=== PATIENT | male | born 1950 | race Caucasian/White ===

== ENCOUNTER 2019-06-21 23:04 | Emergency (ER) | payer MEDICARE, SELFPAY ==
[2019-06-21 23:08] VITALS: BP 194/93; PULSE 78; RESP 16; TEMP 36.6; O2SAT 98; BMI 36.2
[2019-06-22 00:52] VITALS: BP 184/91; PULSE 80; RESP 16; O2SAT 97
--- NOTE | 2019-06-22 01:00 | PC.NURSE ---
Pt's scrotum and penis is noted to be red and raw with no tenderness.
--- NOTE | 2019-06-22 01:05 | ED_ITS ---
HPI - Male Genitourinary General: Chief complaint: Urogenital-Male Stated complaint: GENITAL SWELLING/BURNING Time Seen by Provider: 06/22/19 00:33 History of Present Illness: HPI Narrative: patient had redness and tenderness on the skin of the penis. It started a couple weeks ago when patient developed a UTI. It was treated with an antibiotic and patient symptoms did improve. States his frequency has improved after being treated for UTI but he has develo ped this red irritation on the skin. Patient states he's been applying several creams to the area that doesn't seem to be helping. Patient also says that he puts paper towels in his underwear to catch some of the dribbling and keeps genital area dry. Patient says since he started placing the paper towels in the underwear it has got worse. Denies any discharge but patient says area is red and tender and irritated. Denies any fever, chills, flank pain, abdominal pain, nausea, vomiting, chest pain, shortness of breath, upper respiratory symptoms, blood in the urine or bowel issues. Review of Systems General: Reports: 10 or more systems reviewed and unremarkable except in HPI and below PFSH ED PFSH: Statuses (acute, chronic, etc) shown below reflect problem list status as previously entered and may not be historically accurate Social History Smoking and tobacco status: never smoked Physical Exam Const: COMMON NORMALS: oriented x3 HENMT: COMMON NORMALS: normocephalic HEAD & SCALP: normocephalic MOUTH: oral and palatal mucosa normal THROAT: posterior oropharynx normal and uvula midline Neck/C-Spine: COMMON NORMALS: supple GENERAL: Yes normal visual inspection Resp: COMMON NORMALS: normal respiratory effort, no retractions, no use of accessory muscles and clear to auscultation bilaterally AUSCULTATION: clear to auscultation bilaterally Cardio: COMMON NORMALS: regular rate, regular rhythm, S1 normal heart sound, S2 normal heart sound, no gallops, no clicks, no murmurs and peripheral pulses 2+ throughout RATE: regular rate RHYTHM: regular rhythm HEART SOUNDS: S1 normal and S2 normal PERIPHERAL PULSES: pulses 2+ throughout GI: COMMON NORMALS: normal to inspection, nondistended, normoactive bowel sounds, soft to palpation, non-tender and no masses PALPATION: Yes soft : COMMON NORMALS: Yes no CVA tenderness BLADDER/KIDNEY EXAM: Yes no CVA tenderness MALE GROIN/PERINEUM EXAM: Yes erythema, No lesions and Yes tenderness (Mild tenderness and erythema of the glans penis and shaft. ) PENIS: circumcised, erythematous, no ulcerations and No lesions Back/Pelvis: COMMON NORMALS: no CVA tenderness Neuro: COMMON NORMALS: oriented x3 Course Vital Signs: Vital signs: Vital Signs Temperature 98 F 06/21/19 23:08 Pulse Rate 65 06/22/19 02:41 Respiratory Rate 16 06/22/19 02:41 Blood Pressure 146/62 06/22/19 02:41 Pulse Oximetry 96 06/22/19 02:41 MDM - Male Lab Data: Labs: Lab Results 06/22/19 Range/Units 00:34 Urine Color Yellow (Yellow) Urine Appearance Clear (CLEAR) Urine pH 5 (5-7) Ur Specific Gravit y 1.015 (1.005-1.030) Urine Protein Neg (Negative) Urine Glucose (UA) 4+ H (Normal) Urine Ketones Negative (Negative) Urine Occult Blood Neg (Negative) Urine Nitrate Negative (Negative) Urine Bilirubin Neg (NEGATIVE) Urine Urobilinogen Norm (Negative) mg/dL Ur Leukocyte Pina ase Negative (Negative) Discharge Plan Discharge Patient Disposition: Home, Self-Care Clinical Impression: Balanitis Condition: Good Prescriptions: New Cortisone (hydrocortisone) 1 % cream 1 applic TOPICAL BID Qty: 28 RF: 0 Discharge Orders: Discharge Order (Routine); Ordered 06/22/19 Ordered By: Jd Pierre Referrals: Lily Osorio, [employer] [Primary Care Provider] - Discharge Diet: Regular Discharge Activity: Resume usual activity Activity Restrictions/Additional Instructions: Follow-up with your primary care doctor in 7 days for reevaluation. Apply prescribed steroid cream 1-2 times daily for the next 7 days. Do not apply any other creams or ointments to the genital area. Also do not use paper towels and the genitals area as well. Do not apply any other moisturizers to the genital area. Discharge Date/Time: 06/22/19 02:47 Coding Level of Care Code ED Concession Supervisor for Thang Mejia
[2019-06-22 02:13] VITALS: BP 161/78; PULSE 66; RESP 16; O2SAT 94
[2019-06-22 02:13] LABS: Add Urine Microscopic? NO
[2019-06-22 02:30] LABS: Blood Urine Neg (Negative); Ketones Urine Negative (Negative); Nitrate Urine Negative (Negative); Protein Urine Neg (Negative); Specific Gravity, Urine 1.015 (1.005-1.030); Urine Appearance Clear (CLEAR); Urine Color Yellow (Yellow); pH Urine 5 (5-7)
[2019-06-22 02:31] LABS: Add Urine Culture? No; Bilirubin Urine Neg (NEGATIVE); Glucose Urine UA 4+ (Normal); Leukocyte Esterase Urine Negative (Negative); Urobilinogen Urine Norm (Negative)
[2019-06-22 02:41] VITALS: BP 146/62; PULSE 65; RESP 16; O2SAT 96
== END 2019-06-22 02:47 | disposition home or self-care (01) ==
PROVIDERS: Emergency Provider Physician Assistant; Family Provider Nurse Practitioner; PCP Nurse Practitioner
DX: N48.1 Balanitis (principal)
CPT/HCPCS: 81003; 99282

== ENCOUNTER → 2019-06-24 14:07 | Outpatient (BNVA) | payer MEDICARE, SELFPAY | PROVIDERS: Family Provider Nurse Practitioner; PCP Nurse Practitioner; Visit Provider Nurse Practitioner Family | DX: R21 Rash and other nonspecific skin eruption (principal); E11.9 Type 2 diabetes mellitus without complications | CPT/HCPCS: 83036 ==

== ENCOUNTER → 2020-03-16 17:08 | Outpatient (BNVA) | payer MEDICARE, SELFPAY | PROVIDERS: Family Provider Nurse Practitioner; PCP Nurse Practitioner; Visit Provider Family Medicine | DX: R30.0 Dysuria (principal) | CPT/HCPCS: 80053; 87086 ==

== ENCOUNTER 2020-05-03 11:28 | Inpatient (IN) | payer MEDICARE, SELFPAY ==
[2020-05-03 11:43] VITALS: BMI 35.2
--- NOTE | 2020-05-03 12:30 | W.ED.SKABFB ---
Documented by User: BRINA Chan 05/03/20 16:55 HPI - Skin/Abscess/Foreign Bdy General: Chief complaint: Skin/Abscess/Foreign Body Stated complaint: INFECTION IN LOWER RIGHT SIDE OF ABD Time Seen by Provider: 05/03/20 11:58 History of Present Illness: HPI narrative: Patient is a 70-year-old male who comes to the ED with possible abscess on lower abdomen. Patient says abscess started a couple months ago and it was just small, tender and red area that had a pugh. Then increased in size and patient saw his PCP and put him on doxycycline. He says that the doxycycline was helping the abscess and trunk the size of it down significantly. Patient says he did not finish doxycycline course because he heard some negative side effects about the medication. He says after he stopped taking doxycycline over the past month the abscess is gotten bigger and bigger again. He says that he has lost over 100 pounds over the past couple years and has extra skin in his lower abdomen and he thinks that is what caused start of abscess. Endorses having a fever within the last month but currently does not. Associated symptoms: Deny chills, fever(s), nausea or vomiting Review of Systems Const: Denies: fever(s), chills or fatigue Eyes: Denies: change in vision or eye discomfort ENMT: Denies: throat pain, odynophagia, nasal discharge or nasal congestion Card: Denies: chest pain, palpitations, edema, swelling of feet/ankles, dyspnea on exertion or orthopnea Resp: Denies: dyspnea, productive cough or non-productive cough GI: Denies: abdominal pain, nausea, vomiting, diarrhea, constipation or hematochezia : Denies: flank pain, difficulty urinating, dysuria or hematuria Musc: Denies: neck pain, back pain or extremity swelling Skin/Breast: Reports: erythema (Lower abdomen), skin tenderness (Lower abdomen.) and new lesions (Abscess in lower abdomen.); Denies: rash Neuro: Denies: headache(s), numbness in extremities or weakness in extremities PFS ED PFSH: Medical History DDD (degenerative disc disease) Diabetes Refusal of statin medication by patient Short-term memory loss Surgical History History of hernia repair Family History Other Diabetes Social History Smoking and tobacco status: never smoked Alcohol intake: never Substance/Drug Use: never Lives independently: Yes Household members: none Marital status: Current 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 Pets and animals: Yes Physical Exam Const: COMMON NORMALS: no acute distress, patient oriented x3, healthy appearing and alert GENERAL APPEARANCE: cooperative and comfortable HENMT: COMMON NORMALS: normocephalic HEAD & SCALP: normocephalic MOUTH: Normal oral and palatal mucosa present THROAT: posterior oropharynx normal and uvula midline Neck/C-Spine: COMMON NORMALS: supple GENERAL: Yes normal visual inspection Resp: COMMON NORMALS: normal respiratory effort, No retractions, No use of accessory muscles and clear to auscultation bilaterally AUSCULTATION: clear to auscultation bilaterally Cardio: COMMON NORMALS: regular rate, regular rhythm, S1 normal heart sound present, S2 normal heart sound present, No gallops present (Cardio), No clicks present (Cardio), No murmurs present (Cardio) and Peripheral pulses 2+ throughout RATE: regular rate RHYTHM: regular rhythm HEART SOUNDS: S1 normal heart sound present and S2 normal heart sound present PERIPHERAL PULSES: Peripheral pulses 2+ throughout GI: COMMON NORMALS: Normal to inspection, nondistended, normoactive bowel sounds present, Soft to palpation and no masses INSPECTION: Yes central obesity and Yes Abdominal panniculus present PALPATION: Yes Soft to palpation and Yes Tenderness to palpation present (GI) (Lower abdominal tenderness when palpating over abscess region.) OTHER: Patient has large, hard, tender 15 cm nodule that is fluctuant and not indurated. There is surrounding erythema and warmth. No visible drainage. This appears to be a rather large abscess in the lower abdomen. : COMMON NORMALS: Yes no CVA tenderness BLADDER/KIDNEY EXAM: Yes no CVA tenderness Back/Pelvis: COMMON NORMALS: no CVA tenderness Extremity: COMMON NORMALS: normal to inspection and no pedal edema Neuro: COMMON NORMALS: patient oriented x3 and moves all extremities SENSORIUM/ORIENTATION: Yes alert Skin: NARRATIVE SKIN EXAM: Patient has large, hard, tender 20 cm nodule that is fluctuant and not indurated. There is surrounding erythema and warmth. No visible drainage. This appears to be a rather large abscess in the lower abdomen. Course ED course: I performed an bedside ultrasound to take a look at abscess. There appeared to be a large fluid pocket upon ultrasound exam. Abscess seems to large to be dealt with here in the ED. I went in and discussed case with Dr. Hess and he came in evaluated abscess as well. He recommended starting IV vancomycin and getting an ultrasound of the abdomen to get a better evaluation of abscess. CT of abdomen was also ordered and it showed a 10 x 5 subcutaneous fluid collection on anterior right pelvic wall and right inguinal region. Possibly abscess hematoma or seroma. I told Dr. Hess about findings and he will be contacting hospitalist for patient to be admitted on IV antibiotics and likely general surgery consult. Vital Signs: Vital signs: Vital Signs Temperature 98.2 F 05/03/20 21:01 Pulse Rate 84 05/03/20 21:01 Respiratory Rate 18 05/03/20 21:01 Blood Pressure 134/72 05/03/20 21:01 Pulse Oximetry 97 05/03/20 21:01 MDM - Skin/Abscess/Foreign Bdy Lab Data: Attestation: I reviewed the patient's lab results. Labs: Lab Results 05/03/20 05/03/20 05/03/20 Range/Units 12:06 12:06 12:06 WBC 12.7 H (4.0-10.0) 10^3/ uL RBC 4.59 (4.1-5.3) 10^6/u L Hgb 14.5 (11.7-16.6) g/dL Hct 42.9 (42.0-52.0) % MCV 93.5 (80-94) fL MCH 31.6 (28.0-34.0) pg MCHC 33.8 (30.0-36.0) g/dL RDW 11.4 L (12.1-15.1) % Plt Count 337 (130-400) 10^3/c mm MPV 9.8 (7.4-10.4) fL Neut % (Auto) 86.5 % Lymph % (Auto) 6.2 % [place] % (Auto) 6.1 % Eos % (Auto) 0.5 % Baso % (Auto) 0.3 % Neut # (Auto) 11.01 H (1.8-7.7) 10^3/u L Lymph # (Auto) 0.8 (0.8-4.8) 10^3/u L [place] # (Auto) 0.8 (0.2-0.9) 10^3/u L Eos # (Auto) 0.1 (0.0-0.8) 10^3/u L Baso # (Auto) 0.0 (0.0-0.1) 10^3/u L Nucleated RBC % (a uto) 0 % Nucleated RBCs # 0.0 /100WBC Sodium 128 L (136-145) mmol/L Potassium 4.2 (3.5-5.1) mmol/L Chloride 92 L (98-107) mmol/L Carbon Dioxide 25 (22-29) mmol/L Anion Gap 15.2 (5-19) BUN 16 (8-23) mg/dL Creatinine 0.7 (0.7-1.2) mg/dL GFR Calculation Not Reportable Glucose 318 H (65-115) mg/dL Calculated Osmolal ity 279 L (285-295) mOsm/k g Lactic Acid 1.2 (0.5-2.2) mmol/L Calcium 8.7 (8.5-10.5) mg/dL Total Bilirubin 0.8 (0.15-1.2) mg/dL AST 8 (0-40) U/L ALT 7 (0-41) U/L Alkaline Phosphata se 96 (40-130) IU/L C-Reactive Protein 141.5 H (0.0-4.9) mg/L Total Protein 7.1 (6.6-8.7) g/dL Albumin 3.5 (3.5-5.2) g/dL Globulin 3.6 (1.3-4.6) g/dL Imaging Data^: US: Attestation: I personally reviewed and interpreted this imaging study as follows: Radiologist's impression: [address] [address] Ultrasound Report Signed Patient: Justice Guardado Unit #: [id number] : 1950 Age/Sex: 70 / M ADM Date: 05/03/20 Loc: ER Room/Bed: Attending Dr: Ordering Provider/Ordering MD: Jd Pierre Date of Service: 05/03/20 Procedure(s): US abdomen limited [id number] Accession Number(s): [id number] Report Number: [id number] WS: [id number] Limited abdomen ultrasound. HISTORY: Abscess lower abdominal wall. Ultrasound is directed to the lower RIGHT abdominal wall in the area of the redness and erythema. There is an ill-defined collection within the subcutaneous soft tissues of the RIGHT lower abdominal wall. This collection extends over length of 7.5 cm x 9.4 x 3.7 cm. The burkett are irregularly formed and there are low level echoes throughout with only a few scattered cystic areas within this collection. The burkett are ill-defined. US/US abdomen limited [id number] IMPRESSION: 1. Large phlegmonous inflammatory collection in the subcutaneous soft tissues RIGHT lower abdomen. Not well formed at this time to suggest an abscess. Dictated By: Meliza Mcnulty DO Signed By: Meliza Mcnulty DO Signed Date/Time: 05/03/20 1452 DD/ 1450 CT Abd/Pel: Attestation: I personally reviewed and interpreted this imaging study as follows: Radiologist's impression: [address] [address] [address] Scan Report Signed Patient: Justice Guardado Unit #: [id number] : 1950 Age/Sex: 70 / M ADM Date: 05/03/20 Loc: ER Room/Bed: Attending Dr: Ordering Provider/Ordering MD: Jd Pierre Date of Service: 05/03/20 Procedure(s): CT abdomen pelvis w con* [id number] Accession Number(s): [id number] Report Number: [id number] WS: [id number] Exam: CT abdomen pelvis w con* [id number] Date/Time of Exam: 05/03/2020 4:23 PM Reason For Exam: abscess in abdomen DLP: 1805.[address] scans at use at least one of these dose optimization techniques: automated exposure control; mA and/or kV adjustment per patient size (includes targeted exams where dose is matched to clinical indication); or iterative reconstruction. Lower lung zones are clear. There are 2 subcentimeter low attenuation densities in the right lobe of the liver that are too small to characterize but could represent tiny cysts. The liver is otherwise normal in appearance. No calcified stones in the gallbladder. The spleen, stomach and pancreas appear normal. There is a 2.3 cm left renal cyst. There are also at least 2 other subcentimeter cysts in the left kidney. Normal right kidney. Normal adrenal glands. The abdominal aorta is normal in caliber. The portal vein and IVC are patent. Small bowel loops are not dilated. No free air. No lymphadenopathy. Normal appendix visualized. Several scattered diverticuli in the sigmoid colon. No mass or adenopathy in the pelvis. Intact urinary bladder. A 10 x 5.5 cm complex septated soft tissue fluid collection is seen in the anterior right pelvic wall in the right inguinal region. This could represent an abscess, hematoma or seroma. There is also skin thickening and inflammation in this region suggesting cellulitis. There is also a tiny periumbilical ventral hernia which appears to contain a small amount of fluid. Signs of previous ventral hernia repair. No destructive bone lesions. CT/CT abdomen pelvis w con* [id number] IMPRESSION: 1. 10 x 5.5 cm complex septated subcutaneous fluid collection in the anterior right pelvic wall in the right inguinal region. The collection measures 21 Hounsfield units. This could represent an abscess, hematoma or seroma. There is associated cellulitis of the right and central abdominal wall in this region. The fluid collection is in a large panniculus. 2. No mass, lymphadenopathy or acute finding within the abdomen or pelvis. Additional minor findings as above. Dictated By: Rufino Mar DO Signed By: Rufino Mar DO Signed Date/Time: 05/03/20 1644 DD/ 1632 Discharge Plan Discharge Patient Disposition: Admitted As Inpatient Admit Provider: London Miguel Sign Out Sign Out Data: Patient Sign Out occurred on 05/03/20 at 17:15. Patient's care was discussed, and care was transferred from to GUILLERMO Acevedo. Coding Level of Care Code ED Precision Instrument Maker And Repairer for Chg Fwd Exam Comprehensive Documented by User: GUILLERMO Acevedo 05/03/20 19:18 HPI - Skin/Abscess/Foreign Bdy General: Chief complaint: Skin/Abscess/Foreign Body Stated complaint: INFECTION IN LOWER RIGHT SIDE OF ABD Time Seen by Provider: 05/03/20 11:58 PFSH ED PFSH: Medical History DDD (degenerative disc disease) Diabetes Refusal of statin medication by patient Short-term memory loss Surgical History History of hernia repair Family History Other Diabetes Social History Smoking and tobacco status: never smoked Alcohol intake: never Substance/Drug Use: never Lives independently: Yes Household members: none Marital status: Current 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 Pets and animals: Yes Course Vital Signs: Vital signs: Vital Signs Temperature 98.2 F 05/03/20 21:01 Pulse Rate 84 05/03/20 21:01 Respiratory Rate 18 05/03/20 21:01 Blood Pressure 134/72 05/03/20 21:01 Pulse Oximetry 97 05/03/20 21:01 MDM - Skin/Abscess/Foreign Bdy Lab Data: Labs: Lab Results 05/03/20 05/03/20 05/03/20 Range/Units 12:06 12:06 12:06 WBC 12.7 H (4.0-10.0) 10^3/ uL RBC 4.59 (4.1-5.3) 10^6/u L Hgb 14.5 (11.7-16.6) g/dL Hct 42.9 (42.0-52.0) % MCV 93.5 (80-94) fL MCH 31.6 (28.0-34.0) pg MCHC 33.8 (30.0-36.0) g/dL RDW 11.4 L (12.1-15.1) % Plt Count 337 (130-400) 10^3/c mm MPV 9.8 (7.4-10.4) fL Neut % (Auto) 86.5 % Lymph % (Auto) 6.2 % [place] % (Auto) 6.1 % Eos % (Auto) 0.5 % Baso % (Auto) 0.3 % Neut # (Auto) 11.01 H (1.8-7.7) 10^3/u L Lymph # (Auto) 0.8 (0.8-4.8) 10^3/u L [place] # (Auto) 0.8 (0.2-0.9) 10^3/u L Eos # (Auto) 0.1 (0.0-0.8) 10^3/u L Baso # (Auto) 0.0 (0.0-0.1) 10^3/u L Nucleated RBC % (a uto) 0 % Nucleated RBCs # 0.0 /100WBC Sodium 128 L (136-145) mmol/L Potassium 4.2 (3.5-5.1) mmol/L Chloride 92 L (98-107) mmol/L Carbon Dioxide 25 (22-29) mmol/L Anion Gap 15.2 (5-19) BUN 16 (8-23) mg/dL Creatinine 0.7 (0.7-1.2) mg/dL GFR Calculation Not Reportable Glucose 318 H (65-115) mg/dL Calculated Osmolal ity 279 L (285-295) mOsm/k g Lactic Acid 1.2 (0.5-2.2) mmol/L Calcium 8.7 (8.5-10.5) mg/dL Total Bilirubin 0.8 (0.15-1.2) mg/dL AST 8 (0-40) U/L ALT 7 (0-41) U/L Alkaline Phosphata se 96 (40-130) IU/L C-Reactive Protein 141.5 H (0.0-4.9) mg/L Total Protein 7.1 (6.6-8.7) g/dL Albumin 3.5 (3.5-5.2) g/dL Globulin 3.6 (1.3-4.6) g/dL Discharge Plan Discharge Patient Disposition: Admitted As Inpatient Admit Provider: London Miguel Sign Out Sign Out Data: Patient Sign Out occurred on 05/03/20 at 17:15. Patient's care was discussed, and care was transferred from to GUILLERMO Acevedo. Coding Level of Care Code ED Precision Instrument Maker And Repairer for Chg Fwd Exam Comprehensive Documented by User: Elmer Hess MD, [facility] [place] 05/04/20 00:42 HPI - Skin/Abscess/Foreign Bdy General: Chief complaint: Skin/Abscess/Foreign Body Stated complaint: INFECTION IN LOWER RIGHT SIDE OF ABD Time Seen by Provider: 05/03/20 11:58 PFSH ED PFSH: Medical History DDD (degenerative disc disease) Diabetes Refusal of statin medication by patient Short-term memory loss Surgical History History of hernia repair Family History Other Diabetes Social History Smoking and tobacco status: never smoked Alcohol intake: never Substance/Drug Use: never Lives independently: Yes Household members: none Marital status: Current 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 I evaluated this patient and he has a pretty large area of induration on his right lower abdominal wall extending to the inguinal region. The area is erythematous, warm, tender. No fluctuance noted. Area measures about 10 x 15 cm. Because of the size of the abscess the patient will need surgical exploration and he is admitted to the hospitalist service with consult by the general surgeon. He was started on intravenous vancomycin in the emergency department. No signs of sepsis in this gentleman. He is a prediabetic according to him. Lab Data: Labs: Lab Results 05/03/20 05/03/20 05/03/20 Range/Units 12:06 12:06 12:06 WBC 12.7 H (4.0-10.0) 10^3/ uL RBC 4.59 (4.1-5.3) 10^6/u L Hgb 14.5 (11.7-16.6) g/dL Hct 42.9 (42.0-52.0) % MCV 93.5 (80-94) fL MCH 31.6 (28.0-34.0) pg MCHC 33.8 (30.0-36.0) g/dL RDW 11.4 L (12.1-15.1) % Plt Count 337 (130-400) 10^3/c mm MPV 9.8 (7.4-10.4) fL Neut % (Auto) 86.5 % Lymph % (Auto) 6.2 % [place] % (Auto) 6.1 % Eos % (Auto) 0.5 % Baso % (Auto) 0.3 % Neut # (Auto) 11.01 H (1.8-7.7) 10^3/u L Lymph # (Auto) 0.8 (0.8-4.8) 10^3/u L [place] # (Auto) 0.8 (0.2-0.9) 10^3/u L Eos # (Auto) 0.1 (0.0-0.8) 10^3/u L Baso # (Auto) 0.0 (0.0-0.1) 10^3/u L Nucleated RBC % (a uto) 0 % Nucleated RBCs # 0.0 /100WBC Sodium 128 L (136-145) mmol/L Potassium 4.2 (3.5-5.1) mmol/L Chloride 92 L (98-107) mmol/L Carbon Dioxide 25 (22-29) mmol/L Anion Gap 15.2 (5-19) BUN 16 (8-23) mg/dL Creatinine 0.7 (0.7-1.2) mg/dL GFR Calculation Not Reportable Glucose 318 H (65-115) mg/dL Calculated Osmolal ity 279 L (285-295) mOsm/k g Lactic Acid 1.2 (0.5-2.2) mmol/L Calcium 8.7 (8.5-10.5) mg/dL Total Bilirubin 0.8 (0.15-1.2) mg/dL AST 8 (0-40) U/L ALT 7 (0-41) U/L Alkaline Phosphata se 96 (40-130) IU/L C-Reactive Protein 141.5 H (0.0-4.9) mg/L Total Protein 7.1 (6.6-8.7) g/dL Albumin 3.5 (3.5-5.2) g/dL Globulin 3.6 (1.3-4.6) g/dL Discharge Plan Discharge Patient Disposition: Admitted As Inpatient Admit Provider: London Miguel Sign Out Sign Out Data: Patient Sign Out occurred on 05/03/20 at 17:15. Patient's care was discussed, and care was transferred from to GUILLERMO Acevedo. Coding Level of Care Code ED Precision Instrument Maker And Repairer for g Fwd Exam Comprehensive
[2020-05-03 12:31] LABS: Basophils % 0.3 %; Eosinophils # 0.1 10^3/uL (0.0-0.8); Eosinophils % 0.5 %; Hematocrit 42.9 % (42.0-52.0); Hemoglobin 14.5 g/dL (11.7-16.6); Lymphocytes # 0.8 10^3/uL (0.8-4.8); Lymphocytes % 6.2 %; Mean Corpuscular HGB Conc 33.8 g/dL (30.0-36.0); Mean Corpuscular Hemoglobin 31.6 pg (28.0-34.0); Mean Corpuscular Volume 93.5 fL (80-94); Mean Platelet Volume 9.8 fL (7.4-10.4); Monocytes # 0.8 10^3/uL (0.2-0.9); Monocytes % 6.1 %; Neutrophils # 11.01 10^3/uL (1.8-7.7); Neutrophils % 86.5 %; Nucleated Red Blood Cells % 0 %; Platelet Count 337 10^3/cmm (130-400); Red Blood Count 4.59 10^6/uL (4.1-5.3); Red Cell Distribution Width 11.4 % (12.1-15.1); White Blood Count 12.7 10^3/uL (4.0-10.0)
[2020-05-03 12:42] LABS: Alanine Aminotransferase 7 U/L (0-41); Albumin Level 3.5 g/dL (3.5-5.2); Alkaline Phosphatase 96 IU/L (40-130); Aspartate Amino Transferase 8 U/L (0-40); Blood Urea Nitrogen 16 mg/dL (8-23); C Reactive Protein 141.5 mg/L (0.0-4.9); Calcium 8.7 mg/dL (8.5-10.5); Carbon Dioxide 25 mmol/L (22-29); Chloride 92 mmol/L (98-107); Globulin 3.6 g/dL (1.3-4.6); Glucose 318 mg/dL (65-115); Osmolality Calculated 279 mOsm/kg (285-295); Sodium 128 mmol/L (136-145); Total Bilirubin 0.8 mg/dL (0.15-1.2); Total Protein 7.1 g/dL (6.6-8.7)
[2020-05-03 12:43] LABS: Lactic Sepsis W/Reflex 1.2 mmol/L (0.5-2.2)
[2020-05-03 12:45] LABS: Anion Gap 15.2 (5-19); Potassium 4.2 mmol/L (3.5-5.1)
--- NOTE | 2020-05-03 12:51 | US_ITS ---
WS: [id number] Limited abdomen ultrasound. HISTORY: Abscess lower abdominal wall. Ultrasound is directed to the lower RIGHT abdominal wall in the area of the redness and erythema. There is an ill-defined collection within the subcutaneous soft tissues of the RIGHT lower abdominal wall. This collection extends over length of 7.5 cm x 9.4 x 3.7 cm. The burkett are irregularly formed and there are low level echoes throughout with only a few scattered cystic areas within this collecti on. The burkett are ill-defined. US/US abdomen limited [id number] IMPRESSION: 1. Large phlegmonous inflammatory collection in the subcutaneous soft tissues R IGHT lower abdomen. Not well formed at this time to suggest an abscess.
[2020-05-03] MEDS: sodium chloride 0.9% 500 ML IV (13:40)
[2020-05-03] MEDS: vancomycin 1,500 MG/300 ML PIGGYBACK 150 MG IV (13:40)
[2020-05-03 14:05] VITALS: BP 162/92; O2SAT 98
--- NOTE | 2020-05-03 15:10 | CT_ITS ---
WS: [id number] Exam: CT abdomen pelvis w con* [id number] Date/Time of Exam: 05/03/2020 4:23 PM Reason For Exam: abscess in abdomen DLP: 1805.[address] scans at [facility] use at least one of these dose optimization techniques: automat ed exposure control; mA and/or kV adjustment per patient size (includes targeted exams where dose is matched to clinical indication); or iterative reconstruction. Lower lung zones are clear. There are 2 subcentimeter low attenuation densities in the right lobe of the liver that are too small to characterize but could represent tiny cysts. The liver is otherwise n ormal in appearance. No calcified stones in the gallbladder. The spleen, stomach and pancreas appear normal. There is a 2.3 cm left renal cyst. There are also at least 2 other subcentimeter cysts in the left kidney. Normal right kidney. Normal adrenal glands. The abdominal aorta is normal in caliber. T he portal vein and IVC are patent. Small bowel loops are not dilated. No free air. No lymphadenopathy . Normal appendix visualized. Several scattered diverticuli in the sigmoid colon. No mass or adenopat hy in the pelvis. Intact urinary bladder. A 10 x 5.5 cm complex septated soft tissue fluid collection is seen in the anterior right pelvic wall in the right inguinal region. This could represent an absc ess, hematoma or seroma. There is also skin thickening and inflammation in this region suggesting keven lulitis. There is also a tiny periumbilical ventral hernia which appears to contain a small amount of fluid. Signs of previous ventral hernia repair. No destructive bone lesions. CT/CT abdomen pelvis w con* [id number] IMPRESSION: 1. 10 x 5.5 cm complex septated subcutaneous fluid collection in the anterior r ight pelvic wall in the right inguinal region. The collection measures 21 Houns field units. This could represent an abscess, hematoma or seroma. There is asso ciated cellulitis of the right and central abdominal wall in this region. The f luid collection is in a large panniculus. 2. No mass, lymphadenopathy or acute finding within the abdomen or pelvis. Abdiel tional minor findings as above.
[2020-05-03] MEDS: iohexol 300 mg/mL 100 mL Btl IV (16:24)
[2020-05-03 17:12] VITALS: BP 143/82; O2SAT 98
[2020-05-03 17:16] VITALS: PULSE 87; RESP 18; TEMP 36.9; O2SAT 97
--- NOTE | 2020-05-03 18:26 | PC.NURSE ---
pt report called to Cynthia EMERY in SBAR format.
--- NOTE | 2020-05-03 19:44 | P.HP_ITS ---
Providers/Chief Complaint Admitting Physician: London Miguel Primary Care Provider: Lily Osorio, PACO-Jessica Chief Complaint: INFECTION IN LOWER RIGHT SIDE OF ABD History of Present Illness 70-year-old gentleman with history of diabetes, taking Metformin at home, but discontinued it for some time due to concern about the medication expressed by his friend who is a tobacco prevention health educator, noted for several weeks developing redness and swelling of the right side of his pannus and under the pannus. He had lost quite significant amount of weight, and has quite a bit of excess skin with a large pannus, and states has had some predisposition to infection developing underneath. He states that he had taken 10 days of antibiotic which appears to be ciprofloxacin, prescribed to him by outpatient physician, and without resolution of his symptoms. In ER noted erythema of the right side of the abdomen and the edge and under the pannus, and with central area of swelling, with noted large phlegmonous inflammatory collection in the subcutaneous soft tissues of the right lower abdomen, on ultrasound, reported not well formed. CT scan reveals 10 x 5.5 cm complex septated subcutaneous fluid collection in anterior right pelvic wall in right inguinal region, collection representing ab scess hematoma or seroma. Associated cellulitis of right and central abdominal wall in the region. The collection is in a large pannus. 2 additional incidental findings are noted. He denies any direct trauma to the abdomen. 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 The son does state that he may have gotten a scratch from a kitten on the right side of the abdomen sometime before the onset of symptoms. He does report history of abdominal hernia repair with mesh done by Dr. Donohue in the past. He is noted to have leukocytosis 12.7, but otherwise he is not tachycardic or febrile to suggest sepsis. Noted elevated glucose 318, noted hyponatremia sodium 128. CRP 141.5. In ER he received a dose of vancomycin after collection of blood cultures. Surgery was consulted for assessment for I&D. Review of Systems General: Reports: Other (He states he otherwise has been in baseline state of health.) Const: Denies: fever(s), chills, body aches or malaise Eyes: Denies: change in vision or eye redness ENMT: Denies: throat pain, oral sores or ear or mastoid pain Card: Denies: chest pain, edema, pre-syncope or dyspnea on exertion Resp: Denies: dyspnea, productive cough, change in phlegm color or hemoptysis GI: Denies: abdominal pain, nausea, vomiting, diarrhea, constipation, hematochezia or melena : Denies: flank pain, difficulty urinating, urinary frequency or hematuria Musc: Denies: back pain, joint swelling or joint redness Skin/Breast: Reports: rash and skin swelling; Denies: sores or new lesions Neuro: Denies: headache(s), numbness in extremities, weakness in extremities, dizziness, confusion or seizure-like activity Endo: Denies: polyuria or polydipsia Tevin/Lymph: Denies: easy bleeding or purpura All/Imm: Denies: urticaria, throat swelling or tongue swelling Medications/Allergies Home Medications Medication Instructions Recorded Confirmed Last Taken Type metformin 500 mg tablet 1,000 mg PO BID #120 tab 03/16/20 05/03/20 05/02/20 Rx Allergies Allergy/AdvReac Type Severity Reaction Status Date / Time No Known Allergies Allergy Verified 05/03/20 12:31 PFSH Acute PFSH: Medical History DDD (degenerative disc disease) Diabetes Refusal of statin medication by patient Short-term memory loss Surgical History History of hernia repair Family History Other Diabetes Social History Smoking and tobacco status: never smoked Alcohol intake: never Substance/Drug Use: never Lives independently: Yes Household members: none Marital status: Current 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 Pets and animals: Yes Vitals/I&O/Wt Last Vital Signs Temp 98.4 F 05/03/20 17:16 Pulse 87 05/03/20 17:16 Resp 18 05/03/20 17:16 BP 143/82 05/03/20 17:12 Pulse Ox 97 05/03/20 17:16 Weight last 48 hrs Weight 117.934 kg Physical Exam Const: COMMON NORMALS: no acute distress, patient oriented x3 and alert GENERAL APPEARANCE: cooperative NUTRITIONAL APPEARANCE: obese ORIENTATION/CONSCIOUSNESS: Yes awake OTHER: Pleasant, conversant. Son at bedside. HENMT: COMMON NORMALS: oropharynx normal Neck/C-Spine: COMMON NORMALS: no JVD Resp: COMMON NORMALS: normal respiratory effort and clear to auscultation bilaterally AUSCULTATION: clear to auscultation bilaterally Cardio: COMMON NORMALS: no JVD, regular rhythm, S1 normal heart sound present, S2 normal heart sound present and No murmurs present (Cardio) RHYTHM: regular rhythm HEART SOUNDS: S1 normal heart sound present and S2 normal heart sound present GI: COMMON NORMALS: Normal to inspection, nondistended, normoactive bowel sounds present, Soft to palpation and non-tender PALPATION: Yes Soft to palpation Extremity: COMMON NORMALS: no joint enlargement and no pedal edema Neuro: COMMON NORMALS: patient oriented x3 and moves all extremities Skin: COMMON NORMALS: no rashes or lesions noted GENERAL SKIN EXAM: no rashes or lesions noted OTHER: Large area of erythema at the edge and under right side of the pannus, with induration, and central area of swelling. No ulceration or drainage is noted. Data : 05/03/20 12:06 05/03/20 12:06 Micro: Microbiology 05/03/20 12:42 Blood Culture - Preliminary Blood SPECIMEN COLLECTED 05/03/20 12:56 Blood Culture - Preliminary Blood SPECIMEN COLLECTED A&P Assessment and plan (1) Cellulitis and abscess of other specified site: Cellulitis and abscess of large pannus on the right side of the abdomen. Failed to respond to outpatient course of antibiotics. Blood cultures collected, does not fit sepsis criteria. Started on vancomycin. Surgery consult for assessment for I&D. Status: Acute (2) Diabetes: Reports she had stopped Metformin a while back due to concerns expressed by his friend. He feels like he should have continue taking it. Glucose is elevated. Sliding scale insulin while in the hospital. Consistent carbohydrate diet. We will check A1c. Status: Acute Qualifiers: Diabetes mellitus type: type 2 Diabetes mellitus halfway insulin use: with adjunct faculty for medical terminology use Diabetes mellitus complication status: with hyperglycemia Qualified Code(s): E11.65 - Type 2 diabetes mellitus with hyperglycemia; Z79.4 - [facility] (current) use of insulin (3) Hyponatremia: Sodium 128. He is hyperglycemic. Corrected sodium 131. [place] salt intake at this time. Monitor. May be related to acute infection. Status: Acute Attestations Medical Necessity Statement*: Admission of over 2 midnights is going to be needed for assessment management of cellulitis and abscess in a gentleman with compromised immune system with diabetes, obesity, and with failed outpatient treatment with antibiotics. Coding Level of Care Code Acute Sql Database Administrator for [facility] Diagnoses Cellulitis and abscess of other specified site L03.818; L02.818 Diabetes E11.65; Z79.4 Diabetes mellitus type: type 2 Diabetes mellitus adjunct faculty for medical terminology insulin use: with adjunct faculty for medical terminology use Diabetes mellitus complication status: with hyperglycemia Hyponatremia E87.1
[2020-05-03 21:01] VITALS: BP 134/72; PULSE 84; RESP 18; TEMP 36.8; O2SAT 97
[2020-05-03 21:12] LABS: Glucose Point of Care 203 mg/dL (70-110)
[2020-05-04] VITALS (17 sets, daily range): BP systolic 127–160; BP diastolic 26–78; PULSE 71–107; RESP 15–20; TEMP 36.3–37.1; O2SAT 96–100
--- NOTE | 2020-05-04 00:57 | PC.PHAR ---
Pharmacokinetic dosing service Date: 05/04/20 Time: 57 Objective: Patient: Justice Guardado Floor: [id number] Age: 70 yo Serum creatinine: 0.7 mg/dL Height: 72.0 Inches Weight (kg): 117.934 Diagnosis: Relevant medical/social history: Cultures and sensitivities: Other labs: Assessment: IBW (kg): 77.60 Dosing wt(kg): 117.934 Estimated Creatinine clearance (ml/min): 104.7 CRCL method: Cockcroft and Gault using ibw(default). Drug selected: Vancomycin Loading dose (mg): 0 Vd (liters): 106.1 (factor used: 0.9 L/kg) [place]igo (hr-1): 0.091 Half life (hrs): 7.62 Recommended dose: 2000 mg Interval: 12 hrs Infusion time (hrs): 1.5 Predicted peak (mcg/mL): 26.5 Predicted trough (mcg/mL): 10.19 Total body weight is being used for vancomycin dosing. Renal function is stable [ ] /unstable [ ] Recommendations: Give Vancomycin 2000 mg q 12 hrs with an expected Cpeak of 26.5 mcg/ml and an expected Ctrough of 10.19 mcg/ml Renal dosing of other antibiotics (review renal dosing of other medications and list guidelines here): Thank you for the consult, will continue to follow. Signature: Leigha Batista [facility]
[2020-05-04 03:12] LABS: Basophils % 0.4 %; Eosinophils # 0.1 10^3/uL (0.0-0.8); Eosinophils % 0.9 %; Hematocrit 39.8 % (42.0-52.0); Hemoglobin 13.3 g/dL (11.7-16.6); Lymphocytes # 0.9 10^3/uL (0.8-4.8); Lymphocytes % 8.5 %; Mean Corpuscular HGB Conc 33.4 g/dL (30.0-36.0); Mean Corpuscular Hemoglobin 31.2 pg (28.0-34.0); Mean Corpuscular Volume 93.4 fL (80-94); Mean Platelet Volume 9.6 fL (7.4-10.4); Monocytes # 0.8 10^3/uL (0.2-0.9); Monocytes % 8.4 %; Neutrophils # 8.13 10^3/uL (1.8-7.7); Neutrophils % 81.5 %; Nucleated Red Blood Cells % 0 %; Platelet Count 295 10^3/cmm (130-400); Red Blood Count 4.26 10^6/uL (4.1-5.3); Red Cell Distribution Width 11.5 % (12.1-15.1)
[2020-05-04 03:44] LABS: Anion Gap 15.7 (5-19); Blood Urea Nitrogen 14 mg/dL (8-23); Calcium 8.6 mg/dL (8.5-10.5); Carbon Dioxide 24 mmol/L (22-29); Chloride 99 mmol/L (98-107); Estmated Average Glucose 203; Glucose 189 mg/dL (65-115); Hemoglobin A1C 8.7 % (4.0-6.0); Osmolality Calculated 286 mOsm/kg (285-295); Potassium 3.7 mmol/L (3.5-5.1); Sodium 135 mmol/L (136-145)
--- NOTE | 2020-05-04 06:04 | PM.CONSULT ---
Providers/Reason For Consult Consulting Physican/Specialty*: General Surgery Edmundo Donohue MD Reason for Consult*: Abdominal wall fluid collection with cellulitis. Attending Physician: London Miguel Primary Care Provider: JERRY Alejo History of Present Illness History of Present Illness Justice Guardado is a 70 year old male who stopped taking his Metformin for his diabetes about 3 weeks ago at the suggestion of an old product scientist whose mind may be slipping a little bit. He was told Metformin may cause cancer. As expected, his blood sugar went from running around 120 on Metformin to around 240. Within the first few days after stopping his Metformin he noticed some redness and swelling in the right lower quadrant of his abdominal wall. It sounds like he may have been placed on an antibiotic as an outpatient for about 10 days but says this did not help. He finally came into the emergency department yesterday and imaging revealed a fluid collection underneath the skin, possibly consistent with an abscess. Review of Systems Const: Reports: fever(s) (Possibly low-grade) GI: Reports: abdominal pain (An area of swelling and redness) Skin/Breast: Reports: erythema (Right lower quadrant abdominal wall) Meds/Allergies Home Medications and Allergies Home Medications Medication Instructions Recorded Confirmed Last Taken Type metformin 500 mg tablet 1,000 mg PO BID #120 tab 03/16/20 05/03/20 05/02/20 Rx Allergies Allergy/AdvReac Type Severity Reaction Status Date / Time No Known Allergies Allergy Verified 05/03/20 12:31 Current Medications Current Medications Generic Name Dose Route Start Last Admin Trade Name Freq PRN Reason Stop Dose Admin Vancomycin HCl 2,000 mg/ 500 mls @ 250 mls/hr 05/04/20 02:00 05/04/20 01:36 Sodium Chloride IV 250 mls/hr Q12H DENNISE Administration Insulin Aspart 0 unit 05/03/20 21:01 05/03/20 21:30 Insulin Aspart 100 Unit/1 Ml SUBCUT Not Given WM&BEDTIME DENNISE Protocol PFSH Acute PFSH: Medical History (Updated 05/04/20 @ 06:07 by Edmundo Donohue MD) DDD (degenerative disc disease) Diabetes Hyperlipidemia Hypertension Nephrolithiasis Refusal of statin medication by patient Short-term memory loss Surgical History (Updated 05/04/20 @ 06:07 by Edmundo Donohue MD) History of hemorrhoidectomy History of hernia repair Periumbilical x2 / mesh History of lithotripsy History of tracheostomy History of vasectomy Family History Other Diabetes Social History Smoking and tobacco status: never smoked Alcohol intake: never Substance/Drug Use: never Lives independently: Yes Household members: none Marital status: Current 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 Pets and animals: Yes Vitals/I&O/Wt Last Vital Signs Temp 98.7 F 05/04/20 04:00 Pulse 88 05/04/20 04:00 Resp 18 05/04/20 04:00 BP 144/72 05/04/20 04:00 Pulse Ox 96 05/04/20 04:00 Weight last 48 hrs Weight 260 lb Physical Exam Narrative: EXAM NARRATIVE: The patient was encountered in his hospital room. He does not appear to be in any acute distress. The pupils are equal. No carotid bruits are heard. The lungs are clear anteriorly. The heart is regular. The abdomen is moderately obese but is soft. He has some induration and erythema involving the dependent portion of his pannus in the right lower quadrant. It is quite tender on the inferior aspect. There are no open wounds or obvious drainage from the area. The extremities reveal no edema. Neurologically the patient appears to be grossly intact. Data Micro: Micro: Microbiology 05/03/20 12:42 Blood Culture - Pr eliminary Blood SPECIMEN [facility] 05/03/20 12:56 Blood Culture - Pr eliminary Blood SPECIMEN [facility] A&P Assessment and plan (1) Abdominal wall abscess: The patient clearly has a fluid collection underneath the skin on imaging, and given the appearance of the overlying tissue, I think there is very little question this is an abscess. I discussed an incision and drainage procedure with him at some point today. He seems to understand and would like to proceed. The patient will be kept n.p.o. We will make arrangements for an incision and drainage procedure later today. Status: Acute Consult Attestations Medical Necessity Statement: See admitting service's notation. Coding Level of Care Code Acute Clinical Medical Assistant for [facility] Diagnoses Abdominal wall abscess L02.211
[2020-05-04 06:37] LABS: Glucose Point of Care 192 mg/dL (70-110)
[2020-05-04] MEDS: sodium chlor 0.9% + KCl 20 mEq 20 MEQ/1,000 ML BAG 125 MEQ IV (06:45)
[2020-05-04 11:56] LABS: Glucose Point of Care 206 mg/dL (70-110)
--- NOTE | 2020-05-04 13:36 | P.PN_ITS ---
Subjective Subjective: Interval history: He states he is doing all right. Area of cellulitis and swelling of the pannus is very tender when the pannus is moved. Denies other new symptoms. Vitals/I&O/Wt Last Vital Signs Temp 97.7 F 05/04/20 11:39 Pulse 88 05/04/20 11:39 Resp 15 05/04/20 11:39 BP 141/78 05/04/20 11:39 Pulse Ox 99 05/04/20 11:39 Weight last 48 hrs Weight 103.419 kg Weight 117.934 kg Physical Exam Const: COMMON NORMALS: no acute distress, patient oriented x3 and alert GENERAL APPEARANCE: cooperative NUTRITIONAL APPEARANCE: obese ORIENTATION/CONSCIOUSNESS: Yes awake OTHER: Pleasant, conversant. Son at bedside. HENMT: COMMON NORMALS: oropharynx normal Neck/C-Spine: COMMON NORMALS: no JVD Resp: COMMON NORMALS: normal respiratory effort and clear to auscultation bilaterally AUSCULTATION: clear to auscultation bilaterally Cardio: COMMON NORMALS: no JVD, regular rhythm, S1 normal heart sound present, S2 normal heart sound present and No murmurs present (Cardio) RHYTHM: regular rhythm HEART SOUNDS: S1 normal heart sound present and S2 normal heart sound present GI: COMMON NORMALS: Normal to inspection, nondistended, normoactive bowel sounds present, Soft to palpation and non-tender PALPATION: Yes Soft to palpation Extremity: COMMON NORMALS: no joint enlargement and no pedal edema Neuro: COMMON NORMALS: patient oriented x3 and moves all extremities SENSORIUM/ORIENTATION: Yes alert Skin: COMMON NORMALS: no rashes or lesions noted GENERAL SKIN EXAM: no rashes or lesions noted OTHER: Unchanged large area of erythema at the edge and under right side of the pannus, with induration, and central area of swelling. He insisted to lift it up himself. Data : 05/04/20 02:36 05/04/20 02:36 Micro: Microbiology 05/03/20 12:42 Blood Culture - Preliminary Blood NEGATIVE TO DATE 05/03/20 12:56 Blood Culture - Preliminary Blood NEGATIVE TO DATE A&P Assessment and plan (1) Cellulitis and abscess of other specified site: I&D planned for today. Continue Vancomycin. No sepsis. Surgery consult for assessment for I&D. Status: Acute (2) Diabetes: A1c is 8.7. Reports she had stopped Metformin a while back due to concerns expressed by his friend. He feels like he should have continue taking it. Glucose is elevated. Sliding scale insulin while in the hospital. Consistent carbohydrate diet. Status: Acute Qualifiers: Diabetes mellitus type: type 2 Diabetes mellitus detention insulin use: with detention use Diabetes mellitus complication status: with hyperglycemia Qualified Code(s): E11.65 - Type 2 diabetes mellitus with hyperglycemia; Z79.4 - [facility] ([facility]) use of insulin (3) Hyponatremia: Sodium improving. [place] salt intake at this time. Monitor. May be related to acute infection. Status: Acute Attestations Medical Necessity Statement*: Conitnue management of cellulitis and abscess which failed outpatient treatment course with underlying diabetes. Coding Level of Care Code Acute Attendant Coin Operated Laundry for [facility] Diagnoses Cellulitis and abscess of other specified site L03.818; L02.818 Diabetes E11.65; Z79.4 Diabetes mellitus type: type 2 Diabetes mellitus detention insulin use: with rn field case manager use Diabetes mellitus complication status: with hyperglycemia Hyponatremia E87.1
--- NOTE | 2020-05-04 14:00 | P.ANESASSM_ITS ---
Pre-Anesthetic Assessment Pre-Anesthetic Assessment: Height/Weight: Height 1.83 m Weight 103.419 kg Temp Pulse Resp BP Pulse Ox 97.7 F 88 15 141/78 99 05/04/20 11:39 05/04/20 11:39 05/04/20 11:39 05/04/20 11:39 05/04/20 11:39 Preop Diagnosis: abscess Proposed Procedure: Operation Date: 05/04/20 14:20 Proposed Procedures p Incision And Drainage abdominal wall abscess(Not Applicable) - Edmundo Donohue MD Familial anesthetic complications: None Was Beta [place] taken within 24 hours: N/A Last intake: NPO > 8 hrs Social: Social History: No alcohol and No tobacco Exam: Pre-Anes Outpt Exam: alert, oriented x 3, clear to auscultation bilaterally and regular rate & rhythm Airway: Cervical ROM: WNL MP: 3 Dentition: Other (missing molars) Pulmonary: Comments: hx tracheostomy d/t illness from [facility] at age 40 CV/HEM: CV/HEM: HTN Metabolic: Metabolic: [place] [facility] [place]: Comments: Neuropsych: Comments: [place] virus age 40 Anesthetic Plan: ASA status: 2 Anesthesia: General Risk of > 500 ml blood loss (7ml/kg in children): No Meds/Allergies Current Medications: Current Medications Generic Name Dose Route Start Last Admin Trade Name Freq PRN Reason Stop Dose Admin Vancomycin HCl 2,0 00 mg/ 500 mls @ 250 mls /hr 05/04/20 02:00 05/04/20 01:36 Sodium Chloride IV 250 mls/hr Q12H DENNISE Administration Potassium Chloride /Sodium Chloride 20 meq in 1,000 m ls @ 125 mls/hr 05/04/20 06:30 05/04/20 06:45 Sodium Chlor 0.9 % + Kcl 20 Meq IV 125 mls/hr .Q8H DENNISE Administration Insulin Aspart 0 unit 05/03/20 21:01 05/04/20 12:05 Insulin Aspart 1 00 Unit/1 Ml SUBCUT Not Given WM&BEDTIME DENNISE Protocol PFSH Anesthesia PFSH: Medical History (Updated 05/04/20 @ 06:07 by Edmundo Donohue MD) DDD (degenerative disc disease) Diabetes Hyperlipidemia Hypertension Nephrolithiasis Refusal of statin medication by patient Short-term memory loss Surgical History (Updated 05/04/20 @ 06:07 by Edmundo Donohue MD) History of hemorrhoidectomy History of hernia repair Periumbilical x2 / mesh History of lithotripsy History of tracheostomy History of vasectomy Family History Other Diabetes Social History Smoking and tobacco status: never smoked Alcohol intake: never Substance/Drug Use: never Lives independently: Yes Household members: none Marital status: Current 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 Pets and animals: Yes Data Anesthesia CBC & Chem 7: 05/04/20 02:36 05/04/20 02:36 Other Labs: Laboratory Results - last 48 hr 05/03/20 05/03/20 05/03/20 12:06 12:06 12:06 WBC 12.7 H RBC 4.59 Hgb 14.5 Hct 42.9 MCV 93.5 MCH 31.6 MCHC 33.8 RDW 11.4 L Plt Count 337 MPV 9.8 Neut % (Auto) 86.5 Lymph % (Auto) 6.2 [place] % (Auto) 6.1 Eos % (Auto) 0.5 Baso % (Auto) 0.3 Neut # (Auto) 11.01 H Lymph # (Auto) 0.8 [place] # (Auto) 0.8 Eos # (Auto) 0.1 Baso # (Auto) 0.0 Nucleated RBC % (auto) 0 Nucleated RBCs # 0.0 Sodium 128 L Potassium 4.2 Chloride 92 L Carbon Dioxide 25 Anion Gap 15.2 BUN 16 Creatinine 0.7 GFR Calculation Not Reportable Glucose 318 H POC Glucose Estimat Average Glucose Hemoglobin A1c Calculated Osmolality 279 L Lactic Acid 1.2 Calcium 8.7 Total Bilirubin 0.8 AST 8 ALT 7 Alkaline Phosphatase 96 C-Reactive Protein 141.5 H Total Protein 7.1 Albumin 3.5 Globulin 3.6 05/03/20 05/04/20 05/04/20 21:09 02:36 02:36 WBC 10.0 RBC 4.26 Hgb 13.3 Hct 39.8 L MCV 93.4 MCH 31.2 MCHC 33.4 RDW 11.5 L Plt Count 295 MPV 9.6 Neut % (Auto) 81.5 Lymph % (Auto) 8.5 [place] % (Auto) 8.4 Eos % (Auto) 0.9 Baso % (Auto) 0.4 Neut # (Auto) 8.13 H Lymph # (Auto) 0.9 [place] # (Auto) 0.8 Eos # (Auto) 0.1 Baso # (Auto) 0.0 Nucleated RBC % (auto) 0 Nucleated RBCs # 0.0 Sodium 135 L Potassium 3.7 Chloride 99 Carbon Dioxide 24 Anion Gap 15.7 BUN 14 Creatinine 0.6 L GFR Calculation Not Reportable Glucose 189 H POC Glucose 203 Estimat Average Glucose Hemoglobin A1c Calculated Osmolality 286 Lactic Acid Calcium 8.6 Total Bilirubin AST ALT Alkaline Phosphatase C-Reactive Protein Total Protein Albumin Globulin 05/04/20 05/04/20 05/04/20 02:36 06:24 11:40 WBC RBC Hgb Hct MCV MCH MCHC RDW Plt Count MPV Neut % (Auto) Lymph % (Auto) [place] % (Auto) Eos % (Auto) Baso % (Auto) Neut # (Auto) Lymph # (Auto) [place] # (Auto) Eos # (Auto) Baso # (Auto) Nucleated RBC % (auto) Nucleated RBCs # Sodium Potassium Chloride Carbon Dioxide Anion Gap BUN Creatinine GFR Calculation Glucose POC Glucose 192 206 Estimat Average Glucose 203 Hemoglobin A1c 8.7 H Calculated Osmolality Lactic Acid Calcium Total Bilirubin AST ALT Alkaline Phosphatase C-Reactive Protein Total Protein Albumin Globulin Micro: Microbiology 05/03/20 12:42 Blood Culture - Preliminary Blood NEGATIVE TO DATE 05/03/20 12:56 Blood Culture - Preliminary Blood NEGATIVE TO DATE Cardiac Studies: No Data to Display
--- NOTE | 2020-05-04 15:03 | PM.OP ---
Operative Report Date of procedure: May 04, 2020 Pre-op Diagnosis: Right lower quadrant abdominal wall abscess. Post-op diagnosis: same Procedure Done: Incision and drainage of right lower quadrant abdominal wall abscess. Specimens removed/disposition: Aerobic and anaerobic cultures abscess cavity. Surgeon: Edmundo Donohue Anesthesia: General Estimated blood loss (mL): 10 Complications: None. Condition: stable Disposition: PACU Procedure: The patient was brought to the operating room and was placed in a supine position on the operating room table. General anesthesia was induced by means of a laryngeal mask airway. The abdominal wall was prepped and draped in a sterile fashion. The patient had a fluctuant area underneath the right side of his pannus on the lower abdomen. A transverse incision was made in this area and immediately perhaps 200 mL of thick light brown/enriquez purulent material was obtained and suctioned out. Both aerobic and anaerobic cultures were taken in the process. The abscess cavity was then extensively irrigated with the Pulsavac irrigation system. The wound was packed with wet-to-dry gauze and an absorptive dressing was applied. The patient was taken to the recovery area in stable condition postoperatively.
--- NOTE | 2020-05-04 15:57 | PM.PACU ---
PACU note Post-Anesthesia Exam: awake and vital signs stable Disposition: back to floor
[2020-05-04] MEDS: heparin 5,000 unit/mL INJ 1 mL 5000 UNIT SUBCUT ×2 (16:31→17:16)
[2020-05-04] MEDS: famotidine 20 mg/2 mL INJ IVP ×2 (16:32→17:16)
[2020-05-04] MEDS: sodium chlor 0.45% +KCl 20 mEq 20 MEQ/1,000 ML BAG 75 MEQ IV (16:33)
--- NOTE | 2020-05-04 16:40 | SUR.PHASEI ---
1540 PT AWAKE ALERT TO FLOOR PER CART PT TO ROOM UP WALKED TO BR, PT PHONE WITH PT.DRESSING D/I
[2020-05-04 17:34] LABS: Glucose Point of Care 170 mg/dL (70-110)
[2020-05-04 21:31] LABS: Glucose Point of Care 171 mg/dL (70-110)
[2020-05-05] VITALS: BP 136/70; PULSE 96; RESP 18; TEMP 36.8; O2SAT 94
[2020-05-05] MEDS: heparin 5,000 unit/mL INJ 1 mL 5000 UNIT SUBCUT ×2 (03:19→11:49)
[2020-05-05 03:53] LABS: Basophils % 0.5 %; Eosinophils # 0.1 10^3/uL (0.0-0.8); Eosinophils % 1.8 %; Hematocrit 39.5 % (42.0-52.0); Hemoglobin 12.9 g/dL (11.7-16.6); Lymphocytes # 0.7 10^3/uL (0.8-4.8); Lymphocytes % 8.7 %; Mean Corpuscular HGB Conc 32.7 g/dL (30.0-36.0); Mean Corpuscular Hemoglobin 30.8 pg (28.0-34.0); Mean Corpuscular Volume 94.3 fL (80-94); Mean Platelet Volume 9.2 fL (7.4-10.4); Monocytes # 0.6 10^3/uL (0.2-0.9); Monocytes % 7.5 %; Neutrophils # 6.28 10^3/uL (1.8-7.7); Neutrophils % 81.2 %; Nucleated Red Blood Cells % 0 %; Platelet Count 305 10^3/cmm (130-400); Red Blood Count 4.19 10^6/uL (4.1-5.3); Red Cell Distribution Width 11.4 % (12.1-15.1); White Blood Count 7.7 10^3/uL (4.0-10.0)
[2020-05-05 04:00] VITALS: BP 134/70; PULSE 92; RESP 17; TEMP 37; O2SAT 98
[2020-05-05 04:41] LABS: Vancomycin Trough 28.6 ug/mL (10-15)
[2020-05-05 04:56] LABS: Blood Urea Nitrogen 12 mg/dL (8-23); Calcium 8.2 mg/dL (8.5-10.5); Carbon Dioxide 23 mmol/L (22-29); Chloride 104 mmol/L (98-107); Glucose 173 mg/dL (65-115); Osmolality Calculated 290 mOsm/kg (285-295); Sodium 138 mmol/L (136-145)
[2020-05-05] MEDS: famotidine 20 mg/2 mL INJ IVP (06:15)
--- NOTE | 2020-05-05 07:02 | P.PN_ITS ---
Subjective Subjective: Interval history: The patient indicated last night that he was already feeling much better shortly after his procedure was done. He told me that he was going to be anxious to try to get out of the hospital as soon as possible. Vitals/I&O/Wt Last Vital Signs Temp 98.6 F 05/05/20 04:00 Pulse 92 05/05/20 04:00 Resp 17 05/05/20 04:00 BP 134/70 05/05/20 04:00 Pulse Ox 98 05/05/20 04:00 05/04/20 05/05/20 05/05/20 22:59 06:59 14:59 Intake Total 60 / 60 0 / 60 Output Total 200 / 650 450 / 650 Balance -140 / -590 -450 / -590 Weight last 48 hrs Weight 237 lb Weight 228 lb Weight 260 lb Physical Exam Narrative: EXAM NARRATIVE: Patient is afebrile. Data : 05/05/20 03:30 05/05/20 03:30 Micro: Microbiology 05/04/20 14:58 Gram Stain - Final Abdomen 05/03/20 12:42 Blood Culture - Preliminary Blood NEGATIVE TO DATE 05/03/20 12:56 Blood Culture - Preliminary Blood NEGATIVE TO DATE Gram Stain Final 05/04/20-1805 Result FEW WHITE BLOOD CELLS MODERATE GRAM POSITIVE COCCI IN CLUSTERS A&P Assessment and plan (1) Abdominal wall abscess: Status post incision and drainage of abdominal wall abscess on 05/04/2020. White blood cell count is back to normal. Gram stain shows organisms consistent with Staphylococcus. Patient continues on vancomycin. I am okay with the patient being discharged whenever okay with the hospitalist team, but I would recommend some wet-to-dry dressings in the wound daily for perhaps the next couple of weeks, which he probably will not be able to do himself, so home health may be an option. Status: Acute Attestations Medical Necessity Statement*: See admitting service's notation. Coding Level of Care Code Acute Emergency Medicine Physician Assistant for Thang Mejia Diagnoses Abdominal wall abscess L02.211
[2020-05-05 07:27] LABS: Glucose Point of Care 157 mg/dL (70-110)
[2020-05-05 07:54] VITALS: BP 150/72; PULSE 86; RESP 16; TEMP 36.7; O2SAT 98
--- NOTE | 2020-05-05 09:26 | ANE.PACU2 ---
Inpatient post-anesthesia follow up: Airway intact: Yes Vital signs: Temperature 98.1 F Pulse Rate 86 Respiratory Rate 16 Blood Pressure 150/72 Pulse Oximetry 98 Oxygen Delivery Me thod Room Air Oxygen Flow Rate 8 Fraction of Inspir ed Oxygen Hydration adequate: Yes Nausea and vomiting: Yes Pain level: 2 Mental status: Baseline
[2020-05-05 11:27] VITALS: RESP 18; O2SAT 99
[2020-05-05] MEDS: morphine 4 mg/mL SDV 1 mL IVP (11:27)
[2020-05-05 11:30] VITALS: BP 156/78; PULSE 88; RESP 16; TEMP 36.7; O2SAT 99
[2020-05-05 11:41] LABS: Glucose Point of Care 201 mg/dL (70-110)
[2020-05-05] MEDS: sodium chlor 0.45% +KCl 20 mEq 20 MEQ/1,000 ML BAG 75 MEQ IV (11:49)
--- NOTE | 2020-05-05 13:39 | PM.DCS ---
Discharge Providers Date of Admission: 05/03/20 17:17 Date of Discharge: May 05, 2020 Attending Provider at Admission: London Miguel Attending Provider at Discharge: London Miguel Primary Care Provider: JERRY Alejo Diagnoses at Discharge Discharge Diagnosis (1) Abdominal wall abscess: Status: Acute (2) Hyponatremia: Status: Acute Permanent problem details: Improved (3) Diabetes: Status: Acute Permanent problem details: A1c 8.7 Qualifiers: Diabetes mellitus type: type 2 Diabetes mellitus intermediate insulin use: with intermediate use Diabetes mellitus complication status: with hyperglycemia Qualified Code(s): E11.65 - Type 2 diabetes mellitus with hyperglycemia; 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 He reports that the erythema and swelling are progressing despite a course of outpatient antibiotic. He has been also developing a great deal of pain there, and with lack of improvement came in for assessment to ER. Large area of erythema was noted in ER, and right lower abdomen at the edge and underneath the pannus, with induration, and swelling centrally. Ultrasound of the area was performed, as well as CT was obtained, showing 10 x 5.5 complex septated subcutaneous fluid collection, abscess versus hematoma. He denies any recent trauma. His son did state he may have sustained a scratch from a kitten about 3 weeks ago in that general area. He was also noted to be hyperglycemic, as well as hyponatremic, sodium 128, corrected 131. He was treated with vancomycin, suspect surgery, underwent I&D, culture currently is growing Staph aureus. Final result including sensitivities pending. Blood cultures pending. He is feeling much better. Erythema has quite significantly subsided with near resolution very rapidly. His wound has been packed, and continued wet-to-dry dressings daily for next several weeks are recommended by surgery with assistance of home health. He is feeling much better, and request to return home. He will be staying with his daughter for the next while. He is instructed to complete a course of doxycycline, however, feel free to modify antibiotic regimen depending on final results of the culture. His A1c is 8.7, and so better control diabetes was discussed with him. He states he will resume taking Metformin. Discussed with him we will add glipizide as well. Please follow-up diabetes and help him optimize control. Physical Exam Const: COMMON NORMALS: no acute distress, patient oriented x3 and alert GENERAL APPEARANCE: cooperative NUTRITIONAL APPEARANCE: obese ORIENTATION/CONSCIOUSNESS: Yes awake OTHER: Pleasant, conversant. HENMT: COMMON NORMALS: oropharynx normal Neck/C-Spine: COMMON NORMALS: no JVD Resp: COMMON NORMALS: normal respiratory effort and clear to auscultation bilaterally AUSCULTATION: clear to auscultation bilaterally Cardio: COMMON NORMALS: no JVD, regular rhythm, S1 normal heart sound present, S2 normal heart sound present and No murmurs present (Cardio) RHYTHM: regular rhythm HEART SOUNDS: S1 normal heart sound present and S2 normal heart sound present GI: COMMON NORMALS: Normal to inspection, nondistended, normoactive bowel sounds present, Soft to palpation and non-tender PALPATION: Yes Soft to palpation Extremity: COMMON NORMALS: no joint enlargement and no pedal edema Neuro: COMMON NORMALS: patient oriented x3 and moves all extremities SENSORIUM/ORIENTATION: Yes alert Skin: COMMON NORMALS: no rashes or lesions noted GENERAL SKIN EXAM: no rashes or lesions noted OTHER: Near-resolution with significant improvement of large area of erythema, with improvement in edema and clean wound margins at base of pannus R L abdomen. Discharge Data Data Completed and Pending: Completed Studies During Hospitalization Category Date Time Status CT abdomen pelvis w con* [id number] Urge nt Cat Scan 05/03/20 15:10 Com[place] lim[place] d [id number] Urgent Ultrasound 05/03/20 12:51 Completed Pending at discharge Category Date Time Status Abscess Culture a nd Gram Stain Rout ine Lab 05/04/20 14:58 Results Basic Metabolic P daina AM LABS Lab 05/06/20 04:00 Ordered Blood Culture Rou taras Lab 05/03/20 12:42 Results Blood Culture Sta t Lab 05/03/20 12:56 Results Complete Blood Co unt w/Auto AM LABS Lab 05/06/20 04:00 Ordered Labs from last 24 hours 05/05/20 05/05/20 05/05/20 11:17 06:46 03:30 WBC RBC Hgb Hct MCV MCH MCHC RDW Plt Count MPV Neut % (Auto) Lymph % (Auto) [place] % (Auto) Eos % (Auto) Baso % (Auto) Neut # (Auto) Lymph # (Auto) [place] # (Auto) Eos # (Auto) Baso # (Auto) Nucleated RBC % (a uto) Nucleated RBCs # Sodium Potassium Chloride Carbon Dioxide Anion Gap BUN Creatinine GFR Calculation Glucose POC Glucose 201 157 Calculated Osmolal ity Calcium Vancomycin Trough 28.6 H* 05/05/20 05/05/20 05/04/20 03:30 03:30 21:15 WBC 7.7 RBC 4.19 Hgb 12.9 Hct 39.5 L MCV 94.3 H MCH 30.8 MCHC 32.7 RDW 11.4 L Plt Count 305 MPV 9.2 Neut % (Auto) 81.2 Lymph % (Auto) 8.7 [place] % (Auto) 7.5 Eos % (Auto) 1.8 Baso % (Auto) 0.5 Neut # (Auto) 6.28 Lymph # (Auto) 0.7 L [place] # (Auto) 0.6 Eos # (Auto) 0.1 Baso # (Auto) 0.0 Nucleated RBC % (a uto) 0 Nucleated RBCs # 0.0 Sodium 138 Potassium 4.0 Chloride 104 Carbon Dioxide 23 Anion Gap 15.0 BUN 12 Creatinine 0.6 L GFR Calculation Not Reportable Glucose 173 H POC Glucose 171 Calculated Osmolal ity 290 Calcium 8.2 L Vancomycin Trough 05/04/20 16:54 WBC RBC Hgb Hct MCV MCH MCHC RDW Plt Count MPV Neut % (Auto) Lymph % (Auto) [place] % (Auto) Eos % (Auto) Baso % (Auto) Neut # (Auto) Lymph # (Auto) [place] # (Auto) Eos # (Auto) Baso # (Auto) Nucleated RBC % (a uto) Nucleated RBCs # Sodium Potassium Chloride Carbon Dioxide Anion Gap BUN Creatinine GFR Calculation Glucose POC Glucose 170 Calculated Osmolal ity Calcium Vancomycin Trough Vitals: Last Vital Signs Temp 98.0 F 05/05/20 11:30 Pulse 88 05/05/20 11:30 Resp 16 05/05/20 11:30 BP 156/78 05/05/20 11:30 Pulse Ox 99 05/05/20 11:30 Discharge Plan Discharge Patient Disposition: Home Health Service Condition: Stable Prescriptions: New glipizide 5 mg tablet 5 mg PO DAILY Qty: 30 RF: 0 doxycycline hyclate 100 mg capsule 100 mg PO BID 7 Days Qty: 14 RF: 0 Continued metformin 500 mg tablet 1,000 mg PO BID Qty: 120 RF: 3 Discharge Orders: Discharge Order (Routine); Ordered 05/05/20 Ordered By: London Miguel Referrals: Edmundo Donohue MD [Physician] - 1 week Lily Osorio FNP-C [Primary Care Provider] - 4-7 days Discharge Diet: Diabetic Discharge Activity: Increase activity as tolerated Patient Instructions: Doxycycline (By mouth), Glipizide (By mouth), Metformin (By mouth), Diabetes Mellitus Type 2 in Adults (DC), Wound Care (General) Activity Restrictions/Additional Instructions: Please follow-up with your care doctor with regards to diabetes control. Please resume taking your Metformin. You are also started on glipizide. Glipizide may sometimes cause hypoglycemia, please make sure to monitor your glucose at least 4 times daily. Please continue and complete antibiotic course for skin infection and abscess. Continue dressing changes and packing with assistance of home health. Follow-up with surgery in office. If you notice any spiking high fevers, increased drainage, increased surrounding erythema, or any concerning symptoms, please seek medical attention immediately. Discharge Attestations Time Spent in Discharge Care*: greater than 30 min Quality Metrics Clinical Quality Measures During this hospital stay, did patient experience: None Coding Level of Care Code Acute Human Resources Operations Specialist for g Fwd Diagnoses Abdominal wall abscess L02.211 Hyponatremia E87.1 Diabetes E11.65; Z79.4 Diabetes mellitus type: type 2 Diabetes mellitus buttermaker helper insulin use: with buttermaker helper use Diabetes mellitus complication status: with hyperglycemia Cellulitis and abscess of other specified site L03.818; L02.818
[2020-05-05 17:11] VITALS: BP 156/78; PULSE 88; RESP 16; TEMP 36.7; O2SAT 99
--- NOTE | 2020-05-05 17:13 | PC.NURSE ---
pt iv taken out and intact. discharge instructions explained and questions answered. went over abdomen dressing change with patient and demonstrated how to change dressing. went over dressing change with the patients grandson and answered all questions. pt taken to surgical services entrance via wheelchair.
== END 2020-05-05 17:17 | disposition home health service (06) | DRG 580 ==
LOC: ER 17:15 → MEDSURG 18:08
PROVIDERS: Physician Assistant; Surgery; Admitting Provider Internal Medicine; Emergency Provider Nurse Practitioner Family; PCP Nurse Practitioner; Visit Provider Internal Medicine
PROC: 0W9F3ZX Drainage of Abdominal Wall, Percutaneous Approach, Diagnostic (ICD-10-PCS; principal; 2020-05-04 14:10)
DX: L02.211 Cutaneous abscess of abdominal wall (principal); E87.1 Hypo-osmolality and hyponatremia; E11.65 Type 2 diabetes mellitus with hyperglycemia; Z79.84 Long term (current) use of oral hypoglycemic drugs
CPT/HCPCS: 12345; 36416; 74177; 76705; 80048; 80053; 80202; 82962; 83036; 83605; 85025; 86140; 87040; 87070; 87075; 87077; 87186; 87205; 96372; 96375; 99283; J0690; J1644; J1885; J2270; J2405; J2704; J3370; J3490; J7040; Q9967

== ENCOUNTER 2020-10-20 08:17 | Emergency (ER) | payer MEDICARE, SELFPAY ==
[2020-10-20 08:21] VITALS: BP 144/81; PULSE 84; RESP 17; TEMP 36.5; O2SAT 99; BMI 34.2
--- NOTE | 2020-10-20 08:31 | XR_ITS ---
WS: [id number] Right shoulder, 3 views, 10/20/2020 Clinical Data: pain Comparison: None. Findings: No fractures or dislocations are seen. The AC joint shows moderate osteoarthritis. The adjacent right clavicle, right scapula and ribs are normal. The soft tissues are unremarkable. 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
--- NOTE | 2020-10-20 08:35 | ED_ITS ---
HPI - Extremity Problem General: Chief complaint: Extremity Injury, Upper Stated complaint: R. Shoulder Injury/Fall Time Seen by Provider: 10/20/20 08:22 History of Present Illness: HPI Narrative: 70-year-old male presents to the emergency room with complaint of right shoulder pain that began last day after he slipped and fell while pulling a garbage can up a grassy incline. He does strike his head did not lose consciousness. He states that any motion pain in the shoulder is severe. No previous injury or surgery to that shoulder. MD Complaint: joint pain Onset (ago): hour(s) Location: right, upper extremity and other (Shoulder) Quality: sharp Relieving factors: immobilization Exacerbating factors: range of motion Associated symptoms: Deny arthralgias, chest pain, fever(s), myalgias, rash or short of breath Review of Systems Const: Denies: fever(s) ENMT: Denies: throat pain, ear or mastoid pain, nasal discharge or nasal congestion Card: Denies: chest pain Resp: Denies: dyspnea, productive cough or non-productive cough GI: Denies: abdominal pain, nausea, vomiting, hematemesis, coffee ground emesis, diarrhea, constipation, bloating, hematochezia or melena : Denies: flank pain, dysuria, urinary frequency or urinary urgency Skin/Breast: Denies: rash PFSH ED PFSH: Medical History Abdominal wall abscess DDD (degenerative disc disease) Diabetes Hyperlipidemia Hypertension Nephrolithiasis Refusal of statin medication by patient Short-term memory loss Surgical History History of hemorrhoidectomy History of hernia repair Periumbilical x2 / mesh History of lithotripsy History of tracheostomy History of vasectomy Family History Other Diabetes Social History Smoking and tobacco status: never smoked Alcohol intake: never Lives independently: Yes Household members: none Marital status: Current 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 Pets and animals: Yes Physical Exam Const: COMMON NORMALS: no acute distress GENERAL APPEARANCE: cooperative and comfortable ORIENTATION/CONSCIOUSNESS: Yes awake, Yes oriented to person, Yes oriented to place and Yes oriented to time HENMT: COMMON NORMALS: normocephalic, atraumatic and hearing grossly normal bilaterally HEAD & SCALP: normocephalic and atraumatic Neck/C-Spine: COMMON NORMALS: no JVD Resp: COMMON NORMALS: normal respiratory effort, No retractions, No use of accessory muscles and clear to auscultation bilaterally AUSCULTATION: clear to auscultation bilaterally Cardio: COMMON NORMALS: no JVD, regular rate, regular rhythm and No murmurs present (Cardio) RATE: regular rate RHYTHM: regular rhythm Extremity: NARRATIVE EXTREMITY EXAM: On physical exam right shoulder is in good position no physical exam findings suggesting dislocation no crepitus no obvious deformity limited range of motion due to pain neurovascularly intact in right upper extremity Neuro: SENSORIUM/ORIENTATION: Yes oriented to person, Yes oriented to place and Yes oriented to time Course Vital Signs: Vital signs: Vital Signs Temperature 97.7 F 10/20/20 08:21 Pulse Rate 84 10/20/20 08:21 Respiratory Rate 17 10/20/20 08:21 Blood Pressure 144/81 10/20/20 08:21 Pulse Oximetry 99 10/20/20 08:21 MDM - Extremity (Nontraumatic) MDM Narrative: Medical decision making narrative: X-ray unremarkable patient not able to actively raise arm much more than about 20 to 30 degrees. We will put him in a sling anti-inflammatories and follow-up with Ortho return if has further problems Discharge Plan Discharge Patient Disposition: Home Clinical Impression: Sprain of right shoulder Condition: Stable Prescriptions: New diclofenac sodium 75 mg tablet,delayed release (DR/EC) 75 mg PO Q12H PRN (Reason: pain) Qty: 20 RF: 0 No Action metformin 500 mg tablet 1,000 mg PO BID Qty: 120 RF: 3 glipizide 5 mg tablet 5 mg PO DAILY Qty: 30 RF: 3 Discharge Orders: Discharge ED (Routine); Ordered 10/20/20 Ordered By: Marlon Anne Referrals: Marzena Jesus MD [Primary Care Provider] - Patient Instructions: Opioid Safety Activity Restrictions/Additional Instructions: Sling for comfort as needed. Case management will call with follow-up with orthopedics. Coding Level of Care Code ED Environmental Programs Manager for Chg Fwd
[2020-10-20 09:57] VITALS: BP 112/74; PULSE 87; RESP 18; O2SAT 98
--- NOTE | 2020-10-23 10:32 | DCPLANNER ---
hotel sales manager had message to schedule a follow up appointment for patient with ortho. hotel sales manager called the ortho clinic, spoke with Mary, gave clinic patients information. hotel sales manager was told that patients information would be printed and reviewed. Clinic will call patient with appointment information.
--- NOTE | 2020-10-25 15:27 | DCPLANNER ---
Patient has a follow up appointment scheduled for Friday, October at 8:[address] Raines at [facility]. Clinic will call patient with appointment information.
--- NOTE | 2020-11-30 17:06 | DCPLANNER ---
Patient had a follow up appointment scheduled for 11.01.20 with ortho - patient did not attend the appointment.
== END 2020-10-20 09:59 | disposition home or self-care (01) ==
PROVIDERS: Emergency Provider Family Medicine; PCP Family Medicine
DX: S43.401A Unspecified sprain of right shoulder joint, initial encounter (principal); E11.9 Type 2 diabetes mellitus without complications; E78.5 Hyperlipidemia, unspecified; I10 Essential (primary) hypertension; W01.0XXA Fall on same level from slipping, tripping and stumbling without subsequent striking against object, initial encounter; Z79.84 Long term (current) use of oral hypoglycemic drugs
CPT/HCPCS: 73030; 99282

== ENCOUNTER 2020-10-20 17:05 | Emergency (ER) | payer MEDICARE, SELFPAY ==
[2020-10-20 17:07] VITALS: PULSE 105; RESP 18; O2SAT 98; BMI 34.2
--- NOTE | 2020-10-20 17:33 | ED_ITS ---
HPI - Extremity Problem General: Chief complaint: Extremity Injury, Upper Stated complaint: PAIN WORSE IN RUE THAN WHAT IT WAS AT DISCHARGE Time Seen by Provider: 10/20/20 17:18 History of Present Illness: HPI Narrative: 70-year-old male seen earlier today. Patient had a fall x-ray did not show any acute fractur. Arrhythmias in the past. He was discharged home in a sling with a referral made to Ortho. I suspect he may have traumatic rotator cuff teare Complaint: joint pain Onset (ago): hour(s) Pain Consistency: constant Location: right Radiation: none Relieving factors: nothing Exacerbating factors: nothing Associated symptoms: Reports arthralgias; Deny chest pain, fever(s), myalgias, rash or short of breath Review of Systems Const: Denies: fever(s) ENMT: Denies: throat pain, ear or mastoid pain, nasal discharge or nasal congestion Card: Denies: chest pain Resp: Denies: dyspnea, productive cough or non-productive cough GI: Denies: abdominal pain, nausea, vomiting, hematemesis, coffee ground emesis, diarrhea, constipation, bloating, hematochezia or melena : Denies: flank pain, dysuria, urinary frequency or urinary urgency Skin/Breast: Denies: rash PFSH ED PFSH: Medical History Abdominal wall abscess DDD (degenerative disc disease) Diabetes Hyperlipidemia Hypertension Nephrolithiasis Refusal of statin medication by patient Short-term memory loss Surgical History History of hemorrhoidectomy History of hernia repair Periumbilical x2 / mesh History of lithotripsy History of tracheostomy History of vasectomy Family History Other Diabetes Social History Smoking and tobacco status: never smoked Alcohol intake: never Lives independently: Yes Household members: none Marital status: Current 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 Pets and animals: Yes Physical Exam Const: COMMON NORMALS: no acute distress GENERAL APPEARANCE: cooperative and comfortable ORIENTATION/CONSCIOUSNESS: Yes awake, Yes oriented to person, Yes oriented to place and Yes oriented to time HENMT: COMMON NORMALS: normocephalic, atraumatic and hearing grossly normal bilaterally HEAD & SCALP: normocephalic and atraumatic Neck/C-Spine: COMMON NORMALS: no JVD Resp: COMMON NORMALS: normal respiratory effort, No retractions, No use of accessory muscles and clear to auscultation bilaterally AUSCULTATION: clear to auscultation bilaterally Cardio: COMMON NORMALS: no JVD, regular rate, regular rhythm and No murmurs present (Cardio) RATE: regular rate RHYTHM: regular rhythm Neuro: SENSORIUM/ORIENTATION: Yes oriented to person, Yes oriented to place and Yes oriented to time Course Vital Signs: Vital signs: Vital Signs Pulse Rate 105 H 10/20/20 17:07 Respiratory Rate 18 10/20/20 17:07 Pulse Oximetry 98 10/20/20 17:07 MDM - Extremity (Nontraumatic) MDM Narrative: Medical decision making narrative: Patient discharged home with 15 tablets of 50 mg tramadol 1 every 6 hours as needed follow-up with Ortho. Remain in sling do not use the affected extremity. Discharge Plan Discharge Patient Disposition: Home Clinical Impression: Sprain of right shoulder Qualifiers: Encounter type: subsequent encounter Shoulder sprain type: unspecified sprain Qualified Code(s): S43.401D - Unspecified sprain of right shoulder joint, subsequent encounter Condition: Stable Prescriptions: No Action metformin 500 mg tablet 1,000 mg PO BID Qty: 120 RF: 3 glipizide 5 mg tablet 5 mg PO DAILY Qty: 30 RF: 3 tramadol 50 mg tablet 50 mg PO Q6H PRN (Reason: pain) Qty: 15 RF: 0 diclofenac sodium 75 mg tablet,delayed release (DR/EC) 75 mg PO Q12H PRN (Reason: pain) Qty: 20 RF: 0 Discharge Orders: Discharge ED (Routine); Ordered 10/20/20 Ordered By: Marlon Anne Referrals: Marzena Jesus MD [Primary Care Provider] - Discharge Diet: Usual diet Discharge Activity: Limit activity as instructed Patient Instructions: Opioid Safety Coding Level of Care Code ED Principal Consulting Engineer for Chg Fwd Exam Detailed
== END 2020-10-20 17:45 | disposition home or self-care (01) ==
PROVIDERS: Emergency Provider Family Medicine; PCP Family Medicine
DX: S43.401A Unspecified sprain of right shoulder joint, initial encounter (principal); E11.9 Type 2 diabetes mellitus without complications; E78.5 Hyperlipidemia, unspecified; I10 Essential (primary) hypertension; W19.XXXA Unspecified fall, initial encounter; W01.0XXA Fall on same level from slipping, tripping and stumbling without subsequent striking against object, initial encounter; Z79.84 Long term (current) use of oral hypoglycemic drugs
CPT/HCPCS: 73030; 99282

== ENCOUNTER 2020-10-23 10:50 | Emergency (ER) | payer MEDICARE, SELFPAY ==
--- NOTE | 2020-10-23 10:56 | XRR_ITS ---
PROCEDURE INFORMATION: Exam: XR Right Shoulder Exam date and time: 10/23/2020 11:16 AM Age: 70 years old Clinical indication: Pain; Shoulder; Right; Patient HX: Dog pushed his arm out TECHNIQUE: Imaging protocol: XR Right shoulder. Views: 2 or more views. COMPARISON: CR XR shoulder RT min 2V* [id number] 10/20/2020 8:35 AM FINDINGS: Bones/joints: Negative for acute bony abnormality. Soft tissues: Unremarkable XR/XR shoulder RT min 2V* [id number] IMPRESSION: No acute bone abnormality.
[2020-10-23 10:59] VITALS: BP 173/77; PULSE 90; RESP 16; TEMP 36.9; O2SAT 97; BMI 34.2
--- NOTE | 2020-10-23 12:50 | W.ED.EXTPRO ---
HPI - Extremity Problem General: Chief complaint: Extremity Injury, Upper Stated complaint: Right Arm Pain/Here Recent Time Seen by Provider: 10/23/20 12:50 Source: patient Mode of arrival: ambulatory Limitations: no limitations History of Present Illness: HPI Narrative: Patient comes in for reevaluation of the right shoulder. Patient continues to have pain and discomfort to the right shoulder with difficulty with maneuvering the arm. Patient states that last night he was at his daughter's when the dog hit his resting arm causing it to alan outward which aggravated his pain again. Patient reports that he has not been able to increase activity to the shoulder since his injury over 10 days ago. Patient is still awaiting follow-up appointment with orthopedist. MD Complaint: joint pain (right shoulder) Onset (ago): day(s) Pain Consistency: constant Location: right Quality: aching and sharp Radiation: proximal Relieving factors: cold therapy and immobilization Exacerbating factors: range of motion Associated symptoms: Reports no associated symptoms Review of Systems General: Reports: 10 or more systems reviewed and unremarkable except in HPI and below Musc: Reports: other (Right shoulder injury.) PFSH ED PFSH: Medical History Abdominal wall abscess DDD (degenerative disc disease) Diabetes Hyperlipidemia Hypertension Nephrolithiasis Refusal of statin medication by patient Short-term memory loss Surgical History History of hemorrhoidectomy History of hernia repair Periumbilical x2 / mesh History of lithotripsy History of tracheostomy History of vasectomy Family History Other Diabetes Social History Smoking and tobacco status: never smoked Alcohol intake: never Lives independently: Yes Household members: none Marital status: Current 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 Pets and animals: Yes Physical Exam Const: COMMON NORMALS: no acute distress and patient oriented x3 GENERAL APPEARANCE: cooperative HENMT: COMMON NORMALS: normocephalic and Normal external nose present HEAD & SCALP: normal to inspection and normocephalic NOSE: Normal external nose present Eye: GENERAL EYE: appearance normal, both eyes and all related structures Neck/C-Spine: COMMON NORMALS: full ROM Chest: COMMONS NORMALS: normal inspection of the chest Resp: COMMON NORMALS: normal respiratory effort EFFORT & INSPECTION: Yes able to speak in complete sentences Cardio: COMMON NORMALS: regular rate and regular rhythm RATE: regular rate RHYTHM: regular rhythm GI: COMMON NORMALS: non-tender Back/Pelvis: COMMON NORMALS: thoracic and lumbar spine normal to inspection Extremity: NARRATIVE EXTREMITY EXAM: Patient is anterior shoulder tenderness, distal pulses are intact, no swelling is noted distally. Patient is very guarded with movement has difficulty with abduction. Neuro: COMMON NORMALS: patient oriented x3 and moves all extremities Psych: COMMON NORMALS: mental status grossly normal and cooperative Skin: COMMON NORMALS: no rashes or lesions noted GENERAL SKIN EXAM: no rashes or lesions noted Course Vital Signs: Vital signs: Vital Signs Temperature 98.4 F 10/23/20 10:59 Pulse Rate 90 10/23/20 10:59 Respiratory Rate 16 10/23/20 10:59 Blood Pressure 173/77 10/23/20 10:59 Pulse Oximetry 97 10/23/20 10:59 MDM - Extremity (Nontraumatic) MDM Narrative: Medical decision making narrative: 70-year-old male patient comes in for recheck on the right shoulder injury that occurred over 10 days ago. Patient states that he has had minimal improvement since the injury. Patient has not followed up with orthopedics as recommended with his last visit. Patient also reports that last night his daughter's dog struck his hand causing a sudden movement outward of the arm which exacerbated his pain. On exam patient's has normal pulses and sensation distally. Patient is very guarded with any movement to the shoulder joint. No obvious dislocation or open injury is noted. Differential diagnosis includes rotator cuff tear, dislocation, sprain, tendinitis. X-ray noted no changes from prior exam. No signs of dislocation. Reviewed exam with patient with recommendations for treatment follow-up with orthopedics. I placed a order for case management for referral. Patient reported understanding and agreed to plan. Discharge Plan Discharge Patient Disposition: Home Clinical Impression: Sprain of right shoulder Qualifiers: Encounter type: subsequent encounter Shoulder sprain type: unspecified sprain Qualified Code(s): S43.401D - Unspecified sprain of right shoulder joint, subsequent encounter Condition: Stable Prescriptions: Continued tramadol 50 mg tablet 50 mg PO Q6H PRN (Reason: pain) Qty: 15 RF: 0 No Action metformin 500 mg tablet 1,000 mg PO BID Qty: 120 RF: 3 glipizide 5 mg tablet 5 mg PO DAILY Qty: 30 RF: 3 diclofenac sodium 75 mg tablet,delayed release (DR/EC) 75 mg PO Q12H PRN (Reason: pain) Qty: 20 RF: 0 Discharge Orders: Discharge ED (Routine); Ordered 10/23/20 Ordered By: Paulino Reeder Referrals: Marzena Jesus MD [Primary Care Provider] - Discharge Diet: Usual diet Discharge Activity: Increase activity as tolerated Patient Instructions: Shoulder Sprain (ED), Opioid Safety Activity Restrictions/Additional Instructions: I recommend trying to use shoulder as much as possible. You can go without the sling as needed. Use ice to the area may alternate with heat for further comfort. Use acetaminophen and ibuprofen for control of pain. Take tramadol otherwise for further pain relief. Follow-up with orthopedics office. Case management will contact you in regards to the follow-up appointment. Return to the ER for new concerns. 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
--- NOTE | 2020-10-23 13:44 | DCPLANNER ---
outside sales manager had order to schedule a follow up appointment for patient with ortho. outside sales manager has already placed a referral for patient to ortho from previous visit. Ortho will call patient with appointment information.
== END 2020-10-23 12:55 | disposition home or self-care (01) ==
PROVIDERS: Emergency Provider Nurse Practitioner Family; PCP Family Medicine
DX: S43.401A Unspecified sprain of right shoulder joint, initial encounter (principal); E11.9 Type 2 diabetes mellitus without complications; E78.5 Hyperlipidemia, unspecified; I10 Essential (primary) hypertension; W54.8XXA Other contact with dog, initial encounter
CPT/HCPCS: 73030; 99283; E0114

== ENCOUNTER 2020-10-26 13:43 | Outpatient (CLI) | payer MEDICARE, SELFPAY ==
--- NOTE | 2020-10-26 15:15 | CT_ITS ---
WS: [id number] CT RIGHT SHOULDER WITH CONTRAST. HISTORY: M25.511 - Pain in right shoulder, fall with pain. Technique: All CT scans at [facility] use at least one of these dose optimization techniq ues: automated exposure control; mA and/or kV adjustment per patient size (includes targeted exams wh ere dose is matched to clinical indication); or iterative reconstruction. DLP: 1849.74 mGy.cm COMPARISON: Shoulder radiograph 10/23/2020. Contrast: Omnipaque 300; 95 cc IV. No acute fracture or dislocation. There is a small amount of air within the glenohumeral joint. No s ignificant displacement. There is a large area of soft tissue infiltration beginning superior to the AC joint and extending around the humeral head. Low-attenuation extends posterior to the infraspinatu s muscle. Low attenuation and mild with septations surrounding the humeral head. As there is a histor y of fall this could very well be posttraumatic bleeding and hemorrhage and joint effusion. Septic justyn int may appear similar.2 The soft tissue bleeding extends inferiorly around the proximal humerus. Moderate atrophy of the supraspinatus and subscapularis muscles. Cannot evaluate the tendons on this examination. Biceps tendon cannot be visualized in the bicipital groove. CT/CT shoulder RT w con [id number] IMPRESSION: 1. No shoulder fracture or dislocation. 2. There is a large amount of soft tissue stranding which is probably hemorrha ge and edema from the recent fall surrounding the humeral head and extending al [place] the humerus. Possibility of biceps tendon rupture should be considered.
[2020-10-26] MEDS: iohexol 300 mg/mL 100 mL Btl IV (15:51)
== END 2020-10-26 13:44 | disposition home or self-care (01) ==
PROVIDERS: PCP Family Medicine; Visit Provider Family Medicine
DX: M25.511 Pain in right shoulder (principal); W19.XXXA Unspecified fall, initial encounter
CPT/HCPCS: 73201; Q9967

== ENCOUNTER 2020-11-09 17:26 | Outpatient (CLI) | payer MEDICARE, SELFPAY ==
[2020-11-09 17:51] LABS: Basophils % 0.3 %; Eosinophils # 0.1 10^3/uL (0.0-0.8); Hematocrit 36.1 % (42.0-52.0); Lymphocytes # 0.8 10^3/uL (0.8-4.8); Lymphocytes % 8.7 %; Mean Corpuscular HGB Conc 33.2 g/dL (30.0-36.0); Mean Corpuscular Volume 93.3 fL (80-94); Mean Platelet Volume 9.4 fL (7.4-10.4); Monocytes # 0.7 10^3/uL (0.2-0.9); Monocytes % 7.6 %; Neutrophils # 7.65 10^3/uL (1.8-7.7); Neutrophils % 82.1 %; Nucleated Red Blood Cells % 0 %; Platelet Count 399 10^3/cmm (130-400); Red Blood Count 3.87 10^6/uL (4.1-5.3); Red Cell Distribution Width 11.8 % (12.1-15.1); White Blood Count 9.3 10^3/uL (4.0-10.0)
== END 2020-11-09 17:27 | disposition home or self-care (01) ==
PROVIDERS: PCP Family Medicine; Visit Provider Internal Medicine Infectious Disease
DX: Z51.81 Encounter for therapeutic drug level monitoring (principal); Z79.2 Long term (current) use of antibiotics
CPT/HCPCS: 85025

== ENCOUNTER → 2022-12-23 13:41 | Outpatient (BNVA) | payer MEDICARE, SELFPAY | PROVIDERS: PCP Family Medicine; Visit Provider Dermatology | DX: C44.319 Basal cell carcinoma of skin of other parts of face (principal) | CPT/HCPCS: 11102; 11103; 17000; 17003; 99203 ==

== ENCOUNTER 2023-04-06 14:56 | Inpatient (IN) | payer MEDICARE, SELFPAY ==
[2023-04-06 15:30] VITALS: BP 165/81; PULSE 101; RESP 18; TEMP 37.9; O2SAT 99; BMI 30.8
[2023-04-06 17:37] VITALS: BP 157/77
--- NOTE | 2023-04-06 18:02 | USR_ITS ---
PROCEDURE INFORMATION: Exam: US Duplex Right Lower Extremity Veins, Limited Exam date and time: 04/06/2023 6:14 PM Age: 73 years old Clinical indication: Pain; Leg, lower; Right; Additional info: Leg pain ans swelling TECHNIQUE: Imaging protocol: Real-time duplex ultrasound of the right extremity with 2-D mcgregor scale, color Doppler flow and spectral waveform analysis including responses to compression and other maneuvers (when performed) with image documentation. Limited exam was focused on the right lower extremity veins. COMPARISON: CT abdomen pelvis w con* [id number] 05/03/2020 4:18 PM FINDINGS: Right deep veins: Unremarkable. The common femoral, femoral, proximal profunda femoral and popliteal veins are patent without thrombus. Normal Doppler waveforms. Normal compressibility and/or augmentation response. Superficial veins: Unremarkable. Saphenofemoral junction is patent without thrombus. Soft tissues: Subcutaneous edema noted in the lower extremity. US/[place] [id number] IMPRESSION: No evidence of deep vein thrombosis.
--- NOTE | 2023-04-06 18:02 | XRR_ITS ---
PROCEDURE INFORMATION: Exam: XR Right Foot Exam date and time: 04/06/2023 6:55 PM Age: 73 years old Clinical indication: Right; Patient HX: RT foot pain/swelling; Diabetic ulcer to lateral 1st digit; Additional info: Diabetic foot ulcer TECHNIQUE: Imaging protocol: Radiologic exam of the right foot. Views: 3 or more views. COMPARISON: [place] [id number] 04/06/2023 6:19 PM FINDINGS: Bones/joints: Distal Achilles tendon degenerative calcification. Mild first MTP joint osteoarthritis. Soft tissues: Normal. XR/XR foot RT min 3V* [id number] IMPRESSION: 1. Negative for acute bony abnormality. 2. Distal Achilles tendon degenerative calcification. 3. Mild first MTP joint osteoarthritis.
--- NOTE | 2023-04-06 18:02 | XRR_ITS ---
PROCEDURE INFORMATION: Exam: XR Chest Exam date and time: 04/06/2023 6:55 PM Age: 73 years old Clinical indication: Patient HX: Cough; Leukocytosis; Foot infection; Additional info: Dyspnea/cough TECHNIQUE: Imaging protocol: Radiologic exam of the chest. Views: 1 view. COMPARISON: CT shoulder RT w con [id number] 10/26/2020 3:46 PM FINDINGS: Lungs: Unremarkable. No consolidation. Pleural spaces: Unremarkable. No pleural effusion. No pneumothorax. Heart/Mediastinum: Unremarkable. No cardiomegaly. Bones/joints: Unremarkable. XR/XR chest 1V portable [id number] IMPRESSION: No acute findings.
--- NOTE | 2023-04-06 18:02 | USR_ITS ---
PROCEDURE INFORMATION: Exam: US Duplex Right Lower Extremity Arteries Or Arterial Bypass Grafts Exam date and time: 04/06/2023 6:19 PM Age: 73 years old Clinical indication: Other: Ulcer; Additional info: Cellulitis/diabetic foot ulcer TECHNIQUE: Imaging protocol: Right Real-time duplex scan of the arteries or arterial bypass grafts of the right lower extremity with 2-D mcgregor scale, color Doppler flow and spectral waveform analysis. Images documented and saved. COMPARISON: [place] [id number] 04/06/2023 6:14 PM FINDINGS: Right common femoral artery: No occlusion or significant stenosis. Normal waveform. No pseudoaneurysm in the inguinal region. Right superficial femoral artery: No occlusion or significant stenosis. Normal waveform. Right popliteal artery: No occlusion or significant stenosis. Normal waveform. Right calf/foot arteries: No occlusion or significant stenosis in the visualized arteries. Normal waveforms. Dorsalis pedis artery is patent. Soft tissues: No hematoma or collection. US/[place] [id number] IMPRESSION: No stenosis or occlusion.
--- NOTE | 2023-04-06 18:05 | W.ED.EXTPRO ---
Documented by User: Marlon Anne DO 04/07/23 07:08 HPI - Extremity Problem General: Chief complaint: Extremity Injury, Upper Stated complaint: RT Leg Swollen Time Seen by Provider: 04/06/23 17:50 Source: patient Mode of arrival: ambulatory History of Present Illness: 73-year-old male presents to the emergency room with complaint of swelling and ulcer that is developed on his right foot. He has a history of diabetes mellitus has been noncompliant with his treatment lately he had previously been on insulin more recently had been given just metformin reason I have been taking that for some time now. He states that and walking a couple miles a day has developed a sore on his foot that he did not feel because of his peripheral neuropathy. The foot has been swollen for the last couple of months. He has had a fever at home and has a fever on arrival as well as some mild tachycardia here. MD Complaint: extremity pain and extremity swelling Onset (ago): month(s) (6) Pain Consistency: constant Location: right (Foot) and lower extremity Quality: aching Relieving factors: nothing Exacerbating factors: nothing Associated symptoms: Reports fever(s); Deny chest pain or rash Review of Systems Const: Reports: fever(s); Denies: chills Card: Denies: chest pain Resp: Denies: dyspnea GI: Denies: abdominal pain : Denies: dysuria, urinary frequency or urinary urgency Musc: Reports: extremity pain and extremity swelling; Denies: neck pain or back pain Skin/Breast: Denies: rash PFSH ED PFSH: Medical History Abdominal wall abscess DDD (degenerative disc disease) Diabetes Hyperlipidemia Hypertension Nephrolithiasis Refusal of statin medication by patient Short-term memory loss Surgical History History of hemorrhoidectomy History of hernia repair Periumbilical x2 / mesh History of lithotripsy History of tracheostomy History of vasectomy Family History Other Diabetes Social History Smoking and tobacco/nicotine status: never used tobacco/nicotine Alcohol intake: never Substance/Drug Use: never Lives independently: Yes Household members: none Marital status: Current 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 Pets and animals: Yes Physical Exam Const: GENERAL APPEARANCE: cooperative and comfortable ORIENTATION/CONSCIOUSNESS: Yes awake, Yes oriented to person, Yes oriented to place and Yes oriented to time HENMT: COMMON NORMALS: normocephalic, atraumatic and hearing grossly normal bilaterally HEAD & SCALP: normocephalic and atraumatic Resp: COMMON NORMALS: normal respiratory effort, No retractions, No use of accessory muscles and clear to auscultation bilaterally AUSCULTATION: clear to auscultation bilaterally Cardio: COMMON NORMALS: regular rate, regular rhythm and No murmurs present (Cardio) RATE: regular rate RHYTHM: regular rhythm GI: COMMON NORMALS: Soft to palpation and No hepatosplenomegaly present AUSCULTATION: Yes normoactive bowel sounds PALPATION: Yes Soft to palpation, No Tenderness to palpation present (GI), No Guarding due to palpation present (GI) and Yes No hepatosplenomegaly present Extremity: NARRATIVE EXTREMITY EXAM: Significant swelling hot to the touch on the right lower extremity there is a quarter size lesion at the distal portion of the lateral fifth metatarsal on the right foot. There is discoloration of the fourth and fifth toes suggestive of underlying gangrene there is devascularized tissue around the edge of the wound there is no active drainage it is very foul-smelling. Neuro: SENSORIUM/ORIENTATION: Yes oriented to person, Yes oriented to place and Yes oriented to time Skin: COMMON NORMALS: no rashes or lesions noted GENERAL SKIN EXAM: no rashes or lesions noted Course Vital Signs: Vital signs: Vital Signs Temperature 98.1 F 04/07/23 04:41 Pulse Rate 76 04/07/23 04:41 Respiratory Rate 16 04/07/23 04:41 Blood Pressure 131/67 04/07/23 04:41 Pulse Oximetry 97 04/07/23 04:41 Oxygen Delivery Me thod Room Air 04/07/23 04:41 MDM - Extremity (Nontraumatic) Medical Decision Making Care signed out to Dr. Baird at change of shift. See final notes for diagnosis and disposition. 73-year-old male gentleman checked out to me by Dr. Anne at shift change. This gentleman has a significantly poor looking forefoot. His white blood cell count is 15. Duplex arterial scan shows no stenosis or occlusion. No DVT present. Patient appears to have a urinary tract infection that is hemorrhagic as well. His temperature is 100.2. He has received IV vancomycin, Zosyn as ordered. He will be admitted. Podiatry will consult. Lab Data 04/07/23 06:04 04/07/23 06:04 Radiology Impressions Chest X-Ray 04/06/23 18:02 IMPRESSION: No acute findings. Duplex Scan Lower Extremity Artery 04/06/23 18:02 IMPRESSION: No stenosis or occlusion. Foot X-Ray 04/06/23 18:02 IMPRESSION: 1. Negative for acute bony abnormality. 2. Distal Achilles tendon degenerative calcification. 3. Mild first MTP joint osteoarthritis. Venous Duplex 04/06/23 18: IMPRESSION: No evidence of deep vein thrombosis. Laboratory Results WBC 15.15 10^3/uL (3.29-11.43) H 04/06/23 16: RBC 4.19 10^6/uL (3.85-5.65) 04/06/23 16:26 Hgb 12.90 g/dL (11.27-16.99) 04/06/23 16:26 Hct 39.3 % (37-53) 04/06/23 16:26 MCV 93.8 fl (82-101) 04/06/23 16:26 MCH 30.8 pg (27-33) 04/06/23 16:26 MCHC 32.8 g/dL (30-55) 04/06/23 16:26 RDW 12.1 % (12.1-15.1) 04/06/23 16:26 Plt Count 203 10^3/cmm (157-399) 04/06/23 16:26 MPV 10.1 fL (7.4-10.4) 04/06/23 16: Neut % (Auto) 84.0 % 04/06/23 16: Lymph % (Auto) 7.8 % 04/06/23 16: [place] % (Auto) 7.4 % 04/06/23 16: Eos % (Auto) 0.1 % 04/06/23 16: Baso % (Auto) 0.2 % 04/06/23 16: Neut # (Auto) 12.74 10^3/uL (1.8-7.7) H 04/06/23 16:26 Lymph # (Auto) 1.2 10^3/uL (0.8-4.8) 04/06/23 16:26 [place] # (Auto) 1.1 10^3/uL (0.2-0.9) H 04/06/23 16:26 Eos # (Auto) 0.0 10^3/uL (0.0-0.8) 04/06/23 16:26 Baso # (Auto) 0.0 10^3/uL (0.0-0.1) 04/06/23 16:26 Nucleated RBC % (auto) 0 % 04/06/23 16: Nucleated RBCs # 0.0 /100WBC 04/06/23 16:26 Sodium 128 mmol/L (136-145) L 04/06/23 18:58 Potassium 3.9 mmol/L (3.5-5.1) 04/06/23 18:58 Chloride 93 mmol/L (98-107) L 04/06/23 18:58 Carbon Dioxide 26 mmol/L (22-29) 04/06/23 18:58 Anion Gap 12.9 (5-19) 04/06/23 18:58 BUN 19 mg/dL (8-23) 04/06/23 18:58 Creatinine 1.3 mg/dL (0.7-1.2) H 04/06/23 18:58 GFR Calculation Not Reportable 04/06/23 18:58 Glucose 256 mg/dL (65-115) H 04/06/23 18:58 Calculated Osmolality 277 mOsm/kg (285-295) L 04/06/23 18:58 Lactic Acid 1.3 mmol/L (0.5-2.2) 04/06/23 18:58 Calcium 8.9 mg/dL (8.5-10.5) 04/06/23 18:58 Total Bilirubin 1.5 mg/dL (0.15-1.2) H 04/06/23 18:58 AST 8 U/L (0-40) 04/06/23 18:58 ALT < 5 U/L (0-41) 04/06/23 18:58 Alkaline Phosphatase 94 U/L (40-130) 04/06/23 18:58 Total Protein 7.3 g/dL (6.6-8.7) 04/06/23 18:58 Albumin 3.4 g/dL (3.5-5.2) L 04/06/23 18:58 Globulin 3.9 g/dL (1.3-4.6) 04/06/23 18:58 Urine Color Light yellow (Yellow) 04/06/23 18:26 Urine Appearance Cloudy (CLEAR) A 04/06/23 18:26 Urine pH 5 (5-7) 04/06/23 18:26 Ur Specific Howe 1.005 (1.005-1.030) 04/06/23 18:26 Urine Protein 1+ (Negative) H 04/06/23 18:26 Urine Glucose (UA) 4+ (Normal) H 04/06/23 18:26 Urine Ketones 1+ (Negative) H 04/06/23 18:26 Urine Blood 3+ (Negative) H 04/06/23 18:26 Urine Nitrate Negative (Negative) 04/06/23 18:26 Urine Bilirubin Neg (Negative) 04/06/23 18:26 Urine Urobilinogen Neg mg/dL (Negative) 04/06/23 18:26 Ur Leukocyte Esterase 2+ (Negative) H 04/06/23 18:26 Urine RBC >100 /hpf (0-2) H 04/06/23 18:26 Urine WBC >100 /hpf (0-5) H 04/06/23 18:26 Ur Squamous Epith Cells 0-4 /hpf (0-5) H 04/06/23 18:26 Amorphous Sediment Not Reportable 04/06/23 18:26 Urine Bacteria 3+ /hpf (NONE) H 04/06/23 18:26 Discharge Plan Discharge Patient Disposition: Admitted As Inpatient Admit Provider: Yuli Laws Clinical Impression: Cellulitis of right leg, Gangrene of right foot, Diabetes, UTI (urinary tract infection) Condition: Stable Coding Level of Care Code ED Patient Financial Services Specialist for Wendyg Roberto Documented by User: Benjamin Baird, 04/06/23 19:45 HPI - Extremity Problem General: Chief complaint: Extremity Injury, Upper Stated complaint: RT Leg Swollen Time Seen by Provider: 04/06/23 17:50 PFSH ED PFSH: Medical History Abdominal wall abscess DDD (degenerative disc disease) Diabetes Hyperlipidemia Hypertension Nephrolithiasis Refusal of statin medication by patient Short-term memory loss Surgical History History of hemorrhoidectomy History of hernia repair Periumbilical x2 / mesh History of lithotripsy History of tracheostomy History of vasectomy Family History Other Diabetes Social History Smoking and tobacco/nicotine status: never used tobacco/nicotine Alcohol intake: never Substance/Drug Use: never Lives independently: Yes Household members: none Marital status: Current 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 Pets and animals: Yes Course Vital Signs: Vital signs: Vital Signs Temperature 98.1 F 04/07/23 04:41 Pulse Rate 76 04/07/23 04:41 Respiratory Rate 16 04/07/23 04:41 Blood Pressure 131/67 04/07/23 04:41 Pulse Oximetry 97 04/07/23 04:41 Oxygen Delivery Me thod Room Air 04/07/23 04:41 MDM - Extremity (Nontraumatic) Medical Decision Making 73-year-old male gentleman checked out to me by Dr. Anne at shift change. This gentleman has a significantly poor looking forefoot. His white blood cell count is 15. Duplex arterial scan shows no stenosis or occlusion. No DVT present. Patient appears to have a urinary tract infection that is hemorrhagic as well. His temperature is 100.2. He has received IV vancomycin, Zosyn as ordered. He will be admitted. Podiatry will consult. Lab Data 04/07/23 06:04 04/07/23 06:04 Radiology Impressions Chest X-Ray 04/06/23 18:02 IMPRESSION: No acute findings. Duplex Scan Lower Extremity Artery 04/06/23 18:02 IMPRESSION: No stenosis or occlusion. Foot X-Ray 04/06/23 18:02 IMPRESSION: 1. Negative for acute bony abnormality. 2. Distal Achilles tendon degenerative calcification. 3. Mild first MTP joint osteoarthritis. Venous Duplex 04/06/23 18: IMPRESSION: No evidence of deep vein thrombosis. Laboratory Results WBC 15.15 10^3/uL (3.29-11.43) H 04/06/23 16: RBC 4.19 10^6/uL (3.85-5.65) 04/06/23 16: Hgb 12.90 g/dL (11.27-16.99) 04/06/23 16: Hct 39.3 % (37-53) 04/06/23 16: MCV 93.8 fl (82-101) 04/06/23 16: MCH 30.8 pg (27-33) 04/06/23 16: MCHC 32.8 g/dL (30-55) 04/06/23 16: RDW 12.1 % (12.1-15.1) 04/06/23 16: Plt Count 203 10^3/cmm (157-399) 04/06/23 16: MPV 10.1 fL (7.4-10.4) 04/06/23 16: Neut % (Auto) 84.0 % 04/06/23 16: Lymph % (Auto) 7.8 % 04/06/23 16: Florence % (Auto) 7.4 % 04/06/23 16: Eos % (Auto) 0.1 % 04/06/23 16: Baso % (Auto) 0.2 % 04/06/23 16: Neut # (Auto) 12.74 10^3/uL (1.8-7.7) H 04/06/23 16: Lymph # (Auto) 1.2 10^3/uL (0.8-4.8) 04/06/23 16: [place] # (Auto) 1.1 10^3/uL (0.2-0.9) H 04/06/23 16: Eos # (Auto) 0.0 10^3/uL (0.0-0.8) 04/06/23 16: Baso # (Auto) 0.0 10^3/uL (0.0-0.1) 04/06/23 16:26 Nucleated RBC % (auto) 0 % 04/06/23 16:26 Nucleated RBCs # 0.0 /100WBC 04/06/23 16:26 Sodium 128 mmol/L (136-145) L 04/06/23 18:58 Potassium 3.9 mmol/L (3.5-5.1) 04/06/23 18:58 Chloride 93 mmol/L (98-107) L 04/06/23 18:58 Carbon Dioxide 26 mmol/L (22-29) 04/06/23 18:58 Anion Gap 12.9 (5-19) 04/06/23 18:58 BUN 19 mg/dL (8-23) 04/06/23 18:58 Creatinine 1.3 mg/dL (0.7-1.2) H 04/06/23 18:58 GFR Calculation Not Reportable 04/06/23 18:58 Glucose 256 mg/dL (65-115) H 04/06/23 18:58 Calculated Osmolality 277 mOsm/kg (285-295) L 04/06/23 18:58 Lactic Acid 1.3 mmol/L (0.5-2.2) 04/06/23 18:58 Calcium 8.9 mg/dL (8.5-10.5) 04/06/23 18:58 Total Bilirubin 1.5 mg/dL (0.15-1.2) H 04/06/23 18:58 AST 8 U/L (0-40) 04/06/23 18:58 ALT < 5 U/L (0-41) 04/06/23 18:58 Alkaline Phosphatase 94 U/L (40-130) 04/06/23 18:58 Total Protein 7.3 g/dL (6.6-8.7) 04/06/23 18:58 Albumin 3.4 g/dL (3.5-5.2) L 04/06/23 18:58 Globulin 3.9 g/dL (1.3-4.6) 04/06/23 18:58 Urine Color Light yellow (Yellow) 04/06/23 18:26 Urine Appearance Cloudy (CLEAR) A 04/06/23 18:26 Urine pH 5 (5-7) 04/06/23 18:26 Ur Specific Howe 1.005 (1.005-1.030) 04/06/23 18:26 Urine Protein 1+ (Negative) H 04/06/23 18:26 Urine Glucose (UA) 4+ (Normal) H 04/06/23 18:26 Urine Ketones 1+ (Negative) H 04/06/23 18:26 Urine Blood 3+ (Negative) H 04/06/23 18:26 Urine Nitrate Negative (Negative) 04/06/23 18: Urine Bilirubin Neg (Negative) 04/06/23 18: Urine Urobilinogen Neg mg/dL (Negative) 04/06/23 18:26 Ur Leukocyte Esterase 2+ (Negative) H 04/06/23 18: Urine RBC >100 /hpf (0-2) H 04/06/23 18:26 Urine WBC >100 /hpf (0-5) H 04/06/23 18:26 Ur Squamous Epith Cells 0-4 /hpf (0-5) H 04/06/23 18:26 Amorphous Sediment Not Reportable 04/06/23 18:26 Urine Bacteria 3+ /hpf (NONE) H 04/06/23 18:26 All radiology interpretation(s) finalized by discharge Discharge Plan Discharge Patient Disposition: Admitted As Inpatient Admit Provider: Yuli Laws Clinical Impression: Cellulitis of right leg, Gangrene of right foot, Diabetes, UTI (urinary tract infection) Condition: Stable Coding Level of Care Code ED Patient Financial Services Specialist for Thang Mejia
[2023-04-06] MEDS: vancomycin 1,000 MG in sodium chloride 0.9% 250 ML 250 MG IV (18:11)
--- NOTE | 2023-04-06 18:35 | ECG_ITS ---
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 Measurements Intervals [place] Rate: 99 P: 12 RI: 187 QRS: -58 QRSD: 130 T: 104 QT: 353 QTc: 453 Interpretive Statements SINUS RHYTHM LEFT ANTERIOR FASCICULAR BLOCK [QRS AXIS <= -45, QR IN I, RS IN II] LEFT VENTRICULAR HYPERTROPHY AND ST-T CHANGE [VOLTAGE CRITERIA PLUS ST/T ABNORMALITY] No previous ECG available for comparison Electronically Signed On 04-07-2023 10:18:57 CDT by Veda Mahoney M.D. [id number]
[2023-04-06 18:44] LABS: Basophils % 0.2 %; Eosinophils % 0.1 %; Hematocrit 39.3 % (37-53); Lymphocytes # 1.2 10^3/uL (0.8-4.8); Lymphocytes % 7.8 %; Mean Corpuscular HGB Conc 32.8 g/dL (30-55); Mean Corpuscular Hemoglobin 30.8 pg (27-33); Mean Corpuscular Volume 93.8 fl (82-101); Mean Platelet Volume 10.1 fL (7.4-10.4); Monocytes # 1.1 10^3/uL (0.2-0.9); Monocytes % 7.4 %; Neutrophils # 12.74 10^3/uL (1.8-7.7); Nucleated Red Blood Cells % 0 %; Platelet Count 203 10^3/cmm (157-399); Red Blood Count 4.19 10^6/uL (3.85-5.65); Red Cell Distribution Width 12.1 % (12.1-15.1); White Blood Count 15.15 10^3/uL (3.29-11.43)
[2023-04-06 19:00] VITALS: BP 145/64; PULSE 99; RESP 16; O2SAT 97
--- NOTE | 2023-04-06 19:03 | PC.NURSE ---
Vanc scanned by prev nurse but started at 1903 post 2nd blood culture draw and iv placement.
[2023-04-06 19:18] LABS: Slide Review Slide Review Perform
[2023-04-06 19:23] LABS: Alanine Aminotransferase < 5 U/L (0-41); Albumin Level 3.4 g/dL (3.5-5.2); Alkaline Phosphatase 94 U/L (40-130); Anion Gap 12.9 (5-19); Aspartate Amino Transferase 8 U/L (0-40); Blood Urea Nitrogen 19 mg/dL (8-23); Calcium 8.9 mg/dL (8.5-10.5); Carbon Dioxide 26 mmol/L (22-29); Chloride 93 mmol/L (98-107); Globulin 3.9 g/dL (1.3-4.6); Glucose 256 mg/dL (65-115); Osmolality Calculated 277 mOsm/kg (285-295); Potassium 3.9 mmol/L (3.5-5.1); Sodium 128 mmol/L (136-145); Total Bilirubin 1.5 mg/dL (0.15-1.2); Total Protein 7.3 g/dL (6.6-8.7)
[2023-04-06 19:23] LABS: Urine Color Light yellow (Yellow)
[2023-04-06 19:24] LABS: Add Urine Microscopic? YES; Bacteria Urine 3+ /hpf; Bilirubin Urine Neg (Negative); Blood Urine 3+ (Negative); Glucose Urine UA 4+ (Normal); Ketones Urine 1+ (Negative); Leukocyte Esterase Urine 2+ (Negative); Nitrate Urine Negative (Negative); Protein Urine 1+ (Negative); RBC Urine >100 /hpf (0-2); Specific Gravity, Urine 1.005 (1.005-1.030); Squamous Epithelial Cell Urine 0-4 /hpf (0-5); Urine Appearance Cloudy (CLEAR); Urobilinogen Urine Neg (Negative); WBC Urine >100 /hpf (0-5); pH Urine 5 (5-7)
[2023-04-06 19:24] LABS: Lactic Sepsis W/Reflex 1.3 mmol/L (0.5-2.2)
[2023-04-06 19:25] LABS: Add Urine Culture? Yes
[2023-04-06] MEDS: piperacillin-tazobactam 3.375 GM in sodium chloride 0.9% (plus) 50 ML IV (20:04)
[2023-04-06 21:19] VITALS: BP 135/69; PULSE 94; O2SAT 96
[2023-04-06 22:04] VITALS: BP 136/74; PULSE 93; RESP 18; O2SAT 95
[2023-04-06 22:30] VITALS: BP 146/67; PULSE 89; RESP 16; TEMP 37.2; O2SAT 99
[2023-04-07 04:41] VITALS: BP 131/67; PULSE 76; RESP 16; TEMP 36.7; O2SAT 97
--- NOTE | 2023-04-07 05:52 | P.HP_ITS ---
Providers/Chief Complaint Admitting Physician: Yuli Laws MD Primary Care Provider: Marzena Jesus MD Chief Complaint: RT Leg Swollen History of Present Illness Justice Guardado is a 73 year old male with history of diabetes not on any medications presented with complaint of right lower extremity swelling associated with right lateral foot ulcer since few months. As per the patient, he was walking around in the park 6 [place] ago when he stumbled into the stone and twisted his right ankle and foot. He had a small ulceration to the right lateral foot then which gradually progressed and now with black eschar and associated with right lower extremity redness swelling warmth but no pain. There is no history of fever cold cough chest pain shortness of breath bowel or urinary complaints. Review of Systems Narrative: As per HPI Medications/Allergies Home Medications Medication Instructions Recorded Confirmed Last Taken Type mupirocin 2 % topical ointment 1 applic topical TID #15 grams 12/13/22 12/13/22 Unknown Rx Allergies Allergy/AdvReac Type Severity Reaction Status Date / Time No Known Allergies Allergy Verified 04/06/23 15:28 PFSH Acute PFSH: Medical History Abdominal wall abscess DDD (degenerative disc disease) Diabetes Hyperlipidemia Hypertension Nephrolithiasis Refusal of statin medication by patient Short-term memory loss Surgical History History of hemorrhoidectomy History of hernia repair Periumbilical x2 / mesh History of lithotripsy History of tracheostomy History of vasectomy Family History Other Diabetes Social History Smoking and tobacco/nicotine status: never used tobacco/nicotine Alcohol intake: never Substance/Drug Use: never Lives independently: Yes Household members: none Marital status: Current 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 Pets and animals: Yes Vitals/I&O/Wt Last Vital Signs Temp 98.1 F 04/07/23 04:41 Pulse 76 04/07/23 04:41 Resp 16 04/07/23 04:41 BP 131/67 04/07/23 04:41 Pulse Ox 97 04/07/23 04:41 O2 Del Method Room Air 04/07/23 04:41 04/06/23 04/06/23 04/07/23 14:59 22:59 06:59 Intake Total 300 / 300 0 / 300 Output Total 0 / 0 Balance 300 / 300 0 / 300 Weight last 48 hrs Weight 100.244 kg Physical Exam Narrative: He is alert awake oriented x3 not in acute distress pleasant and cooperative Chest clear to auscultation bilaterally Cardiovascular normal heart sounds Abdomen soft nontender nondistended normal bowel sounds Extremities left lower extremity normal Right lower extremity swollen erythematous warm nontender associated with 3 x 3 cm nonhealing ulcer on the right lateral foot with black eschar and surrounding erythema but no tenderness. Data 04/06/23 16:26 04/06/23 18:58 Micro: Microbiology 04/06/23 18:58 Blood Culture - Preliminary Blood SPECIMEN COLLECTED 04/06/23 16:26 Blood Culture - Preliminary Blood SPECIMEN COLLECTED Xray Ortho: Radiologist's impression: X-ray right foot IMPRESSION: 1. ? Negative for acute bony abnormality. 2. ? Distal Achilles tendon degenerative calcification. 3. ? Mild first MTP joint osteoarthritis. CXR: Radiologist's impression: No acute findings US Vascular: Radiologist's impression: Arterial-no stenosis or thrombosis Venous-no evidence of DVT EKG 1: My Interpretation: Normal sinus rhythm Left axis deviation No acute ST-T changes A&P Assessment and plan (1) Cellulitis of right leg: (2) Gangrene of right foot: (3) UTI (urinary tract infection): Plan 73 year old male with history of diabetes not on any medications presented with complaint of right lower extremity swelling associated with right lateral foot ulcer since few months secondary to right lower extremity cellulitis, right foot partial gangrene and found to have UTI We will continue IV antibiotics IV Zosyn 3.375 g every 8 hours IV fluids normal saline at 75 mL/h IV morphine 2 mg every 6 hours as needed for pain Orthopedic surgeon Dr. Wnyne aware of the patient. Will consult with premium card cancellation clerk for further work-up and intervention for right foot gangrene. IV pantoprazole 40 mg twice a day for stress ulcer prophylaxis ICD for DVT prophylaxis He is full code for now as per the discussion with the patient. Attestations Medical Necessity Statement*: He needs more than 2 days of hospitalization for incision and debridement versus surgery for right foot gangrene and IV antibiotics for gangrene and UTI Time Spent in Patient Care: 30 minutes Coding Level of Care Code Acute Code for [facility] Fwd Diagnoses Cellulitis of right leg L03.115 Gangrene of right foot I96 UTI (urinary tract infection) N39.0 Time Spent (min) 30
[2023-04-07 06:23] LABS: Basophils % 0.3 %; Eosinophils % 0.3 %; Hematocrit 36.1 % (37-53); Lymphocytes # 1.2 10^3/uL (0.8-4.8); Lymphocytes % 10.2 %; Mean Corpuscular HGB Conc 33.2 g/dL (30-55); Mean Corpuscular Hemoglobin 30.7 pg (27-33); Mean Corpuscular Volume 92.3 fl (82-101); Mean Platelet Volume 9.7 fL (7.4-10.4); Monocytes # 0.9 10^3/uL (0.2-0.9); Monocytes % 7.5 %; Neutrophils # 9.67 10^3/uL (1.8-7.7); Nucleated Red Blood Cells % 0 %; Platelet Count 223 10^3/cmm (157-399); Red Blood Count 3.91 10^6/uL (3.85-5.65); Red Cell Distribution Width 12.2 % (12.1-15.1); White Blood Count 11.91 10^3/uL (3.29-11.43)
[2023-04-07] MEDS: sodium chloride 0.9% 1,000 ML 75 ML IV (06:26)
[2023-04-07] MEDS: pantoprazole 40 mg SDV IVP ×2 (06:26→20:37)
[2023-04-07] MEDS: piperacillin-tazobactam 3.375 GM in sodium chloride 0.9% (plus) 50 ML IV ×3 (06:27→21:51)
[2023-04-07 06:45] LABS: Alanine Aminotransferase < 5 U/L (0-41); Albumin Level 3.2 g/dL (3.5-5.2); Alkaline Phosphatase 83 U/L (40-130); Anion Gap 13.7 (5-19); Aspartate Amino Transferase 7 U/L (0-40); Blood Urea Nitrogen 18 mg/dL (8-23); Calcium 8.7 mg/dL (8.5-10.5); Carbon Dioxide 23 mmol/L (22-29); Chloride 101 mmol/L (98-107); Globulin 2.5 g/dL (1.3-4.6); Glucose 228 mg/dL (65-115); Magnesium 2.2 mg/dL (1.7-2.3); Osmolality Calculated 287 mOsm/kg (285-295); Potassium 3.7 mmol/L (3.5-5.1); Sodium 134 mmol/L (136-145); Total Bilirubin 1.5 mg/dL (0.15-1.2); Total Protein 5.7 g/dL (6.6-8.7)
[2023-04-07 07:01] LABS: Glucose Point of Care 223 mg/dL (70-110)
[2023-04-07 08:00] VITALS: BP 141/66; PULSE 84; RESP 16; TEMP 36.7; O2SAT 98
--- NOTE | 2023-04-07 08:35 | CTR_ITS ---
PROCEDURE INFORMATION: Exam: CT Abdomen And Pelvis Without Contrast Exam date and time: 04/07/2023 9:30 PM Age: 73 years old Clinical indication: Other: Hematuria TECHNIQUE: Imaging protocol: Computed tomography of the abdomen and pelvis without contrast. Radiation optimization: All CT scans at this facility use at least one of these dose optimization techniques: automated exposure control; mA and/or kV adjustment per patient size (includes targeted exams where dose is matched to clinical indication); or iterative reconstruction. REPORTING DATA: Count of CT and Cardiac NM exams in prior 12 months: This patient has received 0 known CTs and 0 known cardiac nuclear medicine studies in the 12 months prior to the current study. COMPARISON: CT abdomen pelvis w con* [id number] 05/03/2020 4:18 PM RADIATION DOSE METRICS: Total DLP (mGy-cm): 974.53 FINDINGS: Lungs: Left lower lobe atelectasis. Coronary arteries: Coronary artery atherosclerotic calcifications. Liver: Normal. No mass. Gallbladder and bile ducts: Normal. No calcified stones. No ductal dilation. Pancreas: Normal. No ductal dilation. Spleen: Normal. No splenomegaly. Adrenal glands: Normal. No mass. Kidneys and ureters: Moderate bilateral hydronephrosis and hydroureter without obstructing lesion. Perinephric edema bilaterally likely reflecting renal insufficiency. Left kidney exophytic cyst, negative for follow-up advised. Left kidney nonobstructing renal calyceal stone. Stomach and bowel: Unremarkable. No obstruction. No mucosal thickening. Appendix: No evidence of appendicitis. Intraperitoneal space: Unremarkable. No free air. No significant fluid collection. Vasculature: Unremarkable. No abdominal aortic aneurysm. Lymph nodes: Prominent subcentimeter inguinal lymph nodes bilaterally, nonspecific. Urinary bladder: Diffuse urinary bladder wall thickening may reflect sequelae of chronic outflow obstruction, please correlate for cystitis. Reproductive: Prominent fluid in the urinary bladder with an enlarged prostate gland perhaps reflecting underlying outflow obstruction, please correlate clinically. Bones/joints: Sclerotic lesions in the femoral heads bilaterally similar to prior exam without cortical collapse suggestive of avascular necrosis. Soft tissues: Surgical clips in the anterior abdominal wall. CT/CT kidney stone [id number] IMPRESSION: 1. Moderate bilateral hydronephrosis and hydroureter without obstructing lesion. 2. Prominent fluid in the urinary bladder with an enlarged prostate gland perhaps reflecting underlying outflow obstruction, please correlate clinically. 3. Perinephric edema bilaterally likely reflecting renal insufficiency. 4. Left kidney exophytic cyst, negative for follow-up advised. 5. Diffuse urinary bladder wall thickening may reflect sequelae of chronic outflow obstruction, please correlate for cystitis. 6. Surgical clips in the anterior abdominal wall. 7. Sclerotic lesions in the femoral heads bilaterally similar to prior exam without cortical collapse suggestive of avascular necrosis. 8. Coronary artery atherosclerotic calcifications. 9. Left lower lobe atelectasis. 10. Left kidney nonobstructing renal calyceal stone. 11. Prominent subcentimeter inguinal lymph nodes bilaterally, nonspecific.
[2023-04-07] MEDS: vancomycin 1,250 MG/250 ML PIGGYBACK 250 MG IV ×2 (08:49→20:37)
[2023-04-07] MEDS: mupirocin oint 22 gm 1 APPLIC TOPICAL (08:50)
[2023-04-07] MEDS: insulin lispro 100 unit/1 mL SUBCUT ×3 (08:50→20:37)
--- NOTE | 2023-04-07 08:52 | PM.PN ---
Documented by User: Juliet Penaloza 04/07/23 09:39 Subjective Subjective: Pt was admitted due to worsened diabetic foot ulceration with accompanying swelling and possible soft tissue infection. In the ED, he was also found to have fever, and UTI with significant RBCs in urine. He states he has not used his metformin for over a year and does not use insulin and instead manages his diabetes with diet and exercise. According to the pt, his foot has improved, and he denies any urinary symptoms including pain or initiation of urination. He denies any chest pain, SOB, or abdominal discomfort at this time. Vitals/I&O/Wt Last Vital Signs Temp 98.1 F 04/07/23 04:41 Pulse 76 04/07/23 04:41 Resp 16 04/07/23 04:41 BP 131/67 04/07/23 04:41 Pulse Ox 97 04/07/23 04:41 O2 Del Method Room Air 04/07/23 04:41 04/06/23 04/07/23 04/07/23 22:59 06:59 14:59 Intake Total 300 / 300 0 / 300 Output Total 0 / 0 425 / 425 Balance 300 / 300 0 / 300 -425 / -425 Weight last 48 hrs Weight 100.244 kg Physical Exam Narrative: General: pt is alert, conversant, cooperative male breathing comfortably on room air. Neck: supple, no lymphadenopathy. Cardiac: normal rate, rhythm, no murmurs appreciated. Respiratory: lungs clear to auscultation. Equal chest expansion. Abdomen: normoactive bowel sounds in all 4 quadrants. No tenderness to palpation. Extremities: 2+ pulses in upper extremities. Lower extremity pulses difficult to appreciate. Right lower extremity showed swelling, erythema up to mid calf, with significant swelling, erythema, warmth of dorsal foot. 5th digit purple in color, with 3 cm 3 cm round eschar located on lateral foot pad. Laceration present at 1st MTP joint. No signs of gangrene at this time. Data 04/07/23 06:04 04/07/23 06:04 Other Labs: HbA1C 9.3% Bilirubin 1.5 lactic acid normal Magnesium normal Protein 5.7, albumin 3.2 TSH normal UA on 04/06 showed evidence of UTI, with >100 RBCs, >100 WBCs, 3+ blood, 2+ leukocyte esterase, 3+ bacteria Urine culture pending. Blood culture pending Micro: Microbiology 04/06/23 18:58 Blood Culture - Preliminary Blood SPECIMEN COLLECTED 04/06/23 16:26 Blood Culture - Preliminary Blood SPECIMEN COLLECTED A&P Assessment and plan (1) Diabetic foot ulcer: Surgery consulted, and they will be looking into the need for podiatry consult Continue conservative wound care management at this time. Pt sensation of area seems to be intact. Continue IV zosyn for possible infection of ulcer (2) Abscess or cellulitis of foot: Warmth, erythema, edema present on dorsal foot. Continue morphine as needed for pain. No signs of osteomyelitis on foot xray yesterday. Continue antibiotics for soft tissue infection secondary to diabetic foot ulcer. Will monitor for progression of soft tissue infection. (3) UTI (urinary tract infection): Pt found to have UTI in ED with significant RBCs. Urine culture pending. IV antibiotics should cover UTI. CT renal protocol ordered due to pt history of nephrolithiasis and hematuria on UA to assess for possible renal stone. (4) Diabetes: A1C ordered and resulted at 9.3% Start long-acting insulin and sliding scale insulin. Will encourage follow-up with PCP for long-term management of diabetes. Coding Level of Care Code 20852 Diagnoses Diabetic foot ulcer E11.621; L97.509 Abscess or cellulitis of foot UTI (urinary tract infection) N39.0 Diabetes E11.9 Time Spent (min) 23 Documented by User: Mal Alarcon MD 04/07/23 09:54 Subjective Medications: Reviewed: Yes Physical Exam Narrative: General: pt is alert, conversant, cooperative male breathing comfortably on room air. Neck: supple, no lymphadenopathy. Cardiac: normal rate, rhythm, no murmurs appreciated. Respiratory: lungs clear to auscultation. Equal chest expansion. Abdomen: normoactive bowel sounds in all 4 quadrants. No tenderness to palpation. Extremities: 2+ pulses in upper extremities. Lower extremity pulses difficult to appreciate. Right lower extremity showed swelling, erythema up to mid calf, with significant swelling, erythema, warmth of dorsal foot. 5th digit purple in color, with 3 cm 3 cm round eschar located on lateral foot pad. Laceration present at 1st MTP joint. No obvious fluctuance noted Data 04/07/23 06:04 04/07/23 06:04 A&P Assessment and plan (1) Diabetic foot ulcer: Wound care consulted. They will be evaluating the patient. Continue conservative wound care management at this time. Pt sensation of area seems to be intact. Continue IV zosyn, vancomycin for possible infection of ulcer (2) Abscess or cellulitis of foot: (3) UTI (urinary tract infection): (4) Diabetes: Plan Other medical problems as listed in past medical history Full code Lovenox for venous thromboembolism prophylaxis, SCDs Patient was seen in tandem with the medical student and the note was fashioned with direct monitoring of input. Attestations Medical Necessity Statement*: Needs continued hospital stay for IV antibiotics secondary to cellulitis, evaluation of wound on the foot as well as evaluation of UTI with hematuria Diagnoses Diabetic foot ulcer E11.621; L97.509 Abscess or cellulitis of foot UTI (urinary tract infection) N39.0 Diabetes E11.9 Time Spent (min) 23
[2023-04-07 09:17] LABS: Thyroid Stimulating Hormone 1.35 uIU/mL (0.27-4.20)
[2023-04-07 09:20] LABS: Estmated Average Glucose 220; Hemoglobin A1C 9.3 % (4.0-6.0)
[2023-04-07 11:12] LABS: Glucose Point of Care 232 mg/dL (70-110)
[2023-04-07 11:37] VITALS: BP 162/78; PULSE 85; RESP 17; TEMP 36.7; O2SAT 99
[2023-04-07] MEDS: enoxaparin 40 mg/0.4 mL Syringe SUBCUT (11:38)
--- NOTE | 2023-04-07 14:28 | PM.CONSULT ---
Providers/Reason For Consult Attending Physician: Mal Alarcon MD Primary Care Provider: Marzena Jesus MD History of Present Illness History of Present Illness Justice Gaurdado is a 73 year old male Medications/Allergies Home Medications Medication Instructions Recorded Confirmed Last Taken Type mupirocin 2 % topical ointment 1 applic topical TID #15 grams 12/13/22 04/07/23 Unknown Rx Allergies Allergy/AdvReac Type Severity Reaction Status Date / Time No Known Allergies Allergy Verified 04/06/23 15:28 Current Medications Generic Name Dose Route Start Last Admin Trade Name Freq PRN Reason Stop Dose Admin Enoxaparin Sodium 40 mg 04/07/23 10:00 04/07/23 11:38 Enoxaparin 40 Mg/0.4 Ml Syringe SUBCUT 40 mg Q24H DENNISE Administration Sodium Chloride 1,000 mls @ 75 mls/hr 04/07/23 06:00 04/07/23 13:47 Sodium Chloride 0.9% IV 75 mls/hr .[id number] DENNISE Infusion Piperacillin Sod/Tazobactam 50 mls @ 12.5 mls/hr 04/07/23 06:00 04/07/23 13:46 Sod 3.375 gm/ Sodium Chloride IV 12.5 mls/hr Q8H DENNISE Administration Protocol Vancomycin/PEG/NADA/Lysine/Water 1,250 mg in 250 mls @ 250 mls/hr 04/07/23 08:30 04/07/23 10:12 Vancocin IV Infused Q12H DENNISE Infusion Insulin Human Lispro 0 unit 04/07/23 08:00 04/07/23 11:38 Insulin Lispro 100 Unit/1 Ml SUBCUT 8 unit WM&BEDTIME DENNISE Administration Protocol Pantoprazole Sodium 40 mg 04/07/23 06:00 04/07/23 06:26 Pantoprazole 40 Mg Sdv IVP 40 mg Q12H DENNISE Administration PFSH Acute PFSH: Medical History Abdominal wall abscess DDD (degenerative disc disease) Diabetes Hyperlipidemia Hypertension Nephrolithiasis Refusal of statin medication by patient Short-term memory loss Surgical History History of hemorrhoidectomy History of hernia repair Periumbilical x2 / mesh History of lithotripsy History of tracheostomy History of vasectomy Family History Other Diabetes Social History Smoking and tobacco/nicotine status: never used tobacco/nicotine Alcohol intake: never Substance/Drug Use: never Lives independently: Yes Household members: none Marital status: Current 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 Pets and animals: Yes Vitals/I&O/Wt Last Vital Signs Temp 98.0 F 04/07/23 11:37 Pulse 85 04/07/23 11:37 Resp 17 04/07/23 11:37 BP 162/78 04/07/23 11:37 Pulse Ox 99 04/07/23 11:37 O2 Del Method Room Air 04/07/23 11:37 04/06/23 04/07/23 04/07/23 22:59 06:59 14:59 Intake Total 300 / 300 0 / 300 938.75 / 938.75 Output Total 0 / 0 425 / 425 Balance 300 / 300 0 / 300 513.75 / 513.75 Weight last 48 hrs Weight 100.244 kg Data 04/07/23 06:04 04/07/23 06:04 Micro: Microbiology 04/06/23 18:58 Blood Culture - Preliminary Blood SPECIMEN COLLECTED 04/06/23 16:26 Blood Culture - Preliminary Blood SPECIMEN COLLECTED Coding Level of Care Code Acute Code for Chg Fwd Diagnoses
--- NOTE | 2023-04-07 14:43 | PM.CONSULT ---
Providers/Reason For Consult Consulting Physician/Specialty*: Wound care/ dressing change orders Reason for Consult*: Wound to right lateral foot, 5th metatarsal head. Requesting Physician: Dr. Alarcon Attending Physician: Mal Alarcon MD Primary Care Provider: Marzena Jesus MD History of Present Illness History of Present Illness Justice Guardado is a 73 year old male presents today with wound to the right foot. He was admitted on 04/06/23 after visiting the emergency department for worsening diabetic foot wound and cellulitis of foot. Medical history includes diabetes with last known A1C of 9.3, urinary tract infection and obesity. He is being seen today for wound care consult on the Medical/Surgical floor. The patient reports he has had this wound approximately two months after a fall. He reports he walks a great distance each day in his home town. He reports he has significant feeling in his foot. He denies pain at this time. Xray of the right foot was negative for gas and/or osteomylitis. Assessment of the wound today revealed 2.5x2.5x0.1cm eschar cap of the right fifth metatarsal head on the plantar surface with loose epidermis to the periwound. I do appreciate significant erythema to the periwound extending to the dorsal surface of the right foot. There is a scant amount of erythema to the right pretibial region. The fifth toe has some discoloration of dusky purple. There is also 4+ pitting edema to the right foot. There is 2+ pitting edema to the pretibial region of the right lower extremity. The periwound is slightly boggy with a mild odor. Loose epidermis was trimmed from the periwound using Metzenbaum scissors and forceps. No curette debridement was performed. No bleeding with no discomfort noted. I recommend the wound be painted daily with iodine and covered with bordered gauze. He may shower with no wound dressing. I have spoken to Mr. Guardado about the importance of daily foot examinations and the importance of never going barefoot. I also recommend he wear hard soled shoes when walking. I have encouraged him to elevate his leg as much as possible and to avoid ambulation except when toileting or performing ADL's. I recommend Mr. Guardado follow up with wound care upon discharge and he has agreed to this plan. I do not recommend any further imaging at this time although, a CT of the right foot woud be appropriate if the erythema worsens or the wound does not respond to treatment. I appreciate the opportunity to consult with Christy Blackwellbs. Review of Systems Narrative: As per HPI Medications/Allergies Home Medications Medication Instructions Recorded Confirmed Last Taken Type mupirocin 2 % topical ointment 1 applic topical TID #15 grams 12/13/22 04/07/23 Unknown Rx Allergies Allergy/AdvReac Type Severity Reaction Status Date / Time No Known Allergies Allergy Verified 04/06/23 15:28 Current Medications Generic Name Dose Route Start Last Admin Trade Name Freq PRN Reason Stop Dose Admin Enoxaparin Sodium 40 mg 04/07/23 10:00 04/07/23 11:38 Enoxaparin 40 Mg/0.4 Ml Syringe SUBCUT 40 mg Q24H DENNISE Administration Sodium Chloride 1,000 mls @ 75 mls/hr 04/07/23 06:00 04/07/23 13:47 Sodium Chloride 0.9% IV 75 mls/hr .[id number] DENNISE Infusion Piperacillin Sod/Tazobactam 50 mls @ 12.5 mls/hr 04/07/23 06:00 04/07/23 13:46 Sod 3.375 gm/ Sodium Chloride IV 12.5 mls/hr Q8H DENNISE Administration Protocol Vancomycin/PEG/NADA/Lysine/Water 1,250 mg in 250 mls @ 250 mls/hr 04/07/23 08:30 04/07/23 10:12 Vancocin IV Infused Q12H DENNISE Infusion Insulin Human Lispro 0 unit 04/07/23 08:00 04/07/23 11:38 Insulin Lispro 100 Unit/1 Ml SUBCUT 8 unit WM&BEDTIME DENNISE Administration Protocol Pantoprazole Sodium 40 mg 04/07/23 06:00 04/07/23 06:26 Pantoprazole 40 Mg Sdv IVP 40 mg Q12H DENNISE Administration PFSH Acute PFSH: Medical History Abdominal wall abscess DDD (degenerative disc disease) Diabetes Hyperlipidemia Hypertension Nephrolithiasis Refusal of statin medication by patient Short-term memory loss Surgical History History of hemorrhoidectomy History of hernia repair Periumbilical x2 / mesh History of lithotripsy History of tracheostomy History of vasectomy Family History Other Diabetes Social History Smoking and tobacco/nicotine status: never used tobacco/nicotine Alcohol intake: never Substance/Drug Use: never Lives independently: Yes Household members: none Marital status: Current 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 Pets and animals: Yes Vitals/I&O/Wt Last Vital Signs Temp 98.0 F 04/07/23 11:37 Pulse 85 04/07/23 11:37 Resp 17 04/07/23 11:37 BP 162/78 04/07/23 11:37 Pulse Ox 99 04/07/23 11:37 O2 Del Method Room Air 04/07/23 11:37 04/06/23 04/07/23 04/07/23 22:59 06:59 14:59 Intake Total 300 / 300 0 / 300 938.75 / 938.75 Output Total 0 / 0 425 / 425 Balance 300 / 300 0 / 300 513.75 / 513.75 Weight last 48 hrs Weight 100.244 kg Physical Exam Narrative: General: pt is alert, conversant, cooperative male breathing comfortably on room air. Neck: supple, no lymphadenopathy. Cardiac: normal rate, rhythm, no murmurs appreciated. Respiratory: lungs clear to auscultation. Equal chest expansion. Abdomen: normoactive bowel sounds in all 4 quadrants. No tenderness to palpation. Extremities: 2+ pulses in upper extremities. Pulses to feet bilaterally are 1+ with palpation. Right lower extremity showed swelling 4+ pitting edema, erythema to doral surface of right foot with some scant erythema to the pretibial region of the right lowe extremity calf, with warmth of dorsal surface of right foot. 5th digit dusky purple in color, with 2.5 cm 2.5 cm round eschar located to the right laterl foot at the fifth metatarsal head with loose epidermis to the periwound. Data 04/07/23 06:04 04/07/23 06:04 Micro: Microbiology 04/06/23 18:58 Blood Culture - Preliminary Blood SPECIMEN COLLECTED 04/06/23 16:26 Blood Culture - Preliminary Blood SPECIMEN COLLECTED A&P Assessment and plan (1) Diabetic foot ulcer: Daily dressing changes: iodine swabs to wound bed and cover with bordered gauze. Qualifiers: Diabetes mellitus type: type 2 Diabetic foot ulcer location: other Laterality: right Consult Attestations Medical Necessity Statement: See admitting service's notation. Time Spent in Patient Care: 16 - 35 minutes (25) (>than 50% of time spent in counselling and/or direct pt care on unit). 25 minutes spent at the bedside counseling patient/ in direct patient care on unit Coding Level of Care Code 73014 Diagnoses Diabetic foot ulcer E11.621; L97.509 Diabetes mellitus type: type 2 Diabetic foot ulcer location: other Laterality: right Time Spent (min) 25 Wound Orders Wound Number 1: Right plantar surface wound, fifth metatarsal head. Does Wound require Debridement?: Yes Tissue and other material debrided:: Non-Viable and Skin: Epidermis Level Debrided: Dermis Level of Consciousness Pre-Procedure:: Awake and Alert Blood Loss: None Reponse to treatment:: Procedure tolerated well Character of Wound/Ulcer Post Debridement:: Requires further debridement Level of Consciousness Post Procedure:: Awake and Alert Post procedure diagnosis:: Same as Pre-Procedure Diagnosis Duration: 14 Days Dressing change frequency: Daily Wound Cleansing: Saline Primary Wound Care Dressing: iodine swabs to the eschar cap Secondary Wound Care Dressing: Bordered gauze/covaderm Bathing/Showering/Hygiene: May shower without wound dressing Edema Control: Elevate legs to heart level for 30 mins daily and/or when sitting and Avoid standing for long periods of time
[2023-04-07 15:38] VITALS: BP 145/73; PULSE 96; RESP 16; TEMP 36.7; O2SAT 96
[2023-04-07 17:14] LABS: Glucose Point of Care 125 mg/dL (70-110)
[2023-04-07 19:20] VITALS: BP 148/70; PULSE 88; RESP 18; TEMP 37; O2SAT 99
[2023-04-07 20:05] LABS: Glucose Point of Care 146 mg/dL (70-110)
[2023-04-08] VITALS: BP 140/60; PULSE 86; RESP 16; TEMP 37; O2SAT 98
[2023-04-08 04:00] VITALS: BP 134/65; PULSE 89; RESP 17; TEMP 36.8; O2SAT 97
[2023-04-08] MEDS: sodium chloride 0.9% 1,000 ML 75 ML IV ×2 (05:02→21:42)
[2023-04-08] MEDS: piperacillin-tazobactam 3.375 GM in sodium chloride 0.9% (plus) 50 ML IV ×2 (05:03→21:42)
[2023-04-08 06:18] LABS: Glucose Point of Care 145 mg/dL (70-110)
[2023-04-08 08:00] VITALS: BP 113/57; PULSE 82; RESP 16; TEMP 36.9; O2SAT 99
[2023-04-08] MEDS: pantoprazole 40 mg SDV IVP ×2 (08:40→20:32)
[2023-04-08] MEDS: tamsulosin 0.4 mg Capsule PO (08:42)
[2023-04-08] MEDS: insulin lispro 100 unit/1 mL SUBCUT ×4 (08:42→20:41)
[2023-04-08] MEDS: vancomycin 1,250 MG/250 ML PIGGYBACK 250 MG IV ×2 (08:43→20:32)
--- NOTE | 2023-04-08 08:44 | PC.CHAP ---
Pastoral Care Encounter/Spiritual Assessment Type of Contact [] Declined broadcaster visit [] Patient/Family/Request visit [] Outpatient visit [] Follow-up visit [] Physician referral [] Code/Alert [] Routine visit [] Staff referral [] Actively dying [] Patient sleeping [] Family support [] [] Out of room [] Palliative care [] [x] Receiving care in room [] Pre-surgical visit [] Trauma [] Long length of stay [] ICU visit [] Other: Relational/Emotional Strength [] Patient feels connected with others/family/visitors/staff [] Distress [] Loneliness/isolation [] Abandonment Spirituality of Patient [] Person of Stephanie [] Attends Congregation of their Stephanie [] Believes in Prayer [] Reads Bible or Congregation materials [] There are Spiritual issues to be addressed Varying Exceptionalities Teacher Interventions [] Prayer [] Active listening [] Non-anxious presence [] Spiritual/emotional support [] Crisis/trauma care [] Spiritual counseling [] Bereavement support [] Provided bereavement packet [] Provided Bible/devotional materials [] Provided toy/stuffed animal, coloring book to patient or family member [] Provided Communion [] Anointing/Keavy [] Salvation [] Completed spiritual assessment [] Other: Impact on Illness or Injury [] Angry [] Fearful [] Anxious [] Often cries [] Exhaustion [] Unable to work [] Unable to attend sikh [] Unable to walk/stand [] Unable to read [] Unable to drive [] Unable to eat/drink [] Unable to sleep [] Unable to be with family [] Patient intubated [] Other: Summary Time spent with patient
--- NOTE | 2023-04-08 08:51 | P.PN_ITS ---
Subjective Subjective: Justice reports he is doing okay this morning. He believes the foot is even better. No fever overnight. I discussed his CT with him with possible bladder outlet obstruction. He agrees that his suprapubic area is tender at times, he urinates frequently and often feels he cannot get enough urine out. He believes this is been going on for many months. Medications: Reviewed: Yes Vitals/I&O/Wt Last Vital Signs Temp 98.4 F 04/08/23 08:00 Pulse 82 04/08/23 08:00 Resp 16 04/08/23 08:00 BP 113/57 04/08/23 08:00 Pulse Ox 99 04/08/23 08:00 O2 Del Method Room Air 04/08/23 08:00 04/07/23 04/08/23 04/08/23 22:59 06:59 14:59 Intake Total 780.000 / 1718.750 531.25 / 2250.000 360 / 360 Output Total 2350 / 2775 1000 / 3775 200 / 200 Balance -1570.000 / -1056.250 -468.75 / -1525.000 160 / 160 Weight last 48 hrs Weight 100.244 kg Physical Exam Narrative: General: No distress Neck: supple, no lymphadenopathy. Cardiac: normal rate, rhythm, no murmurs appreciated. Respiratory: lungs clear to auscultation. Equal chest expansion. Abdomen: Positive bowel sounds, no tenderness. I cannot feel his bladder. Extremities: Pulses intact. Dressing present right lateral foot. Right fifth toe slightly dusky, about the same as yesterday. Erythema over martin, and top of foot there is improved. Data 04/07/23 06:04 04/07/23 06:04 Other Labs: I have ordered laboratory for today Abdomen pelvis CT demonstrated moderate bilateral hydronephrosis with hydroureter without obstructing lesion and prominent fluid in the urinary bladder. Urinary bladder thickening is noted. Blood cultures negative today, urine culture pending Micro: Microbiology 04/06/23 18:58 Blood Culture - Preliminary Blood NEGATIVE TO DATE 04/06/23 16:26 Blood Culture - Preliminary Blood NEGATIVE TO DATE A&P Assessment and plan (1) Diabetic foot ulcer: Appreciate wound care consult. Continue dressing changes. I will ask the nurse to let me know the next dressing changes so I can evaluate the wound again. Continue vancomycin and Zosyn currently Qualifiers: Diabetic foot ulcer location: other Diabetes mellitus type: type 2 Laterality: right (2) Abscess or cellulitis of foot: Erythema improving No signs of osteomyelitis on foot xray yesterday. Continue current antibiotics. Possible discharge tomorrow (3) UTI (urinary tract infection): Pt found to have UTI Continue Zosyn Await urine culture CT demonstrates findings concerning for bladder outlet obstruction. I am discussing with the patient if he will allow Parker placement. We will place him on Flomax and Proscar. We will go ahead and do bladder scan after urinating. No evidence of obstructive stone on CT. (4) Diabetes: A1C ordered and resulted at 9.3% Sliding scale insulin currently Likely metformin on discharge Will encourage follow-up with PCP for long-term management of diabetes. Plan Other medical problems as listed in past medical history Full code Lovenox for venous thromboembolism prophylaxis, SCDs Attestations Medical Necessity Statement*: Needs continued hospital stay for IV antibiotics related to cellulitis, treatme nt of UTI with IV antibiotics Diagnoses Diabetic foot ulcer E11.621; L97.509 Diabetic foot ulcer location: other Diabetes mellitus type: type 2 Laterality: right Abscess or cellulitis of foot UTI (urinary tract infection) N39.0 Diabetes E11.9 Time Spent (min) 20
[2023-04-08] MEDS: enoxaparin 40 mg/0.4 mL Syringe SUBCUT (09:42)
[2023-04-08] MEDS: finasteride 5 mg Tablet PO (09:42)
[2023-04-08 10:15] LABS: Basophils % 0.3 %; Eosinophils % 0.2 %; Hematocrit 37.4 % (37-53); Lymphocytes # 0.8 10^3/uL (0.8-4.8); Lymphocytes % 5.2 %; Mean Corpuscular HGB Conc 32.9 g/dL (30-55); Mean Corpuscular Hemoglobin 30.1 pg (27-33); Mean Corpuscular Volume 91.7 fl (82-101); Mean Platelet Volume 9.8 fL (7.4-10.4); Monocytes # 0.9 10^3/uL (0.2-0.9); Monocytes % 5.8 %; Neutrophils # 13.47 10^3/uL (1.8-7.7); Nucleated Red Blood Cells % 0 %; Platelet Count 253 10^3/cmm (157-399); Red Blood Count 4.08 10^6/uL (3.85-5.65); Red Cell Distribution Width 12.3 % (12.1-15.1)
[2023-04-08 10:31] LABS: Anion Gap 16.4 (5-19); Blood Urea Nitrogen 16 mg/dL (8-23); Calcium 8.6 mg/dL (8.5-10.5); Carbon Dioxide 22 mmol/L (22-29); Chloride 98 mmol/L (98-107); Glucose 205 mg/dL (65-115); Osmolality Calculated 283 mOsm/kg (285-295); Potassium 3.4 mmol/L (3.5-5.1); Sodium 133 mmol/L (136-145)
[2023-04-08 11:19] LABS: Glucose Point of Care 216 mg/dL (70-110)
[2023-04-08 11:30] VITALS: BP 132/64; PULSE 86; RESP 17; TEMP 36.8; O2SAT 99
[2023-04-08] MEDS: potassium chloride ER 20 mEq Tablet 40 MEQ PO (12:11)
--- NOTE | 2023-04-08 14:09 | PM.PN ---
Subjective Subjective: Mr. Guardado is in good spirits this morning. He reports he slept well last night and is feeling better. No fever overnight. Wound today looks stable with eschar cap intact. Iodine swabbed to the wound bed. Covered with 4x6 bordered gauze. Patient tolerated well. Medications: Reviewed: Yes Vitals/I&O/Wt Last Vital Signs Temp 98.2 F 04/08/23 11:30 Pulse 86 04/08/23 11:30 Resp 17 04/08/23 11:30 BP 132/64 04/08/23 11:30 Pulse Ox 99 04/08/23 11:30 O2 Del Method Room Air 04/08/23 11:30 04/07/23 04/08/23 04/08/23 22:59 06:59 14:59 Intake Total 780.000 / 1718.750 531.25 / 2250.000 1055 / 1055 Output Total 2350 / 2775 1000 / 3775 750 / 750 Balance -1570.000 / -1056.250 -468.75 / -1525.000 305 / 305 Weight last 48 hrs Weight 100.244 kg Physical Exam Narrative: General: No distress Neck: supple, no lymphadenopathy. Cardiac: normal rate, rhythm, no murmurs appreciated. Respiratory: lungs clear to auscultation. Equal chest expansion. Abdomen: Positive bowel sounds, no tenderness. I cannot feel his bladder. Extremities: Pulses intact. Dressing present right lateral foot. Right fifth toe slightly dusky, mildly improved since yesterday. Erythema over martin, and top of foot there is improved. Data 04/08/23 09:50 04/08/23 09:50 Micro: Microbiology 04/06/23 18:26 Urine Culture - Final Urine,Clean Catch 04/06/23 18:58 Blood Culture - Preliminary Blood NEGATIVE TO DATE 04/06/23 16:26 Blood Culture - Preliminary Blood NEGATIVE TO DATE A&P Assessment and plan (1) Diabetic foot ulcer: Continue daily dressing changes. Qualifiers: Diabetes mellitus type: type 2 Diabetic foot ulcer location: other Laterality: right Plan Other medical problems as listed in past medical history Full code Lovenox for venous thromboembolism prophylaxis, SCDs Attestations Medical Necessity Statement*: Needs continued hospital stay for IV antibiotics related to cellulitis, treatment of UTI with IV antibiotics Coding Level of Care Code 59757 Diagnoses Diabetic foot ulcer E11.621; L97.509 Diabetes mellitus type: type 2 Diabetic foot ulcer location: other Laterality: right Time Spent (min) 25
[2023-04-08 16:00] VITALS: BP 125/72; PULSE 73; RESP 16; TEMP 36.6; O2SAT 98
[2023-04-08 16:39] LABS: Glucose Point of Care 165 mg/dL (70-110)
[2023-04-08 19:35] VITALS: BP 130/62; PULSE 87; RESP 18; TEMP 36.6; O2SAT 99
[2023-04-08 20:28] LABS: Vancomycin Trough 18.4 ug/mL (10-15)
--- NOTE | 2023-04-08 20:37 | PC.NURSE ---
Patient bladder scanned this morning after void per doctor's order. Patient only retaining about 200ml per bladder scan. Dr Alarcon said to bladder scan patient again after next void. Patient scanned early this afternoon after void at around 1500. Bladder scan showing [address] Alarcon notified about findings. An order to place a juarez catheter was given. After a couple of attempts by this nurse were unsuccessful, charge nurse Carol was notified and she attempted. This attempt was unsuccessful. Charge nurse then used a 10 Fr self catheter and was able to get urine flash. 700ml of urine ended up being drained. Dr. Alarcon notified. The importance of a catheter was discussed and other nurses throughout the facility were contacted to try placement. This was unsuccessful. Another 10 Fr self catheter was used in sterile fashion this evening and attached to a juarez bag via an NG tube connector to act as a juarez system until patient can get transferred to another facility with urology. 800ml was drained from patient's bladder after insertion and securement of self catheter the second time. Dr. Alarcon updated by this nurse via [employer].
[2023-04-08 20:54] LABS: Glucose Point of Care 199 mg/dL (70-110)
[2023-04-09] VITALS (34 sets, daily range): BP systolic 101–152; BP diastolic 56–94; PULSE 67–90; RESP 11–26; TEMP 36.4–37; O2SAT 95–99
--- NOTE | 2023-04-09 03:37 | PC.NURSE ---
Dilation catheter came out during patient movement. 12F coude inserted.
[2023-04-09 05:10] LABS: Basophils % 0.3 %; Eosinophils # 0.1 10^3/uL (0.0-0.8); Eosinophils % 1.2 %; Hematocrit 35.4 % (37-53); Lymphocytes % 8.4 %; Mean Corpuscular HGB Conc 32.5 g/dL (30-55); Mean Corpuscular Hemoglobin 30.4 pg (27-33); Mean Corpuscular Volume 93.7 fl (82-101); Mean Platelet Volume 9.8 fL (7.4-10.4); Monocytes # 0.7 10^3/uL (0.2-0.9); Neutrophils # 10.04 10^3/uL (1.8-7.7); Neutrophils % 83.6 %; Nucleated Red Blood Cells % 0 %; Platelet Count 255 10^3/cmm (157-399); Red Blood Count 3.78 10^6/uL (3.85-5.65); Red Cell Distribution Width 12.2 % (12.1-15.1)
[2023-04-09] MEDS: piperacillin-tazobactam 3.375 GM in sodium chloride 0.9% (plus) 50 ML IV ×3 (05:16→22:23)
[2023-04-09 05:37] LABS: Alanine Aminotransferase 6 U/L (0-41); Albumin Level 2.7 g/dL (3.5-5.2); Alkaline Phosphatase 76 U/L (40-130); Anion Gap 15.5 (5-19); Aspartate Amino Transferase 9 U/L (0-40); Blood Urea Nitrogen 15 mg/dL (8-23); Carbon Dioxide 21 mmol/L (22-29); Chloride 104 mmol/L (98-107); Globulin 2.4 g/dL (1.3-4.6); Glucose 143 mg/dL (65-115); Magnesium 2.2 mg/dL (1.7-2.3); Osmolality Calculated 287 mOsm/kg (285-295); Potassium 3.5 mmol/L (3.5-5.1); Sodium 137 mmol/L (136-145); Total Bilirubin 0.7 mg/dL (0.15-1.2); Total Protein 5.1 g/dL (6.6-8.7)
[2023-04-09 06:29] LABS: Glucose Point of Care 146 mg/dL (70-110)
--- NOTE | 2023-04-09 06:59 | PM.PN ---
Documented by User: Juliet Penaloza 04/09/23 09:25 Subjective Subjective: Pt reports feeling well today. Bladder scan performed yesterday showed residual fluid amount of 603, so a catheter was placed. He feels his foot wound is doing well, and he was seen by wound care yesterday for it. Pt denies any chest pain, SOB, abdominal pain today. He has no other concerns at this time. Vitals/I&O/Wt Last Vital Signs Temp 98.1 F 04/09/23 05:07 Pulse 81 04/09/23 05:07 Resp 17 04/09/23 05:07 BP 125/67 04/09/23 05:07 Pulse Ox 95 04/09/23 05:07 O2 Del Method Room Air 04/08/23 16:00 04/08/23 04/08/23 04/09/23 14:59 22:59 06:59 Intake Total 1055 / 1055 1772.5 / 2827.5 530 / 3357.5 Output Total 750 / 750 900 / 1650 1700 / 3350 Balance 305 / 305 872.5 / 1177.5 -1170 / 7.5 Physical Exam Narrative: General: No distress. Alert, has catheter in place. Neck: supple, no lymphadenopathy. Cardiac: normal rate, rhythm, no murmurs appreciated. Respiratory: lungs clear to auscultation. Equal chest expansion. Abdomen: Positive bowel sounds, no tenderness. Extremities: Pulses intact. Stable black eschar present on lateral foot near base of 5th metatarsal. Right fifth toe blueish-mcgregor, slightly worse than yesterday with a 3-4 second capillary refill. Erythema,edema over martin, and top of foot continues to show improvement Urinary Catheter Management: Coude: Cath Placed During This Visit: yes Reason for Continuing Indwelling Catheter: Acute Urinary Retention or Obstruction Urinary Catheter Date of Insertion: 04/09/23 Urinary Catheter Time of Insertion: 01:00 Data 04/09/23 04:49 04/09/23 04:49 Other Labs: LFTs normal. Magnesium normal. Protein 5.1, Albumin 2.7. Urine culture showed multiple organisms and >100,000 CFU. Blood culture negative to date. Micro: Microbiology 04/06/23 18:26 Urine Culture - Final Urine,Clean Catch A&P Assessment and plan (1) Diabetic foot ulcer: Appreciate wound care consult. Continue dressing changes. Continue vancomycin and Zosyn currently Podiatry consult appreciated for evaluation of worsened 5th digit on right foot. Cardiology to do peripheral angiogram of right lower extremity to check vasculature of lower extremity to evaluate for appropriate blood supply if surgical treatment is warranted per podiatry. Will continue to collaborate with them. Qualifiers: Diabetes mellitus type: type 2 Diabetic foot ulcer location: other Laterality: right (2) Abscess or cellulitis of foot: Erythema improving No signs of osteomyelitis on foot xray at this time. Continue current antibiotics. Awaiting podiatry evaluation for further treatment plans. (3) UTI (urinary tract infection): Pt found to have UTI Continue Zosyn Urine culture showed multiple organisms. Could be do to outlet obstruction as bladder had significant retention of urine. CT demonstrated findings concerning for bladder outlet obstruction, and bladder scan showed retention of approx 800cc of urine. Pt had catheter placed and is draining urine at this time. Continue Flomax and Proscar. May consider urology follow-up on discharge. (4) Diabetes: A1C at 9.3% Sliding scale insulin currently Likely metformin on discharge Will encourage follow-up with PCP for long-term management of diabetes. Plan Other medical problems as listed in past medical history Full code Lovenox for venous thromboembolism prophylaxis, SCDs Coding Level of Care Code 20128 Diagnoses Diabetic foot ulcer E11.621; L97.509 Diabetes mellitus type: type 2 Diabetic foot ulcer location: other Laterality: right Abscess or cellulitis of foot UTI (urinary tract infection) N39.0 Diabetes E11.9 Time Spent (min) 25 Documented by User: Mal Alarcon MD 04/09/23 09:34 Subjective Medications: Reviewed: Yes Physical Exam Urinary Catheter Management: Coude: Cath Placed During This Visit: yes Data 04/09/23 04:49 04/09/23 04:49 A&P Assessment and plan (1) Diabetic foot ulcer: Appreciate wound care consult. Continue dressing changes. Continue vancomycin and Zosyn currently Podiatry consult appreciated for evaluation of worsened 5th digit on right foot. Cardiology consulted for further evaluation of right lower extremity to check vasculature of lower extremity. Note that arterial duplex appeared normal. Qualifiers: Diabetes mellitus type: type 2 Diabetic foot ulcer location: other Laterality: right (2) Abscess or cellulitis of foot: (3) UTI (urinary tract infection): Pt found to have UTI Continue Zosyn Urine culture showed multiple organisms. Could be do to outlet obstruction as bladder had significant retention of urine. CT demonstrated findings concerning for bladder outlet obstruction, and bladder scan showed retention of approx 800cc of urine. Pt had catheter placed and is draining urine at this time. Intention is to leave catheter in at discharge. Continue Flomax and Proscar. Will need urology follow-up at discharge, and approximately 10 to 14 days (4) Diabetes: Attestations Medical Necessity Statement*: Needs continued hospital stay for evaluation of vasculature right lower extremity, possible surgery for diabetic foot ulcer and ischemia. Diagnoses Diabetic foot ulcer E11.621; L97.509 Diabetes mellitus type: type 2 Diabetic foot ulcer location: other Laterality: right Abscess or cellulitis of foot UTI (urinary tract infection) N39.0 Diabetes E11.9 Time Spent (min) 25
--- NOTE | 2023-04-09 07:58 | P.PN_ITS ---
Subjective Subjective: Mr. Guardado had no events overnight. Dressing change this morning revealed scant amount of serous drainage from the eschar cap. No odor. I do not appreciate worsening edema or worsening erythema. The fifth toe dusky purple is now a dark purple and extends laterally and to the dorsal surface of the foot. The area of discoloration has not spread, but darkened in color. I discussed with Mr. Guardado I feel a debridement may be in his best interest to further the healing process. I feel a consult to podiatry is appropriate at this time for evaluation and possible surgical debridement. Wound dressing changed with iodine swab and bordered gauze. Medications: Reviewed: Yes Vitals/I&O/Wt Last Vital Signs Temp 98.1 F 04/09/23 05:07 Pulse 81 04/09/23 05:07 Resp 17 04/09/23 05:07 BP 125/67 04/09/23 05:07 Pulse Ox 95 04/09/23 05:07 O2 Del Method Room Air 04/08/23 16:00 04/08/23 04/09/23 04/09/23 22:59 06:59 14:59 Intake Total 1772.5 / 2827.5 530 / 3357.5 Output Total 900 / 1650 1700 / 3350 Balance 872.5 / 1177.5 -1170 / 7.5 Weight last 48 hrs Weight 100.244 kg Physical Exam Narrative: General: No distress Neck: supple, no lymphadenopathy. Cardiac: normal rate, rhythm, no murmurs appreciated. Respiratory: lungs clear to auscultation. Equal chest expansion. Abdomen: Positive bowel sounds, no tenderness. I cannot feel his bladder. Extremities: Pulses intact. Dressing present right lateral foot. Right fifth toe dark purple, lateral and dorsal surface of foot also has dark purple discoloration. Erythema over martin, and top of foot there is the same as yesterday. I do not appreciate worsening edema. Urinary Catheter Management: Coude: Cath Placed During This Visit: yes Reason for Continuing Indwelling Catheter: Acute Urinary Retention or Obstruction Urinary Catheter Date of Insertion: 04/09/23 Urinary Catheter Time of Insertion: 01:00 Data 04/09/23 04:49 04/09/23 04:49 Micro: Microbiology 04/06/23 18:26 Urine Culture - Final Urine,Clean Catch A&P Assessment and plan (1) Diabetic foot ulcer: Qualifiers: Diabetic foot ulcer location: other Diabetes mellitus type: type 2 Laterality: right Plan Continue daily dressing changes. Consult with podiatry for possible surgical debridement. Other medical problems as listed in past medical history. Attestations Medical Necessity Statement*: Needs continued hospital stay for IV antibiotics related to cellulitis, treatme nt of UTI with IV antibiotics Time Spent in Patient Care: 16 - 35 minutes (>than 50% of time spent in counselling and/or direct pt care on unit) . 24 Coding Level of Care Code 05077 Diagnoses Diabetic foot ulcer E11.621; L97.509 Diabetic foot ulcer location: other Diabetes mellitus type: type 2 Laterality: right Time Spent (min) 24
--- NOTE | 2023-04-09 08:37 | P.CONIM_ITS ---
Providers/Reason For Consult Consulting Physician/Specialty*: Rudi Luevano D.P.M./podiatry Reason for Consult*: Right diabetic foot ulcer Attending Physician: Mal Alarcon MD Primary Care Provider: Marzena Jesus MD History of Present Illness History of Present Illness Justice Guardado is a 73 year old male presents with ischemic right fifth toe. States that this has been a progression over the past 6 months of the right fifth toe becoming worse. Patient has diabetes with peripheral neuropathy last A1c 04/07/2023 9.3%. Patient denies any subjective nausea, vomiting, fever, chills, shortness of breath or chest pain. Review of Systems General: Reports: 10 or more systems reviewed and unremarkable except in HPI and below Const: Denies: fever(s) or chills Eyes: Denies: change in vision Card: Denies: chest pain or palpitations Resp: Denies: dyspnea or productive cough GI: Denies: abdominal pain, nausea or vomiting : Denies: flank pain Musc: Reports: extremity swelling, joint stiffness and deformity Skin/Breast: Reports: erythema, sores, changes in skin color, dry skin, nail changes and change in hair Neuro: Reports: numbness in extremities, sensory changes and difficulty walking Psych: Denies: suicidal ideation Endo: Denies: change in body appearance Tevin/Lymph: Denies: tender lymph nodes Medications/Allergies Home Medications Medication Instructions Recorded Confirmed Last Taken Type mupirocin 2 % topical ointment 1 applic topical TID #15 grams 12/13/22 04/07/23 Unknown Rx Allergies Allergy/AdvReac Type Severity Reaction Status Date / Time No Known Allergies Allergy Verified 04/06/23 15:28 Current Medications Generic Name Dose Route Start Last Admin Trade Name Freq PRN Reason Stop Dose Admin Enoxaparin Sodium 40 mg 04/07/23 10:00 04/08/23 09:42 Enoxaparin 40 Mg/0.4 Ml Syringe SUBCUT 40 mg Q24H DENNISE Administration Finasteride 5 mg 04/08/23 09:00 04/08/23 09:42 Finasteride 5 Mg Tablet PO 5 mg DAILY DENNISE Administration Sodium Chloride 1,000 mls @ 75 mls/hr 04/07/23 06:00 04/09/23 04:45 Sodium Chloride 0.9% IV 75 mls/hr .[id number] DENNISE Infusion Piperacillin Sod/Tazobactam 50 mls @ 12.5 mls/hr 04/07/23 06:00 04/09/23 05:16 Sod 3.375 gm/ Sodium Chloride IV 12.5 mls/hr Q8H DENNISE Administration Protocol Vancomycin/PEG/NADA/Lysine/Water 1,250 mg in 250 mls @ 250 mls/hr 04/07/23 08:30 04/08/23 21:36 Vancocin IV Infused Q12H DENNISE Infusion Insulin Human Lispro 0 unit 04/07/23 08:00 04/09/23 07:43 Insulin Lispro 100 Unit/1 Ml SUBCUT Not Given WM&BEDTIME DENNISE Protocol Pantoprazole Sodium 40 mg 04/07/23 06:00 04/08/23 20:32 Pantoprazole 40 Mg Sdv IVP 40 mg Q12H DENNISE Administration Tamsulosin HCl 0.4 mg 04/08/23 09:00 04/08/23 08:42 Tamsulosin 0.4 Mg Capsule PO 0.4 mg DAILY DENNISE Administration PFSH Acute PFSH: Medical History Abdominal wall abscess DDD (degenerative disc disease) Diabetes Hyperlipidemia Hypertension Nephrolithiasis Refusal of statin medication by patient Short-term memory loss Surgical History History of hemorrhoidectomy History of hernia repair Periumbilical x2 / mesh History of lithotripsy History of tracheostomy History of vasectomy Family History Other Diabetes Social History Smoking and tobacco/nicotine status: never used tobacco/nicotine Alcohol intake: never Substance/Drug Use: never Lives independently: Yes Household members: none Marital status: Current 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 The followi ng is a focused bilateral lower extremity exam. VASCULAR: Dorsalis pedis diminished bilaterally. Posterior tibial arteries diminished. Capillary refill time less than 5 seconds to the distal hallux bilaterally. No cap refill to the distal right fifth toe. Calf is supple and nontender proximally and distally. Decreased pedal hair growth bilaterally. Pitting edema to the lower extremities, +2 at the right, +1 in the left. NEUROLOGICAL: Protective sensation intact 0/10 sites, tested with Emeigh Raymond monofilament to bilateral feet. DERMATOLOGICAL: Ischemic right fifth toe with mcgregor, dusky appearance and no cap refill, extends proximal to the right fifth metatarsal phalangeal joint. Rubor to the right lower extremity. MUSCULOSKELETAL: No crepitus with palpation of soft tissue to the right foot. Muscle strength +5 in all 3 planes to the right foot and ankle. 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 X-ray 04/06/2023 negative for acute bony abnormality per radiology report. Per my interpretation I do not appreciate radiographic concern for osteomyelitis. Duplex arterial scan of the right lower extremity showed no stenosis or occlusion performed 04/06/2023. Clinical concern for microvascular disease and clear ischemia with devitalized soft tissue to the right foot distal fifth ray. Vascular consult greatly appreciated, scheduled potential intervention today 04/09/2023 with angiography Plan for partial fifth ray amputation of the right foot tomorrow at noon per podiatry We will plan for tertiary healing of surgical site with wound care follow-up after discharge from hospital. N.p.o. at midnight. Podiatry will follow. Coding Level of Care Code Acute Code for [facility] Diagnoses PAD (peripheral artery disease) I73.9 Diabetic peripheral neuropathy associated with type 2 diabetes mellitus E11.42 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 I70.235; L97.519
[2023-04-09] MEDS: finasteride 5 mg Tablet PO (08:39)
[2023-04-09] MEDS: vancomycin 1,250 MG/250 ML PIGGYBACK 250 MG IV ×2 (08:39→20:39)
[2023-04-09] MEDS: pantoprazole 40 mg SDV IVP ×2 (08:39→20:39)
[2023-04-09] MEDS: tamsulosin 0.4 mg Capsule PO (08:39)
--- NOTE | 2023-04-09 09:20 | P.CONIM_ITS ---
Providers/Reason For Consult Consulting Physician/Specialty*: Rodriguez Wing MD/ Interventional cardiology Reason for Consult*: Diabetic foot ulcer, purplish discoloration of right 5th toe, possibly vascular Requesting Physician: Dr Alarcon Attending Physician: Mal Alarcon MD Primary Care Provider: Marzena Jesus MD History of Present Illness History of Present Illness Justice Guardado is a 73 year old male with diabetes history presented with right foot warmth and ulceration/dicoloration of right fifth toe. According to patient right fifth toe has been discolored for the last several months. However his color is worsening. Denies much pain. Currently dressing applied however per podiatry it is dark, purplish/dusky. Image seen in podiatry note. Doppler ultrasound showed patent large vessels. However his pulses are difficult to palpate. Review of Systems General: Reports: 10 or more systems reviewed and unremarkable except in HPI and below Const: Denies: fever(s) or chills Eyes: Denies: change in vision Card: Denies: chest pain or palpitations Resp: Denies: dyspnea or productive cough GI: Denies: abdominal pain, nausea or vomiting : Denies: flank pain Musc: Reports: extremity swelling, joint stiffness and deformity Skin/Breast: Reports: erythema, sores, changes in skin color, dry skin, nail changes and change in hair Neuro: Reports: numbness in extremities, sensory changes and difficulty walking Psych: Denies: suicidal ideation Endo: Denies: change in body appearance Tevin/Lymph: Denies: tender lymph nodes Medications/Allergies Home Medications Medication Instructions Recorded Confirmed Last Taken Type mupirocin 2 % topical ointment 1 applic topical TID #15 grams 12/13/22 04/07/23 Unknown Rx Allergies Allergy/AdvReac Type Severity Reaction Status Date / Time No Known Allergies Allergy Verified 04/06/23 15:28 Current Medications Generic Name Dose Route Start Last Admin Trade Name Freq PRN Reason Stop Dose Admin Enoxaparin Sodium 40 mg 04/07/23 10:00 04/08/23 09:42 Enoxaparin 40 Mg/0.4 Ml Syringe SUBCUT 40 mg Q24H DENNISE Administration Finasteride 5 mg 04/08/23 09:00 04/09/23 08:39 Finasteride 5 Mg Tablet PO 5 mg DAILY DENNISE Administration Sodium Chloride 1,000 mls @ 75 mls/hr 04/07/23 06:00 04/09/23 04:45 Sodium Chloride 0.9% IV 75 mls/hr .[id number] DENNISE Infusion Piperacillin Sod/Tazobactam 50 mls @ 12.5 mls/hr 04/07/23 06:00 04/09/23 05:1 6 Sod 3.375 gm/ Sodium Chloride IV 12.5 mls/hr Q8H DENNISE Administration Protocol Vancomycin/PEG/NADA/Lysine/Water 1,250 mg in 250 mls @ 250 mls/hr 04/07/23 08:30 04/09/23 08:39 Vancocin IV 250 mls/hr Q12H DENNISE Administration Insulin Human Lispro 0 unit 04/07/23 08:00 04/09/23 07:43 Insulin Lispro 100 Unit/1 Ml SUBCUT Not Given WM&BEDTIME DENNISE Protocol Pantoprazole Sodium 40 mg 04/07/23 06:00 04/09/23 08:39 Pantoprazole 40 Mg Sdv IVP 40 mg Q12H DENNISE Administration Tamsulosin HCl 0.4 mg 04/08/23 09:00 04/09/23 08:39 Tamsulosin 0.4 Mg Capsule PO 0.4 mg DAILY DENNISE Administration PFSH Acute PFSH: Medical History Abdominal wall abscess DDD (degenerative disc disease) Diabetes Hyperlipidemia Hypertension Nephrolithiasis Refusal of statin medication by patient Short-term memory loss Surgical History History of hemorrhoidectomy History of hernia repair Periumbilical x2 / mesh History of lithotripsy History of tracheostomy History of vasectomy Family History Other Diabetes Social History Smoking and tobacco/nicotine status: never used tobacco/nicotine Alcohol intake: never Substance/Drug Use: never Lives independently: Yes Household members: none Marital status: Current 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 Pets and animals: Yes Vitals/I&O/Wt Last Vital Signs Temp 98.1 F 04/09/23 05:07 Pulse 81 04/09/23 05:07 Resp 17 04/09/23 05:07 BP 125/67 04/09/23 05:07 Pulse Ox 95 04/09/23 05:07 O2 Del Method Room Air 04/08/23 16:00 04/08/23 04/09/23 04/09/23 22:59 06:59 14:59 Intake Total 1772.5 / 2827.5 530 / 3357.5 Output Total 900 / 1650 1700 / 3350 Balance 872.5 / 1177.5 -1170 / 7.5 Physical Exam Narrative: GENERAL: Patient is alert, awake and oriented x3. [] HEART: Regular S1 and S2. No murmur, rub or gallop. [] LUNGS: Clear to auscultate bilaterally. [] EXTREMITIES: Dressing applied on the right foot. Pulses are difficult to palpate Urinary Catheter Management: Coude: Cath Placed During This Visit: yes Reason for Continuing Indwelling Catheter: Acute Urinary Retention or Obstruction Urinary Catheter Date of Insertion: 04/09/23 Urinary Catheter Time of Insertion: 01:00 Data 04/09/23 04:49 04/09/23 04:49 Micro: Microbiology 04/06/23 18:26 Urine Culture - Final Urine,Clean Catch A&P Assessment and plan (1) Diabetic foot ulcer: Qualifiers: Diabetic foot ulcer location: other Diabetes mellitus type: type 2 Laterality: right (2) Diabetes: (3) PAD (peripheral artery disease): Plan Although ultrasound did not show significant PAD however appearance of the toe is ischemic. It could be microvascular. Pulses are difficult to palpate. We will proceed with peripheral angiogram to better assess vascular anatomy and target for revascularization. NPO for now. Procedure discussed in detail with patient. He understands and wants to proceed. Risks and benefits discussed Thank you for involving us with care of this patient. We will continue to follow. Please call with questions. Consult Attestations Medical Necessity Statement: Care expected to cross 2 midnights. Coding Level of Care Code Acute Code for g Fwd Diagnoses Diabetic foot ulcer E11.621; L97.509 Diabetic foot ulcer location: other Diabetes mellitus type: type 2 Laterality: right Diabetes E11.9 PAD (peripheral artery disease) I73.9
--- NOTE | 2023-04-09 09:47 | XACV_ITS ---
Ht: 180 cm Wt: 100 kg BSA: 2.27 m2 Any Known Allergies: No known allergies Gender: Male : 1950 Exam Type: Invasive Peripheral Vascular Procedure(s): Procedure Description: Diagnostic procedure Procedure Description: Peripheral Cath Diagnostic Procedure Procedure Description: Lower extremities' angiography Procedure Description: Miscellaneous Procedure Description: ACT Exam Priority: Routine Abdominal Diagnostic Findings Distal abdominal aorta: Has mild disease. Lower Extremity Diagnostic Findings INDICATION: Critical limb ischemia/ Right 5th toe ulceration/ischemic color changes. Right lower extremity findings: Right common iliac artery is patent. Right internal iliac artery is patent. Right external iliac artery is patent. Right common femoral artery is patent. Right SFA is patent. Right profunda arteries are patent. Right popliteal artery is patent. Right anterior tibial artery is 100% occluded with reconstitution via collaterals and mid to distal segment. Right peroneal artery is 100% occluded. Right posterior tibial artery is 100% stenosis with strong collaterals reconstituting mid posterior tibial artery.. Lower Extremity Interventional Findings Procedure detail: After diagnostic images were obtained, we switched 6 fr short sheath from left common femoral artery to long cook sheath and placed it up and over into right external iliac artery. IV heparin was administered. Using seeker support catheter and glide wire, we attempted to cross the totally occluded anterior tibial artery. However wire could not cross the total occlusion. We switched wire to runthrough wire that could not cross. At this time we decided to abort further attempts at revascularization as has good collaterals reconstituting anterior tibial and posterior tibial arteries. Long sheath was switched to short sheath and sutured for removal later.. Conclusions Severe peripheral artery disease below the knee disease on right lower extremity s/p unsuccessful attempt at revascularization. Given good collateral blood supply, medical management decided. Recommendations Aggressive risk factor modification. Outpatient cardiology follow up in 1 month. Hemodynamic Data Phase:Rest AO : 124.0 / 47.0 ( 75.0 ) @ 1:01:00 PM 96.0 / 48.0 ( 69.0 ) @ 1:26:00 PM Access Site Site: Left Femoral artery Sheath Size: 6 Fr Hemost... Method: Suture Hemost... Success: Successful Procedure Details Findings Procedure Consent Obtained. Admit Source: In Patient. Pre-Procedure Time Out. Identified patient by full name and date of as verbalized by the patient/guarantor. Does the consent match the physician's order: Yes. Accurate & Complete Informed Consent: Yes. Inpatient/Outpatient History & Physical on Chart: Yes. If H&P is completed, is and addenduem needed: No; If yes, is the addendum complete: N/A. Visualize and Verify Site with Patient/Guarantor: N/A. Relevant Radiology Images available: Yes. Pre-op teaching completed and patient verbalized understanding. The risks, benefits, and alternatives of sedation and/or procedure were discussed by physician. The patient agrees to continue. Procedure started. Health Education Coordinator Indications: PVD. Correct patient, site and procedure confirmed by cath team. Current diagnosis: PVD. PERRLA. 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 Lungs clear x 5 lobes. IV Site on Arrival: 20 gauge in the right anticubital. IV Fluids: 0.9% NaCl at KVO. 350 mL infused prior to research lab assistant. Pre Procedural Pulses: bilateral dorsalis pedis was Doppled. Oxygen started at 2liters/min via nasal canula. right groin was prepped with chloroprep then draped in the usual sterile fashion. left groin was prepped with chloroprep then draped in the usual sterile fashion. Physician notified. Baseline sample Acquired. HR: 84 BPM. Equipment: 6F - Femoral. Physician arrived. Physician scrubbed in. Immediate Pre-Procedure Time Out. Correct Patient: Yes; Correct Procedure: Yes; Correct Site: Yes; Correct Patient Position: Yes; Correct Supplies: Yes; Dried Flammable Prep: Yes; Blood Products Available: N/A;. Lidocaine 1% infiltrated to the left groin. Arterial access obtained with micropuncture set. Needle and wire out. Manual compression held. Arterial access obtained with micropuncture set using US guidance. Lidocaine 1% infiltrated to the left groin. 6Fr Dilator in over access wire. Standard J wire in through dilator. 6Fr Dilator removed. A 5Fr UF catheter in over wire. Wire removed. Right common iliac selected and arteriogram with runoff performed @ 10 mL/sec for a total of 30 mL. Glidewire inserted. UF catheter removed over the Glidewire. 6 Fr short sheath exchanged for 6Fr 45 cm Flexor Sheath. Seeker inserted over the glidewire. Seeker positioned in the popliteal. Glidewire removed. Hand injection performed through the Seeker catheter in DSA. 2nd Hand injection performed through the Seeker catheter in DSA. Hand injection performed through the Seeker catheter to visualize distal vessels. 300cm Runthrough wire inserted through the Seeker catheter. Runthrough wire removed. Hand injection performed through the Seeker catheter. 300cm Runthrough inserted through the Seeker. Runthrough wire removed. Hand injection performed through the Seeker catheter. Seeker catheter removed. 6Fr 45cm Flexor sheath exchanged fro 6Fr short sheath. ACT drawn. Results 218 seconds. Therapeutic limits - pre-heparin administration 90-150 seconds and monitoring heparin during a vascular procedure >250 seconds. A Suture was successful obtaining hemostatsis at the Left Femoral artery insertion site. Sheath(s) sutured into position with 2-0 silk and sterile 4x4's and Op-site applied over the site. No oozing or signs and symptoms of hematoma noted. Post-op diagnosis: Severe LE PVD. Arterial sheath flushed and connected to tranducer and pressure bag with heparinized saline. Post Procedure: Pulses reassessed and unchanged. PERRLA. 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 No VTE prophylaxis required. Medication's Wasted: Other = Versed 1 mg. Medication's Wasted: Other = Fentanyl 25mcg. Total IV fluids: 144 mL. Complications: none. Estimated blood loss: 5mL-10mL. Responsiveness - Normal response to verbal stimuli; alert and oriented, PERRLA. Airway - Unaffected, no intervention required; spontaneous ventilation. Circulation: W/N/L, pulses unchanged. Nausea/Vomiting: No. Procedure completed. Patient transferred by bed to 1st floor. Vital chart was stopped. Procedure Medications Start: 11:43 AM Stop: 11:43 AM Medication: Versed Amount: 1 mg Route: I.V. Start: 11:43 AM Stop: 11:43 AM Medication: Fentanyl Amount: 25 mcg Route: I.V. Start: 11:50 AM Stop: 11:50 AM Medication: Versed Amount: 1 mg Route: I.V. Start: 12:17 PM Stop: 12:17 PM Medication: Versed Amount: 1 mg Route: I.V. Start: 12:17 PM Stop: 12:17 PM Medication: Fentanyl Amount: 50 mcg Route: I.V. Start: 12:19 PM Stop: 12:19 PM Medication: Heparin Amount: 5000 units Route: I.V. I, the attending physician, have reviewed and verified all procedure medications. Yes, all medications given per verbal order History/Risk Factors Hypertension: Yes Dyslipidemia: Yes Peripheral Arterial Disease (PAD): Yes Obesity: No Renal Disease: No Tobacco Use: Never Prior Interventions PCI: No CABG: No Valve Surgery: No Report Signatures Finalized by Rodriguez Wing MD on 04/13/2023 10:53 AM
--- NOTE | 2023-04-09 10:53 | PC.CHAP ---
Pastoral Care Encounter/Spiritual Assessment Type of Contact [] Declined legal transcriber visit [] Patient/Family/Request visit [] Outpatient visit [] Follow-up visit [] Physician referral [] Code/Alert [x] Routine visit [] Staff referral [] Actively dying [] Patient sleeping [] Family support [] [] Out of room [] Palliative care [] [] Receiving care in room [] Pre-surgical visit [] Trauma [] Long length of stay [] ICU visit [] Other: Relational/Emotional Strength [x] Patient feels connected with others/family/visitors/staff [] Distress [] Loneliness/isolation [] Abandonment Spirituality of Patient [x] Person of Stephanie [x] Attends Restorationism of their Stephanie [x] Believes in Prayer [x] Reads Bible or Rastafarian materials [] There are Spiritual issues to be addressed Wash Tank Tender Interventions [x] Prayer [x] Active listening [] Non-anxious presence [] Spiritual/emotional support [] Crisis/trauma care [] Spiritual counseling [] Bereavement support [] Provided bereavement packet [] Provided Bible/devotional materials [] Provided toy/stuffed animal, coloring book to patient or family member [] Provided Communion [] Anointing/[place] [] Salvation [] Completed spiritual assessment [] Other: Impact on Illness or Injury [] Angry [] Fearful [] Anxious [] Often cries [] Exhaustion [] Unable to work [] Unable to attend alevism [] Unable to walk/stand [] Unable to read [] Unable to drive [] Unable to eat/drink [] Unable to sleep [] Unable to be with family [] Patient intubated [] Other: Summary Time spent with patient 20 min
--- NOTE | 2023-04-09 11:38 | W.PM.OPSUD ---
Surgery/Procedure H&P Update DATE OF PROCEDURE: April 09, 2023 DATE H&P PERFORMED: 04/09/23 H&P UPDATE INFORMATION: I have reviewed H&P completed within last 30 days, I have examined patient prior to procedure and No changes to prior documentation PREOP DIAGNOSIS: Right 5th toe ulceration/ischemic color changes PRIMARY INDICATION FOR PROCEDURE: Right 5th toe ulceration/ischemic color changes PLANNED PROCEDURE: Peripheral angiogram with possible percutaneous intervention PATIENT REASSESSED PRIOR TO SEDATION, WITH NO CHANGE NOTED: Yes PHYSICAL EXAM: alert, oriented x 3, clear to auscultation bilaterally and regular rate & rhythm AIRWAY EVAL/ANESTHESIA PLAN: normal airway, ASA III, Local Anesthesia, Risks, benefits & alternatives of sedation and/or procedure discussed and Patient agrees to continue as planned ADDITIONAL INFORMATION: Moderate sedation
[2023-04-09 12:11] LABS: Glucose Point of Care 144 mg/dL (70-110)
[2023-04-09 16:25] LABS: Partial Thromboplastin Time 36.1 SECONDS (23.9-36.7)
[2023-04-09 16:40] LABS: Glucose Point of Care 203 mg/dL (70-110)
[2023-04-09] MEDS: insulin lispro 100 unit/1 mL SUBCUT ×2 (17:54→21:22)
[2023-04-09] MEDS: sodium chloride 0.9% 1,000 ML 100 ML IV (17:55)
[2023-04-09 19:42] LABS: Partial Thromboplastin Time 37.8 SECONDS (23.9-36.7)
[2023-04-09 20:56] LABS: Glucose Point of Care 207 mg/dL (70-110)
--- NOTE | 2023-04-09 23:43 | PM.PROC ---
Procedure Note: Date of procedure: 04/09/23 Pre-procedure diagnosis: Peripheral arterial disease/ ischemic right 5th toe Post-procedure diagnosis: same Procedure: Brief procedure note: Patient has patent right lower extremity arteries till popliteal artery. Below the knee has severe PAD with total occlusion of anterior tibial , posterior tibial and peroneal arteries. PT reconstitutes in the mid segment. AT reconstitutes in the distal segment via collaterals. Has extensive collaterals. Attempt made to cross the totally occluded AT with run-through wire. Could not cross the occluded segment. As has extensive collaterals, plan for medical therapy Op report anesthesia: Local and Other (Moderate sedation) Performing Provider: Rodriguez Wing Estimated blood loss (mL): 20 Complications: None Pathology: none sent Condition: stable Disposition: floor Coding Level of Care Code Acute Code for g Roberto
[2023-04-10] VITALS (15 sets, daily range): BP systolic 123–166; BP diastolic 65–72; PULSE 66–86; RESP 16–26; TEMP 36.1–36.9; O2SAT 93–99
[2023-04-10 05:03] LABS: Basophils # 0.1 10^3/uL (0.0-0.1); Basophils % 0.5 %; Eosinophils # 0.2 10^3/uL (0.0-0.8); Eosinophils % 1.5 %; Hematocrit 32.8 % (37-53); Lymphocytes # 0.9 10^3/uL (0.8-4.8); Lymphocytes % 9.3 %; Mean Corpuscular HGB Conc 32.6 g/dL (30-55); Mean Corpuscular Hemoglobin 30.1 pg (27-33); Mean Corpuscular Volume 92.4 fl (82-101); Mean Platelet Volume 9.9 fL (7.4-10.4); Monocytes # 0.6 10^3/uL (0.2-0.9); Monocytes % 5.7 %; Neutrophils # 8.23 10^3/uL (1.8-7.7); Neutrophils % 82.7 %; Nucleated Red Blood Cells % 0 %; Platelet Count 294 10^3/cmm (157-399); Red Blood Count 3.55 10^6/uL (3.85-5.65); Red Cell Distribution Width 12.2 % (12.1-15.1); White Blood Count 9.96 10^3/uL (3.29-11.43)
[2023-04-10 05:22] LABS: Blood Urea Nitrogen 12 mg/dL (8-23); Carbon Dioxide 21 mmol/L (22-29); Chloride 103 mmol/L (98-107); Glucose 166 mg/dL (65-115); Osmolality Calculated 282 mOsm/kg (285-295); Sodium 134 mmol/L (136-145)
[2023-04-10 05:28] LABS: Anion Gap 13.4 (5-19); Potassium 3.4 mmol/L (3.5-5.1)
[2023-04-10] MEDS: piperacillin-tazobactam 3.375 GM in sodium chloride 0.9% (plus) 50 ML IV ×3 (05:32→21:05)
--- NOTE | 2023-04-10 06:16 | PM.PN ---
Subjective Subjective: Patient seen bedside this morning, vascular intervention yesterday. Denies any acute events overnight. Patient denies any subjective nausea, vomiting, fever, chills, shortness of breath or chest pain. Vitals/I&O/Wt Last Vital Signs Temp 98.5 F 04/10/23 04:00 Pulse 81 04/10/23 04:00 Resp 25 H 04/10/23 04:00 BP 139/65 04/10/23 04:00 Pulse Ox 94 04/10/23 04:00 O2 Del Method Room Air 04/10/23 04:00 04/09/23 04/09/23 04/10/23 14:59 22:59 06:59 Intake Total 300 / 300 1240 / 1540 50 / 1590 Output Total 1300 / 1300 2000 / 3300 650 / 3950 Balance -1000 / -1000 -760 / -1760 -600 / -2360 Physical Exam Narrative: GENERAL: Patient is alert and oriented ?3 and in no acute distress. The following is a focused bilateral lower extremity exam. VASCULAR: Dorsalis pedis diminished bilaterally. Posterior tibial arteries diminished. Capillary refill time less than 5 seconds to the distal hallux bilaterally. No cap refill to the distal right fifth toe. Calf is supple and nontender proximally and distally. Decreased pedal hair growth bilaterally. Pitting edema to the lower extremities, +2 at the right, +1 in the left. NEUROLOGICAL: Protective sensation intact 0/10 sites, tested with [place] monofilament to bilateral feet. DERMATOLOGICAL: Ischemic right fifth toe with mcgregor, dusky appearance and no cap refill, extends proximal to the right fifth metatarsal phalangeal joint. Rubor to the right lower extremity. MUSCULOSKELETAL: No crepitus with palpation of soft tissue to the right foot. Muscle strength +5 in all 3 planes to the right foot and ankle. 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 Vascular intervention to the right lower extremity yesterday 04/09/2023. Patient ready to proceed with partial fifth ray amputation of the right foot, he was evaluated bedside this morning and discussed treatment options at length. He asked for me to contact his daughter to inform her of his surgery today. I reviewed at length with the patient, the risks, potential complications, benefits, alternatives, expectations, and typical outcomes associated with the surgery. The risks and potential complications were explained in detail, including but not limited to infection, wound dehiscence or soft tissue complications, bleeding and hematoma, chronic edema, neuritis or nerve damage producing numbness or chronic pain, CRPS, failure to relieve pain or worsening pain, thick / painful / unsightly scar, limited motion / stiffness, malposition, delayed union, malunion, or nonunion, fracture, reaction to implants, anesthetic complications, venous thromboembolism, and deformity recurrence. I discussed the notion of no regrets with the patient as it pertains to complications and outcomes. The patient seemed to understand the nature of the proposed care and required convalescence. They asked appropriate questions, answered to their satisfaction. They are aware no guarantees can be made as to a satisfactory outcome and they understand there may be other possible unforeseen complications or outcomes not listed here that will be treated accordingly if they arise. There were no written or implied guarantees given to the patient. They gave informed consent to proceed. Scheduled for right foot partial fifth ray amputation today at noon Has been n.p.o. since midnight Continuing empiric IV antibiotics No plans for PICC line, leading diagnosis is localized ischemia of the right distal lateral foot, optimistic that level of amputation of the fifth ray will yield bleeding skin margins, patient is aware that poor vascularity may require higher level of amputation. Attestations Medical Necessity Statement*: Diabetic foot infection, right. 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
[2023-04-10 06:30] LABS: Glucose Point of Care 169 mg/dL (70-110)
--- NOTE | 2023-04-10 08:34 | P.PN_ITS ---
Subjective Subjective: Patient overall doing well. No femoral access site complications. Vitals/I&O/Wt Last Vital Signs Temp 98.4 F 04/10/23 07:55 Pulse 86 04/10/23 07:55 Resp 26 H 04/10/23 07:55 BP 166/66 04/10/23 07:55 Pulse Ox 97 04/10/23 07:55 O2 Del Method Room Air 04/10/23 07:55 04/09/23 04/10/23 04/10/23 22:59 06:59 14:59 Intake Total 1240 / 1540 50 / 1590 Output Total 1999 / 3299 650 / 3950 Balance -760 / -1760 -600 / -2360 Physical Exam Narrative: GENERAL: Patient is alert, awake and oriented x3. [] HEART: Regular S1 and S2. No murmur, rub or gallop. [] LUNGS: Clear to auscultate bilaterally. [] EXTREMITIES: Dressing applied on the right foot. Pulses are difficult to palpate Urinary Catheter Management: Coude: Cath Placed During This Visit: yes Reason for Continuing Indwelling Catheter: Acute Urinary Retention or Obstruction Urinary Catheter Date of Insertion: 04/09/23 Urinary Catheter Time of Insertion: 01:00 Data 04/11/23 04:33 04/11/23 04:33 A&P Assessment and plan (1) Diabetic foot ulcer: Qualifiers: Diabetic foot ulcer location: other Diabetes mellitus type: type 2 Laterality: right (2) Diabetes: (3) PAD (peripheral artery disease): Plan Patient had unsuccessful attempt at revascularization of lower extremity. Has total occlusion of all vessels below the knee with collateral blood supply. Management per podiatry and primary team Thank you for involving us with care of this patient. Please call with questions. Attestations Medical Necessity Statement*: Care expected to cross 2 midnights. Coding Level of Care Code Acute Code for [facility] Fwd Diagnoses Diabetic foot ulcer E11.621; L97.509 Diabetic foot ulcer location: other Diabetes mellitus type: type 2 Laterality: right Diabetes E11.9 PAD (peripheral artery disease) I73.9
[2023-04-10] MEDS: tamsulosin 0.4 mg Capsule PO (08:38)
[2023-04-10] MEDS: finasteride 5 mg Tablet PO (08:38)
[2023-04-10] MEDS: pantoprazole 40 mg SDV IVP ×2 (08:38→21:03)
[2023-04-10] MEDS: vancomycin 1,250 MG/250 ML PIGGYBACK 250 MG IV ×2 (08:49→17:32)
--- NOTE | 2023-04-10 09:27 | PC.NURSE ---
Provider ordered to hold aspirin this morning due to surgery at noon.
--- NOTE | 2023-04-10 11:20 | PC.NURSE ---
Patient left [facility] for surgery.
--- NOTE | 2023-04-10 11:26 | P.PN_ITS ---
Subjective Subjective: Extensive peripheral vascular disease as per recent angiogram Going for surgery intervention today with Dr. Luevano Patient was asking if he could drink today however he can only have a few sips with his medications otherwise we did not allow him to eat or drink at this point because he is n.p.o. for surgery Patient is stating that he was seen Dr. Koch in the past currently has Parker catheter Vitals/I&O/Wt Last Vital Signs Temp 98.4 F 04/10/23 07:55 Pulse 86 04/10/23 07:55 Resp 26 H 04/10/23 07:55 BP 166/66 04/10/23 07:55 Pulse Ox 97 04/10/23 07:55 O2 Del Method Room Air 04/10/23 07:55 04/09/23 04/10/23 04/10/23 22:59 06:59 14:59 Intake Total 1240 / 1540 50 / 1590 1300 / 1300 Output Total 1999 / 3300 650 / 3950 750 / 750 Balance -760 / -1760 -600 / -2360 550 / 550 Physical Exam Narrative: Awake alert Signs of dehydration Pleasant and cooperative GCS Foot covered with dressing Parker catheter in place Pleasant cooperative young currently on room air S1, S2 Urinary Catheter Management: Coude: Cath Placed During This Visit: yes Reason for Continuing Indwelling Catheter: Acute Urinary Retention or Obstruction Urinary Catheter Date of Insertion: 04/09/23 Urinary Catheter Time of Insertion: 01:00 Data 04/10/23 04:17 04/10/23 04:17 A&P Assessment and plan (1) 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 Luevano Peripheral vascular disease which is being treated medically Appreciate cardiology recommendations We will request labs for tomorrow Patient is hoping that he will be able to go home despite his recent foot surgery and a Parker catheter We will reevaluate after surgery We will continue DVT prophylaxis after intervention today He can get consistent carb diet after his surgery today Full code No plans to use PICC line or long-term IV antibiotics at this point considering right ischemic gangrene ulcer Attestations Medical Necessity Statement*: Continue medical management Coding Level of Care Code 83232 Moderate MDM includes number and complexity of problems actively addressed during encounter, amount and/or complexity of data reviewed/ordered and described risk of complication, morbidity or mortality of management as d ocumented Diagnoses 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 I70.235; L97.519 Diabetic peripheral neuropathy associated with type 2 diabetes mellitus E11.42 PAD (peripheral artery disease) I73.9 Diabetic foot ulcer E11.621; L97.509 Diabetic foot ulcer location: other Diabetes mellitus type: type 2 Laterality: right UTI (urinary tract infection) N39.0 Gangrene of right foot I96 Diabetes E11.9
[2023-04-10] MEDS: sodium chloride 0.9% 1,000 ML 30 ML IV (11:35)
--- NOTE | 2023-04-10 11:40 | W.PM.OPSUD ---
Surgery/Procedure H&P Update DATE OF PROCEDURE: April 10, 2023 DATE H&P PERFORMED: 04/09/23 H&P UPDATE INFORMATION: I have reviewed H&P completed within last 30 days, I have examined patient prior to procedure, No changes to prior documentation and H&P is in [facility] EMR on date indicated PREOP DIAGNOSIS: Right 5th toe ulceration/ischemic color changes PLANNED PROCEDURE: Operation Date: 04/10/23 12:00 Proposed Procedures p Partial Fifth Ray Resection Right Foot(Right) - Rudi Luevano DPM
--- NOTE | 2023-04-10 11:59 | ANES.PREANE2 ---
Pre-Anesthetic Assessment Height/Weight: Height 1.8 m Weight 100.244 kg Temp Pulse Resp BP Pulse Ox O2 Del Method 98.4 F 86 26 H 166/66 97 Room Air 04/10/23 07:55 04/10/23 07:55 04/10/23 07:55 04/10/23 07:55 04/10/23 07:55 04/10/23 07:55 Preop Diagnosis: Right 5th toe ulceration/ischemic color changes Operation Date: 04/09/23 11:00 Proposed Procedures p Peripheral Diagnostic(Not Applicable) - Rodriguez Wing M.D Operation Date: 04/10/23 12:00 Proposed Procedures p Partial Fifth Ray Resection Right Foot(Right) - Rudi Luevano DPM Familial anesthetic complications: none Was Beta Humbel taken within 24 hours: N/A Was Clonidine taken within 24 hours: N/A Last intake: Intake Last Liquid Date 04/09/23 Last Liquid Time 17:00 Last Solid Date 04/09/23 Last Solid Time 17:00 Social No alcohol and No tobacco Exam alert, oriented x 3, clear to auscultation bilaterally and regular rate & rhythm Airway Submandibular: within normal limits Cervical ROM: within normal limits Mallampati: Class II Dentition: chipped (poor dentition) Comments: Comments: braxton CV/HEM Hypertension and Peripheral Vascular Disease Metabolic Morbid Obesity and Thyroid Disease Musc/skel Lower Back Pain and Osteoarthritis/DJD Neuropsych Neuropathy Anesthetic Plan ASA status: 3 Anesthesia: MAC Medications/Allergies Home Medications Medication Instructions Recorded Confirmed Last Taken Type mupirocin 2 % topical ointment 1 applic topical TID #15 grams 12/13/22 04/07/23 Unknown Rx Allergies Allergy/AdvReac Type Severity Reaction Status Date / Time No Known Allergies Allergy Verified 04/06/23 15:28 Current Medications Generic Name Dose Route Start Last Admin Trade Name Freq PRN Reason Stop Dose Admin Aspirin 325 mg 04/10/23 09:00 04/10/23 09:26 Aspirin 325 Mg Ec Tablet PO Not Given DAILY DENNISE Enoxaparin Sodium 40 mg 04/07/23 10:00 04/10/23 11:28 Enoxaparin 40 Mg/0.4 Ml Syringe SUBCUT Not Given Q24H DENNISE Finasteride 5 mg 04/08/23 09:00 04/10/23 08:38 Finasteride 5 Mg Tablet PO 5 mg DAILY DENNISE Administration Piperacillin Sod/Tazobactam 50 mls @ 12.5 mls/hr 04/07/23 06:00 04/10/23 09:21 Sod 3.375 gm/ Sodium Chloride IV Infused Q8H DENNISE Infusion Protocol Sodium Chloride 1,000 mls @ 100 mls/hr 04/09/23 17:00 04/10/23 10:26 Sodium Chloride 0.9% IV Infused .Q10H DENNISE Infusion Sodium Chloride 1,000 mls @ 30 mls/hr 04/10/23 11:30 04/10/23 11:35 Sodium Chloride 0.9% IV 04/11/23 11:29 30 mls/hr .Q24H DENNISE Administration Insulin Human Lispro 0 unit 04/07/23 08:00 04/10/23 08:37 Insulin Lispro 100 Unit/1 Ml SUBCUT Not Given WM&BEDTIME DENNISE Protocol Pantoprazole Sodium 40 mg 04/07/23 06:00 04/10/23 08:38 Pantoprazole 40 Mg Sdv IVP 40 mg Q12H DENNISE Administration Tamsulosin HCl 0.4 mg 04/08/23 09:00 04/10/23 08:38 Tamsulosin 0.4 Mg Capsule PO 0.4 mg DAILY DENNISE Administration PFSH Anesthesia Medical History Abdominal wall abscess DDD (degenerative disc disease) Diabetes Hyperlipidemia Hypertension Nephrolithiasis Refusal of statin medication by patient Short-term memory loss Surgical History History of hemorrhoidectomy History of hernia repair Periumbilical x2 / mesh History of lithotripsy History of tracheostomy History of vasectomy Family History Other Diabetes Social History Smoking and tobacco/nicotine status: never used tobacco/nicotine Alcohol intake: never Substance/Drug Use: never Lives independently: Yes Household members: none Marital status: Current 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 Pets and animals: Yes Data Anesthesia 04/10/23 04:17 04/10/23 04:17 Short CBC 04/09/23 04/10/23 Range/Units 04:49 04:17 WBC 12.00 H 9.96 (3.29-11.43) 10^3/uL Hgb 11.50 10.70 L (11.27-16.99) g/dL Hct 35.4 L 32.8 L (37-53) % MCV 93.7 92.4 (82-101) fl Plt Count 255 294 (157-399) 10^3/cmm Neut % (Auto) 83.6 82.7 % Neut # (Auto) 10.04 H 8.23 H (1.8-7.7) 10^3/uL BMP 04/09/23 04/10/23 04:49 04:17 Sodium 137 134 L Potassium 3.5 3.4 L Chloride 104 103 Carbon Dioxide 21 L 21 L BUN 15 12 Creatinine 0.9 0.7 Glucose 143 H 166 H Calcium 8.0 L 8.0 L Liver Function 04/09/23 Range/Units 04:49 Total Bilirubin 0.7 (0.15-1.2) mg/dL AST 9 (0-40) U/L ALT 6 (0-41) U/L Alkaline Phosphatase 76 (40-130) U/L Albumin 2.7 L (3.5-5.2) g/dL Coags 04/09/23 04/09/23 15:30 19:12 APTT 36.1 37.8 H Cardiac Studies: No Data to Display
[2023-04-10] MEDS: lidocaine 2% INJ 20 mL INJECTION (12:32)
[2023-04-10] MEDS: BUPivacaine 0.5% INJ 30 mL INJECTION (12:32)
--- NOTE | 2023-04-10 12:41 | PM.OP ---
Operative Report Date of procedure: April 10, 2023 Pre-op diagnosis: Gangrene right foot Post-op diagnosis: gangrene right foot Post-op findings: gangrene right foot with heavy purulence in the tissues adjacent to the right fifth metatarsal phalangeal joint Procedure done: Partial fifth ray resection, right foot. CPT code 67868 Implants: None Specimens removed/disposition: Right fifth metatarsal sent to micro by Pathology: right fifth toe sent to pathology for review Surgeon: Rudi Luevano DPM Client Relations Associate: Brett Motta Estimated blood loss: 10 6 IV fluids: 0 Urine output: 0 Complications: None Findings: gangrene with heavy purulence right distal lateral forefoot Brief History: 73-year-old diabetic male presents with ischemic changes to the right fifth toe and lateral right forefoot. X-ray 04/06/2023 negative for acute bony abnormality per radiology report.? Per my interpretation I do not appreciate radiographic concern for osteomyelitis. Duplex arterial scan of the right lower extremity showed no stenosis or occlusion performed 04/06/2023.? Clinical concern for microvascular disease and clear ischemia with devitalized soft tissue to the right foot distal fifth ray. Vascular consult greatly appreciated, scheduled potential intervention today 04/09/2023 with angiography Plan for partial fifth ray amputation of the right foot tomorrow at noon per podiatry We will plan for tertiary healing of surgical site with wound care follow-up after discharge from hospital. Procedure: Under mild sedation the patient was brought to the operating room and remained on the gurney in supine position. A timeout was performed. Anesthesia was then administered by the anesthesia service. Local anesthesia injected by myself consisting of 30 cc of one-to-one mixture 1% lidocaine and 0.5's Marcaine plain in a reverse He block fashion to the right foot. Well-padded pneumatic tourniquet was applied to the right high calf. The right lower extremity was scrubbed, prepped and draped utilizing normal aseptic technique. Tourniquet was inflated to 250 mmHg. Attention was directed to the right foot where a ischemic and gangrenous appearing second toe streaking proximal to the fifth metatarsal phalangeal joint was appreciated. Incision was performed tennis racquet shaped encompassing the fifth ray full-thickness down to bone followed by osteotomy of the diaphysis being beveled through the right fifth metatarsal diaphysis. The right fifth toe and accompanying portion of the metatarsal passed from the operative field to be sent to pathology for review, bone from the fifth metatarsal sent to microbiology for Gram stain, culture and sensitivity. The incision was irrigated with copious months of Staticin solution. An adequate soft tissue for closure, will require negative pressure wound VAC which will be applied on the floor. Patient tolerated the procedure well and was transferred to the PACU with vital signs stable and vascular status intact. Following a period of postoperative monitoring he will be transferred back to the floor to continue empiric IV antibiotics. Will discuss with hospitalist discharge planning and wound care follow-up. Will heal by secondary intention will need wound VAC at discharge.
--- NOTE | 2023-04-10 12:43 | XR_ITS ---
WS: [id number] Exam: XR foot RT min 3V* [id number] Date/Time of Exam: 04/10/2023 12:43 PM Reason For Exam: post op Comparison 04/06/2023. The fifth ray has been amputated at the level of the proximal fifth metatarsal. No other postoperativ e changes of the foot are identified. Bandaging material noted about the foot. IMPRESSION: 1. Fifth ray amputation as noted above.
[2023-04-10 12:56] LABS: Glucose Point of Care 167 mg/dL (70-110)
--- NOTE | 2023-04-10 13:09 | ANE.PACU2 ---
Inpatient post-anesthesia follow up: Airway intact: Yes Vital signs: Temperature 97 F Pulse Rate 74 Respiratory Rate 16 Blood Pressure 148/69 Pulse Oximetry 97 Oxygen Delivery Me thod Room Air Oxygen Flow Rate Fraction of Inspir ed Oxygen Hydration adequate: Yes Nausea and vomiting: No Pain level: 1 Mental status: Baseline
--- NOTE | 2023-04-10 13:21 | PC.NURSE ---
Patient returns from surgery with his right 5th toe amputed. He is in stable condition.
[2023-04-10 13:36] LABS: Glucose Point of Care 180 mg/dL (70-110)
[2023-04-10 16:53] LABS: Glucose Point of Care 149 mg/dL (70-110)
[2023-04-10] MEDS: insulin lispro 100 unit/1 mL SUBCUT ×2 (17:33→21:24)
[2023-04-10 21:00] LABS: Glucose Point of Care 182 mg/dL (70-110)
[2023-04-10] MEDS: sodium chloride 0.9% 1,000 ML 100 ML IV (21:06)
[2023-04-11] VITALS: BP 152/75; PULSE 79; RESP 30; TEMP 36.9; O2SAT 96
[2023-04-11] MEDS: vancomycin 1,250 MG/250 ML PIGGYBACK 250 MG IV ×2 (01:17→09:30)
[2023-04-11 04:00] VITALS: BP 136/62; PULSE 71; RESP 19; TEMP 36.8; O2SAT 94
[2023-04-11 05:24] LABS: Basophils % 0.4 %; Eosinophils # 0.2 10^3/uL (0.0-0.8); Eosinophils % 2.5 %; Lymphocytes # 0.9 10^3/uL (0.8-4.8); Lymphocytes % 12.4 %; Mean Corpuscular HGB Conc 32.3 g/dL (30-55); Mean Corpuscular Hemoglobin 30.1 pg (27-33); Mean Corpuscular Volume 93.4 fl (82-101); Mean Platelet Volume 9.8 fL (7.4-10.4); Monocytes # 0.6 10^3/uL (0.2-0.9); Monocytes % 8.1 %; Neutrophils % 76.2 %; Nucleated Red Blood Cells % 0 %; Platelet Count 279 10^3/cmm (157-399); Red Blood Count 3.32 10^6/uL (3.85-5.65); Red Cell Distribution Width 12.3 % (12.1-15.1); White Blood Count 7.49 10^3/uL (3.29-11.43)
[2023-04-11 05:46] LABS: Blood Urea Nitrogen 9 mg/dL (8-23); Calcium 7.5 mg/dL (8.5-10.5); Carbon Dioxide 20 mmol/L (22-29); Chloride 105 mmol/L (98-107); Glucose 116 mg/dL (65-115); Osmolality Calculated 282 mOsm/kg (285-295); Sodium 136 mmol/L (136-145)
[2023-04-11 05:48] LABS: Anion Gap 14.4 (5-19); Potassium 3.4 mmol/L (3.5-5.1)
[2023-04-11 06:00] VITALS: PULSE 67
[2023-04-11] MEDS: piperacillin-tazobactam 3.375 GM in sodium chloride 0.9% (plus) 50 ML IV (06:28)
[2023-04-11 07:01] LABS: Glucose Point of Care 124 mg/dL (70-110)
[2023-04-11 07:47] VITALS: BP 159/76; PULSE 73; RESP 24; TEMP 36.6; O2SAT 97
--- NOTE | 2023-04-11 08:14 | PM.PN ---
Subjective Subjective: Patient seen bedside this morning, he is status post partial fifth ray amputation of the right foot. Wound VAC approval through the home store with plans on application today. Vitals/I&O/Wt Last Vital Signs Temp 97.9 F 04/11/23 07:47 Pulse 73 04/11/23 07:47 Resp 24 H 04/11/23 07:47 BP 159/76 04/11/23 07:47 Pulse Ox 97 04/11/23 07:47 O2 Del Method Room Air 04/11/23 07:47 04/10/23 04/11/23 04/11/23 22:59 06:59 14:59 Intake Total 400 / 1700 2400 / 4100 Output Total 2100 / 2860 800 / 800 Balance 400 / 940 300 / 1240 -800 / -800 Physical Exam Narrative: GENERAL: Patient is alert and oriented ?3 and in no acute distress. The following is a focused bilateral lower extremity exam. VASCULAR: Dorsalis pedis diminished bilaterally. Posterior tibial arteries diminished. Capillary refill time less than 5 seconds to the distal hallux bilaterally. No cap refill to the distal right fifth toe. Calf is supple and nontender proximally and distally. Decreased pedal hair growth bilaterally. Pitting edema to the lower extremities, +2 at the right, +1 in the left. NEUROLOGICAL: Protective sensation intact 0/10 sites, tested with [place] monofilament to bilateral feet. DERMATOLOGICAL: Status post right partial fifth ray amputation, exposed to bone, no purulence and no erythema. MUSCULOSKELETAL: No crepitus with palpation of soft tissue to the right foot. Muscle strength +5 in all 3 planes to the right foot and ankle. Partial fifth ray amputation right foot. 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 Vascular intervention to the right lower extremity 04/09/2023. Partial fifth ray amputation right foot secondary to gangrene 04/10/2023 Patient has PICC line in place, infectious disease consulted Applied wound VAC to the amputation site right foot set at 125 mmHg negative pressure continuous, excellent seal. Has offloading boot Okay for discharge from podiatry standpoint with home health and wound care follow-up. Attestations Medical Necessity Statement*: Diabetic foot infection right. Coding Level of Care Code Acute Code for [facility] Fwd Diagnoses PAD (peripheral artery disease) I73.9 Diabetic peripheral neuropathy associated with type 2 diabetes mellitus E11.42 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 I70.235; L97.519
[2023-04-11] MEDS: pantoprazole 40 mg SDV IVP (09:10)
[2023-04-11] MEDS: finasteride 5 mg Tablet PO (09:11)
[2023-04-11] MEDS: tamsulosin 0.4 mg Capsule PO (09:11)
[2023-04-11] MEDS: aspirin 325 mg EC Tablet PO (09:12)
[2023-04-11 09:20] VITALS: PULSE 72; O2SAT 98
--- NOTE | 2023-04-11 10:13 | PM.DCS ---
Discharge Providers Date of Admission: 04/07/23 05:48 Date of Discharge: April 11, 2023 Attending Provider at Admission: Yuli Laws MD Attending Provider at Discharge: Pedro Tilley MD Primary Care Provider: Marzena Jesus MD Diagnoses at Discharge Discharge Diagnosis (1) 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: Status: Acute (2) Diabetic peripheral neuropathy associated with type 2 diabetes mellitus: Status: Acute (3) PAD (peripheral artery disease): Status: Acute (4) Diabetic foot ulcer: Status: Acute Qualifiers: Diabetic foot ulcer location: other Diabetes mellitus type: type 2 Laterality: right (5) UTI (urinary tract infection): Status: Acute (6) Gangrene of right foot: Status: Acute (7) Diabetes: Status: Acute Permanent problem details: A1c 8.7 Reason for Visit Reason for Visit: RT Leg Swollen Hospital Course Hospital Course 73-year-old male who was admitted for management evaluation of gangrene of foot related to ischemic ulcer he was being treated with IV antibiotics, Dr. Luevano was consulted along cardiology for intervention related to peripheral vascular disease, patient went for lower extremity angiogram with Dr. Wing he has extensive peripheral vascular disease not amenable to intervention, medical management was recommended, post partial fifth ray resection 04/10, Dr. Luevano noticed some purulence during intervention and recommended 7 to 10 days of oral antibiotics, wound VAC has been requested, patient is planning to live at daughter's place. Please note patient was retaining urine has seen Dr. Koch in the past, Parker catheter was inserted during this hospitalization, I will give him urology referral at [facility]. Physical Exam Narrative: Awake and alert GCS 15 Foot covered with dressing Pleasant cough S1, S2 Urinary Catheter Management: Coude: Cath Placed During This Visit: yes Reason for Continuing Indwelling Catheter: Accurate Measurement of Urinary Output in Critically Ill Patients Urinary Catheter Date of Insertion: 04/09/23 Urinary Catheter Time of Insertion: 01:00 Discharge Data Studies Completed and Pending Completed Studies During Hospitalization Category Date Time Status CT abdomen renal stone [CT kidney stone 30802] Routine Cat Scan 04/07/23 08:35 Completed XR chest 1V portable [id number] Stat Exams 04/06/23 18:02 Completed XR foot RT min 3V* [id number] Routine Exams 04/10/23 12:43 Completed XR foot RT min 3V* 23082 Stat Exams 04/06/23 18:02 Completed US arterial duplex lower extremity RT [CV arterial Ultrasound 04/06/23 18:[address] [place] [id number]] Stat US venous duplex lower extremity RT [CV venous duplex Ultrasound 04/06/23 18:[address] [place] [address]] Stat Pending at discharge Category Date Time Status [employer]CH[employer]ICIAN request for service Routine Exams 04/09/23 09:47 Taken Blood Culture Stat Lab 04/06/23 18:58 Results Tissue Culture and Gram Stain Routine Lab 04/10/23 12:30 Results Vancomycin Trough Timed Lab 04/11/23 15:30 Ordered Pathology: Surgical [PTH] Routine Pth 04/10/23 13:04 Received Radiology Impressions Chest X-Ray 04/06/23 18:02 IMPRESSION: No acute findings. Duplex Scan Lower Extremity Artery 04/06/23 18:02 IMPRESSION: No stenosis or occlusion. Venous Duplex 04/06/23 18:02 IMPRESSION: No evidence of deep vein thrombosis. Abdomen/Pelvis CT 04/07/23 08:35 IMPRESSION: 1. Moderate bilateral hydronephrosis and hydroureter without obstructing lesion. 2. Prominent fluid in the urinary bladder with an enlarged prostate gland perhaps reflecting underlying outflow obstruction, please correlate clinically. 3. Perinephric edema bilaterally likely reflecting renal insufficiency. 4. Left kidney exophytic cyst, negative for follow-up advised. 5. Diffuse urinary bladder wall thickening may reflect sequelae of chronic outflow obstruction, please correlate for cystitis. 6. Surgical clips in the anterior abdominal wall. 7. Sclerotic lesions in the femoral heads bilaterally similar to prior exam without cortical collapse suggestive of avascular necrosis. 8. Coronary artery atherosclerotic calcifications. 9. Left lower lobe atelectasis. 10. Left kidney nonobstructing renal calyceal stone. 11. Prominent subcentimeter inguinal lymph nodes bilaterally, nonspecific. Laboratory Results WBC 7.49 10^3/uL (3.29-11.43) 04/11/23 04:33 RBC 3.32 10^6/uL (3.85-5.65) L 04/11/23 04:33 Hgb 10.00 g/dL (11.27-16.99) L 04/11/23 04:33 Hct 31.0 % (37-53) L 04/11/23 04:33 MCV 93.4 fl (82-101) 04/11/23 04:33 MCH 30.1 pg (27-33) 04/11/23 04:33 MCHC 32.3 g/dL (30-55) 04/11/23 04:33 RDW 12.3 % (12.1-15.1) 04/11/23 04:33 Plt Count 279 10^3/cmm (157-399) 04/11/23 04:33 MPV 9.8 fL (7.4-10.4) 04/11/23 04:33 Neut % (Auto) 76.2 % 04/11/23 04:33 Lymph % (Auto) 12.4 % 04/11/23 04:33 [place] % (Auto) 8.1 % 04/11/23 04:33 Eos % (Auto) 2.5 % 04/11/23 04:33 Baso % (Auto) 0.4 % 04/11/23 04:33 Neut # (Auto) 5.70 10^3/uL (1.8-7.7) 04/11/23 04:33 Lymph # (Auto) 0.9 10^3/uL (0.8-4.8) 04/11/23 04:33 [place] # (Auto) 0.6 10^3/uL (0.2-0.9) 04/11/23 04:33 Eos # (Auto) 0.2 10^3/uL (0.0-0.8) 04/11/23 04:33 Baso # (Auto) 0.0 10^3/uL (0.0-0.1) 04/11/23 04:33 Nucleated RBC % (auto) 0 % 04/11/23 04:33 Nucleated RBCs # 0.0 /100WBC 04/11/23 04:33 APTT 37.8 SECONDS (23.9-36.7) H 04/09/23 19:12 Sodium 136 mmol/L (136-145) 04/11/23 04:33 Potassium 3.4 mmol/L (3.5-5.1) L 04/11/23 04:33 Chloride 105 mmol/L (98-107) 04/11/23 04:33 Carbon Dioxide 20 mmol/L (22-29) L 04/11/23 04:33 Anion Gap 14.4 (5-19) 04/11/23 04:33 BUN 9 mg/dL (8-23) 04/11/23 04:33 Creatinine 0.8 mg/dL (0.7-1.2) 04/11/23 04:33 GFR Calculation Not Reportable 04/11/23 04:33 Glucose 116 mg/dL (65-115) H 04/11/23 04:33 POC Glucose 124 mg/dL (70-110) H 04/11/23 06:30 Estimat Average Glucose 220 04/07/23 06:04 Hemoglobin A1c 9.3 % (4.0-6.0) H 04/07/23 06:04 Calculated Osmolality 282 mOsm/kg (285-295) L 04/11/23 04:33 Lactic Acid 1.3 mmol/L (0.5-2.2) 04/06/23 18:58 Calcium 7.5 mg/dL (8.5-10.5) L 04/11/23 04:33 Magnesium 2.2 mg/dL (1.7-2.3) 04/09/23 04:49 Total Bilirubin 0.7 mg/dL (0.15-1.2) 04/09/23 04:49 AST 9 U/L (0-40) 04/09/23 04:49 ALT 6 U/L (0-41) 04/09/23 04:49 Alkaline Phosphatase 76 U/L (40-130) 04/09/23 04:49 Total Protein 5.1 g/dL (6.6-8.7) L 04/09/23 04:49 Albumin 2.7 g/dL (3.5-5.2) L 04/09/23 04:49 Globulin 2.4 g/dL (1.3-4.6) 04/09/23 04:49 TSH 1.35 uIU/mL (0.27-4.20) 04/07/23 06:04 Urine Color Light yellow (Yellow) 04/06/23 18:26 Urine Appearance Cloudy (CLEAR) A 04/06/23 18:26 Urine pH 5 (5-7) 04/06/23 18:26 Ur Specific [place] 1.005 (1.005-1.030) 04/06/23 18:26 Urine Protein 1+ (Negative) H 04/06/23 18:26 Urine Glucose (UA) 4+ (Normal) H 04/06/23 18:26 Urine Ketones 1+ (Negative) H 04/06/23 18:26 Urine Blood 3+ (Negative) H 04/06/23 18:26 Urine Nitrate Negative (Negative) 04/06/23 18:26 Urine Bilirubin Neg (Negative) 04/06/23 18:26 Urine Urobilinogen Neg mg/dL (Negative) 04/06/23 18:26 Ur Leukocyte Esterase 2+ (Negative) H 04/06/23 18:26 Urine RBC >100 /hpf (0-2) H 04/06/23 18:26 Urine WBC >100 /hpf (0-5) H 04/06/23 18:26 Ur Squamous Epith Cells 0-4 /hpf (0-5) H 04/06/23 18:26 Amorphous Sediment Not Reportable 04/06/23 18:26 Urine Bacteria 3+ /hpf (NONE) H 04/06/23 18:26 Vancomycin Trough 18.4 ug/mL (10-15) H 04/08/23 19:42 Vitals Last Vital Signs Temp 97.9 F 04/11/23 07:47 Pulse 72 04/11/23 09:20 Resp 24 H 04/11/23 07:47 BP 159/76 04/11/23 07:47 Pulse Ox 98 04/11/23 09:20 O2 Del Method Room Air 04/11/23 09:20 Discharge Plan Discharge Patient Disposition: Home Health Service Condition: Stable Prescriptions: New atorvastatin 40 mg tablet 40 mg PO DAILY Qty: 60 0RF cilostazol 50 mg tablet 50 mg PO BID Qty: 60 0RF tamsulosin 0.4 mg Capsule 0.4 mg PO DAILY Qty: 60 0RF finasteride 5 mg Tablet 5 mg PO DAILY Qty: 60 0RF aspirin 325 mg Tablet,Delayed Release (Dr/Ec) 325 mg PO DAILY Qty: 60 0RF amoxicillin-pot clavulanate 875-125 mg tablet 1 tab PO BID Qty: 20 0RF doxycycline hyclate 100 mg tablet 100 mg PO BID 10 Days Qty: 20 0RF Continued mupirocin 2 % ointment 1 applic topical TID Qty: 15 0RF Discharge Orders: Discharge Order (Routine); Ordered 04/11/23 Ordered By: Pedro Tilley Other Ambulatory Orders: DME: Wound Vac (Order) Location: None Selected Ordered By: Rudi Luevano DME: Wound Vac (Order) Timeframe: 3 Months Location: None Selected Ordered By: Rudi Luevano Referrals: [facility] Home Care ([facility]) [Outside] Rudi Luevano DPM [Physician] - 4-7 days Rodriguez Wing M.D [Physician] - (Your Dr. Wing follow up appointment will be scheduled during your Chanel Powers appointment. Thank you.) Chanel Powers FNP [Nurse Practitioner] - 04/17/23 11:00 am Marzena Jesus MD [Primary Care Provider] - 04/22/23 2:00 pm Patient Instructions: Peripheral Vascular Angioplasty (DC), Opioid Safety, Post Angiogram Home Care Instructions Discharge Attestations Time Spent in Discharge Care*: greater than 30 min Quality Metrics Clinical Quality Measures [ No reported AMI, CVA or VTE this stay] Coding Level of Care Code Acute Code for g Fwd Diagnoses 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 I70.235; L97.519 Diabetic peripheral neuropathy associated with type 2 diabetes mellitus E11.42 PAD (peripheral artery disease) I73.9 Diabetic foot ulcer E11.621; L97.509 Diabetic foot ulcer location: other Diabetes mellitus type: type 2 Laterality: right UTI (urinary tract infection) N39.0 Gangrene of right foot I96 Diabetes E11.9
[2023-04-11 11:04] LABS: Glucose Point of Care 227 mg/dL (70-110)
[2023-04-11 11:12] VITALS: BP 145/71; PULSE 73; RESP 25; TEMP 36.7; O2SAT 93
--- NOTE | 2023-04-11 12:00 | PC.SOCIAL ---
IMM Updated Updated pt on IMM. No questions voiced. Provided pt a copy. Initialed, dated, & timed copy in chart.
[2023-04-11] MEDS: insulin lispro 100 unit/1 mL SUBCUT (12:26)
--- NOTE | 2023-04-11 13:36 | PC.NURSE ---
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
--- NOTE | 2023-04-11 13:38 | PC.NURSE ---
wheelchair brought by company
--- NOTE | 2023-04-11 14:52 | PC.NURSE ---
dr notified in regards to pt diabetes dgtr stated that pt does not usually takes his metformin. Pt also mentioned he was on it before but has not been taking it. Educated pt that he needs to take his medicine to help his diabetes and do some diet changes and in the future he might require insulin shots. pt verbalizes understanding.
== END 2023-04-11 15:00 | disposition home health service (06) | DRG 240 ==
LOC: ER 20:16 → MEDSURG 22:09 → CSU 04-09 13:11
PROVIDERS: Family Medicine; Internal Medicine; Podiatrist Foot & Ankle Surgery; Admitting Provider Internal Medicine; Emergency Provider Emergency Medicine; PCP Family Medicine; Visit Provider Internal Medicine
PROC: B41DYZZ Fluoroscopy of Aorta and Bilateral Lower Extremity Arteries using Other Contrast (ICD-10-PCS; principal; 2023-04-09 11:00)
PROC: (CPT 28810; principal; 2023-04-10 12:00)
DX: E11.52 Type 2 diabetes mellitus with diabetic peripheral angiopathy with gangrene (principal); I96 Gangrene, not elsewhere classified; N39.0 Urinary tract infection, site not specified; L03.115 Cellulitis of right lower limb; E11.51 Type 2 diabetes mellitus with diabetic peripheral angiopathy without gangrene; E11.40 Type 2 diabetes mellitus with diabetic neuropathy, unspecified; T38.3X6A Underdosing of insulin and oral hypoglycemic [antidiabetic] drugs, initial encounter; Z91.128 Patient's intentional underdosing of medication regimen for other reason; E78.5 Hyperlipidemia, unspecified; I10 Essential (primary) hypertension; R31.9 Hematuria, unspecified
CPT/HCPCS: 36415; 36416; 51702; 51798; 71045; 73630; 74176; 75625; 75716; 80048; 80053; 80202; 81001; 82962; 83036; 83605; 83735; 84443; 85025; 85347; 85730; 87040; 87070; 87086; 87176; 87205; 88305; 88311; 93005; 93926; 93971; 96365; 96372; 96375; 96376; 97110; 97116; 97161; 97530; 99152; 99153; 99232; 99252; 99285; C1769; C1887; C1894; C9113; J1644; J1650; J1815; J2250; J2405; J2543; J2704; J3010; J3370; J3490; J7030; J7050; L4361; Q9967

== ENCOUNTER → 2023-04-18 13:16 | Outpatient (BNVA) | payer MEDICARE, SELFPAY | PROVIDERS: PCP Family Medicine; Visit Provider Thoracic Surgery (Cardiothoracic Vascular Surgery) | DX: E11.52 Type 2 diabetes mellitus with diabetic peripheral angiopathy with gangrene (principal); E11.621 Type 2 diabetes mellitus with foot ulcer; L97.512 Non-pressure chronic ulcer of other part of right foot with fat layer exposed | CPT/HCPCS: 11042; 11045; 97605; 99213; A6237; A6250 ==

== ENCOUNTER 2023-04-25 15:28 | Outpatient (CLI) | payer MEDICARE, SELFPAY ==
--- NOTE | 2023-04-25 16:03 | XRR_ITS ---
PROCEDURE INFORMATION: Exam: XR Chest Exam date and time: 04/25/2023 4:06 PM Age: 73 years old Clinical indication: Condition or disease; Other: Diabetes; Additional info: E11.621 - type 2 diabetes mellitus with foot ulcer TECHNIQUE: Imaging protocol: Radiologic exam of the chest. Views: 1 view. COMPARISON: CR (CHEST, ) 04/06/2023 6:55 PM FINDINGS: Lungs: Unremarkable. No consolidation. Pleural spaces: Unremarkable. No pleural effusion. No pneumothorax. Heart/Mediastinum: Unremarkable. No cardiomegaly. Bones/joints: Mild scoliosis with mild and moderate multilevel spondylosis. Soft tissues: Unchanged small right diaphragmatic hernia. XR/XR chest 1V 19852 IMPRESSION: No acute disease.
--- NOTE | 2023-04-25 16:29 | ECG_ITS ---
[facility] Test Date: 2023-04-25 Pat Name: Justice Guardado Department: Room: Gender: Male Finger Buff Sewer: : 1950 Requested By: Paulino Olson Order Number: [id number] Cecelia MD: Lexi Joy M.D. Measurements Intervals [place] Rate: 91 P: -60 MD: 171 QRS: -52 QRSD: 133 T: 95 QT: 380 QTc: 468 Interpretive Statements ECTOPIC ATRIAL RHYTHM INTRAVENTRICULAR CONDUCTION DELAY [130+ ms QRS DURATION] LEFT VENTRICULAR HYPERTROPHY AND ST-T CHANGE [VOLTAGE CRITERIA PLUS ST/T ABNORMALITY] Compared to ECG 04/06/2023 18:35:00 Ectopic atrial rhythm now present Intraventricular conduction delay now present Sinus rhythm no longer present Left anterior fascicular block no longer present ST (T wave) deviation still present Electronically Signed On 04-25-2023 21:05:36 COMMERCIAL MANAGER by Lexi Joy M.D. [id number]
== END 2023-04-25 15:29 | disposition home or self-care (01) ==
PROVIDERS: PCP Family Medicine; Visit Provider Thoracic Surgery (Cardiothoracic Vascular Surgery)
DX: E11.621 Type 2 diabetes mellitus with foot ulcer (principal); E11.52 Type 2 diabetes mellitus with diabetic peripheral angiopathy with gangrene; L97.513 Non-pressure chronic ulcer of other part of right foot with necrosis of muscle; I51.7 Cardiomegaly
CPT/HCPCS: 11043; 71045; 93005; A6237; A6250

== ENCOUNTER → 2023-05-02 13:12 | Outpatient (BNVA) | payer MEDICARE, SELFPAY | PROVIDERS: PCP Family Medicine; Visit Provider Thoracic Surgery (Cardiothoracic Vascular Surgery) | DX: E11.52 Type 2 diabetes mellitus with diabetic peripheral angiopathy with gangrene (principal); E11.621 Type 2 diabetes mellitus with foot ulcer; L97.512 Non-pressure chronic ulcer of other part of right foot with fat layer exposed | CPT/HCPCS: 11042; 97605; A6237; A6250 ==

== ENCOUNTER → 2023-05-06 15:59 | Outpatient (BNVA) | payer MEDICARE, SELFPAY | PROVIDERS: PCP Family Medicine; Visit Provider Thoracic Surgery (Cardiothoracic Vascular Surgery) | DX: E11.52 Type 2 diabetes mellitus with diabetic peripheral angiopathy with gangrene (principal); E11.621 Type 2 diabetes mellitus with foot ulcer; L97.512 Non-pressure chronic ulcer of other part of right foot with fat layer exposed | CPT/HCPCS: 11042; 11045; 97605; A6237; A6250 ==

== ENCOUNTER → 2023-05-13 15:52 | Outpatient (BNVA) | payer MEDICARE, SELFPAY | PROVIDERS: PCP Family Medicine; Visit Provider Nurse Practitioner Family | DX: E11.52 Type 2 diabetes mellitus with diabetic peripheral angiopathy with gangrene (principal); E11.621 Type 2 diabetes mellitus with foot ulcer; L97.524 Non-pressure chronic ulcer of other part of left foot with necrosis of bone | CPT/HCPCS: 11044; 11047; 87070; 87077; 87176; 87186; 87205; A6219 ==

== ENCOUNTER 2023-05-18 00:12 | Emergency (ER) | payer MEDICARE, SELFPAY ==
[2023-05-18 00:24] VITALS: BP 164/100; PULSE 97; RESP 18; TEMP 36.7; O2SAT 94; BMI 31.2
--- NOTE | 2023-05-18 00:55 | W.ED.WOUNDLC ---
HPI - Wound/Laceration General: Chief Complaint: Wound/Laceration Stated Complaint: amputation, possible infection Time Seen by Provider: 05/18/23 00:27 History of Present Illness: 73-year-old gentleman who is 1 month status post partial fifth ray resection of the right foot. He comes in tonight with concern over wound healing. He saw wound care yesterday, and it was noted that he seemed to be doing well, except for the edema associated with the bilateral legs from having his feet down at home. Son and grandson were concerned tonight, because her seem to be more drainage coming from the wound. There is no odor. There is no fever. The patient states he believes the wound feels better than it has. 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 PAD (peripheral artery disease) Abscess or cellulitis of foot Diabetic foot ulcer UTI (urinary tract infection) Gangrene of right foot Cellulitis of right leg Abdominal wall abscess Hypertension Hyperlipidemia Nephrolithiasis Diabetes Short-term memory loss DDD (degenerative disc disease) Refusal of statin medication by patient Diabetes A1c 8.7 Surgical History History of vasectomy History of hemorrhoidectomy History of lithotripsy History of tracheostomy History of hernia repair Periumbilical x2 / mesh Family History Other Diabetes Social History Smoking and tobacco/nicotine status: never used tobacco/nicotine Alcohol intake: never Substance/Drug Use: never Lives independently: Yes Household members: none Marital status: Current 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 Pets and animals: Yes Physical Exam Const: COMMON NORMALS: no acute distress GENERAL APPEARANCE: not ill appearing HENMT: COMMON NORMALS: normocephalic HEAD & SCALP: normocephalic Eye: COMMON NORMALS: Equal, round and reactive pupils present and EOMs intact bilaterally PUPIL: Yes Equal, round and reactive pupils present Chest: CHEST: Yes Symmetrical chest wall rise Resp: COMMON NORMALS: normal respiratory effort and No use of accessory muscles Extremity: NARRATIVE EXTREMITY EXAM: Clean, open wound to the right lateral foot. Granulation is present. Wound has a rolled border. No cellulitic change. No drainage. No purulent fluid present. Symmetrical bilateral lower extremity edema. Neuro: EMMANUEL COMA SCALE: document GCS findings Danese coma scale eye opening: Spontaneous Danese coma scale verbal response: Orientated Emmanuel coma scale motor response: Obey commands Emmanuel coma scale total score: 15 Course Vital Signs: Vital signs: Vital Signs Temperature 98.1 F 05/18/23 00:24 Pulse Rate 97 05/18/23 00:24 Respiratory Rate 18 05/18/23 01:28 Blood Pressure 137/72 05/18/23 01:28 Pulse Oximetry 98 05/18/23 01:28 Oxygen Delivery Me thod Room Air 05/18/23 01:28 MDM - Wound/Laceration Medical Decision Making Exam reveals a noncellulitic, nonpurulent wound with good granulation tissue. The legs are significantly edematous. No evidence of active infection wound fay. He will be allowed discharge home. He is given 1 dose of Lasix here hopefully to begin diuresis to help with the swelling. He will be discharged to follow-up with wound care. No radiology studies performed this visit Discharge Plan Discharge Patient Disposition: Home Clinical Impression: Bilateral edema of lower extremity Diabetic ulcer of foot associated with type 1 diabetes mellitus, with necrosis of muscle Qualifiers: Diabetic foot ulcer location: unspecified part of foot Laterality: right Qualified Code(s): E10.621 - Type 1 diabetes mellitus with foot ulcer Condition: Stable Prescriptions: No Action mupirocin 2 % ointment 1 applic topical TID Qty: 15 0RF oxycodone-acetaminophen 5-325 mg tablet 1 tab PO Q8H PRN (Reason: pain) 10 Days Qty: 30 0RF sulfamethoxazole-trimethoprim [Bactrim DS] 800-160 mg tablet 1 tab PO BID Qty: 14 0RF aspirin 325 mg Tablet,Delayed Release (Dr/Ec) 325 mg PO DAILY Qty: 60 0RF tamsulosin 0.4 mg Capsule 0.4 mg PO DAILY Qty: 60 0RF finasteride 5 mg Tablet 5 mg PO DAILY Qty: 60 0RF amoxicillin-pot clavulanate 875-125 mg tablet 1 tab PO BID Qty: 20 0RF atorvastatin 40 mg tablet 40 mg PO DAILY Qty: 60 0RF cilostazol 50 mg tablet 50 mg PO BID Qty: 60 0RF oxycodone 5 mg tablet 5 mg PO Q4H PRN (Reason: pain) Qty: 10 0RF Jardiance 25 mg tablet 25 mg PO DAILY Qty: 60 0RF Discharge Orders: Discharge ED (Routine); Ordered 05/18/23 Ordered By: Benjamin Baird Referrals: Marzena Jesus MD [Primary Care Provider] - 4-7 days Patient Instructions: Leg Edema (ED), Opioid Safety, Pain Management Activity Restrictions/Additional Instructions: Wound care per previous instructions. Return for fever, any problems otherwise. 1 dose of medication is to help mobilize the leg swelling to make it easier to decrease with elevation. Coding Level of Care Code ED Candy Feeder for Thang Mejia
[2023-05-18 01:28] VITALS: BP 137/72; RESP 18; O2SAT 98
== END 2023-05-18 01:29 | disposition home or self-care (01) ==
PROVIDERS: Emergency Provider Emergency Medicine; PCP Family Medicine
DX: E10.621 Type 1 diabetes mellitus with foot ulcer (principal); R60.0 Localized edema; Z79.82 Long term (current) use of aspirin; I10 Essential (primary) hypertension; E78.5 Hyperlipidemia, unspecified
CPT/HCPCS: 99283

== ENCOUNTER → 2023-05-19 14:11 | Outpatient (BNVA) | payer MEDICARE, SELFPAY | PROVIDERS: PCP Family Medicine; Visit Provider Nurse Practitioner Family | DX: R60.0 Localized edema (principal) | CPT/HCPCS: 99213 ==

== ENCOUNTER → 2023-05-20 16:03 | Outpatient (BNVA) | payer MEDICARE, SELFPAY | PROVIDERS: PCP Family Medicine; Visit Provider Nurse Practitioner Family | DX: E11.52 Type 2 diabetes mellitus with diabetic peripheral angiopathy with gangrene (principal); E11.621 Type 2 diabetes mellitus with foot ulcer; L97.512 Non-pressure chronic ulcer of other part of right foot with fat layer exposed | CPT/HCPCS: 11042; 11045; 99212; A6220 ==

== ENCOUNTER → 2023-05-27 14:36 | Outpatient (BNVA) | payer MEDICARE, SELFPAY | PROVIDERS: PCP Family Medicine; Visit Provider Nurse Practitioner Family | DX: E11.52 Type 2 diabetes mellitus with diabetic peripheral angiopathy with gangrene (principal); E11.621 Type 2 diabetes mellitus with foot ulcer; L97.512 Non-pressure chronic ulcer of other part of right foot with fat layer exposed | CPT/HCPCS: 11042; 97605; A6237; A6260 ==

== ENCOUNTER → 2023-06-03 15:28 | Outpatient (BNVA) | payer MEDICARE, SELFPAY | PROVIDERS: PCP Family Medicine; Visit Provider Thoracic Surgery (Cardiothoracic Vascular Surgery) | DX: E11.52 Type 2 diabetes mellitus with diabetic peripheral angiopathy with gangrene (principal); E11.621 Type 2 diabetes mellitus with foot ulcer; L97.512 Non-pressure chronic ulcer of other part of right foot with fat layer exposed | CPT/HCPCS: 11043; 11046; 97605; A6237; A6250 ==

== ENCOUNTER → 2023-06-10 15:34 | Outpatient (BNVA) | payer MEDICARE, SELFPAY | PROVIDERS: PCP Family Medicine; Visit Provider Nurse Practitioner Family | DX: E11.621 Type 2 diabetes mellitus with foot ulcer (principal); L97.516 Non-pressure chronic ulcer of other part of right foot with bone involvement without evidence of necrosis | CPT/HCPCS: 11042; 97605 ==

== ENCOUNTER → 2023-06-17 15:11 | Outpatient (BNVA) | payer MEDICARE, SELFPAY | PROVIDERS: PCP Family Medicine; Visit Provider Nurse Practitioner Family | DX: E11.52 Type 2 diabetes mellitus with diabetic peripheral angiopathy with gangrene (principal); E11.621 Type 2 diabetes mellitus with foot ulcer; L97.518 Non-pressure chronic ulcer of other part of right foot with other specified severity | CPT/HCPCS: 11042; 97605; A6237; A6250 ==

== ENCOUNTER → 2023-06-19 17:10 | Outpatient (BNVA) | payer MEDICARE, SELFPAY | PROVIDERS: PCP Family Medicine; Visit Provider Family Medicine | DX: I10 Essential (primary) hypertension (principal); E11.9 Type 2 diabetes mellitus without complications | CPT/HCPCS: 80053; 80061; 83036; 84443; 85025 ==

== ENCOUNTER 2023-06-25 10:02 | Inpatient (IN) | payer MEDICARE, SELFPAY ==
[2023-06-25] VITALS (21 sets, daily range): BP systolic 86–136; BP diastolic 39–85; PULSE 75–108; RESP 11–25; TEMP 34.7–37.1; O2SAT 79–100; BMI 27.8; BMI 26.6
--- NOTE | 2023-06-25 10:41 | ECG_ITS ---
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 Measurements Intervals [place] Rate: 105 P: -88 IN: 110 QRS: -59 QRSD: 133 T: 96 QT: 367 QTc: 485 Interpretive Statements SINUS TACHYCARDIA INTRAVENTRICULAR CONDUCTION DELAY [130+ ms QRS DURATION] LEFT VENTRICULAR HYPERTROPHY AND ST-T CHANGE [VOLTAGE CRITERIA PLUS ST/T ABNORMALITY] POSSIBLE SEPTAL MYOCARDIAL INFARCTION , AGE INDETERMINATE Compared to ECG 04/25/2023 16:29:18 Myocardial infarct finding now present Ectopic atrial rhythm no longer present ST (T wave) deviation still present Electronically Signed On 06-25-2023 18:58:40 MACHINE ROOM ENGINEER by Rodriguez Wing M.D. [id number]
--- NOTE | 2023-06-25 10:55 | ED_ITS ---
HPI - Extremity Problem 2 General: Chief complaint: Extremity Problem,Nontraumatic Stated complaint: left foot pains Time Seen by Provider: 06/25/23 10:44 History of Present Illness: 73-year-old male with a history that is relevant for peripheral arterial disease, diabetes mellitus, diabetic peripheral neuropathy, history of diabetic fold ulcer on the right side status post partial amputation after infection/gangrene in March 2023. He presents today with chief complaint of left heel pain and redness extending from the left heel up his left ankle. When he checked and his blood pressure was 86/39 and his heart rate was 108. His temperature is 98.7. He is living with his son in law who is here and providing independent history. The patient is post to be on Augmentin but his son thinks that he does not always remember to take it. They just noticed some redness of the heel a few days ago and over the last 48 hours the skin has peeled off of the heel and they noticed a foul smell. Family notes that he is becoming progressively weak. He is taking oxycodone for pain which has been working. Associated symptoms: Deny chest pain or fever(s) Review of Systems 2 General: Reports: 10 or more systems reviewed and unremarkable except in HPI and below Const: Denies: fever(s), chills or body aches Eyes: Denies: change in vision ENMT: Denies: throat pain Card: Denies: chest pain or syncope Resp: Denies: dyspnea or productive cough GI: Denies: abdominal pain, vomiting or diarrhea : Denies: flank pain, dysuria or urinary frequency Musc: Denies: neck pain or back pain Neuro: Denies: headache(s), numbness in extremities, weakness in extremities or lack of coordination [facility] ED 2 PFSH: Medical History (Updated 06/25/23 @ 11:52 by Roly Rich MD) Diabetes A1c 8.7 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 PAD (peripheral artery disease) Abscess or cellulitis of foot Diabetic foot ulcer UTI (urinary tract infection) Gangrene of right foot Cellulitis of right leg Abdominal wall abscess Hypertension Hyperlipidemia Nephrolithiasis Diabetes Short-term memory loss DDD (degenerative disc disease) Refusal of statin medication by patient Surgical History History of vasectomy History of hemorrhoidectomy History of lithotripsy History of tracheostomy History of hernia repair Periumbilical x2 / mesh Family History Other Diabetes Social History Smoking and tobacco/nicotine status: never used tobacco/nicotine Alcohol intake: never Substance/Drug Use: never Lives independently: Yes Household members: none Marital status: Current 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 Pets and animals: Yes Physical Exam 2 Narrative: EXAM NARRATIVE: This is a chronically ill male who presents to the emergency department with son-in-law in a wheelchair. We have to help him transfer from the wheelchair to the bed and he is very slow to do so. There is a foul smell of an infected wound apparent immediately. The patient appears chronically ill and deconditioned. He is not distressed. His responses are appropriate but slow. He endorses using oxycodone prior to arrival and feels medicated . He has noted to be tachycardic. He has erythema of the left foot with ulcer of the left heel. When I squeeze the skin around the left heel some pus comes out from the epidermis which appears to be detached from the underlying subcutaneous tissue. I do not see any tunneling. The erythema warmth and tenderness extend up the left ankle towards the left calf. Patient has impaired sensation in his left lower extremity. The dorsalis pedis pulse and posterior tibial pulse I cannot palpate. However, at the capillary refill is 3 seconds. The right lower extremity is still in a boot with dressing and wound VAC. Const: COMMON NORMALS: alert and well nourished HENMT: COMMON NORMALS: normocephalic, atraumatic and external ears normal H EAD & SCALP: normocephalic and atraumatic EXTERNAL EAR: Yes external ears normal MOUTH: no muffled voice Eye: COMMON NORMALS: conjunctivae normal and no scleral icterus C ONJUNCTIVA: Yes conjunctivae normal Neck/C-Spine: GENERAL: Yes normal visual inspection and Yes trachea midline Resp: COMMON NORMALS: normal respiratory effort, No use of accessory muscles and clear to auscultation bilaterally AUSCULTATION: clear to auscultation bilaterally Cardio: COMMON NORMALS: regular rhythm RHYTHM: regular rhythm GI: COMMON NORMALS: Soft to palpation and non-tender PALPATION: Yes Soft to palpation and No Guarding due to palpation present (GI) Neuro: COMMON NORMALS: moves all extremities and no focal motor deficits S ENSORIUM/ORIENTATION: Yes alert SPEECH: speech normal Psych: COMMON NORMALS: cooperative, normal affect and speech normal SPEECH: Yes normal speech Skin: COMMON NORMALS: turgor normal and no jaundice GENERAL SKIN EXAM: t urgor normal Course 2 Vital Signs: Vital signs: Vital Signs Temperature 98.7 F 06/25/23 10:06 Pulse Rate 108 H 06/25/23 10:06 Respiratory Rate 16 06/25/23 10:06 Blood Pressure 86/39 06/25/23 10:06 Pulse Oximetry 100 06/25/23 10:06 Oxygen Delivery Me thod Room Air 06/25/23 10:06 MDM - Extremity (Nontraumatic) Medical Decision Making 73-year-old male who presents with sepsis related to a diabetic left foot infection complicated by known peripheral arterial disease. White blood cell count 23,000, ESR 44, CRP 245. I have ordered blood cultures, local wound culture and started on vancomycin and Zosyn. Patient's second blood pressure in the room was not hypotensive. He has been not eating and drinking well and is malnourished according to his family. His creatinine is up to 1.8 with a BUN of 44. I may go ahead and give him 2 L of fluid. His lactic acid came back within normal limits so we do not have to give them over 30 minutes. His potassium is slightly low and his electrolytes are abnormal and will need to be replaced/replenish. I spoke with Dr. Luevano, podiatry. He is going to do a consult on the patient. He agrees with admission to the hospitalist. I have paged hospitalist for admission at 11:45 AM. X-rays of the left heel have been obtained but he will likely need more advanced imaging. LILIA noted. HypoK noted EKG my interp: Sinus tachycardia, rate 100, left axis deviation, left bundle branch block, no excessive discordant elevation or concordant ST changes. No ectopy. Foot xray pending Discussed case with Dr Hernandez to continue care as inpatient/admission. Lab Data 06/25/23 11:00 06/25/23 11:00 Laboratory Results WBC 22.83 10^3/uL (3.29-11.43) H 06/25/23 11:00 RBC 2.99 10^6/uL (3.85-5.65) L 06/25/23 11:00 Hgb 8.50 g/dL (11.27-16.99) L 06/25/23 11:00 Hct 25.8 % (37-53) L 06/25/23 11:00 MCV 86.3 fl (82-101) 06/25/23 11:00 MCH 28.4 pg (27-33) 06/25/23 11:00 MCHC 32.9 g/dL (30-55) 06/25/23 11:00 RDW 13.2 % (12.1-15.1) 06/25/23 11:00 Plt Count 385 10^3/cmm (157-399) 06/25/23 11:00 MPV 9.4 fL (7.4-10.4) 06/25/23 11:00 Neut % (Auto) 91.2 % 06/25/23 11:00 Lymph % (Auto) 3.2 % 06/25/23 11:00 [place] % (Auto) 4.0 % 06/25/23 11:00 Eos % (Auto) 0.0 % 06/25/23 11:00 Baso % (Auto) 0.1 % 06/25/23 11:00 Neut # (Auto) 20.79 10^3/uL (1.8-7.7) H 06/25/23 11:00 Lymph # (Auto) 0.7 10^3/uL (0.8-4.8) L 06/25/23 11:00 [place] # (Auto) 0.9 10^3/uL (0.2-0.9) 06/25/23 11:00 Eos # (Auto) 0.0 10^3/uL (0.0-0.8) 06/25/23 11:00 Baso # (Auto) 0.0 10^3/uL (0.0-0.1) 06/25/23 11:00 Nucleated RBC % (auto) 0 % 06/25/23 11:00 Nucleated RBCs # 0.0 /100WBC 06/25/23 11:00 ESR 44 mm/hr (0-10) H 06/25/23 11:00 Sodium 128 mmol/L (136-145) L 06/25/23 11:00 Potassium 3.4 mmol/L (3.5-5.1) L 06/25/23 11:00 Chloride 93 mmol/L (98-107) L 06/25/23 11:00 Carbon Dioxide 21 mmol/L (22-29) L 06/25/23 11:00 Anion Gap 17.4 (5-19) 06/25/23 11:00 BUN 44 mg/dL (8-23) H 06/25/23 11:00 Creatinine 1.8 mg/dL (0.7-1.2) H 06/25/23 11:00 GFR Calculation Not Reportable 06/25/23 11:00 Glucose 207 mg/dL (65-115) H 06/25/23 11:00 Calculated Osmolality 283 mOsm/kg (285-295) L 06/25/23 11:00 Lactic Acid 1.2 mmol/L (0.5-2.2) 06/25/23 11:00 Calcium 8.2 mg/dL (8.5-10.5) L 06/25/23 11:00 Magnesium 2.0 mg/dL (1.7-2.3) 06/25/23 11:00 Total Bilirubin 0.6 mg/dL (0.15-1.2) 06/25/23 11:00 AST 12 U/L (0-40) 06/25/23 11:00 ALT 9 U/L (0-41) 06/25/23 11:00 Alkaline Phosphatase 123 U/L (40-130) 06/25/23 11:00 C-Reactive Protein 245.8 mg/L (0.0-4.9) H 06/25/23 11:00 Total Protein 6.9 g/dL (6.6-8.7) 06/25/23 11:00 Albumin 2.4 g/dL (3.5-5.2) L 06/25/23 11:00 Globulin 4.5 g/dL (1.3-4.6) 06/25/23 11:00 XR interpretation done by ED provider, pending radiology final review (awaiting xrays (havent been done yet)) ED provider radiology interpretation(s): foot xray (left) is pending Discharge Plan Discharge Patient Disposition: Admitted As Inpatient Clinical Impression: Diabetic ulcer of heel associated with type 1 diabetes mellitus, LILIA (acute kidney injury), Acute hypokalemia Condition: Stable Coding Level of Care Code ED Transmission Worker for Thang Mejia
[2023-06-25 11:17] LABS: Basophils % 0.1 %; Hematocrit 25.8 % (37-53); Lymphocytes # 0.7 10^3/uL (0.8-4.8); Lymphocytes % 3.2 %; Mean Corpuscular HGB Conc 32.9 g/dL (30-55); Mean Corpuscular Hemoglobin 28.4 pg (27-33); Mean Corpuscular Volume 86.3 fl (82-101); Mean Platelet Volume 9.4 fL (7.4-10.4); Monocytes # 0.9 10^3/uL (0.2-0.9); Neutrophils # 20.79 10^3/uL (1.8-7.7); Neutrophils % 91.2 %; Nucleated Red Blood Cells % 0 %; Platelet Count 385 10^3/cmm (157-399); Red Blood Count 2.99 10^6/uL (3.85-5.65); Red Cell Distribution Width 13.2 % (12.1-15.1); White Blood Count 22.83 10^3/uL (3.29-11.43)
[2023-06-25 11:21] LABS: Erythrocyte Sedimentation Rate 44 mm/hr (0-10)
--- NOTE | 2023-06-25 11:23 | XR_ITS ---
WS: [id number] LEFT FOOT: 3 VIEW(S) TECHNIQUE: AP, oblique and lateral. HISTORY: diabetic heel wound, eval osteo/air COMPARISON: None available. Diffuse osteopenia. Hammertoe deformities. No destructive bone lesions. Normal tarsal/metatarsal alignment. Numerous foci of air within the soft tissues around the foot, greatest along the plantar surface of t he foot but also extending along the first metatarsal and phalanx. With this extent of air possibilit y of necrotizing fasciitis should be considered. IMPRESSION: 1. Numerous foci of air from the soft tissues of the LEFT foot greatest along the plantar surface. Co nsider necrotizing fasciitis. 2. Osteopenia.
[2023-06-25 11:28] LABS: Lactic Sepsis W/Reflex 1.2 mmol/L (0.5-2.2)
[2023-06-25 11:29] LABS: Alanine Aminotransferase 9 U/L (0-41); Albumin Level 2.4 g/dL (3.5-5.2); Alkaline Phosphatase 123 U/L (40-130); Anion Gap 17.4 (5-19); Aspartate Amino Transferase 12 U/L (0-40); Blood Urea Nitrogen 44 mg/dL (8-23); C Reactive Protein 245.8 mg/L (0.0-4.9); Calcium 8.2 mg/dL (8.5-10.5); Carbon Dioxide 21 mmol/L (22-29); Chloride 93 mmol/L (98-107); Globulin 4.5 g/dL (1.3-4.6); Glucose 207 mg/dL (65-115); Osmolality Calculated 283 mOsm/kg (285-295); Potassium 3.4 mmol/L (3.5-5.1); Sodium 128 mmol/L (136-145); Total Bilirubin 0.6 mg/dL (0.15-1.2); Total Protein 6.9 g/dL (6.6-8.7)
--- NOTE | 2023-06-25 11:37 | PC.PHAR ---
UNABLE TO OBTAIN MEDICATION LIST FROM [facility] VERIFIED USING EXTERNAL MED LIST WITH LAST FILL DATE AND DAYS SUPPLY. 06/25/23
[2023-06-25] MEDS: sodium chloride 0.9% 1,000 ML 999 ML IV ×2 (11:46→15:08)
[2023-06-25] MEDS: piperacillin-tazobactam 4.5 GM in sodium chloride 0.9% (plus) 50 ML IV (11:55)
--- NOTE | 2023-06-25 12:00 | PC.NURSE ---
antibiotics delayed d/t orders being placed prior to pt being brought to ED room.
--- NOTE | 2023-06-25 12:07 | USCV_ITS ---
Justice Guardado Age: 73 Gender: M : 1950 Exam Date: 06/25/2023 12:32 Ordering Phys: Ran Hernandez MD Technologist: PURVI Exam Location: [facility] [place] Indication: BLE SWELLING AND ULCERS HISTORY: Lower extremity swelling. Lower extremity pain. PROCEDURES: Venous duplex imaging was performed in bilateral lower extremities. The following venous structures were evaluated: common femoral vein, profunda vein, proximal portion of the greater saphenous vein, superficial femoral vein, and the popliteal vein. In addition, the posterior tibial and peroneal trunk were evaluated. Serial compression, augmentation maneuvers, and spectral Doppler flow evaluation were performed. FINDINGS: Examination was technically limited due to body habitus. No evidence of DVT seen in any vessel visualized at this time. CONCLUSIONS No evidence of right lower extremity DVT. No evidence of left lower extremity DVT. Johnathon Sam MD (Electronically Signed) Final Date: 25 June 2023 15:30 S
--- NOTE | 2023-06-25 12:12 | P.HP_ITS ---
Providers/Chief Complaint 2 Primary Care Provider: Marzena Jesus MD Chief Complaint: left foot pains History of Present Illness Justice Guardado is a 73 year old male with a past medical history of noninsulin dependent type 1 diabetes mellitus, peripheral vascular disease, history of right foot cellulitis with gangrene, status post fifth ray amputatoin, s/p wound vac, offloading with boot, who [place] [facility] [place] diabetic ulcer that is rapidly evolved over the last few days, now black, gangrenous, foul- smelling with erythema spreading to his ankle, throughout the the left foot, towards his digits, reports chills, no fevers, Review of Systems 2 Const: Reports: chills Card: Denies: chest pain Resp: Denies: dyspnea GI: Denies: abdominal pain Medications/Allergies Home Medications Medication Instructions Recorded Confirmed Last Taken Type aspirin 325 mg tablet,delayed 325 mg PO DAILY #60 tabs 04/11/23 06/25/23 Unknown Rx release oxycodone-acetaminophen 5 mg-325 1 tab PO Q8H PRN pain 10 days #30 05/14/23 06/25/23 Unknown Rx mg tablet tabs atorvastatin 40 mg tablet 40 mg PO DAILY #60 tabs 06/19/23 06/25/23 Unknown Rx empagliflozin 25 mg tablet 25 mg PO DAILY #60 tabs 06/19/23 06/25/23 Unknown Rx (Jardiance) finasteride 5 mg tablet 5 mg PO DAILY #60 tabs 06/19/23 06/25/23 Unknown Rx tamsulosin 0.4 mg capsule 0.4 mg PO DAILY #60 caps 06/19/23 06/25/23 Unknown Rx Allergies Allergy/AdvReac Type Severity Reaction Status Date / Time No Known Allergies Allergy Verified 05/19/23 14:24 PFSH Acute 2 PFSH: Medical History Diabetes A1c 8.7 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 PAD (peripheral artery disease) Abscess or cellulitis of foot Diabetic foot ulcer UTI (urinary tract infection) Gangrene of right foot Cellulitis of right leg Abdominal wall abscess Hypertension Hyperlipidemia Nephrolithiasis Diabetes Short-term memory loss DDD (degenerative disc disease) Refusal of statin medication by patient Surgical History History of vasectomy History of hemorrhoidectomy History of lithotripsy History of tracheostomy History of hernia repair Periumbilical x2 / mesh Family History Other Diabetes Social History Smoking and tobacco/nicotine status: never used tobacco/nicotine Alcohol intake: never Substance/Drug Use: never Lives independently: Yes Household members: none Marital status: Current 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 Pets and animals: Yes Vitals/I&O/Wt Last Vital Signs Temp 98.7 F 06/25/23 10:06 Pulse 99 06/25/23 11:53 Resp 25 H 06/25/23 11:53 BP 136/66 06/25/23 11:53 Pulse Ox 97 06/25/23 11:53 O2 Del Method Room Air 06/25/23 11:53 Weight last 48 hrs Weight 90.718 kg Physical Exam 2 Const: COMMON NORMALS: no acute distress and patient oriented x3 HENMT: COMMON NORMALS: normocephalic HEAD & SCALP: normocephalic Eye: COMMON NORMALS: Equal, round and reactive pupils present and EOMs intact bilaterally Neck/C-Spine: COMMON NORMALS: no JVD Lymph: LYMPHATIC: no lymphadenopathy noted Resp: COMMON NORMALS: normal respiratory effort, No retractions, No use of accessory muscles and clear to auscultation bilaterally AUSCULTATION: clear to auscultation bilaterally Cardio: COMMON NORMALS: regular rate, regular rhythm, S1 normal heart sound present and S2 normal heart sound present RATE: regular rate RHYTHM: r egular rhythm HEART SOUNDS: S1 normal heart sound present and S2 normal heart sound present GI: COMMON NORMALS: Normal to inspection, nondistended, normoactive bowel sounds present, Soft to palpation and non-tender Extremity: NARRATIVE EXTREMITY EXAM: 1+ pitting edema, Right foot, wound VAC in place, surgical site looks clean and dry Left foot, heel, and has black, gangrenous, foul-smelling with erythema extending to the ankle, into the distal foot into the digits Neuro: COMMON NORMALS: patient oriented x3 Psych: COMMON NORMALS: mental status grossly normal Data 06/25/23 11:00 06/25/23 11:00 A&P Assessment and plan (1) PAD (peripheral artery disease): (2) Diabetes: Qualifiers: Diabetes mellitus type: type 2 Diabetes mellitus intermediate frame tender insulin use: without mcc use Diabetes mellitus complication status: without complication Qualified Code(s): E11.9 - Type 2 diabetes mellitus without complications (3) Hypertension: Qualifiers: Hypertension type: primary hypertension Qualified Code(s): I10 - Essential (primary) hypertension (4) Diabetic ulcer of left foot: (5) Cellulitis of left foot: (6) Sepsis: (7) LILIA (acute kidney injury): Plan Left foot diabetic ulcer, with cellulitis, with sepsis -Sepsis features include tachycardia, initial hypotension, LILIA, [id number], ESR 44, CRP 245.8 source of infection is a foot Plan ? Keep n.p.o., ? IV fluids, ? Vancomycin, ? Zosyn, ? Blood cultures, ? X-ray of the foot has been ordered, ?Dr. Luevano has been consulted by ER ? He is responding to fluids, tachycardia has improved, he is alert oriented x 3, lactic acid 1.2, continue to monitor closely ? Full code, next?Lovenox for DVT prophylaxis Hyponatremia, some component pseudohyponatremia, monitor, Hypokalemia, monitor, LILIA, creatinine 1.8, monitor with IV fluids Type1 diabetes mellitus, low-dose sliding scale Right foot, with wound VAC in place Attestations 2 Medical Necessity Statement*: Patient requires hospitalization for left foot diabetic ulcer with cellulitis with sepsis, with LILIA, inpatient, greater than 2 midnights Diagnoses PAD (peripheral artery disease) I73.9 Type 2 diabetes mellitus without complication, without long-term current use of insulin E11.9 Diabetes mellitus type: type 2 Diabetes mellitus mcc insulin use: without intermediate frame tender use Diabetes mellitus complication status: without complication Primary hypertension I10 Hypertension type: primary hypertension Diabetic ulcer of left foot E11.621; L97.529 Cellulitis of left foot L03.116 Sepsis A41.9 LILIA (acute kidney injury) N17.9
[2023-06-25] MEDS: pantoprazole 40 mg SDV IVP (12:30)
[2023-06-25] MEDS: enoxaparin 40 mg/0.4 mL Syringe SUBCUT (12:30)
[2023-06-25 12:34] LABS: INR 1.17 (0.8-1.2)
[2023-06-25 12:51] LABS: NT Pro B Type Natriuretic Pept 5178 pg/mL (0-450); Procalcitonin 1.08 ng/mL (0-0.5); Thyroid Stimulating Hormone 0.94 uIU/mL (0.27-4.20)
[2023-06-25] MEDS: vancomycin 1,500 MG/300 ML PIGGYBACK 200 MG IV (13:05)
--- NOTE | 2023-06-25 13:22 | CT_ITS ---
WS: [id number] Noncontrast CT LEFT FOOT TECHNIQUE: Noncontrast CT LEFT foot with coronal and sagittal reformatted images. CLINICAL INFORMATION: nec fasc COMPARISON: Radiograph 06/25/2023 DLP: 167.[address] scans at [facility] use at least one of these dose optimization techniques: automated e xposure control; mA and/or kV adjustment per patient size (includes targeted exams where dose is matc hed to clinical indication); or iterative reconstruction. FINDINGS: Soft tissue ulceration in the area of concern along the plantar surface of the calcaneus medially. Ex tensive locules of air within the hindfoot midfoot and forefoot soft tissues suspicious for necrotizi ng fasciitis. This extends into the superficial and deep soft tissues. Diffuse skin thickening. No dr ainable abscess or drainable fluid collection. In addition cortical irregularity involving the dorsal calcaneus with intraosseous air compatible wit h emphysematous osteomyelitis. Diffuse soft tissue edema with skin thickening involving the visualize d mid and distal leg. Pockets of air extend to the level of the talus. IMPRESSION: 1. Intraosseous air visualized in the plantar medial surface of the calcaneus adjacent to the soft t issue ulceration suspicious for emphysematous osteomyelitis. Associated cortical irregularity in this area. 2. Soft tissue ulceration involving the plantar hindfoot. No evidence of drainable abscess or fluid collection. 3. Diffuse cellulitis and soft tissue edema with scattered locules of air within the hindfoot midfoo t and forefoot suspicious for necrotizing fasciitis Notified Ran Hernandez MD at 06/25/2023 3:08 PM.
--- NOTE | 2023-06-25 14:04 | PC.NURSE ---
unable to start second bag of NS d/t pt not being on floor for diagnostic testing at this time
--- NOTE | 2023-06-25 14:13 | PC.NURSE ---
clindamycin delayed d/t vancomycin still infusing at this time.
--- NOTE | 2023-06-25 14:37 | P.CONIM_ITS ---
Providers/Reason For Consult 2 Consulting Physician/Specialty*: Rudi Luevano D.P.M./podiatry Reason for Consult*: Left heel wound Attending Physician: Ran Hernandez MD Primary Care Provider: Marzena Jesus MD History of Present Illness History of Present Illness Justice Guardado is a 73 year old male patient presents with new onset of wound left heel several days in duration, unaware of etiology of wound. He has had nausea, fevers and chills, increased redness, pain and swelling of the left foot and ankle and complains of foul odor. Is accompanied by his son. 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 Review of Systems 2 General: Reports: 10 or more systems reviewed and unremarkable except in HPI and below Const: Denies: fever(s) or chills Eyes: Denies: change in vision Card: Denies: chest pain or palpitations Resp: Denies: dyspnea or productive cough GI: Denies: abdominal pain, nausea or vomiting : Denies: flank pain Musc: Reports: extremity swelling, joint stiffness and deformity Skin/Breast: Reports: erythema, sores, changes in skin color, dry skin, nail changes and change in hair Neuro: Reports: numbness in extremities, sensory changes and difficulty walking Psych: Denies: suicidal ideation Endo: Denies: change in body appearance Tevin/Lymph: Denies: tender lymph nodes Medications/Allergies Home Medications Medication Instructions Recorded Confirmed Last Taken Type aspirin 325 mg tablet,delayed 325 mg PO DAILY #60 tabs 04/11/23 06/25/23 Unknown Rx release oxycodone-acetaminophen 5 mg-325 1 tab PO Q8H PRN pain 10 days #30 05/14/23 06/25/23 Unknown Rx mg tablet tabs atorvastatin 40 mg tablet 40 mg PO DAILY #60 tabs 06/19/23 06/25/23 Unknown Rx empagliflozin 25 mg tablet 25 mg PO DAILY #60 tabs 06/19/23 06/25/23 Unknown Rx (Jardiance) finasteride 5 mg tablet 5 mg PO DAILY #60 tabs 06/19/23 06/25/23 Unknown Rx tamsulosin 0.4 mg capsule 0.4 mg PO DAILY #60 caps 06/19/23 06/25/23 Unknown Rx Allergies Allergy/AdvReac Type Severity Reaction Status Date / Time No Known Allergies Allergy Verified 05/19/23 14:24 Current Medications Generic Name Dose Route Start Last Admin Trade Name Tatyana PRN Reason Stop Dose Admin Enoxaparin Sodium 40 mg 06/25/23 12:15 06/25/23 12:30 Enoxaparin 40 Mg/0.4 Ml Syringe SUBCUT 40 mg Q24H DENNISE Administration Pantoprazole Sodium 40 mg 06/25/23 12:15 06/25/23 12:30 Pantoprazole 40 Mg Sdv IVP 40 mg Q24H DENNISE Administration PFSH Acute 2 PFSH: Medical History Diabetes A1c 8.7 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 PAD (peripheral artery disease) Abscess or cellulitis of foot Diabetic foot ulcer UTI (urinary tract infection) Gangrene of right foot Cellulitis of right leg Abdominal wall abscess Hypertension Hyperlipidemia Nephrolithiasis Diabetes Short-term memory loss DDD (degenerative disc disease) Refusal of statin medication by patient Surgical History History of vasectomy History of hemorrhoidectomy History of lithotripsy History of tracheostomy History of hernia repair Periumbilical x2 / mesh Family History Other Diabetes Social History Smoking and tobacco/nicotine status: never used tobacco/nicotine Alcohol intake: never Substance/Drug Use: never Lives independently: Yes Household members: none Marital status: Current 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 The following is a focused bilateral lower extremity exam. VASCULAR: Dorsalis pedis diminished bilaterally. Posterior tibial arteries diminished. Capillary refill time less than 5 seconds to the distal hallux bilaterally. No cap refill to the distal right fifth toe. Calf is supple and nontender proximally and distally. Decreased pedal hair growth bilaterally. Pitting edema to the lower extremities, +2 at the right, +1 in the left. NEUROLOGICAL: Protective sensation intact 0/10 sites, tested with Jefferson Raymond monofilament to bilateral feet. DERMATOLOGICAL: Wound at the plantar left heel and plantar medial heel tracking medially approximately, probes directly to bone with crepitus on palpation of adjacent soft tissue, crepitus on palpation soft tissue at the dorsal medial forefoot especially at the first metatarsal phalangeal joint dorsally. Status post right partial fifth ray amputation, exposed to bone, no purulence and no erythema. MUSCULOSKELETAL: Crepitus with palpation of the left dorsal medial forefoot at the first metatarsal phalangeal joint and globally about the left heel both medially, plantarly and laterally. Partial fifth ray amputation right foot. Urinary Catheter Management: Coude: Cath Placed During This Visit: yes Reason for Continuing Indwelling Catheter: Accurate Measurement of Urinary Output in Critically Ill Patients Urinary Catheter Date of Insertion: 04/09/23 Urinary Catheter Time of Insertion: 01:00 Data 06/25/23 11:00 06/25/23 11:00 A&P Assessment and plan (1) Gas gangrene of foot: (2) Cellulitis of left foot: Plan 73-year-old diabetic male presents with gangrene left wound with left calcaneal osteomyelitis, soft tissue gas at left forefoot and left rear foot as well as interosseous emphysema at left calcaneus. He has subjective nausea, fevers and chills. WBC 22.83 ESR 44 Sodium 128 CRP 245.8 mg/L Hemoglobin 8.5 g/dL LRINEC score for necrotizing soft tissue infection 11 points with high risk score for necrotizing soft tissue infection, scores greater than 8 have a positive predictive value of 93.4% for necrotizing fasciitis. X-ray left foot shows soft tissue emphysema at the left forefoot and left rear foot. CT scan left foot significant for left foot soft tissue emphysema and interosseous emphysema of the left calcaneus, per radiology report on CT scan impression there is a suspicion for necrotizing fasciitis. Patient's condition warrants consideration for a more proximal level of amputation, specifically a below-knee or above-knee amputation. 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 ? Mr. Guardado demonstrated comprehension of the situation and the need for further surgical intervention. He expressed agreement to proceed with the higher level of amputation as recommended. He understands the need for another surgical consultation with the appropriate expertise for further evaluation and has agreed to the referral process. Diagnostic Imaging Reports Coding Level of Care Code Acute Code for [facility] Diagnoses Gas gangrene of foot A48.0 Cellulitis of left foot L03.116
[2023-06-25] MEDS: clindamycin 600 MG/50 ML PREMIX 100 MG IV ×2 (15:07→22:31)
--- NOTE | 2023-06-25 15:34 | P.CONIM_ITS ---
Providers/Reason For Consult 2 Consulting Physician/Specialty*: Dr. Rick Ibarra, DO/General surgery Reason for Consult*: Gas gangrene left foot Attending Physician: Ran Hernandez MD Primary Care Provider: Marzena Jesus MD History of Present Illness History of Present Illness Justice Guardado is a 73 year old male, with a history of diabetes and peripheral vascular disease, who presented to the hospital with increasing pain and discoloration of his left foot. He denies any fever or chills. His pain is constant and does not radiate. Palpation makes pain worse. Nothing makes pain better. CT of the foot shows gas gangrene and osteomyelitis. Review of Systems 2 General: Reports: 10 or more systems reviewed and unremarkable except in HPI and below Medications/Allergies Home Medications Medication Instructions Recorded Confirmed Last Taken Type aspirin 325 mg tablet,delayed 325 mg PO DAILY #60 tabs 04/11/23 06/25/23 Unknown Rx release oxycodone-acetaminophen 5 mg-325 1 tab PO Q8H PRN pain 10 days #30 05/14/23 06/25/23 Unknown Rx mg tablet tabs atorvastatin 40 mg tablet 40 mg PO DAILY #60 tabs 06/19/23 06/25/23 Unknown Rx empagliflozin 25 mg tablet 25 mg PO DAILY #60 tabs 06/19/23 06/25/23 Unknown Rx (Jardiance) finasteride 5 mg tablet 5 mg PO DAILY #60 tabs 06/19/23 06/25/23 Unknown Rx tamsulosin 0.4 mg capsule 0.4 mg PO DAILY #60 caps 06/19/23 06/25/23 Unknown Rx Allergies Allergy/AdvReac Type Severity Reaction Status Date / Time No Known Allergies Allergy Verified 05/19/23 14:24 Current Medications Generic Name Dose Route Start Last Admin Trade Name Freq PRN Reason Stop Dose Admin Enoxaparin Sodium 40 mg 06/25/23 12:15 06/25/23 12:30 Enoxaparin 40 Mg/0.4 Ml Syringe SUBCUT 40 mg Q24H DENNISE Administration Clindamycin HCl/Dextrose 600 mg in 50 mls @ 100 mls/hr 06/25/23 14:08 06/25/23 15:07 Cleocin IV 100 mls/hr Q8H DENNISE Administration Protocol Pantoprazole Sodium 40 mg 06/25/23 12:15 06/25/23 12:30 Pantoprazole 40 Mg Sdv IVP 40 mg Q24H DENNISE Administration PFSH Acute 2 PFSH: Medical History Diabetes A1c 8.7 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 PAD (peripheral artery disease) Abscess or cellulitis of foot Diabetic foot ulcer UTI (urinary tract infection) Gangrene of right foot Cellulitis of right leg Abdominal wall abscess Hypertension Hyperlipidemia Nephrolithiasis Diabetes Short-term memory loss DDD (degenerative disc disease) Refusal of statin medication by patient Surgical History History of vasectomy History of hemorrhoidectomy History of lithotripsy History of tracheostomy History of hernia repair Periumbilical x2 / mesh Family History Other Diabetes Social History Smoking and tobacco/nicotine status: never used tobacco/nicotine Alcohol intake: never Substance/Drug Use: never Lives independently: Yes Household members: none Marital status: Current 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 Pets and animals: Yes Vitals/I&O/Wt Last Vital Signs Temp 98.7 F 06/25/23 10:06 Pulse 89 06/25/23 15:00 Resp 19 H 06/25/23 15:00 BP 126/63 06/25/23 15:00 Pulse Ox 97 06/25/23 15:00 O2 Del Method Room Air 06/25/23 15:00 06/25/23 06/25/23 06/25/23 06:59 14:59 22:59 Intake Total 1050 / 1050 300 / 1350 Balance 1050 / 1050 300 / 1350 Weight last 48 hrs Weight 200 lb Physical Exam 2 Narrative: General : Patient is well developed , no acute distress, oriented x3 Head : Normal cephalic, a-traumatic. Ears : Pinnae and external canal are normal. Hearing is normal. Eyes : PERRLA, Sclera and injection are normal. No conjunctival discharge. Nose : Mucous membranes are without erythema. Throat : buccal mucosa is normal, gums are without significant recession or hypertrophy. Lungs : Equal chest rise bilaterally, no use of accessory muscles, trachea is midline. Cor : Rate and rhythm are normal. Abdomen : Soft, ND, NT, no g/r/m Extremities : Crepitus is palpated in the left foot and ankle, foot is black, there is edema to left lower extremity Back : non-tender to palpation, no CVA tenderness. Neuro : CN II - XII intact, Upper and lower extremities have equal and full strength Data 06/25/23 11:00 06/25/23 11:00 A&P Assessment and plan (1) Gas gangrene of foot: Plan Guillotine below-knee amputation The risks and benefits of the procedure, including but not limited to, bleeding, infection, phantom limb syndrome, scar, numbness, pain, need for a more proximal amputation, need for definitive below-knee amputation in the near future, damage to surrounding structures, were explained to the patient. Is understanding the risks and wishes to proceed Coding Level of Care Code 75745 Diagnoses Gas gangrene of foot A48.0
[2023-06-25 15:56] LABS: Add Urine Microscopic? YES; Bilirubin Urine Neg (Negative); Blood Urine 3+ (Negative); Glucose Urine UA 4+ (Normal); Ketones Urine Negative (Negative); Leukocyte Esterase Urine 2+ (Negative); Nitrate Urine Negative (Negative); Protein Urine Neg (Negative); Urine Appearance Cloudy (CLEAR); Urine Color Light yellow (Yellow); Urobilinogen Urine Norm (Negative); pH Urine 5 (5-7)
[2023-06-25 16:02] LABS: Add Urine Culture? Yes; Bacteria Urine TRACE /hpf; WBC Urine 40-55 /hpf (0-5)
--- NOTE | 2023-06-25 16:38 | P.ANESASSM_ITS ---
Pre-Anesthetic Assessment Height/Weight: Height 1.8 m Weight 90.718 kg Temp Pulse Resp BP Pulse Ox O2 Del Method 97 F L 97 18 95/48 97 Room Air 06/25/23 15:45 06/25/23 15:45 06/25/23 15:45 06/25/23 15:45 06/25/23 15:45 06/25/23 15:45 Operation Date: 06/25/23 16:20 Proposed Procedures p BKA (Below Knee Amputation) - Karthikeyanlotine(Left) - Rick Ibarra, DO Was Beta Humble taken within 24 hours: N/A Was Clonidine taken within 24 hours: N/A Social No alcohol and No tobacco Exam alert and oriented x 3 Airway Submandibular: within normal limits Cervical ROM: within normal limits Mallampati: Class II History/ROS No significant history except as noted and No significant complaints CV/HEM Hypertension and Peripheral Vascular Disease Metabolic Diabetes Mellitus Anesthetic Plan ASA status: 3 Anesthesia: General Risk of > 500 ml blood loss (7ml/kg in children): No Medications/Allergies Home Medications Medication Instructions Recorded Confirmed Last Taken Type aspirin 325 mg tablet,delayed 325 mg PO DAILY #60 tabs 04/11/23 06/25/23 Unknown Rx release oxycodone-acetaminophen 5 mg-325 1 tab PO Q8H PRN pain 10 days #30 05/14/23 06/25/23 Unknown Rx mg tablet tabs atorvastatin 40 mg tablet 40 mg PO DAILY #60 tabs 06/19/23 06/25/23 Unknown Rx empagliflozin 25 mg tablet 25 mg PO DAILY #60 tabs 06/19/23 06/25/23 Unknown Rx (Jardiance) finasteride 5 mg tablet 5 mg PO DAILY #60 tabs 06/19/23 06/25/23 Unknown Rx tamsulosin 0.4 mg capsule 0.4 mg PO DAILY #60 caps 06/19/23 06/25/23 Unknown Rx Allergies Allergy/AdvReac Type Severity Reaction Status Date / Time No Known Allergies Allergy Verified 05/19/23 14:24 Current Medications Generic Name Dose Route Start Last Admin Trade Name Freq PRN Reason Stop Dose Admin Enoxaparin Sodium 40 mg 06/25/23 12:15 06/25/23 12:30 Enoxaparin 40 Mg/0.4 Ml Syringe SUBCUT 40 mg Q24H DENNISE Administration Clindamycin HCl/Dextrose 600 mg in 50 mls @ 100 mls/hr 06/25/23 14:08 06/25/23 15:50 Cleocin IV Infused Q8H DENNISE Infusion Protocol Pantoprazole Sodium 40 mg 06/25/23 12:15 06/25/23 12:30 Pantoprazole 40 Mg Sdv IVP 40 mg Q24H DENNISE Administration PFSH Anesthesia Medical History Diabetes A1c 8.7 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 PAD (peripheral artery disease) Abscess or cellulitis of foot Diabetic foot ulcer UTI (urinary tract infection) Gangrene of right foot Cellulitis of right leg Abdominal wall abscess Hypertension Hyperlipidemia Nephrolithiasis Diabetes Short-term memory loss DDD (degenerative disc disease) Refusal of statin medication by patient Surgical History History of vasectomy History of hemorrhoidectomy History of lithotripsy History of tracheostomy History of hernia repair Periumbilical x2 / mesh Family History Other Diabetes Social History Smoking and tobacco/nicotine status: never used tobacco/nicotine Alcohol intake: never Substance/Drug Use: never Lives independently: Yes Household members: none Marital status: Current 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 Pets and animals: Yes Data Anesthesia 06/25/23 11:00 06/25/23 11:00 Short CBC 06/25/23 Range/Units 11:00 WBC 22.83 H (3.29-11.43) 10^3/uL Hgb 8.50 L (11.27-16.99) g/dL Hct 25.8 L (37-53) % MCV 86.3 (82-101) fl Plt Count 385 (157-399) 10^3/cmm Neut % (Auto) 91.2 % Neut # (Auto) 20.79 H (1.8-7.7) 10^3/uL BMP 06/25/23 11:00 Sodium 128 L Potassium 3.4 L Chloride 93 L Carbon Dioxide 21 L BUN 44 H Creatinine 1.8 H Glucose 207 H Calcium 8.2 L Cardiac Enzymes 06/25/23 Range/Units 11:00 NT-Pro-B Natriuret Pep 5178 H (0-450) pg/mL Liver Function 06/25/23 Range/Units 11:00 Total Bilirubin 0.6 (0.15-1.2) mg/dL AST 12 (0-40) U/L ALT 9 (0-41) U/L Alkaline Phosphatase 123 (40-130) U/L Albumin 2.4 L (3.5-5.2) g/dL Urine 06/25/23 Range/Units 15:39 Urine Color Light yellow (Yellow) Urine Appearance Cloudy A (CLEAR) Urine pH 5 (5-7) Ur Specific [place] 1.010 (1.005-1.030) Urine Protein Neg (Negative) Urine Glucose (UA) 4+ H (Normal) Urine Ketones Negative (Negative) Urine Nitrate Negative (Negative) Urine Bilirubin Neg (Negative) Ur Leukocyte Esterase 2+ H (Negative) Urine RBC 5-10 H (0-2) /hpf Urine WBC 40-55 H (0-5) /hpf Coags 06/25/23 11:00 ESR 44 H PT 15.30 H INR 1.17 C-Reactive Protein 245.8 H Cardiac Studies: 2 No Data to Display
--- NOTE | 2023-06-25 17:12 | PM.OP ---
Operative Report Date of procedure: June 25, 2023 Pre-op diagnosis: Gas gangrene left foot Post-op diagnosis: same Procedure done: Left guillotine below-knee amputation Implants: none Specimens removed/disposition: Left foot and ankle Surgeon: Rick Ibarra DO Anesthesia: General Estimated blood loss (mL): 50 Complications: None apparent Brief History: this a very pleasant 73-year-old gentleman who presented to the hospital with discoloration and odor to his left foot. In the ER he was diagnosed with gas gangrene of the left foot. Left guillotine below-knee amputation was indicated. This is to be done with the intention of completing a formal below-knee amputation on the left in the near future. Risk and benefits were explained and documented. Procedure: Patient was wheeled operative room placed on the OR table in the supine position. General tracheal intubation was achieved by department anesthesia. The left lower extremity was inspected prepped and draped in usual sterile fashion. A timeout was performed. All present were in agreement. Next a 10 blade scalpel was used to make a circumferential incision down to bone at the distal left leg. The amputation knife was then used to further transect soft tissues down to bone. The Gigli saw was then used to transect the tibia and fibula distally. Blood vessels were tied off with 0 silk. Remainder of the bleeding was controlled with electrocautery. Foot and ankle was passed off. A bulky sterile dressing was applied. Patient tolerated procedure well.
[2023-06-25] MEDS: sodium chloride 0.9% 1,000 ML 30 ML IV (17:32)
[2023-06-25 17:50] LABS: Glucose Point of Care 189 mg/dL (70-110)
[2023-06-25] MEDS: insulin lispro 100 unit/1 mL SUBCUT (18:04)
--- NOTE | 2023-06-25 18:12 | PC.NURSE ---
Patient arrived to ICU at 1723. V/S WNL Patient alert and orientated
--- NOTE | 2023-06-25 19:27 | ANE.PACU2 ---
Inpatient post-anesthesia follow up: Airway intact: Yes Vital signs: Temperature 97 F Pulse Rate 98 Respiratory Rate 24 Blood Pressure 102/48 Pulse Oximetry 100 Oxygen Delivery Me thod [ Room Air Current Rate & Del petrona] Oxygen Delivery Me thod Oxymask Oxygen Flow Rate Fraction of Inspir ed Oxygen Hydration adequate: Yes Nausea and vomiting: No Pain level: 2 Mental status: Baseline
[2023-06-25 21:49] LABS: Glucose Point of Care 207 mg/dL (70-110)
[2023-06-25] MEDS: piperacillin-tazobactam 3.375 GM in sodium chloride 0.9% (plus) 50 ML IV (21:53)
[2023-06-25] MEDS: morphine 4 mg/mL SDV 1 mL 2 MG IVP (22:30)
[2023-06-26] VITALS (36 sets, daily range): BP systolic 97–136; BP diastolic 42–65; PULSE 72–104; RESP 9–24; TEMP 35.2–36.6; O2SAT 97–100
[2023-06-26] MEDS: piperacillin-tazobactam 3.375 GM in sodium chloride 0.9% (plus) 50 ML IV ×3 (04:38→20:51)
[2023-06-26 04:41] LABS: Basophils % 0.1 %; Eosinophils # 0.1 10^3/uL (0.0-0.8); Eosinophils % 0.8 %; Hematocrit 23.5 % (37-53); Lymphocytes # 0.7 10^3/uL (0.8-4.8); Lymphocytes % 7.1 %; Mean Corpuscular HGB Conc 32.8 g/dL (30-55); Mean Corpuscular Hemoglobin 28.5 pg (27-33); Mean Platelet Volume 9.5 fL (7.4-10.4); Monocytes # 0.5 10^3/uL (0.2-0.9); Monocytes % 4.7 %; Neutrophils % 86.9 %; Nucleated Red Blood Cells % 0 %; Platelet Count 302 10^3/cmm (157-399); Red Cell Distribution Width 13.1 % (12.1-15.1); White Blood Count 10.46 10^3/uL (3.29-11.43)
[2023-06-26 05:03] LABS: Alanine Aminotransferase 8 U/L (0-41); Alkaline Phosphatase 95 U/L (40-130); Aspartate Amino Transferase 9 U/L (0-40); Blood Urea Nitrogen 43 mg/dL (8-23); Calcium 8.2 mg/dL (8.5-10.5); Carbon Dioxide 21 mmol/L (22-29); Chloride 103 mmol/L (98-107); Globulin 3.8 g/dL (1.3-4.6); Glucose 133 mg/dL (65-115); Magnesium 2.2 mg/dL (1.7-2.3); Osmolality Calculated 295 mOsm/kg (285-295); Phosphorus 4.4 mg/dL (2.5-4.5); Sodium 136 mmol/L (136-145); Total Bilirubin 0.3 mg/dL (0.15-1.2); Total Protein 5.8 g/dL (6.6-8.7)
[2023-06-26] MEDS: clindamycin 600 MG/50 ML PREMIX 100 MG IV ×3 (05:32→22:27)
[2023-06-26] MEDS: potassium chloride ER 20 mEq Tablet 40 MEQ PO (06:01)
[2023-06-26 07:28] LABS: Glucose Point of Care 130 mg/dL (70-110)
[2023-06-26 08:53] LABS: Ferritin 575 ng/mL (30-400); Iron 11 ug/dL (59-158)
[2023-06-26] MEDS: lidocaine 1% 5 ML in potassium chloride premix 100 ML 26.25 ML IV (09:45)
[2023-06-26] MEDS: atorvastatin 40 mg Tablet PO (09:50)
[2023-06-26] MEDS: aspirin 325 mg EC Tablet PO (09:50)
[2023-06-26] MEDS: tamsulosin 0.4 mg Capsule PO (09:50)
[2023-06-26] MEDS: finasteride 5 mg Tablet PO (09:51)
[2023-06-26 11:06] LABS: Glucose Point of Care 220 mg/dL (70-110)
[2023-06-26] MEDS: pantoprazole 40 mg SDV IVP (11:58)
[2023-06-26] MEDS: enoxaparin 40 mg/0.4 mL Syringe SUBCUT (11:59)
[2023-06-26] MEDS: insulin lispro 100 unit/1 mL SUBCUT ×2 (12:00→17:25)
[2023-06-26 13:02] LABS: Basophils % 0.2 %; Eosinophils # 0.1 10^3/uL (0.0-0.8); Eosinophils % 1.1 %; Hematocrit 24.4 % (37-53); Lymphocytes # 0.7 10^3/uL (0.8-4.8); Lymphocytes % 7.4 %; Mean Corpuscular HGB Conc 32.4 g/dL (30-55); Mean Corpuscular Hemoglobin 28.5 pg (27-33); Mean Corpuscular Volume 88.1 fl (82-101); Mean Platelet Volume 9.3 fL (7.4-10.4); Monocytes # 0.3 10^3/uL (0.2-0.9); Monocytes % 3.5 %; Neutrophils % 87.3 %; Nucleated Red Blood Cells % 0 %; Platelet Count 326 10^3/cmm (157-399); Red Blood Count 2.77 10^6/uL (3.85-5.65); Red Cell Distribution Width 13.2 % (12.1-15.1)
[2023-06-26] MEDS: morphine 4 mg/mL SDV 1 mL 2 MG IVP (13:52)
[2023-06-26] MEDS: vancomycin 1,500 MG/300 ML PIGGYBACK 200 MG IV (14:00)
--- NOTE | 2023-06-26 14:19 | P.PN_ITS ---
Subjective 2 Subjective: Patient seen bedside for evaluation of right lateral foot wound, wound VAC is intact with excellent seal. Patient underwent surgical management of left lower extremity wound, partial amputation of left below-knee amputation. Vitals/I&O/Wt Last Vital Signs Temp 95.4 F L 06/26/23 00:00 Pulse 90 06/26/23 13:00 Resp 24 H 06/26/23 13:00 BP 134/62 06/26/23 13:00 Pulse Ox 98 06/26/23 13:00 O2 Del Method Room Air 06/26/23 04:00 06/25/23 06/26/23 06/26/23 22:59 06:59 14:59 Intake Total 1350 / 2400 100 / 2500 1325 / 1325 Output Total 1999 / 1999 1575 / 3575 2300 / 2300 Balance -650 / 400 -1475 / -1075 -975 / -975 Weight last 48 hrs Weight 196 lb 3 oz Weight 196 lb 3.382 oz Weight 200 lb Physical Exam 2 Narrative: Patient is alert and oriented ?3 and in no acute distress. The following is a focused right lower extremity exam. Patient is status post left foot and ankle amputation. VASCULAR: Diminished pedal pulse at dorsalis pedis and posterior tibial artery, right foot. NEUROLOGICAL: Decreased protective sensation at right foot. DERMATOLOGICAL: Wound at the plantar left heel and plantar medial heel tracking medially approximately, probes directly to bone with crepitus on palpation of adjacent soft tissue, crepitus on palpation soft tissue at the dorsal medial forefoot especially at the first metatarsal phalangeal joint dorsally. Status post right partial fifth ray amputation, exposed to bone, no purulence and no erythema. MUSCULOSKELETAL: Wound to the right lateral forefoot at fifth ray has granular base and epithelialized margin, no purulence and no periwound erythema appreciated. Urinary Catheter Management: Coude: Cath Placed During This Visit: yes Reason for Continuing Indwelling Catheter: Accurate Measurement of Urinary Output in Critically Ill Patients Urinary Catheter Date of Insertion: 06/25/23 Urinary Catheter Time of Insertion: 21:18 Data 06/29/23 04:57 06/29/23 04:57 A&P Assessment and plan (1) PAD (peripheral artery disease): (2) Non-pressure chronic ulcer of other part of left foot with fat layer exposed: (3) Diabetic peripheral neuropathy associated with type 2 diabetes mellitus: Plan Patient examined evaluated, findings and treatment options discussed with patient at length. Right foot wound has healthy granular base without clinical signs of infection. Will continue with wound VAC therapy and wound care clinic follow-up. Order for wound VAC dressing change to be performed today. Patient advised to remain nonweightbearing to right lower extremity, may heel touch only for transfers. Advised wound care clinic follow-up once discharged from this hospitalization. Attestations 2 Medical Necessity Statement*: Diabetic foot infection Coding Level of Care Code Acute Code for [facility] Diagnoses PAD (peripheral artery disease) I73.9 Non-pressure chronic ulcer of other part of left foot with fat layer exposed L97.522 Diabetic peripheral neuropathy associated with type 2 diabetes mellitus E11.42
--- NOTE | 2023-06-26 16:18 | P.PN_ITS ---
Subjective 2 Subjective: Patient was seen this morning, he is alert and oriented x 3, following all commands, he had a below-knee amputation yesterday, afebrile overnight, normotensive, Vitals/I&O/Wt Last Vital Signs Temp 95.4 F L 06/26/23 00:00 Pulse 90 06/26/23 14:00 Resp 24 H 06/26/23 13:00 BP 134/62 06/26/23 13:00 Pulse Ox 98 06/26/23 13:00 O2 Del Method Room Air 06/26/23 04:00 06/26/23 06/26/23 06/26/23 06:59 14:59 22:59 Intake Total 100 / 2500 1325 / 1325 400 / 1725 Output Total 1575 / 3575 2300 / 2300 Balance -1475 / -1075 -975 / -975 400 / -575 Weight last 48 hrs Weight 88.989 kg Weight 89 kg Weight 90.718 kg Physical Exam 2 Const: COMMON NORMALS: no acute distress and patient oriented x3 Resp: COMMON NORMALS: normal respiratory effort, No retractions, No use of accessory muscles and clear to auscultation bilaterally AUSCULTATION: clear to auscultation bilaterally Cardio: COMMON NORMALS: regular rate, regular rhythm, S1 normal heart sound present and S2 normal heart sound present RATE: regular rate RHYTHM: r egular rhythm HEART SOUNDS: S1 normal heart sound present and S2 normal heart sound present GI: COMMON NORMALS: Normal to inspection, nondistended, normoactive bowel sounds present and non-tender Extremity: NARRATIVE EXTREMITY EXAM: Left below-knee amputation, wrapped in bandage Neuro: COMMON NORMALS: patient oriented x3 Psych: COMMON NORMALS: mental status grossly normal Urinary Catheter Management: Coude: Cath Placed During This Visit: yes Reason for Continuing Indwelling Catheter: Accurate Measurement of Urinary Output in Critically Ill Patients Urinary Catheter Date of Insertion: 06/25/23 Urinary Catheter Time of Insertion: 21:18 Data 06/26/23 12:50 06/26/23 04:16 Micro: Microbiology 06/26/23 Unknown Occult Blood (FIT) - Final Stool Routine Collection A&P Assessment and plan (1) PAD (peripheral artery disease): (2) Diabetes: Qualifiers: Diabetes mellitus type: type 2 Diabetes mellitus continuous churn buttermaker insulin use: without skilled nursing use Diabetes mellitus complication status: without complication Qualified Code(s): E11.9 - Type 2 diabetes mellitus without complications (3) Hypertension: Qualifiers: Hypertension type: primary hypertension Qualified Code(s): I10 - Essential (primary) hypertension (4) Diabetic ulcer of left foot: (5) Cellulitis of left foot: (6) Sepsis: (7) LILIA (acute kidney injury): (8) Gas gangrene of foot: Plan Left foot diabetic ulcer, with cellulitis, with sepsis, gas gangrene right foot -With concerns for necrotizing fasciitis -Sepsis features include tachycardia, initial hypotension, LILIA, .83, ESR 44, CRP 245.8 source of infection is a foot -IMPRESSION: 1. Intraosseous air visualized in the plantar medial surface of the calcaneus adjacent to the soft tissue ulceration suspicious for emphysematous osteomyelitis. Associated cortical irregularity in this area. 2. Soft tissue ulceration involving the plantar hindfoot. No evidence of drainable abscess or fluid collection. 3. Diffuse cellulitis and soft tissue edema with scattered locules of air within the hindfoot midfoot and forefoot suspicious for necrotizing fasciitis -Status post right below-knee amputation Plan ? diabetic diet ? IV fluids, ? Vancomycin, ? Zosyn, -On clindamycin ? Blood cultures, will await negative blood cultures before stopping antibiotic therapy ? Dr. Ibarra on consult ?Dr. Luevano Postoperative anemia, hemoglobin 7.9, Hemoccult stool positive, has evidence of iron deficiency anemia, monitor hemoglobin closely ? Full code, ?Lovenox for DVT prophylaxis Hyponatremia, resolving some component pseudohyponatremia, monitor, Hypokalemia, monitor, LILIA, creatinine 1.86, monitor with IV fluids Type1 diabetes mellitus, low-dose sliding scale Right foot, with wound VAC in place Attestations 2 Medical Necessity Statement*: Patient requires hospitalization for left foot diabetic ulcer with cellulitis with sepsis with gangrene of right foot, concerns for necrotizing fasciitis, intraosseous ear, status post right below-knee amputation requiring IV antibiotics, postoperative anemia Diagnoses PAD (peripheral artery disease) I73.9 Type 2 diabetes mellitus without complication, without long-term current use of insulin E11.9 Diabetes mellitus type: type 2 Diabetes mellitus skilled nursing insulin use: without continuous churn buttermaker use Diabetes mellitus complication status: without complication Primary hypertension I10 Hypertension type: primary hypertension Diabetic ulcer of left foot E11.621; L97.529 Cellulitis of left foot L03.116 Sepsis A41.9 LILIA (acute kidney injury) N17.9 Gas gangrene of foot A48.0
[2023-06-26 17:08] LABS: Glucose Point of Care 225 mg/dL (70-110)
--- NOTE | 2023-06-26 20:25 | PC.NURSE ---
Patient asking for something to help him have a bowel movement. Dr. Florian notified.
[2023-06-26] MEDS: magnesium hydroxide 30 mL UDC PO (20:50)
[2023-06-26 21:14] LABS: Glucose Point of Care 217 mg/dL (70-110)
[2023-06-27] VITALS (8 sets, daily range): BP systolic 114–135; BP diastolic 61–73; PULSE 69–99; RESP 15–17; TEMP 36.4–36.8; O2SAT 98–100
[2023-06-27] MEDS: clindamycin 600 MG/50 ML PREMIX 100 MG IV ×3 (04:19→19:43)
[2023-06-27] MEDS: piperacillin-tazobactam 3.375 GM in sodium chloride 0.9% (plus) 50 ML IV ×3 (04:19→19:44)
[2023-06-27 07:06] LABS: Basophils % 0.3 %; Eosinophils # 0.1 10^3/uL (0.0-0.8); Eosinophils % 1.5 %; Hematocrit 23.9 % (37-53); Lymphocytes % 13.3 %; Mean Corpuscular HGB Conc 31.8 g/dL (30-55); Mean Corpuscular Volume 88.2 fl (82-101); Mean Platelet Volume 9.5 fL (7.4-10.4); Monocytes # 0.6 10^3/uL (0.2-0.9); Monocytes % 7.4 %; Neutrophils # 6.03 10^3/uL (1.8-7.7); Nucleated Red Blood Cells % 0 %; Platelet Count 372 10^3/cmm (157-399); Red Blood Count 2.71 10^6/uL (3.85-5.65); Red Cell Distribution Width 13.3 % (12.1-15.1); White Blood Count 7.83 10^3/uL (3.29-11.43)
[2023-06-27 07:13] LABS: Glucose Point of Care 158 mg/dL (70-110)
[2023-06-27 07:35] LABS: Alanine Aminotransferase 7 U/L (0-41); Alkaline Phosphatase 156 U/L (40-130); Anion Gap 13.9 (5-19); Aspartate Amino Transferase 11 U/L (0-40); Blood Urea Nitrogen 31 mg/dL (8-23); Calcium 7.9 mg/dL (8.5-10.5); Carbon Dioxide 22 mmol/L (22-29); Chloride 107 mmol/L (98-107); Globulin 3.6 g/dL (1.3-4.6); Glucose 138 mg/dL (65-115); Magnesium 2.2 mg/dL (1.7-2.3); Osmolality Calculated 297 mOsm/kg (285-295); Phosphorus 3.3 mg/dL (2.5-4.5); Potassium 3.9 mmol/L (3.5-5.1); Sodium 139 mmol/L (136-145); Total Bilirubin 0.3 mg/dL (0.15-1.2); Total Protein 5.6 g/dL (6.6-8.7)
[2023-06-27] MEDS: atorvastatin 40 mg Tablet PO (09:36)
[2023-06-27] MEDS: tamsulosin 0.4 mg Capsule PO (09:36)
[2023-06-27] MEDS: finasteride 5 mg Tablet PO (09:36)
[2023-06-27] MEDS: aspirin 81 mg EC Tablet PO (09:36)
[2023-06-27] MEDS: insulin lispro 100 unit/1 mL SUBCUT ×3 (09:36→18:01)
[2023-06-27 09:51] LABS: Basophils % 0.3 %; Eosinophils # 0.1 10^3/uL (0.0-0.8); Eosinophils % 1.7 %; Hematocrit 27.8 % (37-53); Lymphocytes # 0.8 10^3/uL (0.8-4.8); Lymphocytes % 11.9 %; Mean Corpuscular Hemoglobin 28.4 pg (27-33); Mean Corpuscular Volume 88.8 fl (82-101); Mean Platelet Volume 9.3 fL (7.4-10.4); Monocytes # 0.5 10^3/uL (0.2-0.9); Neutrophils # 5.14 10^3/uL (1.8-7.7); Neutrophils % 78.8 %; Nucleated Red Blood Cells % 0 %; Platelet Count 381 10^3/cmm (157-399); Red Blood Count 3.13 10^6/uL (3.85-5.65); Red Cell Distribution Width 13.2 % (12.1-15.1); White Blood Count 6.53 10^3/uL (3.29-11.43)
[2023-06-27 12:22] LABS: Glucose Point of Care 144 mg/dL (70-110)
--- NOTE | 2023-06-27 13:18 | P.PN_ITS ---
Subjective 2 Subjective: Patient was seen this morning, denies any fevers, chills, nausea, denies any lightheadedness, no dizziness Vitals/I&O/Wt Last Vital Signs Temp 98.0 F 06/27/23 12:00 Pulse 79 06/27/23 12:00 Resp 16 06/27/23 12:00 BP 135/68 06/27/23 12:00 Pulse Ox 100 06/27/23 12:00 O2 Del Method Room Air 06/27/23 12:00 06/26/23 06/27/23 06/27/23 22:59 06:59 14:59 Intake Total 700 / 2025 150 / 2175 290 / 290 Output Total 1500 / 3800 2700 / 6500 Balance -800 / -1775 -2550 / -4325 290 / 290 Weight last 48 hrs Weight 85.984 kg Weight 88.989 kg Weight 89 kg Physical Exam 2 Const: COMMON NORMALS: no acute distress and patient oriented x3 Resp: COMMON NORMALS: normal respiratory effort, No retractions, No use of accessory muscles and clear to auscultation bilaterally AUSCULTATION: clear to auscultation bilaterally Cardio: COMMON NORMALS: regular rate, regular rhythm, S1 normal heart sound present and S2 normal heart sound present RATE: regular rate RHYTHM: r egular rhythm HEART SOUNDS: S1 normal heart sound present and S2 normal heart sound present GI: COMMON NORMALS: Normal to inspection, nondistended, normoactive bowel sounds present and non-tender Extremity: NARRATIVE EXTREMITY EXAM: Surgical site wrapped Neuro: COMMON NORMALS: patient oriented x3 Psych: COMMON NORMALS: mental status grossly normal Urinary Catheter Management: Coude: Cath Placed During This Visit: yes Reason for Continuing Indwelling Catheter: Required Immobilization for Trauma or Surgery or Anesthesia Urinary Catheter Date of Insertion: 06/25/23 Urinary Catheter Time of Insertion: 21:18 Data 06/27/23 09:38 06/27/23 06:19 Micro: Microbiology 06/25/23 11:05 Blood Culture - Preliminary Blood 06/25/23 11:00 Blood Culture - Preliminary Blood 06/26/23 Unknown Occult Blood (FIT) - Final Stool Routine Collection A&P Assessment and plan (1) PAD (peripheral artery disease): (2) Diabetes: Qualifiers: Diabetes mellitus complication status: without complication Diabetes mellitus long term care pharmacist insulin use: without long term care pharmacist use Diabetes mellitus type: t ype 2 Qualified Code(s): E11.9 - Type 2 diabetes mellitus without complications (3) Hypertension: Qualifiers: Hypertension type: primary hypertension Qualified Code(s): I10 - Essential (primary) hypertension (4) Diabetic ulcer of left foot: (5) Cellulitis of left foot: (6) Sepsis: (7) LILIA (acute kidney injury): (8) Gas gangrene of foot: Plan Left foot diabetic ulcer, with cellulitis, with sepsis, gas gangrene right foot -With concerns for necrotizing fasciitis -Sepsis features include tachycardia, initial hypotension, LILIA, [id number], ESR 44, CRP 245.8 source of infection is a foot -IMPRESSION: 1. Intraosseous air visualized in the plantar medial surface of the calcaneus adjacent to the soft tissue ulceration suspicious for emphysematous osteomyelitis. Associated cortical irregularity in this area. 2. Soft tissue ulceration involving the plantar hindfoot. No evidence of drainable abscess or fluid collection. 3. Diffuse cellulitis and soft tissue edema with scattered locules of air within the hindfoot midfoot and forefoot suspicious for necrotizing fasciitis -Status post L Guillotine below-knee amputation, going for completion for BKA tomorrow Plan ? diabetic diet ? IV fluids, ? Vancomycin, ? Zosyn, -On clindamycin ? Blood cultures, will await negative blood cultures -48 hours, before stopping antibiotic therapy ? Dr. Ibarra on consult ?Dr. Luevano Postoperative anemia, hemoglobin 8.9, Hemoccult stool positive, has evidence of iron deficiency anemia, monitor hemoglobin closely ? Full code, ?Lovenox for DVT prophylaxis Hyponatremia, resolving some component pseudohyponatremia, monitor, Hypokalemia, monitor, LILIA, creatinine 1.4, monitor with IV fluids Type1 diabetes mellitus, low-dose sliding scale Right foot, with wound VAC in place Attestations 2 Medical Necessity Statement*: Patient requires hospitalization for left foot diabetic ulcer with cellulitis with sepsis with gangrene, status post left guillotine below-knee amputation, going for completion BKA tomorrow with IV antibiotics, for concerns for necrotizing fasciitis, awaiting blood cultures Diagnoses PAD (peripheral artery disease) I73.9 Type 2 diabetes mellitus without complication, without long-term current use of insulin E11.9 Diabetes mellitus complication status: without complication Diabetes mellitus long term care pharmacist insulin use: without fdc use Diabetes mellitus type: type 2 Primary hypertension I10 Hypertension type: primary hypertension Diabetic ulcer of left foot E11.621; L97.529 Cellulitis of left foot L03.116 Sepsis A41.9 LILIA (acute kidney injury) N17.9 Gas gangrene of foot A48.0
[2023-06-27] MEDS: pantoprazole 40 mg SDV IVP (13:31)
[2023-06-27] MEDS: enoxaparin 40 mg/0.4 mL Syringe SUBCUT (13:31)
[2023-06-27] MEDS: vancomycin 1,500 MG/300 ML PIGGYBACK 200 MG IV (13:31)
[2023-06-27 16:21] LABS: Glucose Point of Care 187 mg/dL (70-110)
[2023-06-27 21:47] LABS: Glucose Point of Care 125 mg/dL (70-110)
[2023-06-28] VITALS (21 sets, daily range): BP systolic 107–161; BP diastolic 62–99; PULSE 68–106; RESP 15–18; TEMP 36.3–37; O2SAT 95–100
[2023-06-28] MEDS: piperacillin-tazobactam 3.375 GM in sodium chloride 0.9% (plus) 50 ML IV ×3 (04:06→20:20)
[2023-06-28] MEDS: clindamycin 600 MG/50 ML PREMIX 100 MG IV ×3 (04:06→20:20)
[2023-06-28 05:28] LABS: Basophils % 0.3 %; Eosinophils # 0.2 10^3/uL (0.0-0.8); Eosinophils % 2.3 %; Hematocrit 26.1 % (37-53); Lymphocytes # 1.2 10^3/uL (0.8-4.8); Lymphocytes % 19.4 %; Mean Corpuscular HGB Conc 32.2 g/dL (30-55); Mean Corpuscular Hemoglobin 28.3 pg (27-33); Mean Corpuscular Volume 87.9 fl (82-101); Mean Platelet Volume 9.1 fL (7.4-10.4); Monocytes # 0.5 10^3/uL (0.2-0.9); Monocytes % 7.7 %; Neutrophils # 4.46 10^3/uL (1.8-7.7); Neutrophils % 69.7 %; Nucleated Red Blood Cells % 0 %; Platelet Count 379 10^3/cmm (157-399); Red Blood Count 2.97 10^6/uL (3.85-5.65); Red Cell Distribution Width 13.2 % (12.1-15.1)
[2023-06-28 06:02] LABS: Alanine Aminotransferase 7 U/L (0-41); Alkaline Phosphatase 90 U/L (40-130); Anion Gap 14.9 (5-19); Aspartate Amino Transferase 11 U/L (0-40); Blood Urea Nitrogen 21 mg/dL (8-23); Calcium 7.6 mg/dL (8.5-10.5); Carbon Dioxide 22 mmol/L (22-29); Chloride 105 mmol/L (98-107); Glucose 144 mg/dL (65-115); Magnesium 2.1 mg/dL (1.7-2.3); Osmolality Calculated 292 mOsm/kg (285-295); Potassium 3.9 mmol/L (3.5-5.1); Sodium 138 mmol/L (136-145); Total Bilirubin 0.2 mg/dL (0.15-1.2)
[2023-06-28 06:54] LABS: Glucose Point of Care 141 mg/dL (70-110)
--- NOTE | 2023-06-28 07:48 | P.PN_ITS ---
Vitals/I&O/Wt Last Vital Signs Temp 97.4 F L 06/28/23 04:00 Pulse 75 06/28/23 07:27 Resp 16 06/28/23 07:27 BP 147/71 06/28/23 07:27 Pulse Ox 99 06/28/23 07:27 O2 Del Method Room Air 06/28/23 07:27 06/27/23 06/28/23 06/28/23 22:59 06:59 14:59 Intake Total 690 / 1220 100 / 1320 Output Total 1525 / 1525 Balance 690 / 1220 -1425 / -205 Weight last 48 hrs Weight 195 lb 6.4 oz Weight 189 lb 9 oz Physical Exam 2 Urinary Catheter Management: Coude: Cath Placed During This Visit: yes Reason for Continuing Indwelling Catheter: Perioperative Use in Selected Surgeries Urinary Catheter Date of Insertion: 06/25/23 Urinary Catheter Time of Insertion: 21:18 Data 06/28/23 05:09 06/28/23 05:09 Micro: Microbiology 06/25/23 15:39 Urine Culture - Preliminary Urine,Clean Catch A&P Assessment and plan (1) Gas gangrene of foot: Plan Left below-knee amputation The risk and benefits of the procedure, including but not limited to, scar, numbness, pain, phantom limb phenomenon, wound breakdown, need for more proximal amputation, bleeding, infection, chronic pain, were explained to the patient. He is understanding the risks and wishes to proceed. Attestations 2 Medical Necessity Statement*: Per primary Coding Level of Care Code Acute Code for [facility] Diagnoses Gas gangrene of foot A48.0
--- NOTE | 2023-06-28 07:55 | P.ANESASSM_ITS ---
Pre-Anesthetic Assessment Height/Weight: Height 1.83 m Weight 88.632 kg Temp Pulse Resp BP Pulse Ox O2 Del Method 97.4 F L 75 16 147/71 99 Room Air 06/28/23 04:00 06/28/23 07:27 06/28/23 07:27 06/28/23 07:27 06/28/23 07:27 06/28/23 07:27 Operation Date: 06/25/23 16:20 Proposed Procedures p BKA (Below Knee Amputation) - Jamila(Left) - Rick Ibarra DO Operation Date: 06/28/23 08:00 Proposed Procedures p BKA (Below Knee Amputation)(Right) - Rick Ibarra DO Last intake: Intake Last Liquid Date 06/27/23 Last Liquid Time 22:00 Last Solid Date 06/27/23 Last Solid Time 18:00 Social No alcohol and No tobacco Exam alert, oriented x 3, clear to auscultation bilaterally and regular rate & rhythm Airway Submandibular: within normal limits Cervical ROM: within normal limits Mallampati: Class I Pulmonary None reported CV/HEM Hypertension and Peripheral Vascular Disease GI No GERD Metabolic Diabetes Mellitus and Hyperlipidemia Anesthetic Plan ASA status: 3E Anesthesia: General Medications/Allergies Home Medications Medication Instructions Recorded Confirmed Last Taken Type aspirin 325 mg tablet,delayed 325 mg PO DAILY #60 tabs 04/11/23 06/25/23 Unknown Rx release oxycodone-acetaminophen 5 mg-325 1 tab PO Q8H PRN pain 10 days #30 05/14/23 06/25/23 Unknown Rx mg tablet tabs atorvastatin 40 mg tablet 40 mg PO DAILY #60 tabs 06/19/23 06/25/23 Unknown Rx empagliflozin 25 mg tablet 25 mg PO DAILY #60 tabs 06/19/23 06/25/23 Unknown Rx (Jardiance) finasteride 5 mg tablet 5 mg PO DAILY #60 tabs 06/19/23 06/25/23 Unknown Rx tamsulosin 0.4 mg capsule 0.4 mg PO DAILY #60 caps 06/19/23 06/25/23 Unknown Rx Allergies Allergy/AdvReac Type Severity Reaction Status Date / Time No Known Allergies Allergy Verified 05/19/23 14:24 Current Medications Generic Name Dose Route Start Last Admin Trade Name Freq PRN Reason Stop Dose Admin Aspirin 81 mg 06/27/23 09:00 06/27/23 09:36 Aspirin 81 Mg Ec Tablet PO 81 mg DAILY DENNISE Administration Atorvastatin Calcium 40 mg 06/26/23 09:00 06/27/23 09:36 Atorvastatin 40 Mg Tablet PO 40 mg DAILY DENNISE Administration Enoxaparin Sodium 40 mg 06/25/23 12:15 06/27/23 13:31 Enoxaparin 40 Mg/0.4 Ml Syringe SUBCUT 40 mg Q24H DENNISE Administration Finasteride 5 mg 06/26/23 09:00 06/27/23 09:36 Finasteride 5 Mg Tablet PO 5 mg DAILY DENNISE Administration Piperacillin Sod/Tazobactam 50 mls @ 12.5 mls/hr 06/25/23 20:00 06/28/23 04:06 Sod 3.375 gm/ Sodium Chloride IV 12.5 mls/hr Q8H DENNISE Administration Protocol Vancomycin/PEG/NADA/Lysine/Water 1,500 mg in 300 mls @ 200 mls/hr 06/26/23 13:00 06/27/23 15:31 Vancocin IV Infused Q24H DENNISE Infusion Clindamycin HCl/Dextrose 600 mg in 50 mls @ 100 mls/hr 06/25/23 14:08 06/28/23 04:54 Cleocin IV Infused Q8H DENNISE Infusion Protocol Insulin Human Lispro 0 unit 06/25/23 18:00 06/27/23 18:01 Insulin Lispro 100 Unit/1 Ml SUBCUT 4 unit TIDWM DENNISE Administration Protocol Magnesium Hydroxide 30 ml 06/26/23 20:37 06/26/23 20:50 Magnesium Hydroxide 30 Ml Udc PO 30 ml BEDTIME PRN Administration constpation Morphine Sulfate 2 mg 06/25/23 12:07 06/26/23 13:52 Morphine 4 Mg/Ml Sdv 1 Ml IVP 2 mg Q4H PRN Administration SEVERE PAIN Pantoprazole Sodium 40 mg 06/25/23 12:15 06/27/23 13:31 Pantoprazole 40 Mg Sdv IVP 40 mg Q24H DENNISE Administration Tamsulosin HCl 0.4 mg 06/26/23 09:00 06/27/23 09:36 Tamsulosin 0.4 Mg Capsule PO 0.4 mg DAILY DENNISE Administration PFSH Anesthesia Medical History Diabetes A1c 8.7 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 PAD (peripheral artery disease) Abscess or cellulitis of foot Diabetic foot ulcer UTI (urinary tract infection) Gangrene of right foot Cellulitis of right leg Abdominal wall abscess Hypertension Hyperlipidemia Nephrolithiasis Diabetes Short-term memory loss DDD (degenerative disc disease) Refusal of statin medication by patient Surgical History History of vasectomy History of hemorrhoidectomy History of lithotripsy History of tracheostomy History of hernia repair Periumbilical x2 / mesh Family History Other Diabetes Social History Smoking and tobacco/nicotine status: never used tobacco/nicotine Alcohol intake: never Substance/Drug Use: never Lives independently: Yes Household members: none Marital status: Current 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 Pets and animals: Yes Data Anesthesia 06/28/23 05:09 06/28/23 05:09 Short CBC 06/26/23 06/27/23 06/27/23 Range/Units 12:50 06:19 09:38 WBC 9.40 7.83 6.53 (3.29-11.43) 10^3/uL Hgb 7.90 L 7.60 L 8.90 L (11.27-16.99) g/dL Hct 24.4 L 23.9 L 27.8 L (37-53) % MCV 88.1 88.2 88.8 (82-101) fl Plt Count 326 372 381 (157-399) 10^3/cmm Neut % (Auto) 87.3 77.0 78.8 % Neut # (Auto) 8.20 H 6.03 5.14 (1.8-7.7) 10^3/uL 06/28/23 Range/Units 05:09 WBC 6.40 (3.29-11.43) 10^3/uL Hgb 8.40 L (11.27-16.99) g/dL Hct 26.1 L (37-53) % MCV 87.9 (82-101) fl Plt Count 379 (157-399) 10^3/cmm Neut % (Auto) 69.7 % Neut # (Auto) 4.46 (1.8-7.7) 10^3/uL BMP 06/27/23 06/28/23 06:19 05:09 Sodium 139 138 Potassium 3.9 3.9 Chloride 107 105 Carbon Dioxide 22 22 BUN 31 H 21 Creatinine 1.4 H 1.3 H Glucose 138 H 144 H Calcium 7.9 L 7.6 L Liver Function 06/27/23 06/28/23 Range/Units 06:19 05:09 Total Bilirubin 0.3 0.2 (0.15-1.2) mg/dL AST 11 11 (0-40) U/L ALT 7 7 (0-41) U/L Alkaline Phosphatase 156 H 90 (40-130) U/L Albumin 2.0 L 2.0 L (3.5-5.2) g/dL Microbiology 06/25/23 15:39 Urine Culture - Preliminary Urine,Clean Catch Cardiac Studies: 2 No Data to Display
--- NOTE | 2023-06-28 08:10 | PC.NURSE ---
Noah paused. Patient out of room for surgery.
--- NOTE | 2023-06-28 08:48 | SUR.OPER ---
tourniquet placed on left thigh by nurse. inflated to 250 @ 0832, deflated at 0846.
[2023-06-28] MEDS: tranexamic acid 1,000 mg/10mL SDV 1000 MG IV (09:10)
--- NOTE | 2023-06-28 10:29 | PM.OP ---
Operative Report Date of procedure: June 28, 2023 Pre-op diagnosis: Gas gangrene left foot Status post left guillotine below-knee amputation Post-op diagnosis: same Procedure done: Left below-knee amputation Implants: None Specimens removed/disposition: Left leg Surgeon: Rick Ibarra DO Anesthesia: General Estimated blood loss (mL): 100 Complications: None apparent Brief History: This very pleasant 73-year-old gentleman who presented to the ER originally with gas gangrene of his left foot. He underwent guillotine below-knee amputation. The swelling had gone down and he was consented for completion left below-knee amputation. The risks and benefits were explained and documented. Procedure: Patient was wheeled operative room placed on the OR table in supine position. General tracheal intubation was achieved by department anesthesia. A time was performed. All present were in agreement. The left lower extremity was inspected prepped and draped in usual sterile fashion. The tourniquet was inflated to 250 millimeters mercury a semicircular incision was made across the anterior two thirds of the left leg 10 cm distal to the tibial plateau. Posterior flap was then carried down for a third of the diameter of the leg. This was performed with a 10 blade scalpel. Electrocautery was then used and cut mode to cut through the fascia and underlying tissues down to tibia and fibula. The periosteal elevator was then used on the tibia to clear it 2 cm proximally. This was similarly done on the fibula to clear it 3 cm proximally. Bone saw was then used to transect the tibia 2 cm proximal to the skin incision and the fibula 3 cm proximal to the skin incision. Rongeur was used to smooth the cut edge. Vessels were tied off with 0 silk. The tourniquet was then let down. Total tourniquet time was 12 minutes. Further hemostasis was achieved with electrocautery. The wound was thoroughly irrigated and hemostasis was noted. The fascia was then approximated using 0 Vicryl in interrupted fashion. The dermis was then approximated using 3-0 Vicryl in interrupted fashion. Skin stapler was used. Sterile dressings were applied. Patient tolerated procedure well.
--- NOTE | 2023-06-28 10:37 | ANE.PACU2 ---
Inpatient post-anesthesia follow up: Vital signs: Temperature 97.4 F Pulse Rate 103 Respiratory Rate 16 Blood Pressure 130/69 Pulse Oximetry 100 Oxygen Delivery Me thod [ Room Air Current Rate & Del petrona] Oxygen Delivery Me thod Simple Mask Oxygen Flow Rate 8 Fraction of Inspir ed Oxygen Hydration adequate: Yes Nausea and vomiting: No Pain level: 3
[2023-06-28] MEDS: sodium chloride 0.9% 1,000 ML 30 ML IV (12:04)
[2023-06-28 12:09] LABS: Glucose Point of Care 150 mg/dL (70-110)
[2023-06-28] MEDS: HYDROmorphone 1 mg/mL INJ 1 mL 0.25 MG IVP (12:39)
[2023-06-28] MEDS: pantoprazole 40 mg SDV IVP (12:39)
[2023-06-28] MEDS: enoxaparin 40 mg/0.4 mL Syringe SUBCUT (12:42)
[2023-06-28 12:48] LABS: Vancomycin Trough 19.1 ug/mL (10-15)
[2023-06-28] MEDS: vancomycin 1,500 MG/300 ML PIGGYBACK 200 MG IV (13:33)
[2023-06-28] MEDS: HYDROcodone-acetaminophen 7.5-325 mg Tablet 1 TAB PO ×2 (14:40→23:00)
--- NOTE | 2023-06-28 15:21 | PM.PN ---
Subjective Subjective: Patient was seen in postop recovery, status post surgery, he is alert awake, following commands, has no pain complaints, Vitals/I&O/Wt Last Vital Signs Temp 97.8 F 06/28/23 15:00 Pulse 102 H 06/28/23 15:00 Resp 16 06/28/23 15:00 BP 120/68 06/28/23 15:00 Pulse Ox 96 06/28/23 15:00 O2 Del Method Room Air 06/28/23 11:29 O2 Flow Rate 8 06/28/23 10:55 06/28/23 06/28/23 06/28/23 06:59 14:59 22:59 Intake Total 100 / 1320 700 / 700 Output Total 1525 / 1525 700 / 700 Balance -1425 / -205 0 / 0 Weight last 48 hrs Weight 88.632 kg Weight 85.984 kg Physical Exam Const: COMMON NORMALS: no acute distress ORIENTATION/CONSCIOUSNESS: Yes awake, Yes oriented to person and Yes oriented to place; not oriented to time Resp: COMMON NORMALS: normal respiratory effort, No retractions, No use of accessory muscles and clear to auscultation bilaterally AUSCULTATION: clear to auscultation bilaterally Cardio: COMMON NORMALS: regular rate, regular rhythm, S1 normal heart sound present and S2 normal heart sound present RATE: regular rate RHYTHM: regular rhythm HEART SOUNDS: S1 normal heart sound present and S2 normal heart sound present GI: COMMON NORMALS: Normal to inspection, nondistended, normoactive bowel sounds present and non-tender Extremity: COMMON NORMALS: no pedal edema NARRATIVE EXTREMITY EXAM: Surgical site wrapped in bandage Neuro: SENSORIUM/ORIENTATION: Yes oriented to person, Yes oriented to place and No oriented to time Psych: COMMON NORMALS: mental status grossly normal Urinary Catheter Management: Coude: Cath Placed During This Visit: yes Reason for Continuing Indwelling Catheter: Perioperative Use in Selected Surgeries Urinary Catheter Date of Insertion: 06/25/23 Urinary Catheter Time of Insertion: 21:18 Data 06/28/23 05:09 06/28/23 05:09 Micro: Microbiology 06/25/23 15:39 Urine Culture - Preliminary Urine,Clean Catch A&P Assessment and plan (1) PAD (peripheral artery disease): (2) Diabetes: Qualifiers: Diabetes mellitus type: type 2 Diabetes mellitus intermediate insulin use: without intermediate use Diabetes mellitus complication status: without complication Qualified Code(s): E11.9 - Type 2 diabetes mellitus without complications (3) Hypertension: Qualifiers: Hypertension type: primary hypertension Qualified Code(s): I10 - Essential (primary) hypertension (4) Diabetic ulcer of left foot: (5) Cellulitis of left foot: (6) Sepsis: (7) LILIA (acute kidney injury): (8) Gas gangrene of foot: Plan Left foot diabetic ulcer, with cellulitis, with sepsis, gas gangrene right foot -With concerns for necrotizing fasciitis -Sepsis features include tachycardia, initial hypotension, LILIA, [id number], ESR 44, CRP 245.8 source of infection is a foot -IMPRESSION: 1. Intraosseous air visualized in the plantar medial surface of the calcaneus adjacent to the soft tissue ulceration suspicious for emphysematous osteomyelitis. Associated cortical irregularity in this area. 2. Soft tissue ulceration involving the plantar hindfoot. No evidence of drainable abscess or fluid collection. 3. Diffuse cellulitis and soft tissue edema with scattered locules of air within the hindfoot midfoot and forefoot suspicious for necrotizing fasciitis -Status post L Guillotine below-knee amputation, status post completion left below-knee amputation Plan ? diabetic diet ? IV fluids, ? Vancomycin, ? Zosyn, -On clindamycin ? Blood cultures, will await negative blood cultures -48 hours, before stopping antibiotic therapy ? Dr. Ibarra on consult ?Dr. Luevano Postoperative anemia, hemoglobin 8.9, Hemoccult stool positive, has evidence of iron deficiency anemia, monitor hemoglobin closely ? Full code, ?Lovenox for DVT prophylaxis Hyponatremia, resolving some component pseudohyponatremia, monitor, Hypokalemia, monitor, LILIA, creatinine 1.4, monitor with IV fluids Type1 diabetes mellitus, low-dose sliding scale Right foot, with wound VAC in place Attestations Medical Necessity Statement*: Patient requires hospitalization for left foot diabetic cellulitis with sepsis with gas gangrene concerns for necrotizing fasciitis requiring completion below-knee amputation requiring IV antibiotics Diagnoses PAD (peripheral artery disease) I73.9 Type 2 diabetes mellitus without complication, without long-term current use of insulin E11.9 Diabetes mellitus type: type 2 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
--- NOTE | 2023-06-28 15:28 | PC.OT ---
Patient was not available for treatment.
[2023-06-28 16:38] LABS: Glucose Point of Care 223 mg/dL (70-110)
[2023-06-28] MEDS: HYDROmorphone 1 mg/mL INJ 1 mL IVP (17:36)
[2023-06-28] MEDS: insulin lispro 100 unit/1 mL SUBCUT (18:04)
[2023-06-28 21:47] LABS: Glucose Point of Care 179 mg/dL (70-110)
[2023-06-29] VITALS: BP 147/72; PULSE 96; RESP 16; TEMP 36.6; O2SAT 96
[2023-06-29 04:00] VITALS: BP 156/76; PULSE 93; RESP 15; TEMP 36.4; O2SAT 100
[2023-06-29] MEDS: HYDROcodone-acetaminophen 7.5-325 mg Tablet 1 TAB PO ×2 (04:29→11:52)
--- NOTE | 2023-06-29 04:46 | PC.NURSE ---
Patient complained that the dressing to his left stump felt too tight in a small half inch spot. Nurse unwrapped LEONARDO in order to wrap it back looser for patient comfort. Patient states this needs to be loosened too. Patient pointing to surgical dressing that was under LEONARDO wrap. Nurse educated patient that there does not appear to be any circulation issues and that it is best to leave the dressing like it is to help with swelling. Patient states I know my body. Patient again tells this RN that the dressing needs to be taken off and redone looser. Charge nurse came to room as well to assess dressing and to assess skin for any circulation issues. No issues found during assessment by this RN or web interface developer. Patient states well, I don't like to take pain medication, but I guess if you're not going to fix my dressing, I'm going to need a pain pill. PRN pain medication administered.
[2023-06-29 05:05] LABS: Basophils % 0.3 %; Eosinophils # 0.1 10^3/uL (0.0-0.8); Eosinophils % 0.7 %; Hematocrit 29.7 % (37-53); Lymphocytes % 8.4 %; Mean Corpuscular HGB Conc 31.3 g/dL (30-55); Mean Corpuscular Hemoglobin 28.4 pg (27-33); Mean Corpuscular Volume 90.5 fl (82-101); Mean Platelet Volume 8.9 fL (7.4-10.4); Monocytes # 0.6 10^3/uL (0.2-0.9); Monocytes % 5.3 %; Neutrophils # 9.84 10^3/uL (1.8-7.7); Neutrophils % 84.9 %; Nucleated Red Blood Cells % 0 %; Platelet Count 403 10^3/cmm (157-399); Red Blood Count 3.28 10^6/uL (3.85-5.65); Red Cell Distribution Width 13.1 % (12.1-15.1)
[2023-06-29 05:25] LABS: Alanine Aminotransferase 9 U/L (0-41); Albumin Level 2.4 g/dL (3.5-5.2); Alkaline Phosphatase 95 U/L (40-130); Anion Gap 14.9 (5-19); Aspartate Amino Transferase 19 U/L (0-40); Blood Urea Nitrogen 19 mg/dL (8-23); Calcium 7.9 mg/dL (8.5-10.5); Carbon Dioxide 20 mmol/L (22-29); Chloride 100 mmol/L (98-107); Globulin 4.3 g/dL (1.3-4.6); Glucose 168 mg/dL (65-115); Magnesium 1.9 mg/dL (1.7-2.3); Osmolality Calculated 278 mOsm/kg (285-295); Phosphorus 3.7 mg/dL (2.5-4.5); Potassium 3.9 mmol/L (3.5-5.1); Sodium 131 mmol/L (136-145); Total Bilirubin 0.4 mg/dL (0.15-1.2); Total Protein 6.7 g/dL (6.6-8.7)
[2023-06-29] MEDS: clindamycin 600 MG/50 ML PREMIX 100 MG IV (05:36)
[2023-06-29] MEDS: piperacillin-tazobactam 3.375 GM in sodium chloride 0.9% (plus) 50 ML IV (05:36)
[2023-06-29 05:44] VITALS: BMI 26.4
[2023-06-29 06:51] LABS: Glucose Point of Care 174 mg/dL (70-110)
[2023-06-29 08:00] VITALS: BP 126/65; PULSE 91; RESP 18; TEMP 36.6; O2SAT 99
[2023-06-29] MEDS: aspirin 81 mg EC Tablet PO (08:00)
[2023-06-29] MEDS: tamsulosin 0.4 mg Capsule PO (08:00)
[2023-06-29] MEDS: finasteride 5 mg Tablet PO (08:00)
[2023-06-29] MEDS: atorvastatin 40 mg Tablet PO (08:00)
[2023-06-29] MEDS: insulin lispro 100 unit/1 mL SUBCUT ×2 (08:01→11:52)
[2023-06-29 09:11] VITALS: BP 126/65; PULSE 91; RESP 18; TEMP 36.6; O2SAT 99
--- NOTE | 2023-06-29 11:18 | P.PN_ITS ---
Subjective 2 Subjective: Patient seen and examined. Minimal pain Vitals/I&O/Wt Last Vital Signs Temp 97.8 F 06/29/23 09:11 Pulse 91 06/29/23 09:11 Resp 18 06/29/23 09:11 BP 126/65 06/29/23 09:11 Pulse Ox 99 06/29/23 09:11 O2 Del Method Room Air 06/29/23 09:11 O2 Flow Rate 8 06/28/23 10:55 06/28/23 06/29/23 06/29/23 22:59 06:59 14:59 Intake Total 400 / 1100 100 / 1200 290 / 290 Output Total 350 / 1050 775 / 1825 Balance 50 / 50 -675 / -625 290 / 290 Weight last 48 hrs Weight 195 lb 6.4 oz Weight 195 lb 6.4 oz Physical Exam 2 Narrative: Incision clean dry and intact without erythema or exudate Urinary Catheter Management: Coude: Cath Placed During This Visit: yes, but has since been removed by the nurse Reason for Continuing Indwelling Catheter: Decision to DC Catheter Urinary Catheter Date of Insertion: 06/25/23 Urinary Catheter Time of Insertion: 21:18 Date Urinary Catheter Removed: 06/28/23 Time Urinary Catheter Discontinued: 20:17 Data 06/29/23 04:57 06/29/23 04:57 Micro: Microbiology 06/25/23 15:39 Urine Culture - Final Urine,Clean Catch A&P Assessment and plan (1) Gas gangrene of foot: Plan Postoperative day #1 status post left below-knee amputation Dressings changed Surgically stable for discharge Pain medication, wound care instructions and follow-up in discharge Attestations 2 Medical Necessity Statement*: per primary Coding Level of Care Code Acute Code for Chg Fwd Diagnoses Gas gangrene of foot A48.0
[2023-06-29 11:44] LABS: Glucose Point of Care 173 mg/dL (70-110)
[2023-06-29] MEDS: enoxaparin 40 mg/0.4 mL Syringe SUBCUT (11:52)
[2023-06-29 12:00] VITALS: BP 143/72; PULSE 88; RESP 18; TEMP 36.5; O2SAT 100
--- NOTE | 2023-06-29 13:04 | PM.DCS ---
Discharge Providers Date of Admission: 06/25/23 12:18 Date of Discharge: June 29, 2023 Attending Provider at Admission: Ran Hernandez MD Attending Provider at Discharge: Ran Hernandez MD Primary Care Provider: Marzena Jesus MD Diagnoses at Discharge Discharge Diagnosis (1) Gas gangrene of foot: Status: Acute Reason for Visit Reason for Visit: left foot pains Hospital Course Hospital Course Justice Guardado is a 73 year old male with a past medical history of noninsulin dependent type 2 diabetes mellitus, peripheral vascular disease, history of right foot cellulitis with gangrene, status post fifth ray amputatoin, s/p wound vac, offloading with boot, who [place] [facility] [place] heel diabetic ulcer that is rapidly evolved over the last few days, now black, gangrenous, foul-smelling with erythema spreading to his ankle, throughout the the left foot, towards his digits, reports chills, no fevers, Left foot diabetic ulcer, with cellulitis, with sepsis, gas gangrene right foot -With concerns for necrotizing fasciitis -Sepsis features include tachycardia, initial hypotension, LILIA, [id number], ESR 44, CRP 245.8 source of infection is a foot -IMPRESSION: 1. Intraosseous air visualized in the plantar medial surface of the calcaneus adjacent to the soft tissue ulceration suspicious for emphysematous osteomyelitis. Associated cortical irregularity in this area. 2. Soft tissue ulceration involving the plantar hindfoot. No evidence of drainable abscess or fluid collection. 3. Diffuse cellulitis and soft tissue edema with scattered locules of air within the hindfoot midfoot and forefoot suspicious for necrotizing fasciitis -Patient was admitted to [facility], podiatry consulted and then eventually general surgery consulted, managed on vancomycin, Zosyn, clindamycin for concerns for necrotizing fasciitis -Status post L Guillotine below-knee amputation -Tolerated procedure well, remained afebrile, normotensive, -Went for completion of left below-knee amputation -Tolerated procedure well and remained afebrile, normotensive -So far blood cultures are negative, -Patient clinically improving, transferring without significant assistance according to nursing staff -Will discharge him on 5 remaining days of clindamycin and metronidazole given severity of his infection -Patient was advised if he has any breakdown of surgical site, fevers, chills to go to the emergency room Patient had postoperative anemia, no hemodynamic compromise, Hemoccult stools positive, has evidence of early iron deficiency anemia, no blood or black stools, will be discharged on iron supplementation, Protonix, Carafate, with follow-up with general surgery as outpatient for consideration of colonoscopy and EGD and 2 to 4 weeks. If you were to have any bloody or black stools to go to the emergency room LILIA during this hospitalization improved on discharge I have clarified with patient he has a history of type 2 diabetes mellitus, for which he has been on metformin and Jardiance in the past, he has stopped taking these medications. Given his A1c of 8.3, the severity of his diabetic foot infection, history of right foot infection, now with his left below-knee knee amputation I implored the importance of blood sugar monitoring, close outpatient follow-up, the importance of insulin therapy to tightly control his blood sugars. However patient refused insulin, he tells me that he has been on metformin and Jardiance in the past and it has worked, and he wants to go back on these medications. After discussing the morbidity and mortality associated with his diabetes, uncontrolled blood sugars, risk of CVA, strokes, hypercoagulable events, infections, his current hospitalization he voiced understanding, shared decision making he refused insulin. Patient only wants to use metformin and Jardiance, I advised him that with his current GFR and his creatinine clearance which are respectively 48-49, the use of metformin is controversial, and if his GFR is below 45 the use of metformin is not recommended. However he is adamant all he wants to use his metformin, And Jardiance. After discussing the risks of using metformin and Jardiance given his GFR and creatinine clearance, morbidity and mortality associated, close monitoring required, he voiced understanding, all questions answered, he voiced understanding, shared decision making, he is adamant about not being on insulin, adamant about being on metformin and Jardiance. So I have discharged him on low-dose metformin Jardiance, he needs to follow-up with his primary care provider next week for monitoring his liver function, monitoring his kidney function, I have discussed the morbidity and mortality associated with metformin Jardiance, adverse effects associated with its use given his kidney function. He voiced understanding, all questions answered, wants to proceed. Physical Exam Const: COMMON NORMALS: no acute distress and patient oriented x3 Resp: COMMON NORMALS: normal respiratory effort, No retractions, No use of accessory muscles and clear to auscultation bilaterally AUSCULTATION: clear to auscultation bilaterally Cardio: COMMON NORMALS: regular rate, regular rhythm, S1 normal heart sound present and S2 normal heart sound present RATE: regular rate RHYTHM: regular rhythm HEART SOUNDS: S1 normal heart sound present and S2 normal heart sound present GI: COMMON NORMALS: Normal to inspection, nondistended, normoactive bowel sounds present and non-tender Neuro: COMMON NORMALS: patient oriented x3 Psych: COMMON NORMALS: mental status grossly normal Urinary Catheter Management: Coude: Cath Placed During This Visit: yes, but has since been removed by the nurse Reason for Continuing Indwelling Catheter: Decision to DC Catheter Urinary Catheter Date of Insertion: 06/25/23 Urinary Catheter Time of Insertion: 21:18 Date Urinary Catheter Removed: 06/28/23 Time Urinary Catheter Discontinued: 20:17 Discharge Data Studies Completed and Pending Completed Studies During Hospitalization Category Date Time Status CT foot LT wo con* [id number] Stat Cat Scan 06/25/23 13:22 Completed XR foot LT min 3V* [id number] Stat Exams 06/25/23 11:23 [place] [id number] Stat Ultrasound 06/25/23 12:07 Completed Pending at discharge Category Date Time Status Blood Cultures ([facility]) Routine Lab 06/25/23 11:00 Results Blood Cultures ([facility]) Routine Lab 06/25/23 11:05 Results Body Fluid Culture & GS Stat Lab 06/25/23 11:52 Ordered Complete Blood Count w/Auto AM LABS Lab 06/30/23 04:00 Ordered Complete Blood Count w/Auto AM LABS Lab 07/01/23 04:00 Ordered Comprehensive Metabolic Panel AM LABS Lab 06/30/23 04:00 Ordered Comprehensive Metabolic Panel AM LABS Lab 07/01/23 04:00 Ordered Magnesium AM LABS Lab 06/30/23 04:00 Ordered Magnesium AM LABS Lab 07/01/23 04:00 Ordered Phosphorus AM LABS Lab 06/30/23 04:00 Ordered Phosphorus AM LABS Lab 07/01/23 04:00 Ordered Pathology: Surgical [PTH] Routine Pth 06/25/23 16:58 Received Pathology: Surgical [PTH] Routine Pth 06/28/23 09:09 Ordered Laboratory Results WBC 11.60 10^3/uL (3.29-11.43) H 06/29/23 04:57 RBC 3.28 10^6/uL (3.85-5.65) L 06/29/23 04:57 Hgb 9.30 g/dL (11.27-16.99) L 06/29/23 04:57 Hct 29.7 % (37-53) L 06/29/23 04:57 MCV 90.5 fl (82-101) 06/29/23 04:57 MCH 28.4 pg (27-33) 06/29/23 04:57 MCHC 31.3 g/dL (30-55) 06/29/23 04:57 RDW 13.1 % (12.1-15.1) 06/29/23 04:57 Plt Count 403 10^3/cmm (157-399) H 06/29/23 04:57 MPV 8.9 fL (7.4-10.4) 06/29/23 04:57 Neut % (Auto) 84.9 % 06/29/23 04:57 Lymph % (Auto) 8.4 % 06/29/23 04:57 [place] % (Auto) 5.3 % 06/29/23 04:57 Eos % (Auto) 0.7 % 06/29/23 04:57 Baso % (Auto) 0.3 % 06/29/23 04:57 Neut # (Auto) 9.84 10^3/uL (1.8-7.7) H 06/29/23 04:57 Lymph # (Auto) 1.0 10^3/uL (0.8-4.8) 06/29/23 04:57 [place] # (Auto) 0.6 10^3/uL (0.2-0.9) 06/29/23 04:57 Eos # (Auto) 0.1 10^3/uL (0.0-0.8) 06/29/23 04:57 Baso # (Auto) 0.0 10^3/uL (0.0-0.1) 06/29/23 04:57 Nucleated RBC % (auto) 0 % 06/29/23 04:57 Nucleated RBCs # 0.0 /100WBC 06/29/23 04:57 ESR 44 mm/hr (0-10) H 06/25/23 11:00 PT 15.30 SECONDS (12.1-14.9) H 06/25/23 11:00 INR 1.17 (0.8-1.2) 06/25/23 11:00 Sodium 131 mmol/L (136-145) L 06/29/23 04:57 Potassium 3.9 mmol/L (3.5-5.1) 06/29/23 04:57 Chloride 100 mmol/L (98-107) 06/29/23 04:57 Carbon Dioxide 20 mmol/L (22-29) L 06/29/23 04:57 Anion Gap 14.9 (5-19) 06/29/23 04:57 BUN 19 mg/dL (8-23) 06/29/23 04:57 Creatinine 1.5 mg/dL (0.7-1.2) H 06/29/23 04:57 GFR Calculation Not Reportable 06/29/23 04:57 Glucose 168 mg/dL (65-115) H 06/29/23 04:57 POC Glucose 173 mg/dL (70-110) H 06/29/23 11:18 Calculated Osmolality 278 mOsm/kg (285-295) L 06/29/23 04:57 Lactic Acid 1.2 mmol/L (0.5-2.2) 06/25/23 11:00 Calcium 7.9 mg/dL (8.5-10.5) L 06/29/23 04:57 Phosphorus 3.7 mg/dL (2.5-4.5) 06/29/23 04:57 Magnesium 1.9 mg/dL (1.7-2.3) 06/29/23 04:57 Iron 11 ug/dL (59-158) L 06/26/23 04:16 Ferritin 575 ng/mL (30-400) H 06/26/23 04:16 Total Bilirubin 0.4 mg/dL (0.15-1.2) 06/29/23 04:57 AST 19 U/L (0-40) 06/29/23 04:57 ALT 9 U/L (0-41) 06/29/23 04:57 Alkaline Phosphatase 95 U/L (40-130) 06/29/23 04:57 C-Reactive Protein 245.8 mg/L (0.0-4.9) H 06/25/23 11:00 NT-Pro-B Natriuret Pep 5178 pg/mL (0-450) H 06/25/23 11:00 Total Protein 6.7 g/dL (6.6-8.7) 06/29/23 04:57 Albumin 2.4 g/dL (3.5-5.2) L 06/29/23 04:57 Globulin 4.3 g/dL (1.3-4.6) 06/29/23 04:57 Procalcitonin 1.08 ng/mL (0-0.5) H 06/25/23 11:00 TSH 0.94 uIU/mL (0.27-4.20) 06/25/23 11:00 Urine Color Light yellow (Yellow) 06/25/23 15:39 Urine Appearance Cloudy (CLEAR) A 06/25/23 15:39 Urine pH 5 (5-7) 06/25/23 15:39 Ur Specific [place] 1.010 (1.005-1.030) 06/25/23 15:39 Urine Protein Neg (Negative) 06/25/23 15:39 Urine Glucose (UA) 4+ (Normal) H 06/25/23 15:39 Urine Ketones Negative (Negative) 06/25/23 15:39 Urine Blood 3+ (Negative) H 06/25/23 15:39 Urine Nitrate Negative (Negative) 06/25/23 15:39 Urine Bilirubin Neg (Negative) 06/25/23 15:39 Urine Urobilinogen Norm mg/dL (Negative) 06/25/23 15:39 Ur Leukocyte Esterase 2+ (Negative) H 06/25/23 15:39 Urine RBC 5-10 /hpf (0-2) H 06/25/23 15:39 Urine WBC 40-55 /hpf (0-5) H 06/25/23 15:39 Ur Squamous Epith Cells None /hpf (0-5) 06/25/23 15:39 Amorphous Sediment Not Reportable 06/25/23 15:39 Urine Bacteria Trace /hpf (NONE) 06/25/23 15:39 Urine Mucus None /hpf 06/25/23 15:39 Urine Yeast 3+ /hpf H 06/25/23 15:39 Vancomycin Trough 19.1 ug/mL (10-15) H 06/28/23 11:49 Vitals Last Vital Signs Temp 97.8 F 06/29/23 09:11 Pulse 91 06/29/23 09:11 Resp 18 06/29/23 09:11 BP 126/65 06/29/23 09:11 Pulse Ox 99 06/29/23 09:11 O2 Del Method Room Air 06/29/23 09:11 O2 Flow Rate 8 06/28/23 10:55 Discharge Plan Discharge Patient Disposition: Home Condition: Stable Prescriptions: New oxycodone-acetaminophen 7.5-325 mg tablet 1 tab PO Q6H PRN (Reason: pain) Qty: 20 0RF docusate sodium [Colace] 100 mg capsule 100 mg PO BID Qty: 14 0RF clindamycin HCl 300 mg capsule 600 mg PO Q12H 5 Days Qty: 20 0RF ferrous sulfate 325 mg (65 mg iron) tablet 325 mg PO BID 30 Days Qty: 60 0RF metronidazole 500 mg tablet 500 mg PO Q8H 5 Days Qty: 15 0RF pantoprazole [Protonix] 40 mg tablet,delayed release (DR/EC) 40 mg PO BID 30 Days Qty: 60 0RF sucralfate [Carafate] 1 gram tablet 1 g PO BID 28 Days Qty: 56 0RF aspirin 81 mg Tablet,Delayed Release (Dr/Ec) 81 mg PO DAILY 30 Days Qty: 30 0RF metformin 500 mg tablet 500 mg PO DAILY 30 Days Qty: 30 0RF Continued atorvastatin 40 mg tablet 40 mg PO DAILY Qty: 60 3RF Jardiance 25 mg tablet 25 mg PO DAILY Qty: 60 3RF finasteride 5 mg tablet 5 mg PO DAILY Qty: 60 3RF tamsulosin 0.4 mg capsule 0.4 mg PO DAILY Qty: 60 3RF Discontinued oxycodone-acetaminophen 5-325 mg tablet 1 tab PO Q8H PRN (Reason: pain) 10 Days Qty: 30 0RF aspirin 325 mg Tablet,Delayed Release (Dr/Ec) 325 mg PO DAILY Qty: 60 0RF Discharge Orders: Discharge Order (Routine); Ordered 06/29/23 Ordered By: Ran Hernandez Referrals: Rick Ibarra DO [Physician] - 2 weeks (We have notified your physician's clinic of the need for a follow-up appointment to be scheduled. If you have not heard from them within the next 2 business days, please call them directly. ) Marzena Jesus MD [Primary Care Provider] - 4-7 days (We have notified your physician's clinic of the need for a follow-up appointment to be scheduled. If you have not heard from them within the next 2 business days, please call them directly. ) Discharge Diet: Cardiac Discharge Activity: Resume usual activity Patient Instructions: Clindamycin (By mouth), Sucralfate (By mouth), Oxycodone/Acetaminophen (By mouth), Aspirin (By mouth), Metronidazole (By mouth), Laxative, Stool Softeners (By mouth), Metformin (By mouth), Pantoprazole (By mouth), Opioid Safety Activity Restrictions/Additional Instructions: Do not soak incision underwater for 2 weeks. Shower daily. Cover wound with fresh dry gauze once daily -Please follow-up with general surgery in 1 to 2 weeks -Please take antibiotics as prescribed, please take with probiotics -Please hydrate well, ? For your iron deficiency, please take iron, Protonix, Carafate, ? If you develop bloody or black stools please go to the emergency room, ? Please monitor blood sugars 3 times daily, if any blood sugar greater than 500 go to the emergency room if any blood sugar less than 60 on the emergency room, ? Please follow-up with primary care provider for strong consideration of insulin therapy -I have discharged you on metformin, please monitor kidney function very closely as outpatient as you are a high risk of adverse effects with metformin, as you are adamant about its use, I have discussed the risk and benefits with metformin, you have voiced understanding, all consents and will start with a low-dose, please have your primary care provider recheck your kidney function next week -Please monitor surgical site if you have wound dehiscence, fevers, chills, swelling please come back to emergency room Discharge Attestations Time Spent in Discharge Care*: greater than 30 min Quality Metrics Clinical Quality Measures [ No reported AMI, CVA or VTE this stay] Coding Level of Care Code 56346 Total time (in minutes) for Discharge: 45 Diagnoses Gas gangrene of foot A48.0
--- NOTE | 2023-06-29 14:20 | PC.OT ---
Pt declined OT treatment for 06/29/2023 due to fatigue; will attempt again at later time.
--- NOTE | 2023-06-29 14:45 | PC.NURSE ---
Patient is A&Ox4 and he does make all his decisions. Patient's daughter Prema and at bedside to speak to with Dr. Hernandez and this nurse. Prema states that she was told that patient would be here for 7 to 10 days for the surgery and rehabilitation. Dr. Hernandez explained that patient would only have to be here that long if they had tried to save the foot, instead by doing the below the knee amputation the infection was removed and patient's blood cultures have been negative for 48 hours. Patient is doing well transfers and has also be cleared to be discharged by the surgeon. Prema stated, The problem is that he says he will take care of himself at home but then he does not. He says he is taking his medication but he does not. We are not able to be home 24 hours a day to make sure he takes his medication. Dr. Hernandez offered to keep the patient one more night if the family would like him to but he would have to discharge him tomorrow as he is able to go home. Dr. Hernandez offered half-way place to patient who declined it and states that he wants to go home. Prema stated that she will take him home and try giving the insulin instead of Metformin if he was willing to take it.
[2023-06-29 15:10] VITALS: BP 143/72; PULSE 88; RESP 18; TEMP 36.5; O2SAT 100
--- NOTE | 2023-06-29 20:00 | PC.NURSE ---
Called Prema patient's daughter at [phone] Dasilva requests that she not start the Clindamycin or the Metronidazole. Dr. Hernandez spoke with Dr. Saldivar the infectious disease doctor and she suggested Cefdinir and Zyvox both of which has called into [facility]. Prema stated that she will come to town in the afternoon tomorrow and get them.
== END 2023-06-29 15:11 | disposition home health service (06) | DRG 853 ==
LOC: ER 11:52 → ER IP 12:19 → ICU 17:06 → MEDSURG 06-26 19:44
PROVIDERS: Surgery; Admitting Provider Family Medicine; Emergency Provider Emergency Medicine; PCP Family Medicine; Visit Provider Family Medicine
PROC: 0Y6N0Z0 Detachment at Left Foot, Complete, Open Approach (ICD-10-PCS; CPT 27880; principal; 2023-06-25 16:00)
PROC: 0Y6J0Z3 Detachment at Left Lower Leg, Low, Open Approach (ICD-10-PCS; CPT 27880; principal; 2023-06-28 08:00)
DX: A41.9 Sepsis, unspecified organism (principal); A48.0 Gas gangrene; L97.422 Non-pressure chronic ulcer of left heel and midfoot with fat layer exposed; E11.52 Type 2 diabetes mellitus with diabetic peripheral angiopathy with gangrene; M86.172 Other acute osteomyelitis, left ankle and foot; L03.116 Cellulitis of left lower limb; N17.9 Acute kidney failure, unspecified; E87.1 Hypo-osmolality and hyponatremia; D62 Acute posthemorrhagic anemia; E11.621 Type 2 diabetes mellitus with foot ulcer; E11.40 Type 2 diabetes mellitus with diabetic neuropathy, unspecified; E11.69 Type 2 diabetes mellitus with other specified complication; I10 Essential (primary) hypertension; E78.5 Hyperlipidemia, unspecified; E87.6 Hypokalemia; T38.3X6A Underdosing of insulin and oral hypoglycemic [antidiabetic] drugs, initial encounter; D50.9 Iron deficiency anemia, unspecified; Z89.421 Acquired absence of other right toe(s); Z79.82 Long term (current) use of aspirin; Z87.440 Personal history of urinary (tract) infections; Z91.128 Patient's intentional underdosing of medication regimen for other reason
CPT/HCPCS: 36415; 36416; 51702; 73630; 73700; 80053; 80202; 81001; 82274; 82728; 82962; 83540; 83605; 83735; 83880; 84100; 84145; 84443; 85025; 85610; 85651; 86140; 87040; 87086; 88307; 88311; 93005; 93970; 96365; 96367; 96372; 96376; 97110; 97161; 97166; 97530; 97535; 99285; C9113; J1170; J1650; J1815; J2270; J2371; J2405; J2543; J2704; J2710; J3010; J3370; J3480; J3490; J7030

== ENCOUNTER → 2023-07-01 13:32 | Outpatient (BNVA) | payer MEDICARE, SELFPAY | PROVIDERS: PCP Family Medicine; Visit Provider Nurse Practitioner Family | DX: E11.52 Type 2 diabetes mellitus with diabetic peripheral angiopathy with gangrene (principal); E11.621 Type 2 diabetes mellitus with foot ulcer; L97.512 Non-pressure chronic ulcer of other part of right foot with fat layer exposed | CPT/HCPCS: 11042; 97605; A6237; A6250 ==

== ENCOUNTER 2023-07-03 15:22 | Observation (INO) | payer MEDICARE, SELFPAY ==
[2023-07-03 15:24] VITALS: BP 151/71; PULSE 82; RESP 18; TEMP 36.7; O2SAT 94; BMI 27.1
--- NOTE | 2023-07-03 18:00 | XRR_ITS ---
PROCEDURE INFORMATION: Exam: XR Chest Exam date and time: 07/03/2023 8:02 PM Age: 73 years old Clinical indication: Other: Wheezing; Patient HX: Weakness TECHNIQUE: Imaging protocol: Radiologic exam of the chest. Views: 1 view. COMPARISON: CR XR chest 1V [id number] 04/25/2023 4:06 PM FINDINGS: Lungs: Unremarkable. No consolidation. Pleural spaces: Unremarkable. No pleural effusion. No pneumothorax. Heart/Mediastinum: Unremarkable. No cardiomegaly. Bones/joints: Unremarkable. XR/XR chest 1V portable [id number] IMPRESSION: No acute findings.
--- NOTE | 2023-07-03 18:13 | ECG_ITS ---
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 Measurements Intervals [place] Rate: 89 P: -42 SD: 135 QRS: -74 QRSD: 148 T: 98 QT: 385 QTc: 470 Interpretive Statements SINUS RHYTHM WITH OCCASIONAL SUPRAVENTRICULAR PREMATURE COMPLEXES LEFT AXIS DEVIATION [QRS AXIS < -30] INTRAVENTRICULAR CONDUCTION DELAY [130+ ms QRS DURATION] Compared to ECG 06/25/2023 11:45:46 Left-axis deviation now present Sinus tachycardia no longer present Left ventricular hypertrophy no longer present ST (T wave) deviation no longer present Myocardial infarct finding no longer present Electronically Signed On 07-04-2023 12:20:21 [employer] by Rodriguez Wing M.[email or web address]
--- NOTE | 2023-07-03 18:19 | W.ED.WOUNDLC ---
HPI - Wound/Laceration General: Chief Complaint: Wound/Laceration Stated Complaint: not eating, fever Time Seen by Provider: 07/03/23 17:55 Source: patient Mode of arrival: ambulatory Limitations: no limitations History of Present Illness: 73-year-old male who had had his left lower leg amputated on Friday states he left the hospital early and now states he is not really able to take care of himself family states that he has been laying in his bed now has a wound to his buttocks family states he has not been eating or drinking they are trying to get him placed in a long term. 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 PAD (peripheral artery disease) Abscess or cellulitis of foot Diabetic foot ulcer UTI (urinary tract infection) Gangrene of right foot Cellulitis of right leg Abdominal wall abscess Hypertension Hyperlipidemia Nephrolithiasis Diabetes Short-term memory loss DDD (degenerative disc disease) Refusal of statin medication by patient Surgical History History of vasectomy History of hemorrhoidectomy History of lithotripsy History of tracheostomy History of hernia repair Periumbilical x2 / mesh Family History Other Diabetes Social History Smoking and tobacco/nicotine status: never used tobacco/nicotine Alcohol intake: never Substance/Drug Use: never Lives independently: Yes Household members: none Marital status: Current 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 Pets and animals: Yes Physical Exam Const: COMMON NORMALS: patient oriented x3 HENMT: COMMON NORMALS: normocephalic and atraumatic HEAD & SCALP: normocephalic and atraumatic Eye: COMMON NORMALS: Equal, round and reactive pupils present and EOMs intact bilaterally PUPIL: Yes Equal, round and reactive pupils present Neck/C-Spine: COMMON NORMALS: full ROM and supple Chest: COMMONS NORMALS: normal inspection of the chest and normal palpation of entire chest wall Resp: COMMON NORMALS: normal respiratory effort, No retractions, No use of accessory muscles and clear to auscultation bilaterally AUSCULTATION: clear to auscultation bilaterally Cardio: COMMON NORMALS: regular rate, regular rhythm and No murmurs present (Cardio) RATE: regular rate RHYTHM: regular rhythm GI: COMMON NORMALS: Normal to inspection, nondistended, normoactive bowel sounds present, Soft to palpation, non-tender and no masses PALPATION: Yes Soft to palpation Extremity: COMMON NORMALS: normal to inspection and full ROM Neuro: COMMON NORMALS: patient oriented x3, moves all extremities and no focal motor deficits Psych: COMMON NORMALS: mental status grossly normal, Normal thought process present and cooperative THOUGHT PROCESS: Normal thought process present Skin: NARRATIVE SKIN EXAM: Slight skin breakdown to the decubitus area Course Vital Signs: Vital signs: Vital Signs Temperature 98.1 F 07/03/23 15:24 Pulse Rate 82 07/03/23 15:24 Respiratory Rate 16 07/03/23 19:48 Blood Pressure 151/71 07/03/23 15:24 Pulse Oximetry 94 07/03/23 15:24 Oxygen Delivery Me thod Room Air 07/03/23 15:24 MDM - Wound/Laceration Medical Decision Making Patient presents here with generalized weakness he also has a decubitus ulcer to his back she has not been able to take care of himself at home he has a UTI as well spoke to the hospitalist will admit patient likely needs long term placement. Medical Records I reviewed the patient's medical records. Lab Data I reviewed the patient's lab results. 07/03/23 19:00 07/03/23 19:00 Radiology Impressions Chest X-Ray 07/03/23 18:00 IMPRESSION: No acute findings. Laboratory Results WBC 8.85 10^3/uL (3.29-11.43) 07/03/23 19:00 RBC 2.96 10^6/uL (3.85-5.65) L 07/03/23 19:00 Hgb 8.40 g/dL (11.27-16.99) L 07/03/23 19:00 Hct 26.1 % (37-53) L 07/03/23 19:00 MCV 88.2 fl (82-101) 07/03/23 19:00 MCH 28.4 pg (27-33) 07/03/23 19:00 MCHC 32.2 g/dL (30-55) 07/03/23 19:00 RDW 13.5 % (12.1-15.1) 07/03/23 19:00 Plt Count 405 10^3/cmm (157-399) H 07/03/23 19:00 MPV 9.4 fL (7.4-10.4) 07/03/23 19:00 Neut % (Auto) 82.0 % 07/03/23 19:00 Lymph % (Auto) 12.7 % 07/03/23 19:00 [place] % (Auto) 4.3 % 07/03/23 19:00 Eos % (Auto) 0.5 % 07/03/23 19:00 Baso % (Auto) 0.2 % 07/03/23 19:00 Neut # (Auto) 7.26 10^3/uL (1.8-7.7) 07/03/23 19:00 Lymph # (Auto) 1.1 10^3/uL (0.8-4.8) 07/03/23 19:00 [place] # (Auto) 0.4 10^3/uL (0.2-0.9) 07/03/23 19:00 Eos # (Auto) 0.0 10^3/uL (0.0-0.8) 07/03/23 19:00 Baso # (Auto) 0.0 10^3/uL (0.0-0.1) 07/03/23 19:00 Nucleated RBC % (auto) 0 % 07/03/23 19:00 Nucleated RBCs # 0.0 /100WBC 07/03/23 19:00 Sodium 139 mmol/L (136-145) 07/03/23 19:00 Potassium 3.3 mmol/L (3.5-5.1) L 07/03/23 19:00 Chloride 106 mmol/L (98-107) 07/03/23 19:00 Carbon Dioxide 22 mmol/L (22-29) 07/03/23 19:00 Anion Gap 14.3 (5-19) 07/03/23 19:00 BUN 30 mg/dL (8-23) H 07/03/23 19:00 Creatinine 1.4 mg/dL (0.7-1.2) H 07/03/23 19:00 GFR Calculation Not Reportable 07/03/23 19:00 Glucose 176 mg/dL (65-115) H 07/03/23 19:00 POC Glucose 167 mg/dL (70-110) H 07/03/23 19:31 Calculated Osmolality 298 mOsm/kg (285-295) H 07/03/23 19:00 Calcium 8.3 mg/dL (8.5-10.5) L 07/03/23 19:00 Total Bilirubin 0.3 mg/dL (0.15-1.2) 07/03/23 19:00 AST 9 U/L (0-40) 07/03/23 19:00 ALT 8 U/L (0-41) 07/03/23 19:00 Alkaline Phosphatase 101 U/L (40-130) 07/03/23 19:00 Total Protein 7.2 g/dL (6.6-8.7) 07/03/23 19:00 Albumin 2.7 g/dL (3.5-5.2) L 07/03/23 19:00 Globulin 4.5 g/dL (1.3-4.6) 07/03/23 19:00 Urine Color Yellow (Yellow) 07/03/23 20:29 Urine Appearance Sl hazy (CLEAR) A 07/03/23 20: Urine pH 5 (5-7) 07/03/23: Ur Specific [place] 1.010 (1.005-1.030) 07/03/23 20: Urine Protein Neg (Negative) 07/03/23 20: Urine Glucose (UA) Norm (Normal) 07/03/23 20: Urine Ketones Negative (Negative) 07/03/23: Urine Blood 3+ (Negative) H 07/03/23 20:29 Urine Nitrate Negative (Negative) 07/03/23 20:29 Urine Bilirubin Neg (Negative) 07/03/23 20:29 Urine Urobilinogen Norm mg/dL (Negative) 07/03/23 20:29 Ur Leukocyte Esterase 2+ (Negative) H 07/03/23 20:29 Urine RBC 0-4 /hpf (0-2) H 07/03/23 20:29 Urine WBC 55-80 /hpf (0-5) H 07/03/23 20:29 Ur Squamous Epith Cells 0-4 /hpf (0-5) H 07/03/23 20:29 Amorphous Sediment Not Reportable 07/03/23 20: Urine Bacteria Trace /hpf (NONE) 07/03/23 20: Urine Yeast 2+ /hpf H 07/03/23 20:29 XR interpretation done by ED provider, pending radiology final review EKG Data EKG 1: I personally reviewed and interpreted this EKG as follows: EKG interpretation date: 07/03/23 EKG interpretation time: 18:13 Interpretation: nsr hr [address] or t wave abnormalities qrs 148 qtc 432 Discharge Plan Discharge Patient Disposition: Admitted As Inpatient Clinical Impression: Weakness, Acute cystitis, Decubitus ulcer Condition: Stable Prescriptions: No Action atorvastatin 40 mg tablet 40 mg PO DAILY Qty: 60 3RF Jardiance 25 mg tablet 25 mg PO DAILY Qty: 60 3RF finasteride 5 mg tablet 5 mg PO DAILY Qty: 60 3RF tamsulosin 0.4 mg capsule 0.4 mg PO DAILY Qty: 60 3RF oxycodone-acetaminophen 7.5-325 mg tablet 1 tab PO Q6H PRN (Reason: pain) Qty: 20 0RF Colace 100 mg capsule 100 mg PO BID Qty: 14 0RF aspirin 81 mg Tablet,Delayed Release (Dr/Ec) 81 mg PO DAILY 30 Days Qty: 30 0RF Protonix 40 mg tablet,delayed release (DR/EC) 40 mg PO BID 30 Days Qty: 60 0RF Carafate 1 gram tablet 1 g PO BID 28 Days Qty: 56 0RF ferrous sulfate 325 mg (65 mg iron) tablet 325 mg PO BID 30 Days Qty: 60 0RF metformin 500 mg tablet 500 mg PO DAILY 30 Days Qty: 30 0RF aspirin 81 mg capsule 81 mg PO DAILY 30 Days Qty: 30 0RF atorvastatin 40 mg tablet 40 mg PO DAILY 30 Days Qty: 30 0RF Novolog FlexPen U-100 Insulin 100 unit/mL (3 mL) insulin pen See Rx Instructions .ROUTE .COMPLEX Qty: 15 0RF Rx Instructions: inject, 3 times daily, after meals, based on sliding scale provided (DME) glucometer testing kit See Rx Instructions .Route .MEDSUPPLY Qty: 1 0RF Rx Instructions: glucometer testing kit strips#100 lancets#100 Protonix 40 mg tablet,delayed release (DR/EC) 40 mg PO BID 30 Days Qty: 60 0RF Carafate 1 gram tablet 1 g PO BID 30 Days Qty: 60 0RF ferrous sulfate 325 mg (65 mg iron) tablet 325 mg PO DAILY 30 Days Qty: 30 0RF Zyvox 600 mg tablet 600 mg PO BID 7 Days Qty: 14 0RF cefdinir 300 mg capsule 300 mg PO BID 7 Days Qty: 14 0RF Referrals: Marzena Jesus MD [Primary Care Provider] - Coding Level of Care Code ED Artifacts Conservator for Thang Mejia
[2023-07-03 19:46] LABS: Glucose Point of Care 167 mg/dL (70-110)
[2023-07-03] MEDS: sodium chloride 0.9% 1,000 ML 999 ML IV (19:47)
[2023-07-03 19:48] VITALS: RESP 16
[2023-07-03] MEDS: morphine 4 mg/mL SDV 1 mL IVP (19:48)
[2023-07-03] MEDS: ondansetron 2 mg/ML SDV 2 mL 4 MG IVP (19:48)
--- NOTE | 2023-07-03 20:19 | PC.NURSE ---
Upon arrival to shift, patient needed an I.V. placed . After several attempts, Dr. Mathis placed an ultrasound guided IV. Pt. has been given urinal for possible collection of urine sample.
[2023-07-03 21:00] LABS: Basophils % 0.2 %; Eosinophils % 0.5 %; Hematocrit 26.1 % (37-53); Lymphocytes # 1.1 10^3/uL (0.8-4.8); Lymphocytes % 12.7 %; Mean Corpuscular HGB Conc 32.2 g/dL (30-55); Mean Corpuscular Hemoglobin 28.4 pg (27-33); Mean Corpuscular Volume 88.2 fl (82-101); Mean Platelet Volume 9.4 fL (7.4-10.4); Monocytes # 0.4 10^3/uL (0.2-0.9); Monocytes % 4.3 %; Neutrophils # 7.26 10^3/uL (1.8-7.7); Nucleated Red Blood Cells % 0 %; Platelet Count 405 10^3/cmm (157-399); Red Blood Count 2.96 10^6/uL (3.85-5.65); Red Cell Distribution Width 13.5 % (12.1-15.1); White Blood Count 8.85 10^3/uL (3.29-11.43)
[2023-07-03 21:14] LABS: Alanine Aminotransferase 8 U/L (0-41); Albumin Level 2.7 g/dL (3.5-5.2); Alkaline Phosphatase 101 U/L (40-130); Anion Gap 14.3 (5-19); Aspartate Amino Transferase 9 U/L (0-40); Blood Urea Nitrogen 30 mg/dL (8-23); Calcium 8.3 mg/dL (8.5-10.5); Carbon Dioxide 22 mmol/L (22-29); Chloride 106 mmol/L (98-107); Globulin 4.5 g/dL (1.3-4.6); Glucose 176 mg/dL (65-115); Osmolality Calculated 298 mOsm/kg (285-295); Potassium 3.3 mmol/L (3.5-5.1); Sodium 139 mmol/L (136-145); Total Bilirubin 0.3 mg/dL (0.15-1.2); Total Protein 7.2 g/dL (6.6-8.7)
[2023-07-03 21:41] LABS: Add Urine Culture? Yes; Add Urine Microscopic? YES; Bacteria Urine TRACE /hpf; Bilirubin Urine Neg (Negative); Blood Urine 3+ (Negative); Glucose Urine UA Norm (Normal); Ketones Urine Negative (Negative); Leukocyte Esterase Urine 2+ (Negative); Nitrate Urine Negative (Negative); Protein Urine Neg (Negative); RBC Urine 0-4 /hpf (0-2); Squamous Epithelial Cell Urine 0-4 /hpf (0-5); Urine Appearance SL Hazy (CLEAR); Urine Color Yellow (Yellow); Urobilinogen Urine Norm (Negative); WBC Urine 55-80 /hpf (0-5); pH Urine 5 (5-7)
[2023-07-03] MEDS: cefTRIAXone 1,000 MG in sodium chloride 0.9% (plus) 50 ML 100 MG IV (22:04)
[2023-07-03 22:53] VITALS: BP 137/61; PULSE 78; RESP 17; TEMP 36.5; O2SAT 100
[2023-07-03 22:57] VITALS: BMI 27.1
[2023-07-03 23:25] VITALS: RESP 16
[2023-07-03] MEDS: enoxaparin 40 mg/0.4 mL Syringe SUBCUT (23:25)
[2023-07-03] MEDS: morphine 4 mg/mL SDV 1 mL 2 MG IVP (23:25)
[2023-07-03 23:47] LABS: Procalcitonin 0.18 ng/mL (0-0.5); Thyroid Stimulating Hormone 0.99 uIU/mL (0.27-4.20)
--- NOTE | 2023-07-03 23:53 | P.HP_ITS ---
Providers/Chief Complaint 2 Admitting Physician: Ran Hernandez MD Primary Care Provider: Marzena Jesus MD Chief Complaint: not eating, fever History of Present Illness Justice Guardado is a 73 year old male with a past medical history of type 2 diabetes mellitus, peripheral vascular disease, right foot cellulitis with gangrene, status post fifth ray amputation, with wound VAC in place, recent hospitalization for left foot diabetic foot infection concerning for gangrene, necrotizing fasciitis, status post left below-knee amputation, discharged home about a week ago, comes back to [facility] due to weakness, fatigue, malaise, according to family he has not gotten out of bed in the last week, he has a sacral decubitus ulcer, no fevers, no chills, does have urinary incontinence, no chest pain, no shortness of breath, no back pain, no headache, blurry vision, his surgical site, left below-knee amputation he tells me he looks clean and dry, has no significant problems, he has developed a sacral decubitus ulcer which him and his family has been helping him offload, he does have feeling of incomplete bladder emptying leading to urinary continence at times, his hemoglobin is 8.4, denies any bloody or black stools, Review of Systems 2 Const: Denies: fever(s) Card: Denies: chest pain Resp: Denies: dyspnea GI: Denies: abdominal pain : Reports: difficulty urinating; Denies: flank pain Medications/Allergies Home Medications Medication Instructions Recorded Confirmed Last Taken Type atorvastatin 40 mg tablet 40 mg PO DAILY #60 tabs 06/19/23 06/25/23 Unknown Rx empagliflozin 25 mg tablet 25 mg PO DAILY #60 tabs 06/19/23 06/25/23 Unknown Rx (Jardiance) finasteride 5 mg tablet 5 mg PO DAILY #60 tabs 06/19/23 06/25/23 Unknown Rx tamsulosin 0.4 mg capsule 0.4 mg PO DAILY #60 caps 06/19/23 06/25/23 Unknown Rx aspirin 81 mg capsule 81 mg PO DAILY 30 days #30 caps 06/29/23 Unknown Rx aspirin 81 mg tablet,delayed 81 mg PO DAILY 30 days #30 tabs 06/29/23 Unknown Rx release atorvastatin 40 mg tablet 40 mg PO DAILY 30 days #30 tabs 06/29/23 Unknown Rx cefdinir 300 mg capsule 300 mg PO BID 7 days #14 caps 06/29/23 Unknown Rx docusate sodium 100 mg capsule 100 mg PO BID #14 caps 06/29/23 Unknown Rx (Colace) ferrous sulfate 325 mg (65 mg 325 mg PO BID 30 days #60 tabs 06/29/23 Unknown Rx iron) tablet ferrous sulfate 325 mg (65 mg 325 mg PO DAILY 30 days #30 tabs 06/29/23 Unknown Rx iron) tablet glucometer testing kit #1 ea 06/29/23 Unknown Rx insulin aspart U-100 100 unit/mL See Rx Instructions .Route 06/29/23 Unknown Rx (3 mL) subcutaneous pen (Novolog .COMPLEX #15 mL FlexPen U-100 Insulin aspart) linezolid 600 mg tablet (Zyvox) 600 mg PO BID 7 days #14 tabs 06/29/23 Unknown Rx metformin 500 mg tablet 500 mg PO DAILY 30 days #30 tabs 06/29/23 Unknown Rx oxycodone-acetaminophen 7.5 mg-325 1 tab PO Q6H PRN pain #20 tabs 06/29/23 Unknown Rx mg tablet pantoprazole 40 mg tablet,delayed 40 mg PO BID 30 days #60 tabs 06/29/23 Unknown Rx release (Protonix) pantoprazole 40 mg tablet,delayed 40 mg PO BID 30 days #60 tabs 06/29/23 Unknown Rx release (Protonix) sucralfate 1 gram tablet (Carafate) 1 g PO BID 30 days #60 tabs 06/29/23 Unknown Rx sucralfate 1 gram tablet (Carafate) 1 g PO BID 4 weeks #56 tabs 06/29/23 Unknown Rx Allergies Allergy/AdvReac Type Severity Reaction Status Date / Time No Known Allergies Allergy Verified 07/03/23 15:31 PFSH Acute 2 PFSH: Medical History Diabetes A1c 8.7 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 PAD (peripheral artery disease) Abscess or cellulitis of foot Diabetic foot ulcer UTI (urinary tract infection) Gangrene of right foot Cellulitis of right leg Abdominal wall abscess Hypertension Hyperlipidemia Nephrolithiasis Diabetes Short-term memory loss DDD (degenerative disc disease) Refusal of statin medication by patient Surgical History History of vasectomy History of hemorrhoidectomy History of lithotripsy History of tracheostomy History of hernia repair Periumbilical x2 / mesh Family History Other Diabetes Social History Smoking and tobacco/nicotine status: never used tobacco/nicotine Alcohol intake: never Substance/Drug Use: never Lives independently: Yes Household members: none Marital status: Current 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 Pets and animals: Yes Vitals/I&O/Wt Last Vital Signs Temp 98.1 F 07/03/23 15:24 Pulse 82 07/03/23 15:24 Resp 16 07/03/23 23:25 BP 151/71 07/03/23 15:24 Pulse Ox 94 07/03/23 15:24 O2 Del Method Room Air 07/03/23 15:24 07/03/23 07/03/23 07/04/23 14:59 22:59 06:59 Intake Total 1050 / 1050 Balance 1050 / 1050 Weight last 48 hrs Weight 88.451 kg Physical Exam 2 Const: COMMON NORMALS: no acute distress and patient oriented x3 HENMT: COMMON NORMALS: normocephalic Eye: COMMON NORMALS: Equal, round and reactive pupils present and EOMs intact bilaterally Neck/C-Spine: COMMON NORMALS: full ROM and no lymphadenopathy Resp: COMMON NORMALS: normal respiratory effort, No retractions, No use of accessory muscles and clear to auscultation bilaterally AUSCULTATION: clear to auscultation bilaterally Cardio: COMMON NORMALS: no JVD, regular rate, regular rhythm, S1 normal heart sound present and S2 normal heart sound present RATE: regular rate RHYTHM: regular rhythm HEART SOUNDS: S1 normal heart sound present and S2 normal heart sound present GI: COMMON NORMALS: Normal to inspection, nondistended, normoactive bowel sounds present, Soft to palpation and non-tender : COMMON NORMALS: Yes no CVA tenderness Extremity: COMMON NORMALS: no pedal edema NARRATIVE EXTREMITY EXAM: Left below-knee amputation, wrapped in bandage Right leg, wound VAC in place Neuro: COMMON NORMALS: patient oriented x3, CN's II-XII intact bilaterally and moves all extremities Psych: COMMON NORMALS: mental status grossly normal Skin: NARRATIVE SKIN EXAM: Sacral decubitus ulcers, stage I 2, over sacrum, measuring 5 x 5 cm, irregular borders Data 07/03/23 19:00 07/03/23 19:00 A&P Assessment and plan (1) PAD (peripheral artery disease): (2) Diabetes: Qualifiers: Diabetes mellitus type: type 2 Diabetes mellitus retirement insulin use: without retirement use Diabetes mellitus complication status: without complication Qualified Code(s): E11.9 - Type 2 diabetes mellitus without complications (3) Acute cystitis: (4) Decubitus ulcer: (5) Weakness: Plan UTI -Continue Rocephin -Follow urine cultures Sacral decubitus ulcer -Stage 1-2 -Continue to reposition every 2-3 hours -Wound care Generalized weakness, -UTI as above -Anemia could be playing a role, hemoglobin 8.2, during his last hospitalization he had evidence of iron deficiency anemia, with Hemoccult positive stool, continue Protonix, Carafate, monitor hemoglobin Right lower extremity cellulitis, status post fifth ray amputation, wound VAC in place, can discuss with Dr. Luevano in the morning Left below-knee amputation, secondary to cellulitis gangrene concerns for necrotizing fasciitis, patient was supposed to complete 7 days of p.o. antibiotics, however he could not take antibiotics due to feeling nauseous, continue Rocephin, IV Zyvox BPH, with urinary continence, continue Flomax, finasteride, straight cath as needed, bladder scan as needed Full code Lovenox for DVT prophylaxis Attestations 2 Medical Necessity Statement*: Patient requires hospitalization, inpatient, greater than 2 midnights, for weakness, cystitis, sacral decubitus ulcer, dehydration, Diagnoses PAD (peripheral artery disease) I73.9 Type 2 diabetes mellitus without complication, without long-term current use of insulin E11.9 Diabetes mellitus type: type 2 Diabetes mellitus readiness paraprofessional insulin use: without readiness paraprofessional use Diabetes mellitus complication status: without complication Acute cystitis N30.00 Decubitus ulcer L89.90 Weakness R53.1
[2023-07-03 23:57] LABS: Chol HDL Ratio 2.94 mg/dL (1.0-5.00); Cholesterol 94 mg/dL (0-200); HDL Cholesterol 32 mg/dL (60-100); LDL Cholesterol Calculated 36 mg/dL (50-129); LDL HDL Ratio 1.13 RATIO (0.00-3.22); Triglycerides 129 mg/dL (0-150)
[2023-07-04] VITALS (11 sets, daily range): BP systolic 101–137; BP diastolic 55–64; PULSE 70–84; RESP 16–18; TEMP 36.5–36.9; O2SAT 94–100; BMI 27.1
[2023-07-04] MEDS: potassium chloride oral liq 20 mEq/15 mL UDC PO (00:03)
[2023-07-04 00:05] LABS: Erythrocyte Sedimentation Rate 26 mm/hr (0-10)
[2023-07-04 00:49] LABS: Glucose Point of Care 142 mg/dL (70-110)
[2023-07-04 01:41] LABS: Estmated Average Glucose 183
--- NOTE | 2023-07-04 04:19 | PC.NURSE ---
Patient voided 250mls at 0100 and post void residual was [address] Hernandez notified and order received to place a juarez. 12 fr coude catheter placed.
[2023-07-04 05:35] LABS: Basophils % 0.4 %; Eosinophils # 0.1 10^3/uL (0.0-0.8); Eosinophils % 0.6 %; Hematocrit 23.8 % (37-53); Lymphocytes # 1.1 10^3/uL (0.8-4.8); Lymphocytes % 14.7 %; Mean Corpuscular HGB Conc 31.9 g/dL (30-55); Mean Corpuscular Hemoglobin 28.4 pg (27-33); Mean Corpuscular Volume 88.8 fl (82-101); Mean Platelet Volume 9.1 fL (7.4-10.4); Monocytes # 0.4 10^3/uL (0.2-0.9); Monocytes % 5.4 %; Neutrophils # 6.12 10^3/uL (1.8-7.7); Neutrophils % 78.6 %; Nucleated Red Blood Cells % 0 %; Platelet Count 344 10^3/cmm (157-399); Red Blood Count 2.68 10^6/uL (3.85-5.65); Red Cell Distribution Width 13.6 % (12.1-15.1); White Blood Count 7.78 10^3/uL (3.29-11.43)
[2023-07-04] MEDS: sucralfate 1 gm/10 mL Oral Liq UDC PO ×2 (06:02→16:54)
[2023-07-04 06:06] LABS: Anion Gap 13.5 (5-19); Blood Urea Nitrogen 27 mg/dL (8-23); Calcium 8.2 mg/dL (8.5-10.5); Carbon Dioxide 22 mmol/L (22-29); Chloride 107 mmol/L (98-107); Glucose 146 mg/dL (65-115); Magnesium 1.8 mg/dL (1.7-2.3); Osmolality Calculated 296 mOsm/kg (285-295); Phosphorus 2.9 mg/dL (2.5-4.5); Potassium 3.5 mmol/L (3.5-5.1); Sodium 139 mmol/L (136-145)
[2023-07-04 06:13] LABS: Creatinine Clr Calc Pharmacy 55.9447
[2023-07-04 07:40] LABS: Glucose Point of Care 142 mg/dL (70-110)
[2023-07-04] MEDS: linezolid premix 600 MG/300 ML PREMIX 300 MG IV ×2 (08:29→22:08)
[2023-07-04] MEDS: finasteride 5 mg Tablet PO (08:30)
[2023-07-04] MEDS: pantoprazole DR 40 mg Tablet PO ×2 (08:31→16:54)
[2023-07-04] MEDS: tamsulosin 0.4 mg Capsule PO (08:31)
[2023-07-04] MEDS: aspirin 81 mg EC Tablet PO (08:31)
[2023-07-04] MEDS: atorvastatin 40 mg Tablet PO (08:31)
[2023-07-04] MEDS: ferrous sulfate EC 325 mg Tablet PO ×2 (08:31→16:54)
--- NOTE | 2023-07-04 09:12 | PC.PHAR ---
07/04/23-PT STATES INS UNABLE TO SWALLOW LARGE TABLETS CARAFATE AND ZYVOX AND REQUESTS THEM TO BE CRUSHED OR DISSOLVED IN LIQUID, PLEASE. VERIFIED ALL CURRENT MEDS WITH DAUGHTER CLAUDIA. ALL ANTIBIOTICS DISCONTINUED EXCEPT CEFDINIR 300 MG AND ZYVOX 600MG (LINEZOLID). ALSO MEFTORMIN 500 AND JARDIANCE 25 MG DISCONTINUED. PT CHANGED TO INSULIN. REMOVED ALL DUPLICATES OF ASPIRIN, ATORVASTATIN, CARAFATE, FERROUS SULFATE AND PROTONIX.
[2023-07-04] MEDS: oxyCODONE 5 mg IR Tab/Cap 10 MG PO ×2 (09:48→16:54)
--- NOTE | 2023-07-04 10:14 | PC.CHAP ---
Pastoral Care Encounter/Spiritual Assessment Type of Contact [] Declined regulatory affairs specialist visit [] Patient/Family/Request visit [] Outpatient visit [] Follow-up visit [] Physician referral [] Code/Alert [x] Routine visit [] Staff referral [] Actively dying [] Patient sleeping [x] Family support [] [] Out of room [] Palliative care [] [] Receiving care in room [] Pre-surgical visit [] Trauma [] Long length of stay [] ICU visit [] Other: Relational/Emotional Strength [x] Patient feels connected with others/family/visitors/staff [] Distress [] Loneliness/isolation [] Abandonment Spirituality of Patient [x] Person of Stephanie [] Attends Quaker of their Stephanie [x] Believes in Prayer [] Reads Bible or Jain materials [] There are Spiritual issues to be addressed Swatch Clerk Interventions [x] Prayer [x] Active listening [x] Non-anxious presence [x] Spiritual/emotional support [] Crisis/trauma care [] Spiritual counseling [] Bereavement support [] Provided bereavement packet [] Provided Bible/devotional materials [] Provided toy/stuffed animal, coloring book to patient or family member [] Provided Communion [] Anointing/[place] [] Salvation [x] Completed spiritual assessment [] Other: Impact on Illness or Injury [] Angry [] Fearful [] Anxious [] Often cries [] Exhaustion [] Unable to work [] Unable to attend scientologist [] Unable to walk/stand [] Unable to read [] Unable to drive [] Unable to eat/drink [] Unable to sleep [] Unable to be with family [] Patient intubated [] Other: Summary Time spent with patient 5 min
[2023-07-04 10:44] LABS: Glucose Point of Care 206 mg/dL (70-110)
[2023-07-04] MEDS: insulin lispro 100 unit/1 mL SUBCUT ×2 (12:39→18:03)
[2023-07-04] MEDS: ciprofloxacin 400 MG/200 ML PREMIX 200 MG IV ×2 (12:39→23:33)
--- NOTE | 2023-07-04 13:28 | PC.SOCIAL ---
Pg 2 IMM Explained to pt's family Pg 2 IMM. No questions voiced. Provided pt a copy. Initialed, dated, & timed a copy & placed in chart.
--- NOTE | 2023-07-04 15:09 | P.PN_ITS ---
Subjective 2 Subjective: He is feeling slightly better. Was bothered by pain, pain responded to oxycodone. Family have not been able to manage at home with his care needs including his wounds, wound VAC on right lower extremity, left lower extremity status post BKA Vitals/I&O/Wt Last Vital Signs Temp 98.1 F 07/04/23 11:40 Pulse 84 07/04/23 11:40 Resp 18 07/04/23 11:40 BP 126/64 07/04/23 11:40 Pulse Ox 97 07/04/23 11:40 O2 Del Method Room Air 07/04/23 11:40 07/04/23 07/04/23 07/04/23 06:59 14:59 22:59 Intake Total 600 / 1650 780 / 780 Output Total 2800 / 2800 1600 / 1600 Balance -2200 / -1150 -820 / -820 Weight last 48 hrs Weight 88.042 kg Weight 88.451 kg Weight 88.451 kg Physical Exam 2 Narrative: Accompanied by family. Const: COMMON NORMALS: patient oriented x3 and alert GENERAL APPEARANCE: c ooperative ORIENTATION/CONSCIOUSNESS: Yes awake HENMT: COMMON NORMALS: oropharynx normal Neck/C-Spine: COMMON NORMALS: no JVD Resp: COMMON NORMALS: normal respiratory effort and clear to auscultation bilaterally AUSCULTATION: clear to auscultation bilaterally Cardio: COMMON NORMALS: no JVD, regular rhythm, S1 normal heart sound present, S2 normal heart sound present and No murmurs present (Cardio) RHYTHM: regular rhythm HEART SOUNDS: S1 normal heart sound present and S2 normal heart sound present GI: COMMON NORMALS: Normal to inspection, nondistended, normoactive bowel sounds present, Soft to palpation and non-tender PALPATION: Yes Soft to palpation Extremity: COMMON NORMALS: no joint enlargement and no pedal edema N ARRATIVE EXTREMITY EXAM: L BKA Right foot wound VAC. Neuro: COMMON NORMALS: patient oriented x3 and moves all extremities S ENSORIUM/ORIENTATION: Yes alert Urinary Catheter Management: Coude: Cath Placed During This Visit: yes Reason for Continuing Indwelling Catheter: Acute Urinary Retention or Obstruction Urinary Catheter Date of Insertion: 07/04/23 Urinary Catheter Time of Insertion: 02:43 Data 07/04/23 14:30 07/04/23 05:29 A&P Assessment and plan (1) PAD (peripheral artery disease): (2) Diabetes: Qualifiers: Diabetes mellitus complication status: without complication Diabetes mellitus termite helper insulin use: without half-way use Diabetes mellitus type: t ype 2 Qualified Code(s): E11.9 - Type 2 diabetes mellitus without complications (3) Acute cystitis: (4) Decubitus ulcer: (5) Weakness: Plan UTI -Cephalosporin. Switch antibiotic to Cipro. Follow-up urine culture. Reviewed vitals, CBC. -Follow urine cultures -Anemia reviewed vitals, CBC, worse this morning hemoglobin down to 7.6. Recheck hemoglobin requested for this afternoon. During his last hospitalization he had evidence of iron deficiency anemia, with Hemoccult positive stool, continue Protonix BID, Carafate, monitor hemoglobin Recheck CBC Discussed with case making machine operator. Sacral decubitus ulcer -Stage 1-2 -Continue to reposition -Wound care Generalized weakness, continue treatment of UTI. Replace magnesium. Reviewed TSH, magnesium. Phosphorus. Vitals, CBC, CMP. Chest x-ray. Right lower extremity cellulitis, status post fifth ray amputation, wound VAC in place, change wound VAC dressing today. Follow-up with podiatry. Would benefit from continued care and rehabilitation at SNF. Discussed with case making machine operator, arrangements underway. Continues on linezolid, at risk of a granulocytosis. Reassess CBC. Morphine IV for severe breakthrough pain control. Resumed home oxycodone. Left below-knee amputation, secondary to cellulitis gangrene concerns for necrotizing fasciitis, patient was supposed to complete 7 days of p.o. antibiotics, however he could not take antibiotics due to feeling nauseous, continue Rocephin, IV Zyvox Morphine IV for severe breakthrough pain control. Resumed home oxycodone. BPH, with urinary continence, continue Flomax, finasteride, straight cath as needed, bladder scan as needed Full code Lovenox for DVT prophylaxis reviewed prior culture, noted previously wound culture with E. coli resistant to Attestations 2 Medical Necessity Statement*: Continue hospitalization for assessment management of generalized weakness, UTI, anemia with iron deficiency, post discharge planning and arrangements. and High MDM includes amount and/or complexity of data reviewed/ordered [ resulted lab(s)/test(s), ordered lab(s)/test(s) and other healthcare professional discussion] and described risk of complication, morbidity or mortality of management as documented Diagnoses PAD (peripheral artery disease) I73.9 Type 2 diabetes mellitus without complication, without long-term current use of insulin E11.9 Diabetes mellitus complication status: without complication Diabetes mellitus half-way insulin use: without half-way use Diabetes mellitus type: type 2 Acute cystitis N30.00 Decubitus ulcer L89.90 Weakness R53.1
[2023-07-04] MEDS: magnesium sulfate premix 1 GM/100 ML PIGGYBACK IV (15:29)
[2023-07-04 16:58] LABS: Glucose Point of Care 157 mg/dL (70-110)
[2023-07-04 20:30] LABS: Glucose Point of Care 187 mg/dL (70-110)
[2023-07-04] MEDS: enoxaparin 40 mg/0.4 mL Syringe SUBCUT (22:26)
[2023-07-05 04:00] VITALS: BP 116/55; PULSE 81; RESP 17; TEMP 36.5; O2SAT 99
[2023-07-05] MEDS: sucralfate 1 gm/10 mL Oral Liq UDC PO (06:34)
[2023-07-05 06:59] LABS: Glucose Point of Care 177 mg/dL (70-110)
[2023-07-05 07:52] VITALS: BP 122/63; PULSE 75; RESP 19; TEMP 36.5; O2SAT 98
[2023-07-05] MEDS: finasteride 5 mg Tablet PO (09:08)
[2023-07-05] MEDS: ferrous sulfate EC 325 mg Tablet PO (09:08)
[2023-07-05] MEDS: tamsulosin 0.4 mg Capsule PO (09:08)
[2023-07-05] MEDS: insulin lispro 100 unit/1 mL SUBCUT ×2 (09:09→12:53)
[2023-07-05] MEDS: linezolid premix 600 MG/300 ML PREMIX 300 MG IV (09:09)
[2023-07-05] MEDS: pantoprazole DR 40 mg Tablet PO (09:09)
[2023-07-05] MEDS: aspirin 81 mg EC Tablet PO (09:09)
[2023-07-05] MEDS: atorvastatin 40 mg Tablet PO (09:09)
--- NOTE | 2023-07-05 10:47 | PC.NURSE ---
This nurse called patients daughter, Prema, at [phone] as pt is able to d/c to [facility] today, however, transportation is needed. This nurse is hoping daughter will be able to transport pt to [facility]. Prema did not answer. Voicemail left and return call requested.
[2023-07-05] MEDS: ciprofloxacin 400 MG/200 ML PREMIX 200 MG IV (11:16)
[2023-07-05 11:38] LABS: Glucose Point of Care 206 mg/dL (70-110)
[2023-07-05 11:53] VITALS: BP 117/62; PULSE 84; RESP 18; TEMP 36.9; O2SAT 99
--- NOTE | 2023-07-05 12:45 | PC.NURSE ---
This nurse called report to Heather at [facility] at [phone]. Daughter will be transporting pt to [facility] within the next 30 mins.
[2023-07-05 12:55] VITALS: RESP 18; O2SAT 99
[2023-07-05] MEDS: oxyCODONE 5 mg IR Tab/Cap 10 MG PO (12:55)
--- NOTE | 2023-07-05 20:46 | P.DS_ITS ---
Discharge Providers Date of Admission: 07/03/23 22:16 Date of Discharge: July 05, 2023 Attending Provider at Admission: Ran Hernandez MD Attending Provider at Discharge: Ran Hernandez MD Primary Care Provider: Marzena Jesus MD Diagnoses at Discharge Discharge Diagnosis (1) PAD (peripheral artery disease): Status: Acute (2) Diabetes: Status: Acute Qualifiers: Diabetes mellitus type: type 2 Diabetes mellitus terminal make up operator insulin use: without care home use Diabetes mellitus complication status: without complication Qualified Code(s): E11.9 - Type 2 diabetes mellitus without complications Permanent problem details: A1c 8.7 (3) Acute cystitis: Status: Acute (4) Decubitus ulcer: Status: Acute (5) Weakness: Status: Acute Reason for Visit Reason for Visit: not eating, fever Brief History: Justice Guardado is a 73 year old male with a past medical history of type 2 di abetes mellitus, peripheral vascular disease, right foot cellulitis with gangrene, status post fifth ray amputation, with wound VAC in place, recent hospitalization for left foot diabetic foot infection concerning for gangrene, necrotizing fasciitis, status post left below-knee amputation, discharged home about a week ago, comes back to [facility] due to weakness, fatigue, malaise, according to family he has not gotten out of bed in the last week, he has a sacral decubitus ulcer, no fevers, no chills, does have urinary incontinence, no chest pain, no shortness of breath, no back pain, no headache, blurry vision, his surgical site, left below-knee amputation he tells me he looks clean and dry, has no significant problems, he has developed a sacral decubitus ulcer which him and his family has been helping him offload, he does have feeling of incomplete bladder emptying leading to urinary continence at times, his hemoglobin is 8.4, denies any bloody or black stools, Hospital Course Hospital Course With reassessment hemoglobin was noted to be decreased down to 7.6 but he did receive a bolus of fluid. Monitor additional night, hemoglobin reassessed and evening in the morning, remained at 8. No evidence of additional bleeding at current time. Continue PPI. Continue with treatment for urinary tract infection with ceftriaxone. With noted prior E. coli resistant ceftriaxone although on wound culture, to be on the safe side switched antibiotic to ciprofloxacin. Urinary culture pending. He is otherwise doing well. Wound VAC dressing changed and right foot. He should follow-up with podiatry. Continue follow-up with wound care regarding left stump. Reassess urinary retention. Continue Flomax. Perform voiding trial in several days. Follow up with urology. Physical Exam Narrative: Accompanied by family. Const: COMMON NORMALS: patient oriented x3 and alert GENERAL APPEARANCE: cooperative ORIENTATION/CONSCIOUSNESS: Yes awake HENMT: COMMON NORMALS: oropharynx normal Neck/C-Spine: COMMON NORMALS: no JVD Resp: COMMON NORMALS: normal respiratory effort and clear to auscultation bilaterally AUSCULTATION: clear to auscultation bilaterally Cardio: COMMON NORMALS: no JVD, regular rhythm, S1 normal heart sound present, S2 normal heart sound present and No murmurs present (Cardio) RHYTHM: regular rhythm HEART SOUNDS: S1 normal heart sound present and S2 normal heart sound present GI: COMMON NORMALS: Normal to inspection, nondistended, normoactive bowel sounds present, Soft to palpation and non-tender PALPATION: Yes Soft to palpation Extremity: COMMON NORMALS: no joint enlargement and no pedal edema NARRATIVE EXTREMITY EXAM: L BKA Right foot wound VAC. Neuro: COMMON NORMALS: patient oriented x3 and moves all extremities SENSORIUM/ORIENTATION: Yes alert Urinary Catheter Management: Coude: Cath Placed During This Visit: yes Reason for Continuing Indwelling Catheter: Acute Urinary Retention or Obstruction Urinary Catheter Date of Insertion: 07/04/23 Urinary Catheter Time of Insertion: 02:43 Discharge Data Studies Completed and Pending Completed Studies During Hospitalization Category Date Time Status XR chest 1V portable [id number] Stat Exams 07/03/23 18:00 Completed Pending at discharge Category Date Time Status Urine Culture Stat Lab 07/03/23 20:29 Results Radiology Impressions Chest X-Ray 07/03/23 18:00 IMPRESSION: No acute findings. Laboratory Results WBC 7.78 10^3/uL (3.29-11.43) 07/04/23 05:29 RBC 2.68 10^6/uL (3.85-5.65) L 07/04/23 05:29 Hgb 8.00 g/dL (11.27-16.99) L 07/04/23 14:30 Hct 23.8 % (37-53) L 07/04/23 05:29 MCV 88.8 fl (82-101) 07/04/23 05:29 MCH 28.4 pg (27-33) 07/04/23 05:29 MCHC 31.9 g/dL (30-55) 07/04/23 05:29 RDW 13.6 % (12.1-15.1) 07/04/23 05:29 Plt Count 344 10^3/cmm (157-399) 07/04/23 05:29 MPV 9.1 fL (7.4-10.4) 07/04/23 05:29 Neut % (Auto) 78.6 % 07/04/23 05:29 Lymph % (Auto) 14.7 % 07/04/23 05:29 [place] % (Auto) 5.4 % 07/04/23 05:29 Eos % (Auto) 0.6 % 07/04/23 05:29 Baso % (Auto) 0.4 % 07/04/23 05:29 Neut # (Auto) 6.12 10^3/uL (1.8-7.7) 07/04/23 05:29 Lymph # (Auto) 1.1 10^3/uL (0.8-4.8) 07/04/23 05:29 [place] # (Auto) 0.4 10^3/uL (0.2-0.9) 07/04/23 05:29 Eos # (Auto) 0.1 10^3/uL (0.0-0.8) 07/04/23 05:29 Baso # (Auto) 0.0 10^3/uL (0.0-0.1) 07/04/23 05:29 Nucleated RBC % (auto) 0 % 07/04/23 05:29 Nucleated RBCs # 0.0 /100WBC 07/04/23 05:29 ESR 26 mm/hr (0-10) H 07/03/23 19:00 Sodium 139 mmol/L (136-145) 07/04/23 05:29 Potassium 3.5 mmol/L (3.5-5.1) 07/04/23 05:29 Chloride 107 mmol/L (98-107) 07/04/23 05:29 Carbon Dioxide 22 mmol/L (22-29) 07/04/23 05:29 Anion Gap 13.5 (5-19) 07/04/23 05:29 BUN 27 mg/dL (8-23) H 07/04/23 05:29 Creatinine 1.3 mg/dL (0.7-1.2) H 07/04/23 05:29 GFR Calculation Not Reportable 07/04/23 05:29 Glucose 146 mg/dL (65-115) H 07/04/23 05:29 POC Glucose 206 mg/dL (70-110) H 07/05/23 11:17 Estimat Average Glucose 183 07/03/23 23:15 Hemoglobin A1c 8.0 % (4.0-6.0) H 07/03/23 23:15 Calculated Osmolality 296 mOsm/kg (285-295) H 07/04/23 05:29 Lactic Acid 1.0 mmol/L (0.5-2.2) 07/03/23 23:15 Calcium 8.2 mg/dL (8.5-10.5) L 07/04/23 05:29 Phosphorus 2.9 mg/dL (2.5-4.5) 07/04/23 05:29 Magnesium 1.8 mg/dL (1.7-2.3) 07/04/23 05:29 Total Bilirubin 0.3 mg/dL (0.15-1.2) 07/03/23 19:00 AST 9 U/L (0-40) 07/03/23 19:00 ALT 8 U/L (0-41) 07/03/23 19:00 Alkaline Phosphatase 101 U/L (40-130) 07/03/23 19:00 Total Protein 7.2 g/dL (6.6-8.7) 07/03/23 19:00 Albumin 2.7 g/dL (3.5-5.2) L 07/03/23 19:00 Globulin 4.5 g/dL (1.3-4.6) 07/03/23 19:00 Triglycerides 129 mg/dL (0-150) 07/03/23 23:15 Cholesterol 94 mg/dL (0-200) 07/03/23 23:15 LDL Cholesterol, Calc 36 mg/dL (50-129) L 07/03/23 23:15 HDL Cholesterol 32 mg/dL (60-100) L 07/03/23 23:15 LDL/HDL Ratio 1.13 RATIO (0.00-3.22) 07/03/23 23:15 Cholesterol/HDL Ratio 2.94 mg/dL (1.0-5.00) 07/03/23 23:15 Procalcitonin 0.18 ng/mL (0-0.5) 07/03/23 23:15 TSH 0.99 uIU/mL (0.27-4.20) 07/03/23 23:15 Urine Color Yellow (Yellow) 07/03/23 20: Urine Appearance Sl hazy (CLEAR) A 07/03/23 20: Urine pH 5 (5-7) 07/03/23 20: Ur Specific [place] 1.010 (1.005-1.030) 07/03/23 20: Urine Protein Neg (Negative) 07/03/23 20: Urine Glucose (UA) Norm (Normal) 07/03/23 20: Urine Ketones Negative (Negative) 07/03/23 20: Urine Blood 3+ (Negative) H 07/03/23 20: Urine Nitrate Negative (Negative) 07/03/23 20: Urine Bilirubin Neg (Negative) 07/03/23 20: Urine Urobilinogen Norm mg/dL (Negative) 07/03/23 20:29 Ur Leukocyte Esterase 2+ (Negative) H 07/03/23 20: Urine RBC 0-4 /hpf (0-2) H 07/03/23 20: Urine WBC 55-80 /hpf (0-5) H 07/03/23 20: Ur Squamous Epith Cells 0-4 /hpf (0-5) H 07/03/23 20: Amorphous Sediment Not Reportable 07/03/23 20: Urine Bacteria Trace /hpf (NONE) 07/03/23: Urine Yeast 2+ /hpf H 07/03/23 20:29 Vitals Last Vital Signs Temp 98.4 F 07/05/23 11:53 Pulse 84 07/05/23 11:53 Resp 18 07/05/23 12:55 BP 117/62 07/05/23 11:53 Pulse Ox 99 07/05/23 12:55 O2 Del Method Room Air 07/05/23 11:53 Discharge Plan Discharge Patient Disposition: Xfer SNF Condition: Stable Prescriptions: New ciprofloxacin HCl 500 mg tablet 500 mg PO BID Qty: 12 0RF metformin 500 mg tablet 500 mg PO BID Qty: 180 0RF Continued atorvastatin 40 mg tablet 40 mg PO DAILY Qty: 60 3RF finasteride 5 mg tablet 5 mg PO DAILY Qty: 60 3RF tamsulosin 0.4 mg capsule 0.4 mg PO DAILY Qty: 60 3RF oxycodone-acetaminophen 7.5-325 mg tablet 1 tab PO Q6H PRN (Reason: pain) Qty: 20 0RF docusate sodium [Colace] 100 mg capsule 100 mg PO BID Qty: 14 0RF pantoprazole [Protonix] 40 mg tablet,delayed release (DR/EC) 40 mg PO BID 30 Days Qty: 60 0RF sucralfate [Carafate] 1 gram tablet 1 g PO BID 28 Days Qty: 56 0RF ferrous sulfate 325 mg (65 mg iron) tablet 325 mg PO BID 30 Days Qty: 60 0RF aspirin 81 mg capsule 81 mg PO DAILY 30 Days Qty: 30 0RF insulin aspart U-100 [Novolog FlexPen U-100 Insulin] 100 unit/mL (3 mL) insulin pen See Rx Instructions .ROUTE .COMPLEX Qty: 15 0RF Rx Instructions: inject, 3 times daily, after meals, based on sliding scale provided (DME) glucometer testing kit See Rx Instructions .Route .MEDSUPPLY Qty: 1 0RF Rx Instructions: glucometer testing kit strips#100 lancets#100 linezolid [Zyvox] 600 mg tablet 600 mg PO BID 7 Days Qty: 14 0RF Discontinued cefdinir 300 mg capsule 300 mg PO BID 7 Days Qty: 14 0RF Discharge Orders: Discharge Order (Routine); Ordered 07/05/23 Ordered By: London Miguel Referrals: [facility] [Provider Group] (We have notified your physician's clinic of the need for a follow-up appointment to be scheduled. If you have not heard from them within the next 2 business days, please call them directly. ) [facility] [Provider Group] - 4-7 days (We have notified your physician's clinic of the need for a follow-up appointment to be scheduled. If you have not heard from them within the next 2 business days, please call them directly. ) [facility] [Outside] Jesus,Marzena, MD [Primary Care Provider] - 4-7 days Discharge Diet: Cardiac and Diabetic Discharge Activity: As per PT/OT instructions Patient Instructions: Ciprofloxacin (By mouth), Metformin (By mouth), Urinary Tract Infection in Men (GEN), Opioid Safety Activity Restrictions/Additional Instructions: Follow-up with primary provider for reassessment after UTI, urine culture is pending, please have your primary doctor follow-up results. Maintain juarez catheter for urinary retention. Continue wound VAC on right lower extremity, follow-up with podiatry clinic for reassessment. Continue dressing changes on the left stump, follow-up with wound care clinic. Discharge Attestations Time Spent in Discharge Care*: greater than 30 min Quality Metrics Clinical Quality Measures [ No reported AMI, CVA or VTE this stay] Coding Level of Care Code Acute Code for Chg Fwd Diagnoses PAD (peripheral artery disease) I73.9 Type 2 diabetes mellitus without complication, without long-term current use of insulin E11.9 Diabetes mellitus type: type 2 Diabetes mellitus care home insulin use: without terminal make up operator use Diabetes mellitus complication status: without complication Acute cystitis N30.00 Decubitus ulcer L89.90 Weakness R53.1
== END 2023-07-05 13:15 | disposition skilled nursing facility (03) ==
LOC: ER 22:03 → MEDSURG 22:28
PROVIDERS: Internal Medicine; Admitting Provider Family Medicine; Emergency Provider Emergency Medicine; PCP Family Medicine; Visit Provider Family Medicine
DX: I73.9 Peripheral vascular disease, unspecified (principal); N39.0 Urinary tract infection, site not specified; L89.90 Pressure ulcer of unspecified site, unspecified stage; E53.1 Pyridoxine deficiency; E11.621 Type 2 diabetes mellitus with foot ulcer; Z89.422 Acquired absence of other left toe(s); I10 Essential (primary) hypertension; E11.42 Type 2 diabetes mellitus with diabetic polyneuropathy; D64.9 Anemia, unspecified; L03.115 Cellulitis of right lower limb; Z89.512 Acquired absence of left leg below knee
CPT/HCPCS: 11042; 36415; 36416; 51702; 51798; 71045; 80048; 80053; 80061; 81001; 82962; 83036; 83605; 83735; 84100; 84145; 84443; 85018; 85025; 85651; 87086; 87106; 93005; 94664; 96361; 96372; 96374; 96375; 97110; 97162; 97166; 97530; 97605; 99285; A6237; A6250; G0378; J0696; J0744; J1650; J1815; J2020; J2270; J2405; J3475; J7030

== ENCOUNTER → 2023-07-15 13:54 | Outpatient (BNVA) | payer MEDICARE, SELFPAY | PROVIDERS: PCP Family Medicine; Visit Provider Surgery | DX: Z89.512 Acquired absence of left leg below knee (principal); Z98.890 Other specified postprocedural states | CPT/HCPCS: 99024 ==

== ENCOUNTER 2023-07-17 19:43 | Emergency (ER) | payer MEDICARE, SELFPAY ==
[2023-07-17 19:56] VITALS: BP 88/58; PULSE 98; RESP 16; TEMP 36.3; O2SAT 100
--- NOTE | 2023-07-17 20:30 | ED_ITS ---
HPI - General Adult 2 General: Chief complaint: General Medical Stated complaint: cant eat Time Seen by Provider: 07/17/23 20:03 History of Present Illness: Patient presents to the ER with complaints of nausea vomiting and not being able to keep any food down since admitted to the prison about 2 weeks ago. Patient was admitted to the prison for rehab secondary to a below the knee amputation. Patient stated he felt good in the hospital and was eating and drinking just fine but when he got to the prison he began not be able to eat or drink anything except ensures. Patient stated he is probably lost 20 to 30 pounds since going to the prison. Patient's never had any problem like this or unintentional weight loss before. Today when patient was at the dining room table he felt like he may have passed out. Patient thinks he might be dehydrated and came to the ER for rehydration and further evaluation and treatment. Patient denies any abdominal pain. 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 PAD (peripheral artery disease) Abscess or cellulitis of foot Diabetic foot ulcer UTI (urinary tract infection) Gangrene of right foot Cellulitis of right leg Abdominal wall abscess Hypertension Hyperlipidemia Nephrolithiasis Diabetes Short-term memory loss DDD (degenerative disc disease) Refusal of statin medication by patient Surgical History Status post below-knee amputation of left lower extremity History of vasectomy History of hemorrhoidectomy History of lithotripsy History of tracheostomy History of hernia repair Periumbilical x2 / mesh Family History Other Diabetes Social History Smoking and tobacco/nicotine status: never used tobacco/nicotine Alcohol intake: never Substance/Drug Use: never Lives independently: Yes Household members: none Marital status: Current 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 Pets and animals: Yes Physical Exam 2 Const: COMMON NORMALS: no acute distress, average body habitus, patient oriented x3, no limitations, healthy appearing, alert and well nourished HENMT: COMMON NORMALS: normocephalic, atraumatic, hearing grossly normal bilaterally, external ears normal, Normal external nose present, moist oral mucous membranes and oropharynx normal HEAD & SCALP: normocephalic and atraumatic NOSE: Normal external nose present EXTERNAL EAR: Yes external ears normal Eye: COMMON NORMALS: Equal, round and reactive pupils present, EOMs intact bilaterally, conjunctivae normal and no scleral icterus CONJUNCTIVA: Yes conjunctivae normal PUPIL: Yes Equal, round and reactive pupils present Neck/C-Spine: COMMON NORMALS: full ROM, no lymphadenopathy, supple, no meningeal signs, no JVD and Thyroid normal THYROID: Thyroid normal Chest: COMMONS NORMALS: normal inspection of the chest and normal palpation of entire chest wall Resp: COMMON NORMALS: normal respiratory effort, No retractions, No use of accessory muscles and clear to auscultation bilaterally AUSCULTATION: clear to auscultation bilaterally Cardio: COMMON NORMALS: no JVD, regular rate, regular rhythm, S1 normal heart sound present, S2 normal heart sound present, No gallops present (Cardio), No clicks present (Cardio), No murmurs present (Cardio) and No rub (Cardio) R ATE: regular rate RHYTHM: regular rhythm HEART SOUNDS: S1 normal heart sound present and S2 normal heart sound present GI: COMMON NORMALS: Normal to inspection, nondistended, normoactive bowel sounds present, Soft to palpation, non-tender and No hepatosplenomegaly present PALPATION: Yes Soft to palpation and Yes No hepatosplenomegaly present Neuro: COMMON NORMALS: patient oriented x3 SENSORIUM/ORIENTATION: Yes alert MENINGEAL SIGNS: Yes no meningeal signs Course 2 Vital Signs: Vital signs: Vital Signs Temperature 97.4 F L 07/17/23 19:56 Pulse Rate 75 07/18/23 00:38 Respiratory Rate 18 07/18/23 00:38 Blood Pressure 122/55 07/17/23 22:13 Pulse Oximetry 100 07/18/23 00:38 Oxygen Delivery Me thod Room Air 07/17/23 23:53 MDM - General Adult Medical Decision Making Patient presents from prison with complaints of not being able to eat for the last couple weeks, possibly passing out today. Patient had blood work done is essentially unremarkable, urine showed urinary tract infection, abdomen pelvis contrasted CT did not show any acute causes of weight loss or inability eat. These results was discussed with the family. Patient be dosed with 1 dose of Bactrim here tonight and sent home with a prescription. Patient should follow-up with his PCP for further evaluation and treatment. Differential Diagnosis Nausea, vomiting, weight loss, dehydration Medical Records I reviewed the patient's medical records. Lab Data I reviewed the patient's lab results. 07/17/23 20:31 07/17/23 20:31 Radiology Impressions Abdomen/Pelvis CT 07/17/23 22:22 IMPRESSION: 1. Minimal hydronephrosis bilaterally without obstructing lesion. 2. Left kidney lower pole punctate nonobstructing calyceal stone. 3. Emphysematous changes. 4. Coronary artery atherosclerotic calcifications. 5. Left kidney cyst, negative for follow-up advised. 6. Perinephric edema bilaterally similar to prior exam likely reflecting renal insufficiency, please correlate for pyelonephritis. 7. Parker catheter in the urinary bladder with diffuse urinary bladder wall thickening may be due to nondistention, please correlate for cystitis, an underlying mass is not excluded, cystoscopy could further characterize this. 8. Prostate gland appears somewhat prominent, please correlate clinically. 9. Small hiatal hernia. 10. Sclerotic areas in the femoral heads bilaterally concerning for avascular necrosis, similar to prior exam, consider correlation with MRI. 11. Prominent subcentimeter inguinal lymph nodes bilaterally, negative for follow-up advised. Laboratory Results WBC 5.86 10^3/uL (3.29-11.43) 07/17/23 20: RBC 3.61 10^6/uL (3.85-5.65) L 07/17/23 20: Hgb 10.20 g/dL (11.27-16.99) L 07/17/23 20: Hct 32.1 % (37-53) L 07/17/23 20: MCV 88.9 fl (82-101) 07/17/23 20: MCH 28.3 pg (27-33) 07/17/23 20: MCHC 31.8 g/dL (30-55) 07/17/23 20: RDW 14.8 % (12.1-15.1) 07/17/23 20: Plt Count 279 10^3/cmm (157-399) 07/17/23 20:31 MPV 9.1 fL (7.4-10.4) 07/17/23 20:31 Neut % (Auto) 69.2 % 07/17/23 20: Lymph % (Auto) 20.6 % 07/17/23 20: [place] % (Auto) 7.2 % 07/17/23 20: Eos % (Auto) 2.0 % 07/17/23 20: Baso % (Auto) 0.7 % 07/17/23 20: Neut # (Auto) 4.05 10^3/uL (1.8-7.7) 07/17/23 20: Lymph # (Auto) 1.2 10^3/uL (0.8-4.8) 07/17/23 20: [place] # (Auto) 0.4 10^3/uL (0.2-0.9) 07/17/23 20: Eos # (Auto) 0.1 10^3/uL (0.0-0.8) 07/17/23 20: Baso # (Auto) 0.0 10^3/uL (0.0-0.1) 07/17/23 20: Nucleated RBC % (auto) 0 % 07/17/23 20: Nucleated RBCs # 0.0 /100WBC 07/17/23 20:31 Sodium 134 mmol/L (136-145) L 07/17/23 20:31 Potassium 4.2 mmol/L (3.5-5.1) 07/17/23 20: Chloride 98 mmol/L (98-107) 07/17/23 20: Carbon Dioxide 21 mmol/L (22-29) L 07/17/23 20:31 Anion Gap 19.2 (5-19) H 07/17/23 20:31 BUN 17 mg/dL (8-23) 07/17/23 20: Creatinine 1.0 mg/dL (0.7-1.2) 07/17/23 20:31 GFR Calculation Not Reportable 07/17/23 20: Glucose 137 mg/dL (65-115) H 07/17/23 20: Calculated Osmolality 282 mOsm/kg (285-295) L 07/17/23 20:31 Calcium 8.7 mg/dL (8.5-10.5) 07/17/23 20:31 Magnesium 1.6 mg/dL (1.7-2.3) L 07/17/23 20:31 Total Bilirubin 0.4 mg/dL (0.15-1.2) 07/17/23 20:31 AST 12 U/L (0-40) 07/17/23 20: ALT < 5 U/L (0-41) 07/17/23 20:31 Alkaline Phosphatase 100 U/L (40-130) 07/17/23 20:31 Total Protein 6.7 g/dL (6.6-8.7) 07/17/23 20: Albumin 2.8 g/dL (3.5-5.2) L 07/17/23 20: Globulin 3.9 g/dL (1.3-4.6) 07/17/23 20: Lipase 50 U/L (13-60) 07/17/23 20:31 Urine Color Yellow (Yellow) 07/17/23 21:45 Urine Appearance Cloudy (CLEAR) A 07/17/23 21:45 Urine pH 5 (5-7) 07/17/23 21:45 Ur Specific [place] 1.020 (1.005-1.030) 07/17/23 21:45 Urine Protein 1+ (Negative) H 07/17/23 21:45 Urine Glucose (UA) Norm (Normal) 07/17/23 21:45 Urine Ketones 2+ (Negative) H 07/17/23 21:45 Urine Blood 3+ (Negative) H 07/17/23 21:45 Urine Nitrate Negative (Negative) 07/17/23 21:45 Urine Bilirubin Neg (Negative) 07/17/23 21:45 Urine Urobilinogen Neg mg/dL (Negative) 07/17/23 21:45 Ur Leukocyte Esterase 2+ (Negative) H 07/17/23 21:45 Urine RBC 40-50 /hpf (0-2) H 07/17/23 21:45 Urine WBC 40-55 /hpf (0-5) H 07/17/23 21:45 Ur Squamous Epith Cells None /hpf (0-5) 07/17/23 21:45 Amorphous Sediment Not Reportable 07/17/23 21:45 Urine Bacteria 4+ /hpf (NONE) H 07/17/23 21:45 Urine Mucus 2+ /hpf 07/17/23 21:45 All radiology interpretation(s) finalized by discharge Discharge Plan Discharge Patient Disposition: Home Clinical Impression: Urinary tract infection in male Syncope Qualifiers: Syncope type: unspecified Qualified Code(s): R55 - Syncope and collapse Condition: Stable Prescriptions: New Bactrim DS 800-160 mg tablet 1 tab PO BID Qty: 20 0RF No Action lidocaine HCl [Lidocaine Viscous] 2 % solution 1 applic topical ONCE Qty: 1 0RF Fleet Enema 19-7 gram/118 mL enema 118 ml NM DAILY PRN atorvastatin 40 mg tablet 40 mg PO DAILY Qty: 60 3RF finasteride 5 mg tablet 5 mg PO DAILY Qty: 60 3RF tamsulosin 0.4 mg capsule 0.4 mg PO DAILY Qty: 60 3RF acetaminophen [Tylenol] 325 mg tablet 325 mg PO QID PRN ondansetron 4 mg tablet,disintegrating PO DAILY PRN lidocaine HCl [Lidocaine Viscous] 2 % solution 1 applic topical ONCE Qty: 1 0RF oxycodone-acetaminophen 7.5-325 mg tablet 1 tab PO Q6H PRN (Reason: pain) Qty: 20 0RF docusate sodium [Colace] 100 mg capsule 100 mg PO BID Qty: 14 0RF pantoprazole [Protonix] 40 mg tablet,delayed release (DR/EC) 40 mg PO BID 30 Days Qty: 60 0RF sucralfate [Carafate] 1 gram tablet 1 g PO BID 28 Days Qty: 56 0RF ferrous sulfate 325 mg (65 mg iron) tablet 325 mg PO BID 30 Days Qty: 60 0RF aspirin 81 mg capsule 81 mg PO DAILY 30 Days Qty: 30 0RF insulin aspart U-100 [Novolog FlexPen U-100 Insulin] 100 unit/mL (3 mL) insulin pen See Rx Instructions .ROUTE .COMPLEX Qty: 15 0RF Rx Instructions: inject, 3 times daily, after meals, based on sliding scale provided (DME) glucometer testing kit See Rx Instructions .Route .MEDSUPPLY Qty: 1 0RF Rx Instructions: glucometer testing kit strips#100 lancets#100 metformin 500 mg tablet 500 mg PO BID Qty: 180 0RF Discharge Orders: Discharge ED (Routine); Ordered 07/17/23 Ordered By: Pee Farmer Referrals: Marzena Jesus MD [Primary Care Provider] - 1 week Patient Instructions: Syncope (ED), Catheter-associated Urinary Tract Infection (ED) Activity Restrictions/Additional Instructions: Your workup in ER showed you have a urinary tract infection. No other reason for your inability to eat or your syncope was found. Please finish all your antibiotics as directed and take all your other medicine as previously prescribed. Please follow-up with your family practice doctor within the next 7 days for further evaluation testing. Coding Level of Care Code ED Television Maintenance Worker for Thang Mejia
[2023-07-17 20:38] LABS: Basophils % 0.7 %; Eosinophils # 0.1 10^3/uL (0.0-0.8); Hematocrit 32.1 % (37-53); Lymphocytes # 1.2 10^3/uL (0.8-4.8); Lymphocytes % 20.6 %; Mean Corpuscular HGB Conc 31.8 g/dL (30-55); Mean Corpuscular Hemoglobin 28.3 pg (27-33); Mean Corpuscular Volume 88.9 fl (82-101); Mean Platelet Volume 9.1 fL (7.4-10.4); Monocytes # 0.4 10^3/uL (0.2-0.9); Monocytes % 7.2 %; Neutrophils # 4.05 10^3/uL (1.8-7.7); Neutrophils % 69.2 %; Nucleated Red Blood Cells % 0 %; Platelet Count 279 10^3/cmm (157-399); Red Blood Count 3.61 10^6/uL (3.85-5.65); Red Cell Distribution Width 14.8 % (12.1-15.1); White Blood Count 5.86 10^3/uL (3.29-11.43)
[2023-07-17 20:55] LABS: Alanine Aminotransferase < 5 U/L (0-41); Albumin Level 2.8 g/dL (3.5-5.2); Alkaline Phosphatase 100 U/L (40-130); Anion Gap 19.2 (5-19); Aspartate Amino Transferase 12 U/L (0-40); Blood Urea Nitrogen 17 mg/dL (8-23); Calcium 8.7 mg/dL (8.5-10.5); Carbon Dioxide 21 mmol/L (22-29); Chloride 98 mmol/L (98-107); Globulin 3.9 g/dL (1.3-4.6); Glucose 137 mg/dL (65-115); Lipase 50 U/L (13-60); Magnesium 1.6 mg/dL (1.7-2.3); Osmolality Calculated 282 mOsm/kg (285-295); Potassium 4.2 mmol/L (3.5-5.1); Sodium 134 mmol/L (136-145); Total Bilirubin 0.4 mg/dL (0.15-1.2); Total Protein 6.7 g/dL (6.6-8.7)
[2023-07-17 22:00] LABS: Add Urine Microscopic? YES; Bilirubin Urine Neg (Negative); Blood Urine 3+ (Negative); Glucose Urine UA Norm (Normal); Ketones Urine 2+ (Negative); Leukocyte Esterase Urine 2+ (Negative); Nitrate Urine Negative (Negative); Protein Urine 1+ (Negative); Urine Appearance Cloudy (CLEAR); Urine Color Yellow (Yellow); Urobilinogen Urine Neg (Negative); pH Urine 5 (5-7)
[2023-07-17 22:01] LABS: Add Urine Culture? Yes; Bacteria Urine 4+ /hpf; Mucus Urine 2+ /hpf; RBC Urine 40-50 /hpf (0-2); WBC Urine 40-55 /hpf (0-5)
[2023-07-17] MEDS: sodium chloride 0.9% 1,000 ML 999 ML IV (22:06)
[2023-07-17] MEDS: ondansetron 2 mg/ML SDV 2 mL 4 MG IVP (22:09)
[2023-07-17 22:13] VITALS: BP 122/55; PULSE 63; O2SAT 100
--- NOTE | 2023-07-17 22:22 | CTR_ITS ---
PROCEDURE INFORMATION: Exam: CT Abdomen And Pelvis Without Contrast Exam date and time: 07/17/2023 10:47 PM Age: 73 years old Clinical indication: Other: See below; Additional info: N/v weight loss, abd pain hematuria TECHNIQUE: Imaging protocol: Computed tomography of the abdomen and pelvis without contrast. Radiation optimization: All CT scans at this facility use at least one of these dose optimization techniques: automated exposure control; mA and/or kV adjustment per patient size (includes targeted exams where dose is matched to clinical indication); or iterative reconstruction. COMPARISON: CT kidney stone [id number] 04/07/2023 9:30 PM RADIATION DOSE METRICS: Total DLP (mGy-cm): 663.43 FINDINGS: Lungs: Emphysematous changes. Coronary arteries: Coronary artery atherosclerotic calcifications. Diaphragm: Small hiatal hernia. Liver: Normal. No mass. Gallbladder and bile ducts: Normal. No calcified stones. No ductal dilation. Pancreas: Normal. No ductal dilation. Spleen: Normal. No splenomegaly. Adrenal glands: Normal. No mass. Kidneys and ureters: Minimal hydronephrosis bilaterally without obstructing lesion. Left kidney lower pole punctate nonobstructing calyceal stone. Left kidney cyst, negative for follow-up advised. Perinephric edema bilaterally similar to prior exam likely reflecting renal insufficiency, please correlate for pyelonephritis. Stomach and bowel: Unremarkable. No obstruction. No mucosal thickening. Appendix: No evidence of appendicitis. Intraperitoneal space: Unremarkable. No free air. No significant fluid collection. Vasculature: Unremarkable. No abdominal aortic aneurysm. Lymph nodes: Prominent subcentimeter inguinal lymph nodes bilaterally, negative for follow-up advised. Urinary bladder: Parker catheter in the urinary bladder with diffuse urinary bladder wall thickening may be due to nondistention, please correlate for cystitis, an underlying mass is not excluded, cystoscopy could further characterize this. Reproductive: Prostate gland appears somewhat prominent, please correlate clinically. Bones/joints: Sclerotic areas in the femoral heads bilaterally concerning for avascular necrosis, similar to prior exam, consider correlation with MRI. Soft tissues: Unremarkable. CT/CT abdomen pelvis wo con [id number] IMPRESSION: 1. Minimal hydronephrosis bilaterally without obstructing lesion. 2. Left kidney lower pole punctate nonobstructing calyceal stone. 3. Emphysematous changes. 4. Coronary artery atherosclerotic calcifications. 5. Left kidney cyst, negative for follow-up advised. 6. Perinephric edema bilaterally similar to prior exam likely reflecting renal insufficiency, please correlate for pyelonephritis. 7. Parker catheter in the urinary bladder with diffuse urinary bladder wall thickening may be due to nondistention, please correlate for cystitis, an underlying mass is not excluded, cystoscopy could further characterize this. 8. Prostate gland appears somewhat prominent, please correlate clinically. 9. Small hiatal hernia. 10. Sclerotic areas in the femoral heads bilaterally concerning for avascular necrosis, similar to prior exam, consider correlation with MRI. 11. Prominent subcentimeter inguinal lymph nodes bilaterally, negative for follow-up advised.
[2023-07-17] MEDS: sulfamethoxazole-trimeth DS 160-800 mg Tablet 1 TAB PO (23:51)
[2023-07-17 23:53] VITALS: PULSE 88; O2SAT 99
[2023-07-18 00:38] VITALS: PULSE 75; RESP 18; O2SAT 100
== END 2023-07-18 00:18 | disposition home or self-care (01) ==
PROVIDERS: Emergency Provider Emergency Medicine; PCP Family Medicine
DX: R55 Syncope and collapse (principal); N39.0 Urinary tract infection, site not specified; Z79.82 Long term (current) use of aspirin; Z79.4 Long term (current) use of insulin; Z79.84 Long term (current) use of oral hypoglycemic drugs; E11.42 Type 2 diabetes mellitus with diabetic polyneuropathy; I10 Essential (primary) hypertension; E78.5 Hyperlipidemia, unspecified; Z89.512 Acquired absence of left leg below knee
CPT/HCPCS: 36415; 74176; 80053; 81001; 83690; 83735; 85025; 87077; 87086; 87186; 96361; 96374; 99285; J2405; J7030

== ENCOUNTER 2023-07-21 17:57 | Observation (INO) | payer MEDICARE, SELFPAY ==
[2023-07-21] VITALS (10 sets, daily range): BP systolic 94–129; BP diastolic 51–65; PULSE 69–83; RESP 14–18; TEMP 36.4–36.5; O2SAT 91–96; BMI 18.1
--- NOTE | 2023-07-21 18:58 | ECG_ITS ---
[facility] Test Date: 2023-07-21 Pat Name: Justice Guardado Department: Room: Gender: Male Migration Specialist: : 1950 Requested By: Pee Farmer Order Number: [id number] Rai MD: Rodriguez Wing M.D. Measurements Intervals [place] Rate: 73 P: 76 WA: 168 QRS: -62 QRSD: 138 T: 98 QT: 413 QTc: 455 Interpretive Statements SINUS RHYTHM INTRAVENTRICULAR CONDUCTION DELAY [130+ ms QRS DURATION] SEPTAL MYOCARDIAL INFARCTION , OF INDETERMINATE AGE [40+ ms Q WAVE IN V1/V2] Compared to ECG 07/03/2023 18:13:47 Myocardial infarct finding now present Left-axis deviation no longer present Electronically Signed On 07-21-2023 23:08:26 RELIGIOUS ACTIVITIES DIRECTOR by Rodriguez Wing M.D. [id number]
--- NOTE | 2023-07-21 18:58 | XRR_ITS ---
PROCEDURE INFORMATION: Exam: XR Chest Exam date and time: 07/21/2023 7:06 PM Age: 73 years old Clinical indication: Other: AMS TECHNIQUE: Imaging protocol: Radiologic exam of the chest. Views: 1 view. COMPARISON: CR (CHEST, ) 07/03/2023 8:02 PM FINDINGS: Lungs: There is an area of patchy infiltrate involving the left lung base. No lung mass. Pleural spaces: Unremarkable. No pleural effusion. No pneumothorax. Heart/Mediastinum: Unremarkable. No cardiomegaly. Bones/joints: Unremarkable. XR/XR chest 1V portable [id number] IMPRESSION: Left basilar pneumonia
--- NOTE | 2023-07-21 19:08 | ED_ITS ---
HPI - Altered Mental Status 2 General: Chief Complaint: Altered Mental Status Stated Complaint: open sore on right foot, Time Seen by Provider: 07/21/23 18:56 History of Present Illness: Patient presents to the ER with complaints of generalized body pain, not eating losing weight, patient family states he is altered and not himself. Patient's family cannot take care of him at home. Patient was just seen here about 3 days ago for syncopal episodes and was at a [place] [facility] at that time since then patient has been moved to one of the [facility] homes. Patient's family says he is lost over 100 pounds over the last several months just due to not eating. Patient said he is not hungry and has no appetite. 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 PAD (peripheral artery disease) Abscess or cellulitis of foot Diabetic foot ulcer UTI (urinary tract infection) Gangrene of right foot Cellulitis of right leg Abdominal wall abscess Hypertension Hyperlipidemia Nephrolithiasis Diabetes Short-term memory loss DDD (degenerative disc disease) Refusal of statin medication by patient Surgical History Status post below-knee amputation of left lower extremity History of vasectomy History of hemorrhoidectomy History of lithotripsy History of tracheostomy History of hernia repair Periumbilical x2 / mesh Family History Other Diabetes Social History Smoking and tobacco/nicotine status: never used tobacco/nicotine Alcohol intake: never Substance/Drug Use: never Lives independently: Yes Household members: none Marital status: Current 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 Pets and animals: Yes Physical Exam 2 Const: COMMON NORMALS: no acute distress, average body habitus, no limitations, healthy appearing and well nourished HENMT: COMMON NORMALS: normocephalic, atraumatic, hearing grossly normal bilaterally, external ears normal, Normal external nose present, moist oral mucous membranes and oropharynx normal HEAD & SCALP: normocephalic and atraumatic NOSE: Normal external nose present EXTERNAL EAR: Yes external ears normal Neck/C-Spine: COMMON NORMALS: full ROM, no lymphadenopathy, supple, no meningeal signs, no JVD and Thyroid normal THYROID: Thyroid normal Chest: COMMONS NORMALS: normal inspection of the chest and normal palpation of entire chest wall Resp: COMMON NORMALS: normal respiratory effort, No retractions, No use of accessory muscles and clear to auscultation bilaterally AUSCULTATION: clear to auscultation bilaterally Cardio: COMMON NORMALS: no JVD, regular rate, regular rhythm, S1 normal heart sound present, S2 normal heart sound present, No gallops present (Cardio), No clicks present (Cardio) and No murmurs present (Cardio) RATE: regular rate RHYTHM: regular rhythm HEART SOUNDS: S1 normal heart sound present and S2 normal heart sound present GI: COMMON NORMALS: Normal to inspection, nondistended, normoactive bowel sounds present, Soft to palpation, non-tender, No hepatosplenomegaly present and no masses PALPATION: Yes Soft to palpation and Yes No hepatosplenomegaly present Neuro: MENINGEAL SIGNS: Yes no meningeal signs Course 2 Vital Signs: Vital signs: Vital Signs Temperature 97.6 F 07/22/23 16:00 Pulse Rate 69 07/22/23 16:00 Respiratory Rate 18 07/22/23 16:00 Blood Pressure 119/56 07/22/23 16:00 Pulse Oximetry 95 07/22/23 16:00 Oxygen Delivery Me thod Room Air 07/22/23 16:00 MDM - Altered Mental Status Medical Decision Making Chest x-ray showed left basilar pneumonia, blood work showed white count 12.05, sodium of 129, lactic acid 1.5, calcium 8.4, phosphorus 3.0, magnesium 1.7, C- reactive protein 169.9, procalcitonin 0.21 talk to family and told him the results. Family would like patient be placed back in the hospital where we can treat this pneumonia and maybe see why he is having swallowing difficulties, not eating and losing weight. Discussed with Dr. Eduardo we will place patient observation. Differential Diagnosis Unlikely alcoholic intoxication, altered mental status, delirium, dementia, hypoglycemia, hyponatremia, subarachnoid hemorrhage or sepsis Medical Records I reviewed the patient's medical records. Lab Data I reviewed the patient's lab results. 07/22/23 05:42 07/22/23 05:42 Radiology Impressions Chest X-Ray 07/21/23 18:58 IMPRESSION: Left basilar pneumonia Laboratory Results WBC 12.05 10^3/uL (3.29-11.43) H 07/21/23 19:07 RBC 3.72 10^6/uL (3.85-5.65) L 07/21/23 19:07 Hgb 10.60 g/dL (11.27-16.99) L 07/21/23 19:07 Hct 32.9 % (37-53) L 07/21/23 19:07 MCV 88.4 fl (82-101) 07/21/23 19:07 MCH 28.5 pg (27-33) 07/21/23 19:07 MCHC 32.2 g/dL (30-55) 07/21/23 19:07 RDW 15.6 % (12.1-15.1) H 07/21/23 19:07 Plt Count 299 10^3/cmm (157-399) 07/21/23 19:07 MPV 9.8 fL (7.4-10.4) 07/21/23 19:07 Neut % (Auto) 78.8 % 07/21/23 19:07 Lymph % (Auto) 16.8 % 07/21/23 19:07 [place] % (Auto) 3.6 % 07/21/23 19:07 Eos % (Auto) 0.1 % 07/21/23 19:07 Baso % (Auto) 0.2 % 07/21/23 19:07 Neut # (Auto) 9.50 10^3/uL (1.8-7.7) H 07/21/23 19:07 Lymph # (Auto) 2.0 10^3/uL (0.8-4.8) 07/21/23 19:07 [place] # (Auto) 0.4 10^3/uL (0.2-0.9) 07/21/23 19:07 Eos # (Auto) 0.0 10^3/uL (0.0-0.8) 07/21/23 19:07 Baso # (Auto) 0.0 10^3/uL (0.0-0.1) 07/21/23 19:07 Nucleated RBC % (auto) 0 % 07/21/23 19:07 Nucleated RBCs # 0.0 /100WBC 07/21/23 19:07 Sodium 129 mmol/L (136-145) L 07/21/23 19:07 Potassium 3.8 mmol/L (3.5-5.1) 07/21/23 19:07 Chloride 93 mmol/L (98-107) L 07/21/23 19:07 Carbon Dioxide 23 mmol/L (22-29) 07/21/23 19:07 Anion Gap 16.8 (5-19) 07/21/23 19:07 BUN 16 mg/dL (8-23) 07/21/23 19:07 Creatinine 1.0 mg/dL (0.7-1.2) 07/21/23 19:07 GFR Calculation Not Reportable 07/21/23 19:07 Glucose 167 mg/dL (65-115) H 07/21/23 19:07 Calculated Osmolality 273 mOsm/kg (285-295) L 07/21/23 19:07 Lactic Acid 1.5 mmol/L (0.5-2.2) 07/21/23 19:07 Calcium 8.4 mg/dL (8.5-10.5) L 07/21/23 19:07 Phosphorus 3.0 mg/dL (2.5-4.5) 07/21/23 19:07 Magnesium 1.7 mg/dL (1.7-2.3) 07/21/23 19:07 Total Bilirubin 0.5 mg/dL (0.15-1.2) 07/21/23 19:07 AST 17 U/L (0-40) 07/21/23 19:07 ALT 8 U/L (0-41) 07/21/23 19:07 Alkaline Phosphatase 101 U/L (40-130) 07/21/23 19:07 C-Reactive Protein 169.9 mg/L (0.0-4.9) H 07/21/23 19:07 Total Protein 7.4 g/dL (6.6-8.7) 07/21/23 19:07 Albumin 2.9 g/dL (3.5-5.2) L 07/21/23 19:07 Globulin 4.5 g/dL (1.3-4.6) 07/21/23 19:07 Prealbumin 7.3 mg/dL (20-40) L 07/21/23 19:07 Procalcitonin 0.21 ng/mL (0-0.5) 07/21/23 19:07 All radiology interpretation(s) finalized by discharge Discharge Plan Discharge Patient Disposition: Placed in Observation Admit Provider: Jd Eduardo Clinical Impression: Unintentional weight loss, Acute confusion Pneumonia Qualifiers: Pneumonia type: due to unspecified organism Laterality: left Lung location: l ower lobe of lung Qualified Code(s): J18.9 - Pneumonia, unspecified organism Diabetic foot ulcer Qualifiers: Diabetic foot ulcer location: unspecified part of foot Diabetes mellitus type: type 2 Laterality: left Non-pressure ulcer stage: unspecified non-pressure ulcer stage Qualified Code(s): E11.621 - Type 2 diabetes mellitus with foot ulcer Dysphagia Qualifiers: Dysphagia type: unspecified Qualified Code(s): R13.10 - Dysphagia, unspecified Coding Level of Care Code ED Model Technician for Thang Mejia
[2023-07-21 19:54] LABS: Basophils % 0.2 %; Eosinophils % 0.1 %; Hematocrit 32.9 % (37-53); Lymphocytes % 16.8 %; Mean Corpuscular HGB Conc 32.2 g/dL (30-55); Mean Corpuscular Hemoglobin 28.5 pg (27-33); Mean Corpuscular Volume 88.4 fl (82-101); Mean Platelet Volume 9.8 fL (7.4-10.4); Monocytes # 0.4 10^3/uL (0.2-0.9); Monocytes % 3.6 %; Neutrophils % 78.8 %; Nucleated Red Blood Cells % 0 %; Platelet Count 299 10^3/cmm (157-399); Red Blood Count 3.72 10^6/uL (3.85-5.65); Red Cell Distribution Width 15.6 % (12.1-15.1); White Blood Count 12.05 10^3/uL (3.29-11.43)
[2023-07-21 19:59] LABS: Lactic Sepsis W/Reflex 1.5 mmol/L (0.5-2.2)
[2023-07-21 20:06] LABS: Procalcitonin 0.21 ng/mL (0-0.5)
[2023-07-21 20:18] LABS: Alanine Aminotransferase 8 U/L (0-41); Albumin Level 2.9 g/dL (3.5-5.2); Alkaline Phosphatase 101 U/L (40-130); Anion Gap 16.8 (5-19); Aspartate Amino Transferase 17 U/L (0-40); Blood Urea Nitrogen 16 mg/dL (8-23); C Reactive Protein 169.9 mg/L (0.0-4.9); Calcium 8.4 mg/dL (8.5-10.5); Carbon Dioxide 23 mmol/L (22-29); Chloride 93 mmol/L (98-107); Globulin 4.5 g/dL (1.3-4.6); Glucose 167 mg/dL (65-115); Magnesium 1.7 mg/dL (1.7-2.3); Osmolality Calculated 273 mOsm/kg (285-295); Potassium 3.8 mmol/L (3.5-5.1); Prealbumin 7.3 mg/dL (20-40); Sodium 129 mmol/L (136-145); Total Bilirubin 0.5 mg/dL (0.15-1.2); Total Protein 7.4 g/dL (6.6-8.7)
[2023-07-21] MEDS: ondansetron 2 mg/ML SDV 2 mL 4 MG IVP (21:01)
[2023-07-21] MEDS: morphine 4 mg/mL SDV 1 mL IVP ×2 (21:02→22:38)
[2023-07-21] MEDS: sodium chloride 0.9% 1,000 ML 999 ML IV (21:30)
--- NOTE | 2023-07-21 21:33 | PM.HP ---
Providers/Chief Complaint Primary Care Provider: Marzena Jesus MD Chief Complaint: open sore on right foot, History of Present Illness Justice Guardado is a 73 year old male with a past medical history significant for type 2 diabetes mellitus with neuropathy, hypertension, peripheral arterial disease, hyperlipidemia, left BKA, chronic wound of right lower extremity, and multiple other comorbidities who presents emergency department with altered mental status for the past several days. Two family members are bedside who provide collateral information as well as the patient provides much history. They report the patient is usually mentally intact and still for the most part is however he has had some intermittent confusion the last several days. They state this is not his baseline. He endorses associated symptoms of fevers, chills, and cough for the past week. Of note, patient was recently evaluated in the emergency department for syncope on 07/17/23 where he was found to have urinary tract infection treated with Bactrim. CT abdomen had multiple findings including diffuse urinary bladder wall thickening concerning for cystitis, perinephric edema concerning for possible pyelonephritis, minimal hydronephrosis bilaterally without obstruction lesion. Urine culture resulted with ESBL Klebsiella pneumoniae. It does not appear his antibiotics were changed despite resistance pattern. In the ED tonight, labs revealed leukocytosis. Chest x-ray revealed left basilar pneumonia. He received Zosyn in the ED. Family report the patient is his own decision maker. They states that he was recently discharged to [facility] however he did not stay as he cannot use marijuana products for pain control. His pain became uncontrolled prompting him to return home. Their goal is for patient to return home with home health. Review of Systems Narrative: A complete review of systems was obtained and is negative except as stated in HPI. Medications/Allergies Home Medications Medication Instructions Recorded Confirmed Last Taken Type atorvastatin 40 mg tablet 40 mg PO DAILY #60 tabs 06/19/23 07/16/23 07/03/23 Rx finasteride 5 mg tablet 5 mg PO DAILY #60 tabs 06/19/23 07/16/23 07/03/23 Rx tamsulosin 0.4 mg capsule 0.4 mg PO DAILY #60 caps 06/19/23 07/16/23 07/03/23 Rx aspirin 81 mg capsule 81 mg PO DAILY 30 days #30 caps 06/29/23 07/16/23 07/03/23 Rx docusate sodium 100 mg capsule 100 mg PO BID #14 caps 06/29/23 07/16/23 07/03/23 Rx (Colace) ferrous sulfate 325 mg (65 mg 325 mg PO BID 30 days #60 tabs 06/29/23 07/16/23 07/03/23 Rx iron) tablet glucometer testing kit #1 ea 06/29/23 07/16/23 Unknown Rx insulin aspart U-100 100 unit/mL See Rx Instructions .Route 06/29/23 07/16/23 07/03/23 Rx (3 mL) subcutaneous pen (Novolog .COMPLEX #15 mL FlexPen U-100 Insulin aspart) oxycodone-acetaminophen 7.5 mg-325 1 tab PO Q6H PRN pain #20 tabs 06/29/23 07/16/23 07/03/23 Rx mg tablet pantoprazole 40 mg tablet,delayed 40 mg PO BID 30 days #60 tabs 06/29/23 07/16/23 07/03/23 Rx release (Protonix) sucralfate 1 gram tablet (Carafate) 1 g PO BID 4 weeks #56 tabs 06/29/23 07/16/23 07/03/23 Rx metformin 500 mg tablet 500 mg PO BID #180 tabs 07/04/23 07/16/23 Unknown Rx sodium phosphates 19 gram-7 118 ml TX DAILY PRN 07/09/23 07/16/23 Unknown History gram/118 mL enema (Fleet Enema) acetaminophen 325 mg tablet 325 mg PO QID PRN 07/15/23 07/16/23 Unknown History (Tylenol) ondansetron 4 mg disintegrating mg PO DAILY PRN 07/15/23 07/16/23 Unknown History tablet sulfamethoxazole 800 1 tab PO BID #20 tabs 07/17/23 Unknown Rx mg-trimethoprim 160 mg tablet (Bactrim DS) Allergies Allergy/AdvReac Type Severity Reaction Status Date / Time No Known Allergies Allergy Verified 07/17/23 20:01 PFSH Acute PFSH: Medical History (Updated 07/21/23 @ 22:45 by Jd Eduardo MD) Syncope Decubitus ulcer Acute cystitis Hand edema Shoulder pain, right Cellulitis and abscess of other specified site Diabetic peripheral neuropathy associated with type 2 diabetes mellitus Diabetes A1c 8.7 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 PAD (peripheral artery disease) Abscess or cellulitis of foot Diabetic foot ulcer UTI (urinary tract infection) Gangrene of right foot Cellulitis of right leg Abdominal wall abscess Hypertension Hyperlipidemia Nephrolithiasis Diabetes Short-term memory loss DDD (degenerative disc disease) Refusal of statin medication by patient Surgical History Status post below-knee amputation of left lower extremity History of vasectomy History of hemorrhoidectomy History of lithotripsy History of tracheostomy History of hernia repair Periumbilical x2 / mesh Family History Other Diabetes Social History Smoking and tobacco/nicotine status: never used tobacco/nicotine Alcohol intake: never Substance/Drug Use: never Lives independently: Yes Household members: none Marital status: Current 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 Pets and animals: Yes Vitals/I&O/Wt Last Vital Signs Temp 97.7 F 07/21/23 18:52 Pulse 70 07/21/23 21:20 Resp 16 07/21/23 21:02 BP 108/55 07/21/23 21:20 Pulse Ox 96 07/21/23 21:20 O2 Del Method Room Air 07/21/23 21:20 Weight last 48 hrs Weight 58.967 kg Physical Exam Narrative: General: Patient is awake and alert. Head: Normocephalic. Atraumatic. EOM intact. Neck: No JVD. Cardiovascular: RRR. No gallops. No murmurs. No peripheral edema. Lungs: Clear to auscultation, no use of accessory muscles, no crackles or wheezes. Skin: No jaundice. No rashes. Abdomen: Normal bowel sounds, abdomen soft and nontender. Genito Urinary: Genital exam not performed since complaints not related. Rectal: Rectal exam not performed since no symptoms indicated blood loss. Extremities: No cyanosis or clubbing. Musculoskeletal: 5/5 strength, normal range of motion, no swollen or erythematous joints. Neurological: Moves all 4 extremities. No myoclonus. Data 07/21/23 19:07 07/21/23 19:07 A&P Assessment and plan (1) ESBL (extended spectrum beta-lactamase) producing bacteria infection: Ux (2/1) with ESBL Klebsiella pneumonia Recent imaging with early pyelonephritis Discontinue Bactrim and Zosyn as organism is ESBL Start meropenem Change Parker catheter Blood cultures (2) Acute confusion: Acute infectious encephalopathy Treat underlying infection Monitor mentation closely Supportive care (3) Pneumonia: Starting meropenem as above Bacterial antigens ordered History of dysphagia noted Qualifiers: Laterality: left Lung location: lower lobe of lung Pneumonia type: due to unspecified organism Qualified Code(s): J18.9 - Pneumonia, unspecified organism (4) Candidiasis of perineum: Start systemic treatment with fluconazole 200 mg daily for now, adjust dose pending clinical response (5) Unintentional weight loss: Associated with failure to thrive Treat underlying infection May need placement Recommend social work/case management consult in a.m. Family member plans to be present again in the a.m. (6) Diabetes: Hold oral medications SSI Qualifiers: Diabetes mellitus type: type 2 Diabetes mellitus senior living insulin use: without senior living use Diabetes mellitus complication status: without complication Qualified Code(s): E11.9 - Type 2 diabetes mellitus without complications (7) Diabetic foot ulcer: Follows with wound care, continue routine wound care Family reports wound is improving with treatment Qualifiers: Diabetes mellitus type: type 2 Diabetic foot ulcer location: unspecified part of foot Laterality: left Non-pressure ulcer stage: unspecified non-pressure ulcer stage Qualified Code(s): E11.621 - Type 2 diabetes mellitus with foot ulcer; L97.529 - Non-pressure chronic ulcer of other part of left foot with unspecified severity Plan DVT prophylaxis: Heparin CODE STATUS: Full code Attestations Medical Necessity Statement*: Patient presents with confusion in the setting of ESBL Klebsiella pneumonia urinary tract infection with suspected developing pyelonephritis, found to have pneumonia with expected hospitalization not to cross 2 midnights for initiation IV antibiotics. Coding Level of Care Code Acute Code for [facility] Fwd Diagnoses ESBL (extended spectrum beta-lactamase) producing bacteria infection A49.9; Z16.12 Acute confusion R41.0 Pneumonia J18.9 Laterality: left Lung location: lower lobe of lung Pneumonia type: due to unspecified organism Candidiasis of perineum B37.49 Unintentional weight loss R63.4 Type 2 diabetes mellitus without complication, without long-term current use of insulin E11.9 Diabetes mellitus type: type 2 Diabetes mellitus senior living insulin use: without manager intermediate use Diabetes mellitus complication status: without complication Diabetic foot ulcer E11.621; L97.529 Diabetes mellitus type: type 2 Diabetic foot ulcer location: unspecified part of foot Laterality: left Non-pressure ulcer stage: unspecified non-pressure ulcer stage
[2023-07-21] MEDS: piperacillin-tazobactam 3.375 GM in sodium chloride 0.9% (plus) 50 ML IV (22:03)
[2023-07-22 00:29] VITALS: BMI 23.3
[2023-07-22] MEDS: meropenem 1,000 MG in sodium chloride 0.9% (plus) 50 ML 100 MG IV ×4 (00:30→23:57)
[2023-07-22] MEDS: fluconazole premix 200 MG/100 ML PREMIX 100 MG IV (00:55)
[2023-07-22 03:35] VITALS: PULSE 77; RESP 18; O2SAT 92
[2023-07-22 03:37] LABS: Add Urine Microscopic? YES; Bilirubin Urine Neg (Negative); Blood Urine 3+ (Negative); Glucose Urine UA Trace (Normal); Ketones Urine 1+ (Negative); Leukocyte Esterase Urine 2+ (Negative); Nitrate Urine Positive (Negative); Protein Urine Trace (Negative); RBC Urine 15-25 /hpf (0-2); Specific Gravity, Urine 1.015 (1.005-1.030); Urine Appearance Hazy (CLEAR); Urine Color Yellow (Yellow); Urobilinogen Urine Neg (Negative); pH Urine 5 (5-7)
[2023-07-22 03:38] LABS: Add Urine Culture? No; Bacteria Urine 2+ /hpf; Mucus Urine 2+ /hpf; Squamous Epithelial Cell Urine 0-4 /hpf (0-5); WBC Urine 25-40 /hpf (0-5)
[2023-07-22 04:00] VITALS: BP 117/64; PULSE 69; RESP 18; TEMP 36.4; O2SAT 95
[2023-07-22 06:16] LABS: Basophils % 0.1 %; Eosinophils % 0.4 %; Hematocrit 25.8 % (37-53); Lymphocytes # 1.5 10^3/uL (0.8-4.8); Lymphocytes % 19.4 %; Mean Corpuscular HGB Conc 32.6 g/dL (30-55); Mean Corpuscular Hemoglobin 28.5 pg (27-33); Mean Corpuscular Volume 87.5 fl (82-101); Mean Platelet Volume 9.9 fL (7.4-10.4); Monocytes # 0.3 10^3/uL (0.2-0.9); Monocytes % 4.3 %; Neutrophils # 5.64 10^3/uL (1.8-7.7); Neutrophils % 75.4 %; Nucleated Red Blood Cells % 0 %; Platelet Count 246 10^3/cmm (157-399); Red Blood Count 2.95 10^6/uL (3.85-5.65); Red Cell Distribution Width 15.5 % (12.1-15.1); White Blood Count 7.48 10^3/uL (3.29-11.43)
[2023-07-22 06:34] LABS: Anion Gap 12.6 (5-19); Blood Urea Nitrogen 16 mg/dL (8-23); Calcium 7.9 mg/dL (8.5-10.5); Carbon Dioxide 25 mmol/L (22-29); Chloride 99 mmol/L (98-107); Glucose 119 mg/dL (65-115); Magnesium 1.7 mg/dL (1.7-2.3); Osmolality Calculated 278 mOsm/kg (285-295); Phosphorus 2.5 mg/dL (2.5-4.5); Potassium 3.6 mmol/L (3.5-5.1); Sodium 133 mmol/L (136-145)
[2023-07-22 06:36] LABS: Glucose Point of Care 127 mg/dL (70-110)
[2023-07-22 08:00] VITALS: BP 118/65; PULSE 72; RESP 16; TEMP 36.4; O2SAT 95
[2023-07-22] MEDS: pantoprazole DR 40 mg Tablet PO ×2 (08:29→17:46)
[2023-07-22] MEDS: tamsulosin 0.4 mg Capsule PO (08:29)
[2023-07-22] MEDS: sucralfate 1 gm Tablet PO ×2 (08:29→17:46)
[2023-07-22] MEDS: aspirin 81 mg EC Tablet PO (08:29)
[2023-07-22] MEDS: finasteride 5 mg Tablet PO (08:29)
--- NOTE | 2023-07-22 09:09 | PM.PN ---
Documented by User: ASHLEY Gaviria STDNT 07/22/23 10:51 Subjective Subjective: Justice Guardado is a 73-year-old male who presented to the ED on 07/21/2023 for altered mental status, generalized pain, and left basilar pneumonia. He was placed on a meropenem. On 07/17/2023 patient was in the ED for syncopal episode and found to have ESBL resistant Klebsiella pnuemoniae UTI. He was discharged to [facility] but rturned home because he was not able to use marijuana for pain control there. He has consumed little food, with intolerance to solid foods, over the last several months and has lost a significant amount of weight. His recent history of left below the knee leg amputation which is healing well. 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 He has a past medical history of coronary artery disease and diabetes mellitus. Today he is tired, oriented to person place, time and situation. He reports intermittent light headedness and believes he has had near syncopal episodes. Difficult to obtain recent past medical history. He reports no nausea or vomiting, or significant pain. Vitals/I&O/Wt Last Vital Signs Temp 97.6 F 07/22/23 08:00 Pulse 72 07/22/23 08:00 Resp 16 07/22/23 08:00 BP 118/65 07/22/23 08:00 Pulse Ox 95 07/22/23 08:00 O2 Del Method Room Air 07/22/23 08:00 07/21/23 07/22/23 07/22/23 22:59 06:59 14:59 Intake Total 1050 / 1050 150 / 1200 50 / 50 Output Total 250 / 250 Balance 1050 / 1050 -100 / 950 50 / 50 Weight last 48 hrs Weight 171 lb 11.2 oz Weight 171 lb 11.2 oz Weight 130 lb Physical Exam Narrative: General oriented to person place time and situation, patient can carry on a conversation but is tangential and appears tired HEENT normocephalic atraumatic EOMI PERRL neck supple no lymphadenopathy no thyromegaly Cardiac regular rhythm and rate no murmurs rubs or gallops, no edema radial pulses intact, capillary refill and right lower extremity less than 3 seconds Pulmonary normal breath sounds, upper airway congestion Abdomen bowel sounds increased deferred Parker noted Extremities, patient has a below the knee left leg amputation healing well, right lower extremity is ruborous edema +1, 1+ dorsal pedal pulse, movement intact, sensation decreased, fifth metatarsal amputation noted, wound wet without purulence, no erythema, scar tissue present on edges of open wound Neuro no focal deficit Psych normal mood and affect Urinary Catheter Management: Parker: Cath Placed During This Visit: yes Reason for Continuing Indwelling Catheter: Acute Urinary Retention or Obstruction Urinary Catheter Date of Insertion: 07/21/23 Urinary Catheter Time of Insertion: 23:00 Data 07/22/23 05:42 07/22/23 05:42 Other Labs: Labs today white count normal hemoglobin 8.4 red blood cell distribution width high 15.5%, CRP 169.9 high, albumin low 2.9, prealbumin low 7.3 UA Urine positive for white blood cells 15-25 red blood, positive nitrite positive leukocyte Estrase Bacterial antigens negative Micro: Microbiology 07/22/23 03:15 Bacterial Antigens - Final Urine,Clean Catch 07/21/23 21:57 Blood Culture - Preliminary Blood SPECIMEN COLLECTED 07/21/23 21:52 Blood Culture - Preliminary Blood SPECIMEN COLLECTED A&P Assessment and plan (1) ESBL (extended spectrum beta-lactamase) producing bacteria infection: UTI with ESBL Klebsiella pneumonia Recent imaging with early pyelonephritis continue meropenem Change Parker catheter Blood cultures pending bacterial antigens negative (2) Acute confusion: Acute infectious encephalopathy Resolved today continue to treat underlying infection with meropenem Monitor mentation closely Supportive care (3) Pneumonia: Starting meropenem as above Bacterial antigens ordered History of dysphagia noted Qualifiers: Laterality: left Lung location: lower lobe of lung Pneumonia type: due to unspecified organism Qualified Code(s): J18.9 - Pneumonia, unspecified organism (4) Candidiasis of perineum: continue oral fluconazole 200 mg daily for now, adjust dose pending clinical response (5) Unintentional weight loss: Associated with failure to thrive, and possible dysphagia of solids Treat underlying infection May need placement Recommend social work/case management consult in a.m. Family member plans to be present again in the a.m. (6) Diabetes: Hold oral medications SSI Qualifiers: Diabetes mellitus complication status: without complication Diabetes mellitus long-term insulin use: without long-term use Diabetes mellitus type: type 2 Qualified Code(s): E11.9 - Type 2 diabetes mellitus without complications (7) Diabetic foot ulcer: Follows with wound care, continue routine wound care Family reports wound is improving with treatment Qualifiers: Diabetes mellitus type: type 2 Diabetic foot ulcer location: unspecified part of foot Laterality: left Non-pressure ulcer stage: unspecified non-pressure ulcer stage Qualified Code(s): E11.621 - Type 2 diabetes mellitus with foot ulcer; L97.529 - Non-pressure chronic ulcer of other part of left foot with unspecified severity Plan DVT prophylaxis: Heparin CODE STATUS: Full code Coding Level of Care Code 65831 Diagnoses ESBL (extended spectrum beta-lactamase) producing bacteria infection A49.9; Z16.12 Acute confusion R41.0 Pneumonia J18.9 Laterality: left Lung location: lower lobe of lung Pneumonia type: due to unspecified organism Candidiasis of perineum B37.49 Unintentional weight loss R63.4 Type 2 diabetes mellitus without complication, without long-term current use of insulin E11.9 Diabetes mellitus complication status: without complication Diabetes mellitus terminal superintendent insulin use: without long-term use Diabetes mellitus type: type 2 Diabetic foot ulcer E11.621; L97.529 Diabetes mellitus type: type 2 Diabetic foot ulcer location: unspecified part of foot Laterality: left Non-pressure ulcer stage: unspecified non-pressure ulcer stage Time Spent (min) 24 Documented by User: Mal Alarcon MD 07/22/23 10:58 Subjective Subjective: Justice Guardado is a 73-year-old male who presented to the ED on 07/21/2023 for altered mental status, generalized pain, and left basilar pneumonia. He was placed on a meropenem. On 07/17/2023 patient was in the ED for syncopal episode and found to have ESBL resistant Klebsiella pnuemoniae UTI. He was discharged to [facility] but returned home because he was not able to use marijuana for pain control there. He has consumed little food, with intolerance to solid foods, over the last several months and has lost a significant amount of weight. His recent history of left below the knee leg amputation which is healing well. 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 He has a past medical history of coronary artery disease and diabetes mellitus. Today he is tired, oriented to person place, time and situation. He reports intermittent light headedness and believes he has had near syncopal episodes. He reports no nausea or vomiting, or significant pain. Medications: Reviewed: Yes Physical Exam Narrative: General oriented to person place time and situation, patient can carry on a conversation but is tangential and appears tired HEENT normocephalic atraumatic EOMI PERRL neck supple no lymphadenopathy no thyromegaly Cardiac regular rhythm and rate no murmurs rubs or gallops, no edema radial pulses intact, capillary refill and right lower extremity less than 3 seconds Pulmonary normal breath sounds, upper airway congestion Abdomen bowel sounds increased deferred Parker noted Extremities, patient has a below the knee left leg amputation healing well, right lower extremity is ruborous edema +1, 1+ dorsal pedal pulse, movement intact, sensation decreased, fifth metatarsal amputation noted, wound without purulence, no erythema, scar tissue present on edges of open wound Neuro no focal deficit Psych normal mood and affect Urinary Catheter Management: Parker: Cath Placed During This Visit: yes Data 07/22/23 05:42 07/22/23 05:42 A&P Assessment and plan (1) ESBL (extended spectrum beta-lactamase) producing bacteria infection: UTI with ESBL Klebsiella pneumonia Recent imaging with early pyelonephritis continue meropenem Change Parker catheter Blood cultures pending bacterial antigens negative Will need IV or ertapenem on discharge once stabilized, for approximately 10 to 14 days. CBC, BMP in the morning (2) Acute confusion: Acute infectious encephalopathy Significantly improved continue to treat underlying infection with meropenem Monitor mentation closely Supportive care (3) Pneumonia: Starting meropenem as above Bacterial antigens negative History of dysphagia noted Speech therapy consultation Qualifiers: Laterality: left Lung location: lower lobe of lung Pneumonia type: due to unspecified organism Qualified Code(s): J18.9 - Pneumonia, unspecified organism (4) Candidiasis of perineum: (5) Unintentional weight loss: (6) Diabetes: Qualifiers: Diabetes mellitus complication status: without complication Diabetes mellitus long-term insulin use: without terminal superintendent use Diabetes mellitus type: type 2 Qualified Code(s): E11.9 - Type 2 diabetes mellitus without complications (7) Diabetic foot ulcer: Follows with wound care, continue routine wound care as recommended by wound care specialty who has been seeing him. Family reports wound is improving with treatment Qualifiers: Diabetes mellitus type: type 2 Diabetic foot ulcer location: unspecified part of foot Laterality: left Non-pressure ulcer stage: unspecified non-pressure ulcer stage Qualified Code(s): E11.621 - Type 2 diabetes mellitus with foot ulcer; L97.529 - Non-pressure chronic ulcer of other part of left foot with unspecified severity Attestations Medical Necessity Statement*: Needs continued hospital stay for IV antibiotics related to UTI with ESBL. Diagnoses ESBL (extended spectrum beta-lactamase) producing bacteria infection A49.9; Z16.12 Acute confusion R41.0 Pneumonia J18.9 Laterality: left Lung location: lower lobe of lung Pneumonia type: due to unspecified organism Candidiasis of perineum B37.49 Unintentional weight loss R63.4 Type 2 diabetes mellitus without complication, without long-term current use of insulin E11.9 Diabetes mellitus complication status: without complication Diabetes mellitus terminal superintendent insulin use: without terminal superintendent use Diabetes mellitus type: type 2 Diabetic foot ulcer E11.621; L97.529 Diabetes mellitus type: type 2 Diabetic foot ulcer location: unspecified part of foot Laterality: left Non-pressure ulcer stage: unspecified non-pressure ulcer stage Time Spent (min) 24
--- NOTE | 2023-07-22 09:46 | PC.CHAP ---
Pastoral Care Encounter/Spiritual Assessment Type of Contact [] Declined check airman visit [] Patient/Family/Request visit [] Outpatient visit [] Follow-up visit [] Physician referral [] Code/Alert [x] Routine visit [] Staff referral [] Actively dying [] Patient sleeping [] Family support [] [] Out of room [] Palliative care [] [] Receiving care in room [] Pre-surgical visit [] Trauma [] Long length of stay [] ICU visit [] Other: Relational/Emotional Strength [x] Patient feels connected with others/family/visitors/staff [] Distress [] Loneliness/isolation [] Abandonment Spirituality of Patient [x] Person of Stephanie [] Attends Mandaeism of their Stephanie [x] Believes in Prayer [] Reads Bible or Judaism materials [] There are Spiritual issues to be addressed Plant Culture Manager Interventions [x] Prayer [x] Active listening [] Non-anxious presence [x] Spiritual/emotional support [] Crisis/trauma care [] Spiritual counseling [] Bereavement support [] Provided bereavement packet [] Provided Bible/devotional materials [] Provided toy/stuffed animal, coloring book to patient or family member [] Provided Communion [] Anointing/[place] [] Salvation [x] Completed spiritual assessment [] Other: Impact on Illness or Injury [] Angry [] Fearful [] Anxious [] Often cries [] Exhaustion [] Unable to work [] Unable to attend christian [] Unable to walk/stand [] Unable to read [] Unable to drive [] Unable to eat/drink [] Unable to sleep [] Unable to be with family [] Patient intubated [] Other: Summary Time spent with patient 5 min
[2023-07-22 11:56] VITALS: BP 118/62; PULSE 75; RESP 18; TEMP 36.6; O2SAT 93
[2023-07-22 12:30] LABS: Glucose Point of Care 135 mg/dL (70-110)
--- NOTE | 2023-07-22 15:38 | PC.NURSE ---
Patient's wound was redressed during my shift. Wound was cleaned with saline and dressed with Hydrafera blue and Kerlex. Serosanguineous drainage noted. Patient tolerated well with no questions or concerns. Plan of care ongoing.
[2023-07-22 16:00] VITALS: BP 119/56; PULSE 69; RESP 18; TEMP 36.4; O2SAT 95
[2023-07-22 17:28] LABS: Glucose Point of Care 117 mg/dL (70-110)
[2023-07-22] MEDS: docusate sodium 100 mg Capsule PO (17:47)
[2023-07-22 20:00] VITALS: BP 115/64; PULSE 70; RESP 17; TEMP 36.6; O2SAT 95
[2023-07-22] MEDS: atorvastatin 40 mg Tablet PO (21:03)
[2023-07-22 21:20] LABS: Glucose Point of Care 135 mg/dL (70-110)
[2023-07-23] VITALS: BP 121/69; PULSE 68; RESP 17; TEMP 36.6; O2SAT 96
[2023-07-23] MEDS: fluconazole premix 200 MG/100 ML PREMIX 100 MG IV (00:27)
[2023-07-23 04:00] VITALS: BP 118/63; PULSE 63; RESP 16; TEMP 36.6; O2SAT 96
[2023-07-23 06:10] LABS: Basophils % 0.2 %; Eosinophils % 0.6 %; Hematocrit 26.4 % (37-53); Lymphocytes # 1.1 10^3/uL (0.8-4.8); Lymphocytes % 22.2 %; Mean Corpuscular HGB Conc 31.8 g/dL (30-55); Mean Corpuscular Hemoglobin 28.8 pg (27-33); Mean Corpuscular Volume 90.4 fl (82-101); Mean Platelet Volume 9.7 fL (7.4-10.4); Monocytes # 0.3 10^3/uL (0.2-0.9); Monocytes % 6.1 %; Neutrophils # 3.49 10^3/uL (1.8-7.7); Neutrophils % 70.5 %; Nucleated Red Blood Cells % 0 %; Platelet Count 223 10^3/cmm (157-399); Red Blood Count 2.92 10^6/uL (3.85-5.65); Red Cell Distribution Width 15.4 % (12.1-15.1); White Blood Count 4.95 10^3/uL (3.29-11.43)
[2023-07-23 06:31] LABS: Glucose Point of Care 112 mg/dL (70-110)
[2023-07-23 06:34] LABS: Anion Gap 14.6 (5-19); Blood Urea Nitrogen 10 mg/dL (8-23); Calcium 7.4 mg/dL (8.5-10.5); Carbon Dioxide 22 mmol/L (22-29); Chloride 98 mmol/L (98-107); Glucose 116 mg/dL (65-115); Osmolality Calculated 272 mOsm/kg (285-295); Potassium 3.6 mmol/L (3.5-5.1); Sodium 131 mmol/L (136-145)
[2023-07-23 08:41] VITALS: BP 104/61; PULSE 70; RESP 18; TEMP 36.3; O2SAT 97
[2023-07-23] MEDS: meropenem 1,000 MG in sodium chloride 0.9% (plus) 50 ML 100 MG IV ×2 (10:01→23:42)
[2023-07-23] MEDS: tamsulosin 0.4 mg Capsule PO (10:02)
[2023-07-23] MEDS: sucralfate 1 gm Tablet PO ×2 (10:02→17:30)
[2023-07-23] MEDS: finasteride 5 mg Tablet PO (10:02)
[2023-07-23] MEDS: pantoprazole DR 40 mg Tablet PO ×2 (10:02→17:30)
[2023-07-23] MEDS: aspirin 81 mg EC Tablet PO (10:02)
[2023-07-23] MEDS: docusate sodium 100 mg Capsule PO (10:02)
--- NOTE | 2023-07-23 10:26 | XRR_ITS ---
PROCEDURE INFORMATION: Exam: XR Chest Exam date and time: 07/23/2023 11:35 AM Age: 73 years old Clinical indication: Device placement; Picc; Additional info: Post picc insertion, callie placing on ms room 275. Will call when ready. TECHNIQUE: Imaging protocol: Radiologic exam of the chest. Views: 1 view. COMPARISON: CR (CHEST, ) 07/21/2023 7:06 PM FINDINGS: Tubes, catheters and devices: Interval placement of right arm PICC with tip overlying the superior cavoatrial junction. Lungs: Similar retrocardiac consolidation/collapse. The right lung is clear. Pleural spaces: No sizable pleural effusion or pneumothorax. Heart/Mediastinum: No cardiomegaly. Bones/joints: Unremarkable. XR/XR chest 1V portable [id number] IMPRESSION: 1. Right arm PICC with tip overlies the superior cavoatrial junction. 2. Similar retrocardiac consolidation/collapse.
--- NOTE | 2023-07-23 11:04 | P.PN_ITS ---
Documented by User: ASHLEY Gaviria STDNT 07/23/23 11:34 Subjective 2 Subjective: Justice Guardado is a 73-year-old male who presented to the ED on 07/21/2023 for altered mental status, generalized pain, and left basilar pneumonia. He was placed on a meropenem. On 07/17/2023 patient was in the ED for syncopal episode and found to have ESBL resistant Klebsiella pnuemoniae UTI. He was discharged to [facility] but returned home because he was not able to use marijuana for pain control and appetite there. Over the last several months he has lost a significant amount of weight, consumed little food, with aversion to solid foods. His recent history of left below the knee leg amputation which is healing well. 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 He has a past medical history of coronary artery disease and diabetes mellitus. Today he is alert and oriented to person place, time and situation. He is sitting in a chair, but is weak and requires assistance moving from the chair to the bed on his R leg. He is wearing a boot on his R foot. He reports no nausea or vomiting, congestion, fever or significant pain. Medications: Reviewed: Yes Vitals/I&O/Wt Last Vital Signs Temp 97.4 F L 07/23/23 08:41 Pulse 70 07/23/23 08:41 Resp 18 07/23/23 08:41 BP 104/61 07/23/23 08:41 Pulse Ox 97 07/23/23 08:41 O2 Del Method Room Air 07/23/23 08:41 07/22/23 07/23/23 07/23/23 22:59 06:59 14:59 Intake Total 530 / 1060 150 / 1210 50 / 50 Output Total 300 / 300 750 / 1050 Balance 230 / 760 -600 / 160 50 / 50 Weight last 48 hrs Weight 180 lb Weight 171 lb 11.2 oz Weight 171 lb 11.2 oz Weight 130 lb Physical Exam 2 Narrative: General oriented to person place time and situation, patient can carry on a conversation but is tangential and appears tired HEENT normocephalic atraumatic EOMI PERRL neck supple no lymphadenopathy no thyromegaly Cardiac regular rhythm and rate no murmurs rubs or gallops, no edema radial pulses intact, capillary refill and right lower extremity less than 3 seconds Pulmonary normal breath sounds, upper airway congestion Abdomen bowel sounds increased significant yeast rash in groin, genitals and gluteal folds, Parker noted Extremities, patient has a below the knee left leg amputation healing well, right lower extremity is ruborous edema +1, 1+ dorsal pedal pulse, movement intact, sensation decreased, fifth metatarsal amputation noted, wound without purulence, no erythema, scar tissue present on edges of open wound Neuro no focal deficit Psych normal mood and affect Urinary Catheter Management: Parker: Cath Placed During This Visit: yes Reason for Continuing Indwelling Catheter: Acute Urinary Retention or Obstruction Urinary Catheter Date of Insertion: 07/21/23 Urinary Catheter Time of Insertion: 23:00 Data 07/23/23 05:30 07/23/23 05:30 Other Labs: Labs today with little to no change from yesterday, except a decrease in Ore Storage Drier from 0.9 to 0.6 which is now low. White count normal down to 4.95 thousand from 7.48 thousand, hemoglobin 8.4 red blood cell distribution width high 15.4%, not obtained today: Urinalysis, CRP, albumin, total protein Micro: Microbiology 07/21/23 21:57 Blood Culture - Preliminary Blood NEGATIVE TO DATE 07/21/23 21:52 Blood Culture - Preliminary Blood NEGATIVE TO DATE 07/22/23 03:15 Bacterial Antigens - Final Urine,Clean Catch A&P Assessment and plan (1) ESBL (extended spectrum beta-lactamase) producing bacteria infection: UTI with ESBL Klebsiella pneumonia Recent imaging with early pyelonephritis continue meropenem Change Parker catheter Blood cultures pending bacterial antigens negative Will need picc line for IV meropenem on discharge once stabilized, for approximately 14 days. CBC, BMP in the morning (2) Acute confusion: Acute infectious encephalopathy remains Significantly improved continue to treat underlying infection with meropenem Monitor mentation closely Supportive care (3) Pneumonia: Meropenem 14 IV as above Bacterial antigens negative History of dysphagia noted Speech therapy consultation Qualifiers: Laterality: left Lung location: lower lobe of lung Pneumonia type: due to unspecified organism Qualified Code(s): J18.9 - Pneumonia, unspecified organism (4) Candidiasis of perineum: continue oral fluconazole 200 mg daily for now, adjust dose pending clinical response (5) Unintentional weight loss: Associated with failure to thrive, and possible dysphagia of solids Treat underlying infection May need placement in nursing rehab facility Recommend social work/case management consult in a.m. Family member plans to be present again in the a.m. (6) Diabetes: Hold oral medications SSI Qualifiers: Diabetes mellitus complication status: without complication Diabetes mellitus long-term insulin use: without ocean transportation intermediary use Diabetes mellitus type: t ype 2 Qualified Code(s): E11.9 - Type 2 diabetes mellitus without complications (7) Diabetic foot ulcer: Follows with wound care, continue routine wound care as recommended by wound care specialty who has been seeing him. Family reports wound is improving with treatment Qualifiers: Diabetes mellitus type: type 2 Diabetic foot ulcer location: u nspecified part of foot Laterality: left Non-pressure ulcer stage: unspecified non-pressure ulcer stage Qualified Code(s): E11.621 - Type 2 diabetes mellitus with foot ulcer; L97.529 - Non-pressure chronic ulcer of other part of left foot with unspecified severity Plan DVT prophylaxis: Heparin CODE STATUS: Full code Attestations 2 Medical Necessity Statement*: Patient needs continued hospitalization for UTI, and significant weight loss with decreased oral intake. Will consider discharge to nursing facility on IV antibiotics if patient remains alert and stable and can find placement. Coding Level of Care Code 45785 Diagnoses ESBL (extended spectrum beta-lactamase) producing bacteria infection A49.9; Z16.12 Acute confusion R41.0 Pneumonia J18.9 Laterality: left Lung location: lower lobe of lung Pneumonia type: due to unspecified organism Candidiasis of perineum B37.49 Unintentional weight loss R63.4 Type 2 diabetes mellitus without complication, without long-term current use of insulin E11.9 Diabetes mellitus complication status: without complication Diabetes mellitus ocean transportation intermediary insulin use: without long-term use Diabetes mellitus type: type 2 Diabetic foot ulcer E11.621; L97.529 Diabetes mellitus type: type 2 Diabetic foot ulcer location: unspecified part of foot Laterality: left Non-pressure ulcer stage: unspecified non-pressure ulcer stage Time Spent (min) 24 Documented by User: Mal Alarcon MD 07/23/23 11:58 Physical Exam 2 Narrative: General oriented to person place time and situation, patient can carry on a conversation but is tangential and appears tired HEENT normocephalic atraumatic EOMI PERRL neck supple no lymphadenopathy no thyromegaly Cardiac regular rhythm and rate no murmurs rubs or gallops, no edema radial pulses intact, capillary refill and right lower extremity less than 3 seconds Pulmonary normal breath sounds, upper airway congestion Abdomen bowel sounds increased candidal rash in groin, genitals and gluteal folds, Parker noted Extremities, patient has a below the knee left leg amputation healing well, right lower extremity is ruborous edema +1, 1+ dorsal pedal pulse, movement intact, sensation decreased, fifth metatarsal amputation noted, wound without purulence, no erythema, scar tissue present on edges of open wound Neuro no focal deficit Psych normal mood and affect Urinary Catheter Management: Parker: Cath Placed During This Visit: yes Data 07/23/23 05:30 07/23/23 05:30 A&P Assessment and plan (1) ESBL (extended spectrum beta-lactamase) producing bacteria infection: UTI with ESBL Klebsiella pneumonia on July 17 Urine culture July 22, in the setting of antibiotics that would have reduced growth but not treated the UTI from July 17 Recent imaging with early pyelonephritis continue meropenem Parker catheter has been changed Blood cultures negative to date bacterial antigens negative PICC line to be placed today to facilitate 14 days total of carbapenem CBC, BMP in the morning (2) Acute confusion: (3) Pneumonia: Carbapenem 14 days IV as above Bacterial antigens negative History of dysphagia noted Speech therapy consultation appreciated Qualifiers: Laterality: left Lung location: lower lobe of lung Pneumonia type: due to unspecified organism Qualified Code(s): J18.9 - Pneumonia, unspecified organism (4) Candidiasis of perineum: Changed to oral fluconazole (5) Unintentional weight loss: (6) Diabetes: Qualifiers: Diabetes mellitus complication status: without complication Diabetes mellitus ocean transportation intermediary insulin use: without long-term use Diabetes mellitus type: t ype 2 Qualified Code(s): E11.9 - Type 2 diabetes mellitus without complications (7) Diabetic foot ulcer: Qualifiers: Diabetes mellitus type: type 2 Diabetic foot ulcer location: u nspecified part of foot Laterality: left Non-pressure ulcer stage: unspecified non-pressure ulcer stage Qualified Code(s): E11.621 - Type 2 diabetes mellitus with foot ulcer; L97.529 - Non-pressure chronic ulcer of other part of left foot with unspecified severity Coding Level of Care Code 75912 Diagnoses ESBL (extended spectrum beta-lactamase) producing bacteria infection A49.9; Z16.12 Acute confusion R41.0 Pneumonia J18.9 Laterality: left Lung location: lower lobe of lung Pneumonia type: due to unspecified organism Candidiasis of perineum B37.49 Unintentional weight loss R63.4 Type 2 diabetes mellitus without complication, without long-term current use of insulin E11.9 Diabetes mellitus complication status: without complication Diabetes mellitus long-term insulin use: without long-term use Diabetes mellitus type: type 2 Diabetic foot ulcer E11.621; L97.529 Diabetes mellitus type: type 2 Diabetic foot ulcer location: unspecified part of foot Laterality: left Non-pressure ulcer stage: unspecified non-pressure ulcer stage Time Spent (min) 24
--- NOTE | 2023-07-23 11:57 | PC.NURSE ---
Single lumen PICC placed to right basilic vein. Referred to vascular access nurse for PICC placement for antibiotics x 2 [facility] the [facility]. Risks and benefits discussed and informed consent obtained from patient. Right arm assessed with right basilic vein measuring 3.5 mm, straight, and apparent best choice for placement. Using sterile technique and MST, right basilic vein accessed x 1 stick. Mid-arm circumference measured 10 cm from right AC 27 cm. Trimmed cath 42 cm with 0 cm external length noted. CXR shows tip in distal SVC, in good position for use per radiologist. Line secured with stat-lock. Insertion site covered with Linquetatch ant TSM. Report given to bedside nurse, Marti.
[2023-07-23 12:00] LABS: Glucose Point of Care 134 mg/dL (70-110)
[2023-07-23 12:31] VITALS: BP 112/60; PULSE 63; RESP 17; TEMP 36.4; O2SAT 96
[2023-07-23] MEDS: heparin 5,000 unit/mL INJ 1 mL 5000 UNIT SUBCUT ×2 (14:26→23:43)
[2023-07-23 16:15] VITALS: BP 135/68; PULSE 63; RESP 17; TEMP 36.3; O2SAT 97
[2023-07-23 16:28] LABS: Glucose Point of Care 132 mg/dL (70-110)
[2023-07-23] MEDS: meropenem 1,000 MG in sodium chloride 0.9% (plus) 50 ML 50 MG IV (17:24)
[2023-07-23] MEDS: oxyCODONE-APAP 10-325 mg Tablet 1 TAB PO (17:33)
[2023-07-23] MEDS: mirtazapine 15 mg Tablet PO (19:15)
[2023-07-23] MEDS: atorvastatin 40 mg Tablet PO (19:15)
[2023-07-23 19:48] VITALS: BP 89/53; PULSE 84; RESP 18; TEMP 36.1; O2SAT 96
--- NOTE | 2023-07-23 20:09 | PC.NURSE ---
Dr. Eduardo notified of manual blood pressure of 70/40. Patient is asymptomatic. Ordered to recheck blood pressure in 30 minutes on both arms.
[2023-07-23 20:26] LABS: Glucose Point of Care 205 mg/dL (70-110)
--- NOTE | 2023-07-23 20:39 | PC.NURSE ---
Recheck blood pressures: 90/50 on left arm and 110/[address] Eduardo notified.
[2023-07-24] VITALS: BP 84/50; BP 98/50; PULSE 58; RESP 18; TEMP 36.1; O2SAT 97
[2023-07-24 04:00] VITALS: BP 114/62; PULSE 56; RESP 18; TEMP 36.4; O2SAT 97
[2023-07-24 06:15] LABS: Basophils % 0.3 %; Hematocrit 28.9 % (37-53); Lymphocytes # 1.3 10^3/uL (0.8-4.8); Lymphocytes % 33.6 %; Mean Corpuscular HGB Conc 32.2 g/dL (30-55); Mean Corpuscular Hemoglobin 28.4 pg (27-33); Mean Corpuscular Volume 88.4 fl (82-101); Mean Platelet Volume 10.1 fL (7.4-10.4); Monocytes # 0.3 10^3/uL (0.2-0.9); Monocytes % 8.8 %; Neutrophils # 2.17 10^3/uL (1.8-7.7); Nucleated Red Blood Cells % 0 %; Platelet Count 224 10^3/cmm (157-399); Red Blood Count 3.27 10^6/uL (3.85-5.65); Red Cell Distribution Width 15.5 % (12.1-15.1); White Blood Count 3.87 10^3/uL (3.29-11.43)
[2023-07-24 06:33] LABS: Anion Gap 15.6 (5-19); Blood Urea Nitrogen 14 mg/dL (8-23); Calcium 7.6 mg/dL (8.5-10.5); Carbon Dioxide 25 mmol/L (22-29); Chloride 99 mmol/L (98-107); Glucose 137 mg/dL (65-115); Osmolality Calculated 285 mOsm/kg (285-295); Potassium 3.6 mmol/L (3.5-5.1); Sodium 136 mmol/L (136-145)
[2023-07-24 06:38] LABS: Glucose Point of Care 129 mg/dL (70-110)
[2023-07-24 07:09] VITALS: BP 110/65; PULSE 56; RESP 18; O2SAT 97
[2023-07-24] MEDS: aspirin 81 mg EC Tablet PO (08:31)
[2023-07-24] MEDS: docusate sodium 100 mg Capsule PO ×2 (08:31→17:35)
[2023-07-24] MEDS: fluconazole 100 mg Tablet 200 MG PO (08:31)
[2023-07-24] MEDS: sucralfate 1 gm Tablet PO ×2 (08:31→17:35)
[2023-07-24] MEDS: tamsulosin 0.4 mg Capsule PO (08:31)
[2023-07-24] MEDS: meropenem 1,000 MG in sodium chloride 0.9% (plus) 50 ML 100 MG IV ×2 (08:32→17:34)
[2023-07-24] MEDS: finasteride 5 mg Tablet PO (08:32)
[2023-07-24] MEDS: pantoprazole DR 40 mg Tablet PO ×2 (08:32→17:35)
--- NOTE | 2023-07-24 10:24 | PM.DCS ---
Discharge Providers Date of Admission: 07/21/23 22:13 Date of Discharge: July 24, 2023 Attending Provider at Admission: Jd Eduardo MD Attending Provider at Discharge: Mal Alarcon MD Primary Care Provider: Marzena Jesus MD Diagnoses at Discharge Discharge Diagnosis (1) ESBL (extended spectrum beta-lactamase) producing bacteria infection: Status: Acute (2) Acute confusion: Details from hospital stay: resolved Status: Acute (3) Pneumonia: Status: Acute Qualifiers: Laterality: left Lung location: lower lobe of lung Pneumonia type: due to unspecified organism Qualified Code(s): J18.9 - Pneumonia, unspecified organism (4) Candidiasis of perineum: Details from hospital stay: Continue oral Status: Acute (5) Unintentional weight loss: Status: Acute (6) Diabetes: Details from hospital stay: Status: Acute Qualifiers: Diabetes mellitus type: type 2 Diabetes mellitus chcf insulin use: without long term care social worker use Diabetes mellitus complication status: without complication Qualified Code(s): E11.9 - Type 2 diabetes mellitus without complications Permanent problem details: A1c 8.7 (7) Diabetic foot ulcer: Status: Acute Qualifiers: Diabetes mellitus type: type 2 Diabetic foot ulcer location: unspecified part of foot Laterality: left Non-pressure ulcer stage: unspecified non-pressure ulcer stage Qualified Code(s): E11.621 - Type 2 diabetes mellitus with foot ulcer; L97.529 - Non-pressure chronic ulcer of other part of left foot with unspecified severity Reason for Visit Reason for Visit: open sore on right foot, Physical Exam Urinary Catheter Management: Parker: Cath Placed During This Visit: yes Reason for Continuing Indwelling Catheter: Chronic Indwelling Urinary Catheter on Admission Urinary Catheter Date of Insertion: 07/21/23 Urinary Catheter Time of Insertion: 23:00 Discharge Data Studies Completed and Pending Completed Studies During Hospitalization Category Date Time Status CXRP [XR chest 1V portable [id number]] Routine Exams 07/23/23 10:26 Completed XR chest 1V portable [id number] Stat Exams 07/21/23 18:58 Completed Pending at discharge Category Date Time Status Bacterial Antigen Routine Lab 07/22/23 03:15 Results Blood Culture Stat Lab 07/21/23 21:57 Results Urine Culture Stat Lab 07/22/23 03:15 Results Radiology Impressions Chest X-Ray 07/23/23 10:26 IMPRESSION: 1. Right arm PICC with tip overlies the superior cavoatrial junction. 2. Similar retrocardiac consolidation/collapse. Laboratory Results WBC 3.87 10^3/uL (3.29-11.43) 07/24/23 05:47 RBC 3.27 10^6/uL (3.85-5.65) L 07/24/23 05:47 Hgb 9.30 g/dL (11.27-16.99) L 07/24/23 05:47 Hct 28.9 % (37-53) L 07/24/23 05:47 MCV 88.4 fl (82-101) 07/24/23 05:47 MCH 28.4 pg (27-33) 07/24/23 05:47 MCHC 32.2 g/dL (30-55) 07/24/23 05:47 RDW 15.5 % (12.1-15.1) H 07/24/23 05:47 Plt Count 224 10^3/cmm (157-399) 07/24/23 05:47 MPV 10.1 fL (7.4-10.4) 07/24/23 05:47 Neut % (Auto) 56.0 % 07/24/23 05:47 Lymph % (Auto) 33.6 % 07/24/23 05:47 [place] % (Auto) 8.8 % 07/24/23 05:47 Eos % (Auto) 1.0 % 07/24/23 05:47 Baso % (Auto) 0.3 % 07/24/23 05:47 Neut # (Auto) 2.17 10^3/uL (1.8-7.7) 07/24/23 05:47 Lymph # (Auto) 1.3 10^3/uL (0.8-4.8) 07/24/23 05:47 [place] # (Auto) 0.3 10^3/uL (0.2-0.9) 07/24/23 05:47 Eos # (Auto) 0.0 10^3/uL (0.0-0.8) 07/24/23 05:47 Baso # (Auto) 0.0 10^3/uL (0.0-0.1) 07/24/23 05:47 Nucleated RBC % (auto) 0 % 07/24/23 05:47 Nucleated RBCs # 0.0 /100WBC 07/24/23 05:47 Sodium 136 mmol/L (136-145) 07/24/23 05:47 Potassium 3.6 mmol/L (3.5-5.1) 07/24/23 05:47 Chloride 99 mmol/L (98-107) 07/24/23 05:47 Carbon Dioxide 25 mmol/L (22-29) 07/24/23 05:47 Anion Gap 15.6 (5-19) 07/24/23 05:47 BUN 14 mg/dL (8-23) 07/24/23 05:47 Creatinine 0.7 mg/dL (0.7-1.2) 07/24/23 05:47 GFR Calculation Not Reportable 07/24/23 05:47 Glucose 137 mg/dL (65-115) H 07/24/23 05:47 POC Glucose 129 mg/dL (70-110) H 07/24/23 06:31 Calculated Osmolality 285 mOsm/kg (285-295) 07/24/23 05:47 Lactic Acid 1.5 mmol/L (0.5-2.2) 07/21/23 19:07 Calcium 7.6 mg/dL (8.5-10.5) L 07/24/23 05:47 Phosphorus 2.5 mg/dL (2.5-4.5) 07/22/23 05:42 Magnesium 1.7 mg/dL (1.7-2.3) 07/22/23 05:42 Total Bilirubin 0.5 mg/dL (0.15-1.2) 07/21/23 19:07 AST 17 U/L (0-40) 07/21/23 19:07 ALT 8 U/L (0-41) 07/21/23 19:07 Alkaline Phosphatase 101 U/L (40-130) 07/21/23 19:07 C-Reactive Protein 169.9 mg/L (0.0-4.9) H 07/21/23 19:07 Total Protein 7.4 g/dL (6.6-8.7) 07/21/23 19:07 Albumin 2.9 g/dL (3.5-5.2) L 07/21/23 19:07 Globulin 4.5 g/dL (1.3-4.6) 07/21/23 19:07 Prealbumin 7.3 mg/dL (20-40) L 07/21/23 19:07 Procalcitonin 0.21 ng/mL (0-0.5) 07/21/23 19:07 Urine Color Yellow (Yellow) 07/22/23 03:15 Urine Appearance Hazy (CLEAR) A 07/22/23 03:15 Urine pH 5 (5-7) 07/22/23 03:15 Ur Specific [place] 1.015 (1.005-1.030) 07/22/23 03:15 Urine Protein Trace (Negative) 07/22/23 03:15 Urine Glucose (UA) Trace (Normal) H 07/22/23 03:15 Urine Ketones 1+ (Negative) H 07/22/23 03:15 Urine Blood 3+ (Negative) H 07/22/23 03:15 Urine Nitrate Positive (Negative) H 07/22/23 03:15 Urine Bilirubin Neg (Negative) 07/22/23 03:15 Urine Urobilinogen Neg mg/dL (Negative) 07/22/23 03:15 Ur Leukocyte Esterase 2+ (Negative) H 07/22/23 03:15 Urine RBC 15-25 /hpf (0-2) H 07/22/23 03:15 Urine WBC 25-40 /hpf (0-5) H 07/22/23 03:15 Ur Squamous Epith Cells 0-4 /hpf (0-5) H 07/22/23 03:15 Amorphous Sediment Not Reportable 07/22/23 03:15 Urine Bacteria 2+ /hpf (NONE) H 07/22/23 03:15 Urine Mucus 2+ /hpf 07/22/23 03:15 Vitals Last Vital Signs Temp 97.6 F 07/24/23 04:00 Pulse 56 L 07/24/23 07:09 Resp 18 07/24/23 07:09 BP 110/65 07/24/23 07:09 Pulse Ox 97 07/24/23 07:09 O2 Del Method Room Air 07/24/23 07:09 Discharge Plan Discharge Condition: Stable Prescriptions: No Action Fleet Enema 19-7 gram/118 mL enema 118 ml CO DAILY PRN (Reason: Constipation) atorvastatin 40 mg tablet 40 mg PO DAILY Qty: 60 3RF finasteride 5 mg tablet 5 mg PO DAILY Qty: 60 3RF tamsulosin 0.4 mg capsule 0.4 mg PO DAILY Qty: 60 3RF acetaminophen [Tylenol] 325 mg tablet 325 mg PO QID PRN (Reason: Pain) ondansetron 4 mg tablet,disintegrating 4 mg PO DAILY PRN (Reason: Nausea And Vomiting) lidocaine HCl [Lidocaine Viscous] 2 % solution 1 applic topical ONCE Qty: 1 0RF linezolid 600 mg tablet 600 mg PO BID oxycodone-acetaminophen 7.5-325 mg tablet 1 tab PO Q6H PRN (Reason: pain) Qty: 20 0RF docusate sodium [Colace] 100 mg capsule 100 mg PO BID Qty: 14 0RF pantoprazole [Protonix] 40 mg tablet,delayed release (DR/EC) 40 mg PO BID 30 Days Qty: 60 0RF sucralfate [Carafate] 1 gram tablet 1 g PO BID 28 Days Qty: 56 0RF ferrous sulfate 325 mg (65 mg iron) tablet 325 mg PO BID 30 Days Qty: 60 0RF aspirin 81 mg capsule 81 mg PO DAILY 30 Days Qty: 30 0RF insulin aspart U-100 [Novolog FlexPen U-100 Insulin] 100 unit/mL (3 mL) insulin pen See Rx Instructions .ROUTE .COMPLEX Qty: 15 0RF Rx Instructions: inject, 3 times daily, after meals, based on sliding scale provided (DME) glucometer testing kit See Rx Instructions .Route .MEDSUPPLY Qty: 1 0RF Rx Instructions: glucometer testing kit strips#100 lancets#100 sulfamethoxazole-trimethoprim [Bactrim DS] 800-160 mg tablet 1 tab PO BID Qty: 20 0RF Referrals: Marzena Jesus MD [Primary Care Provider] - Patient Instructions: Altered Mental Status (ED) Coding Level of Care Code Acute Code for [facility] Diagnoses ESBL (extended spectrum beta-lactamase) producing bacteria infection A49.9; Z16.12 Acute confusion R41.0 Pneumonia J18.9 Laterality: left Lung location: lower lobe of lung Pneumonia type: due to unspecified organism Candidiasis of perineum B37.49 Unintentional weight loss R63.4 Type 2 diabetes mellitus without complication, without long-term current use of insulin E11.9 Diabetes mellitus type: type 2 Diabetes mellitus chcf insulin use: without long term care social worker use Diabetes mellitus complication status: without complication Diabetic foot ulcer E11.621; L97.529 Diabetes mellitus type: type 2 Diabetic foot ulcer location: unspecified part of foot Laterality: left Non-pressure ulcer stage: unspecified non-pressure ulcer stage
[2023-07-24 11:32] VITALS: BP 118/66; PULSE 74; RESP 17; TEMP 36.7; O2SAT 94
[2023-07-24 11:44] LABS: Glucose Point of Care 188 mg/dL (70-110)
[2023-07-24] MEDS: heparin 5,000 unit/mL INJ 1 mL 5000 UNIT SUBCUT (11:57)
[2023-07-24] MEDS: insulin lispro 100 unit/1 mL SUBCUT ×2 (11:57→17:35)
[2023-07-24 16:00] VITALS: BP 90/55; PULSE 73; RESP 17; TEMP 36.7; O2SAT 91
--- NOTE | 2023-07-24 16:46 | P.PN_ITS ---
Subjective 2 Subjective: Justice reports he is doing okay, but is not eating well. No pain. Medications: Reviewed: Yes Vitals/I&O/Wt Last Vital Signs Temp 98.0 F 07/24/23 16:00 Pulse 73 07/24/23 16:00 Resp 17 07/24/23 16:00 BP 90/55 07/24/23 16:00 Pulse Ox 91 07/24/23 16:00 O2 Del Method Room Air 07/24/23 16:00 07/24/23 07/24/23 07/24/23 06:59 14:59 22:59 Intake Total 50 / 270 290 / 290 Output Total 0 Balance 0 / -1780 290 / 290 Weight last 48 hrs Weight 74.984 kg Weight 81.647 kg Physical Exam 2 Narrative: General exam no distress Neck is supple Cardiovascular Lungs clear Abdomen soft Extremities EXTR: Edema, amputation noted, foot ulcer with dressing. Urinary Catheter Management: Parker: Cath Placed During This Visit: yes Reason for Continuing Indwelling Catheter: Chronic Indwelling Urinary Catheter on Admission Urinary Catheter Date of Insertion: 07/21/23 Urinary Catheter Time of Insertion: 23:00 Data 07/24/23 05:47 07/24/23 05:47 Micro: Microbiology 07/22/23 03:15 Urine Culture - Final Urine,Clean Catch Bacterial Antigens - Final A&P Assessment and plan (1) ESBL (extended spectrum beta-lactamase) producing bacteria infection: UTI with ESBL Klebsiella pneumonia on July 17 Urine culture July 22, in the setting of antibiotics that would have reduced growth but not treated the UTI from July 17 Recent imaging with early pyelonephritis Continue meropenem Parker catheter has been changed Blood cultures negative to date bacterial antigens negative PICC line to be placed 07/23 to facilitate 14 days total of carbapenem No need for laboratory tomorrow morning (2) Acute confusion: Acute infectious encephalopathy remains Significantly improved continue to treat underlying infection with meropenem Monitor mentation closely Supportive care (3) Pneumonia: Carbapenem 14 days IV as above Bacterial antigens negative History of dysphagia noted Speech therapy consultation appreciated Qualifiers: Laterality: left Lung location: lower lobe of lung Pneumonia type: due to unspecified organism Qualified Code(s): J18.9 - Pneumonia, unspecified organism (4) Candidiasis of perineum: Changed to oral fluconazole (5) Unintentional weight loss: Associated with failure to thrive, and possible dysphagia of solids Speech therapy, as well as dietary services seen the patient Add Remeron. I believe there may be a component of depression with his weight loss. (6) Diabetes: Hold oral medications SSI Qualifiers: Diabetes mellitus type: type 2 Diabetes mellitus superintendent container terminal insulin use: without superintendent container terminal use Diabetes mellitus complication status: without complication Qualified Code(s): E11.9 - Type 2 diabetes mellitus without complications (7) Diabetic foot ulcer: Follows with wound care, continue routine wound care as recommended by wound care specialty who has been seeing him. Family reports wound is improving with treatment Qualifiers: Diabetes mellitus type: type 2 Diabetic foot ulcer location: u nspecified part of foot Laterality: left Non-pressure ulcer stage: unspecified non-pressure ulcer stage Qualified Code(s): E11.621 - Type 2 diabetes mellitus with foot ulcer; L97.529 - Non-pressure chronic ulcer of other part of left foot with unspecified severity Plan DVT prophylaxis: Heparin CODE STATUS: Full code Attestations 2 Medical Necessity Statement*: Needs continued hospital stay for IV antibiotics, pending placement Diagnoses ESBL (extended spectrum beta-lactamase) producing bacteria infection A49.9; Z16.12 Acute confusion R41.0 Pneumonia J18.9 Laterality: left Lung location: lower lobe of lung Pneumonia type: due to unspecified organism Candidiasis of perineum B37.49 Unintentional weight loss R63.4 Type 2 diabetes mellitus without complication, without long-term current use of insulin E11.9 Diabetes mellitus type: type 2 Diabetes mellitus shelter insulin use: without shelter use Diabetes mellitus complication status: without complication Diabetic foot ulcer E11.621; L97.529 Diabetes mellitus type: type 2 Diabetic foot ulcer location: unspecified part of foot Laterality: left Non-pressure ulcer stage: unspecified non-pressure ulcer stage Time Spent (min) 21
[2023-07-24 17:12] LABS: Glucose Point of Care 144 mg/dL (70-110)
[2023-07-24 20:00] VITALS: BP 102/58; PULSE 67; RESP 15; TEMP 36.8; O2SAT 96
[2023-07-24] MEDS: atorvastatin 40 mg Tablet PO (20:17)
[2023-07-24] MEDS: mirtazapine 15 mg Tablet PO (20:17)
[2023-07-24 22:10] LABS: Glucose Point of Care 81 mg/dL (70-110)
[2023-07-25] VITALS: BP 127/70; PULSE 61; RESP 16; TEMP 36.6; O2SAT 96
[2023-07-25] MEDS: meropenem 1,000 MG in sodium chloride 0.9% (plus) 50 ML 100 MG IV ×4 (00:30→23:40)
[2023-07-25] MEDS: heparin 5,000 unit/mL INJ 1 mL 5000 UNIT SUBCUT ×3 (00:30→23:40)
[2023-07-25 04:00] VITALS: BP 132/66; PULSE 67; RESP 17; TEMP 36.6; O2SAT 96
[2023-07-25 06:00] VITALS: BMI 22.8
[2023-07-25 07:15] LABS: Glucose Point of Care 99 mg/dL (70-110)
[2023-07-25 08:00] VITALS: BP 120/64; PULSE 61; RESP 14; TEMP 36.3; O2SAT 98
[2023-07-25] MEDS: docusate sodium 100 mg Capsule PO ×2 (09:07→17:19)
[2023-07-25] MEDS: aspirin 81 mg EC Tablet PO (09:07)
[2023-07-25] MEDS: fluconazole 100 mg Tablet 200 MG PO (09:08)
[2023-07-25] MEDS: finasteride 5 mg Tablet PO (09:08)
[2023-07-25] MEDS: pantoprazole DR 40 mg Tablet PO ×2 (09:08→17:20)
[2023-07-25] MEDS: sucralfate 1 gm Tablet PO ×2 (09:08→17:19)
[2023-07-25] MEDS: tamsulosin 0.4 mg Capsule PO (09:09)
[2023-07-25 11:35] LABS: Glucose Point of Care 115 mg/dL (70-110)
[2023-07-25 12:02] VITALS: BP 131/81; PULSE 69; RESP 16; TEMP 36.4; O2SAT 96
--- NOTE | 2023-07-25 14:41 | PM.PN ---
Subjective Subjective: Does not feel like eating. No other complaints. Medications: Reviewed: Yes Vitals/I&O/Wt Last Vital Signs Temp 97.5 F L 07/25/23 12:02 Pulse 69 07/25/23 12:02 Resp 16 07/25/23 12:02 BP 131/81 07/25/23 12:02 Pulse Ox 96 07/25/23 12:02 O2 Del Method Room Air 07/25/23 12:02 07/24/23 07/25/23 07/25/23 22:59 06:59 14:59 Intake Total 200 / 490 50 / 540 150 / 150 Output Total 650 / 650 525 / 1175 Balance -450 / -160 -475 / -635 150 / 150 Weight last 48 hrs Weight 76.521 kg Weight 74.984 kg Physical Exam Narrative: General exam no distress Neck is supple Cardiovascular Lungs clear Abdomen soft Extremities EXTR: Edema, amputation noted, foot ulcer with dressing. This was removed. Ulcer appears to be healing well. Urinary Catheter Management: Parker: Cath Placed During This Visit: yes Reason for Continuing Indwelling Catheter: Other Urinary Catheter Date of Insertion: 07/21/23 Urinary Catheter Time of Insertion: 23:00 Data 07/24/23 05:47 07/24/23 05:47 Micro: Microbiology 07/22/23 03:15 Urine Culture - Final Urine,Clean Catch Bacterial Antigens - Final A&P Assessment and plan (1) ESBL (extended spectrum beta-lactamase) producing bacteria infection: UTI with ESBL Klebsiella pneumonia on July 17 Urine culture July 22, in the setting of antibiotics that would have reduced growth but not treated the UTI from July 17 Recent imaging with early pyelonephritis Continue meropenem Parker catheter has been changed Blood cultures negative to date bacterial antigens negative PICC line to be placed 07/23 to facilitate 14 days total of carbapenem CBC, BMP tomorrow (2) Acute confusion: Acute infectious encephalopathy remains Significantly improved continue to treat underlying infection with meropenem Monitor mentation closely Supportive care (3) Pneumonia: Carbapenem 14 days IV as above Bacterial antigens negative History of dysphagia noted Speech therapy consultation appreciated Qualifiers: Laterality: left Lung location: lower lobe of lung Pneumonia type: due to unspecified organism Qualified Code(s): J18.9 - Pneumonia, unspecified organism (4) Candidiasis of perineum: Changed to oral fluconazole (5) Unintentional weight loss: Associated with failure to thrive, and possible dysphagia of solids Speech therapy, as well as dietary services seen the patient Add Remeron. I believe there may be a component of depression with his weight loss. (6) Diabetes: Hold oral medications SSI Qualifiers: Diabetes mellitus type: type 2 Diabetes mellitus payroll examiner insulin use: without payroll examiner use Diabetes mellitus complication status: without complication Qualified Code(s): E11.9 - Type 2 diabetes mellitus without complications (7) Diabetic foot ulcer: Follows with wound care, continue routine wound care as recommended by wound care specialty who has been seeing him. Family reports wound is improving with treatment Qualifiers: Diabetes mellitus type: type 2 Diabetic foot ulcer location: unspecified part of foot Laterality: left Non-pressure ulcer stage: unspecified non-pressure ulcer stage Qualified Code(s): E11.621 - Type 2 diabetes mellitus with foot ulcer; L97.529 - Non-pressure chronic ulcer of other part of left foot with unspecified severity Plan DVT prophylaxis: Heparin CODE STATUS: Full code Attestations Medical Necessity Statement*: Continue IV antibiotics, for ESBL UTI, pending placement. Diagnoses ESBL (extended spectrum beta-lactamase) producing bacteria infection A49.9; Z16.12 Acute confusion R41.0 Pneumonia J18.9 Laterality: left Lung location: lower lobe of lung Pneumonia type: due to unspecified organism Candidiasis of perineum B37.49 Unintentional weight loss R63.4 Type 2 diabetes mellitus without complication, without long-term current use of insulin E11.9 Diabetes mellitus type: type 2 Diabetes mellitus payroll examiner insulin use: without detention use Diabetes mellitus complication status: without complication Diabetic foot ulcer E11.621; L97.529 Diabetes mellitus type: type 2 Diabetic foot ulcer location: unspecified part of foot Laterality: left Non-pressure ulcer stage: unspecified non-pressure ulcer stage Time Spent (min) 24
[2023-07-25 16:00] VITALS: BP 98/59; PULSE 81; RESP 17; TEMP 36.7; O2SAT 97
[2023-07-25 16:52] LABS: Glucose Point of Care 148 mg/dL (70-110)
[2023-07-25] MEDS: insulin lispro 100 unit/1 mL SUBCUT (17:23)
[2023-07-25 20:00] VITALS: BP 121/68; PULSE 69; RESP 15; TEMP 36.8; O2SAT 97
[2023-07-25] MEDS: atorvastatin 40 mg Tablet PO (20:51)
[2023-07-25] MEDS: mirtazapine 15 mg Tablet PO (20:51)
[2023-07-25 20:54] LABS: Glucose Point of Care 119 mg/dL (70-110)
[2023-07-26] VITALS: BP 109/70; PULSE 78; RESP 15; TEMP 36.9; O2SAT 96
--- NOTE | 2023-07-26 00:35 | PC.NURSE ---
Patient states he is doing well and is feeling better. He has no concerns or questions at this time. Plan of care ongoing.
[2023-07-26 04:00] VITALS: BP 111/77; PULSE 70; RESP 15; TEMP 36.6; O2SAT 97
[2023-07-26 04:21] LABS: Basophils % 0.3 %; Eosinophils # 0.1 10^3/uL (0.0-0.8); Eosinophils % 1.5 %; Lymphocytes # 1.7 10^3/uL (0.8-4.8); Lymphocytes % 41.7 %; Mean Corpuscular HGB Conc 31.5 g/dL (30-55); Mean Corpuscular Hemoglobin 27.7 pg (27-33); Mean Corpuscular Volume 87.9 fl (82-101); Mean Platelet Volume 9.9 fL (7.4-10.4); Monocytes # 0.3 10^3/uL (0.2-0.9); Neutrophils # 1.92 10^3/uL (1.8-7.7); Neutrophils % 48.2 %; Nucleated Red Blood Cells % 0 %; Platelet Count 255 10^3/cmm (157-399); Red Blood Count 3.07 10^6/uL (3.85-5.65); Red Cell Distribution Width 15.4 % (12.1-15.1); White Blood Count 3.98 10^3/uL (3.29-11.43)
[2023-07-26 04:38] LABS: Anion Gap 11.5 (5-19); Blood Urea Nitrogen 11 mg/dL (8-23); Calcium 7.8 mg/dL (8.5-10.5); Carbon Dioxide 27 mmol/L (22-29); Chloride 104 mmol/L (98-107); Glucose 128 mg/dL (65-115); Osmolality Calculated 289 mOsm/kg (285-295); Potassium 3.5 mmol/L (3.5-5.1); Sodium 139 mmol/L (136-145)
[2023-07-26 06:00] VITALS: BMI 22.8
[2023-07-26 06:39] LABS: Glucose Point of Care 127 mg/dL (70-110)
[2023-07-26 07:14] VITALS: BP 130/79; PULSE 63; RESP 16; O2SAT 95
[2023-07-26] MEDS: meropenem 1,000 MG in sodium chloride 0.9% (plus) 50 ML 100 MG IV (08:27)
[2023-07-26] MEDS: docusate sodium 100 mg Capsule PO (08:28)
[2023-07-26] MEDS: sucralfate 1 gm Tablet PO (08:28)
[2023-07-26] MEDS: pantoprazole DR 40 mg Tablet PO (08:28)
[2023-07-26] MEDS: tamsulosin 0.4 mg Capsule PO (08:28)
[2023-07-26] MEDS: finasteride 5 mg Tablet PO (08:28)
[2023-07-26] MEDS: aspirin 81 mg EC Tablet PO (08:28)
[2023-07-26] MEDS: fluconazole 100 mg Tablet 200 MG PO (08:28)
[2023-07-26 10:56] VITALS: BP 127/74; PULSE 61; RESP 15; TEMP 37.1; O2SAT 97
[2023-07-26 11:29] LABS: Glucose Point of Care 148 mg/dL (70-110)
--- NOTE | 2023-07-26 11:45 | PM.DCS ---
Discharge Providers Date of Admission: 07/21/23 22:13 Date of Discharge: July 26, 2023 Attending Provider at Admission: Jd Eduardo MD Attending Provider at Discharge: Christopher Florian MD Primary Care Provider: Marzena Jesus MD Diagnoses at Discharge Discharge Diagnosis (1) ESBL (extended spectrum beta-lactamase) producing bacteria infection: Status: Acute (2) Acute confusion: Status: Acute (3) Pneumonia: Status: Acute Qualifiers: Laterality: left Lung location: lower lobe of lung Pneumonia type: due to unspecified organism Qualified Code(s): J18.9 - Pneumonia, unspecified organism (4) Candidiasis of perineum: Status: Acute (5) Unintentional weight loss: Status: Acute (6) Diabetes: Status: Acute Qualifiers: Diabetes mellitus complication status: without complication Diabetes mellitus terminal gauger insulin use: without terminal gauger use Diabetes mellitus type: type 2 Qualified Code(s): E11.9 - Type 2 diabetes mellitus without complications Permanent problem details: A1c 8.7 (7) Diabetic foot ulcer: Status: Acute Qualifiers: Diabetes mellitus type: type 2 Diabetic foot ulcer location: unspecified part of foot Laterality: left Non-pressure ulcer stage: unspecified non-pressure ulcer stage Qualified Code(s): E11.621 - Type 2 diabetes mellitus with foot ulcer; L97.529 - Non-pressure chronic ulcer of other part of left foot with unspecified severity Reason for Visit Reason for Visit: open sore on right foot, Brief History: History as per HPI: Justice Guardado is a 73 year old male with a past medical history significant for type 2 diabetes mellitus with neuropathy, hypertension, peripheral arterial disease, hyperlipidemia, left BKA, chronic wound of right lower extremity, and multiple other comorbidities who presents emergency department with altered mental status for the past several days. Two family members are bedside who provide collateral information as well as the patient provides much history. They report the patient is usually mentally intact and still for the most part is however he has had some intermittent confusion the last several days. They state this is not his baseline. He endorses associated symptoms of fevers, chills, and cough for the past week. Of note, patient was recently evaluated in the emergency department for syncope on 07/17/23 where he was found to have urinary tract infection treated with Bactrim. CT abdomen had multiple findings including diffuse urinary bladder wall thickening concerning for cystitis, perinephric edema concerning for possible pyelonephritis, minimal hydronephrosis bilaterally without obstruction lesion. Urine culture resulted with ESBL Klebsiella pneumoniae. It does not appear his antibiotics were changed despite resistance pattern. In the ED tonight, labs revealed leukocytosis. Chest x-ray revealed left basilar pneumonia. He received Zosyn in the ED. Family report the patient is his own decision maker. They states that he was recently discharged to [facility] however he did not stay as he cannot use marijuana products for pain control. His pain became uncontrolled prompting him to return home. Their goal is for patient to return home with home health. Hospital Course Hospital Course Patient was admitted to the hospital further evaluation and management of ESBL Klebsiella UTI leading to acute metabolic encephalopathy, failure to thrive with unintentional weight loss and possible pneumonia. He was started on broad-spectrum antibiotics as per culture sensitivities. Patient's mentation improved and he has been at his baseline mentation for last 2 to 3 days. During hospitalization his blood cultures remain cleared. PICC line was placed on 07/23 so that he can finish the course of antibiotics for early pyelonephritis in setting of ESBL Klebsiella with overall 10 more days of ertapenem as an outpatient. Parker catheter was changed during hospitalization. Patient's oral intake during hospitalization remained poor. For which both Remeron and Marinol were added. Safe discharge plan were discussed in detail with patient family at bedside who are agreeable for SNF placement. He has been discharged in hemodynamically stable condition with the plan in place to finish IV antibiotic course of overall 14 days. He is advised for aggressive physical therapy and continued encouragement to increase oral intake. Physical Exam Narrative: General exam no distress, thin built Neck is supple Cardiovascular Lungs clear Abdomen soft Extremities EXTR: Edema, amputation noted, foot ulcer with dressing. This was removed. Ulcer appears to be healing well. Urinary Catheter Management: Parker: Cath Placed During This Visit: yes Reason for Continuing Indwelling Catheter: Chronic Indwelling Urinary Catheter on Admission Urinary Catheter Date of Insertion: 07/21/23 Urinary Catheter Time of Insertion: 23:00 Discharge Data Studies Completed and Pending Completed Studies During Hospitalization Category Date Time Status CXRP [XR chest 1V portable [id number]] Routine Exams 07/23/23 10:26 Completed XR chest 1V portable [id number] Stat Exams 07/21/23 18:58 Completed Pending at discharge Category Date Time Status Blood Culture Stat Lab 07/21/23 21:57 Results Radiology Impressions Chest X-Ray 07/23/23 10:26 IMPRESSION: 1. Right arm PICC with tip overlies the superior cavoatrial junction. 2. Similar retrocardiac consolidation/collapse. Microbiology 07/22/23 03:15 Urine,Clean Catch Urine Culture - Final 07/22/23 03:15 Urine,Clean Catch Bacterial Antigens - Final 07/21/23 21:57 Blood Blood Culture - Preliminary NEGATIVE TO DATE 07/21/23 21:52 Blood Blood Culture - Preliminary NEGATIVE TO DATE Laboratory Results WBC 3.98 10^3/uL (3.29-11.43) 07/26/23 03:00 RBC 3.07 10^6/uL (3.85-5.65) L 07/26/23 03:00 Hgb 8.50 g/dL (11.27-16.99) L 07/26/23 03:00 Hct 27.0 % (37-53) L 07/26/23 03:00 MCV 87.9 fl (82-101) 07/26/23 03:00 MCH 27.7 pg (27-33) 07/26/23 03:00 MCHC 31.5 g/dL (30-55) 07/26/23 03:00 RDW 15.4 % (12.1-15.1) H 07/26/23 03:00 Plt Count 255 10^3/cmm (157-399) 07/26/23 03:00 MPV 9.9 fL (7.4-10.4) 07/26/23 03:00 Neut % (Auto) 48.2 % 07/26/23 03:00 Lymph % (Auto) 41.7 % 07/26/23 03:00 [place] % (Auto) 8.0 % 07/26/23 03:00 Eos % (Auto) 1.5 % 07/26/23 03:00 Baso % (Auto) 0.3 % 07/26/23 03:00 Neut # (Auto) 1.92 10^3/uL (1.8-7.7) 07/26/23 03:00 Lymph # (Auto) 1.7 10^3/uL (0.8-4.8) 07/26/23 03:00 [place] # (Auto) 0.3 10^3/uL (0.2-0.9) 07/26/23 03:00 Eos # (Auto) 0.1 10^3/uL (0.0-0.8) 07/26/23 03:00 Baso # (Auto) 0.0 10^3/uL (0.0-0.1) 07/26/23 03:00 Nucleated RBC % (auto) 0 % 07/26/23 03:00 Nucleated RBCs # 0.0 /100WBC 07/26/23 03:00 Sodium 139 mmol/L (136-145) 07/26/23 03:00 Potassium 3.5 mmol/L (3.5-5.1) 07/26/23 03:00 Chloride 104 mmol/L (98-107) 07/26/23 03:00 Carbon Dioxide 27 mmol/L (22-29) 07/26/23 03:00 Anion Gap 11.5 (5-19) 07/26/23 03:00 BUN 11 mg/dL (8-23) 07/26/23 03:00 Creatinine 0.6 mg/dL (0.7-1.2) L 07/26/23 03:00 GFR Calculation Not Reportable 07/26/23 03:00 Glucose 128 mg/dL (65-115) H 07/26/23 03:00 POC Glucose 148 mg/dL (70-110) H 07/26/23 10:56 Calculated Osmolality 289 mOsm/kg (285-295) 07/26/23 03:00 Lactic Acid 1.5 mmol/L (0.5-2.2) 07/21/23 19:07 Calcium 7.8 mg/dL (8.5-10.5) L 07/26/23 03:00 Phosphorus 2.5 mg/dL (2.5-4.5) 07/22/23 05:42 Magnesium 1.7 mg/dL (1.7-2.3) 07/22/23 05:42 Total Bilirubin 0.5 mg/dL (0.15-1.2) 07/21/23 19:07 AST 17 U/L (0-40) 07/21/23 19:07 ALT 8 U/L (0-41) 07/21/23 19:07 Alkaline Phosphatase 101 U/L (40-130) 07/21/23 19:07 C-Reactive Protein 169.9 mg/L (0.0-4.9) H 07/21/23 19:07 Total Protein 7.4 g/dL (6.6-8.7) 07/21/23 19:07 Albumin 2.9 g/dL (3.5-5.2) L 07/21/23 19:07 Globulin 4.5 g/dL (1.3-4.6) 07/21/23 19:07 Prealbumin 7.3 mg/dL (20-40) L 07/21/23 19:07 Procalcitonin 0.21 ng/mL (0-0.5) 07/21/23 19:07 Urine Color Yellow (Yellow) 07/22/23 03:15 Urine Appearance Hazy (CLEAR) A 07/22/23 03:15 Urine pH 5 (5-7) 07/22/23 03:15 Ur Specific [place] 1.015 (1.005-1.030) 07/22/23 03:15 Urine Protein Trace (Negative) 07/22/23 03:15 Urine Glucose (UA) Trace (Normal) H 07/22/23 03:15 Urine Ketones 1+ (Negative) H 07/22/23 03:15 Urine Blood 3+ (Negative) H 07/22/23 03:15 Urine Nitrate Positive (Negative) H 07/22/23 03:15 Urine Bilirubin Neg (Negative) 07/22/23 03:15 Urine Urobilinogen Neg mg/dL (Negative) 07/22/23 03:15 Ur Leukocyte Esterase 2+ (Negative) H 07/22/23 03:15 Urine RBC 15-25 /hpf (0-2) H 07/22/23 03:15 Urine WBC 25-40 /hpf (0-5) H 07/22/23 03:15 Ur Squamous Epith Cells 0-4 /hpf (0-5) H 07/22/23 03:15 Amorphous Sediment Not Reportable 07/22/23 03:15 Urine Bacteria 2+ /hpf (NONE) H 07/22/23 03:15 Urine Mucus 2+ /hpf 07/22/23 03:15 Vitals Last Vital Signs Temp 98.7 F 07/26/23 10:56 Pulse 61 07/26/23 10:56 Resp 15 07/26/23 10:56 BP 127/74 07/26/23 10:56 Pulse Ox 97 07/26/23 10:56 O2 Del Method Room Air 07/26/23 10:56 Discharge Plan Discharge Patient Disposition: Xfer SNF Condition: Stable Prescriptions: New fluconazole 100 mg Tablet 200 mg PO DAILY Qty: 10 0RF mirtazapine 15 mg Tablet 15 mg PO BEDTIME Qty: 30 0RF dronabinol 2.5 mg Capsule 2.5 mg PO BIDAC Qty: 60 0RF ertapenem 1 gram recon soln 1 g IV DAILY Qty: 10 0RF Continued Fleet Enema 19-7 gram/118 mL enema 118 ml MN DAILY PRN (Reason: Constipation) atorvastatin 40 mg tablet 40 mg PO DAILY Qty: 60 3RF finasteride 5 mg tablet 5 mg PO DAILY Qty: 60 3RF tamsulosin 0.4 mg capsule 0.4 mg PO DAILY Qty: 60 3RF acetaminophen [Tylenol] 325 mg tablet 325 mg PO QID PRN (Reason: Pain) ondansetron 4 mg tablet,disintegrating 4 mg PO DAILY PRN (Reason: Nausea And Vomiting) lidocaine HCl [Lidocaine Viscous] 2 % solution 1 applic topical ONCE Qty: 1 0RF oxycodone-acetaminophen 7.5-325 mg tablet 1 tab PO Q6H PRN (Reason: pain) Qty: 20 0RF docusate sodium [Colace] 100 mg capsule 100 mg PO BID Qty: 14 0RF pantoprazole [Protonix] 40 mg tablet,delayed release (DR/EC) 40 mg PO BID 30 Days Qty: 60 0RF sucralfate [Carafate] 1 gram tablet 1 g PO BID 28 Days Qty: 56 0RF ferrous sulfate 325 mg (65 mg iron) tablet 325 mg PO BID 30 Days Qty: 60 0RF aspirin 81 mg capsule 81 mg PO DAILY 30 Days Qty: 30 0RF (DME) glucometer testing kit See Rx Instructions .Route .MEDSUPPLY Qty: 1 0RF Rx Instructions: glucometer testing kit strips#100 lancets#100 Discontinued linezolid 600 mg tablet 600 mg PO BID insulin aspart U-100 [Novolog FlexPen U-100 Insulin] 100 unit/mL (3 mL) insulin pen See Rx Instructions .ROUTE .COMPLEX Qty: 15 0RF Rx Instructions: inject, 3 times daily, after meals, based on sliding scale provided sulfamethoxazole-trimethoprim [Bactrim DS] 800-160 mg tablet 1 tab PO BID Qty: 20 0RF Discharge Orders: Discharge Order (Routine); Ordered 07/26/23 Ordered By: Christopher Florian Referrals: Marzena Jesus MD [Primary Care Provider] - 4-7 days Discharge Diet: Diabetic Discharge Activity: Increase activity as tolerated Patient Instructions: Altered Mental Status (ED) Activity Restrictions/Additional Instructions: Take all medicine as prescribed Finish 10 more days of ertapenem IV Encourage p.o. intake Kqvov-[id number] glucose twice daily AM and at bedtime. Report to primary care provider at nursing facility. Determine at that time whether sliding scale will need to be initiated. Currently patient's p.o. intake is poor enough that it is not. Remove PICC line following completion of ertapenem Discharge Attestations Time Spent in Discharge Care*: greater than 30 min Specific Discharge Activities: educating patient, discussing with pcp/other providers, discussing with case management assistant/social workers/dc planners, documenting/other paperwork and evaluating patient/reviewing data Status at Discharge: Cognitive status at discharge: cognitively intact, Behavioral status at discharge: cooperative, Functional status at discharge: uses cane/walker, Overall status at discharge: patient is progressing back to baseline Quality Metrics Clinical Quality Measures [ No reported AMI, CVA or VTE this stay] Coding Level of Care Code 42642 Total time (in minutes) for Discharge: 50 Diagnoses ESBL (extended spectrum beta-lactamase) producing bacteria infection A49.9; Z16.12 Acute confusion R41.0 Pneumonia J18.9 Laterality: left Lung location: lower lobe of lung Pneumonia type: due to unspecified organism Candidiasis of perineum B37.49 Unintentional weight loss R63.4 Type 2 diabetes mellitus without complication, without long-term current use of insulin E11.9 Diabetes mellitus complication status: without complication Diabetes mellitus skilled nursing insulin use: without terminal gauger use Diabetes mellitus type: type 2 Diabetic foot ulcer E11.621; L97.529 Diabetes mellitus type: type 2 Diabetic foot ulcer location: unspecified part of foot Laterality: left Non-pressure ulcer stage: unspecified non-pressure ulcer stage
[2023-07-26] MEDS: heparin 5,000 unit/mL INJ 1 mL 5000 UNIT SUBCUT (13:35)
[2023-07-26] MEDS: insulin lispro 100 unit/1 mL SUBCUT (13:35)
--- NOTE | 2023-07-26 15:46 | PC.NURSE ---
[facility] states that they have not received the last fax.
[2023-07-26 17:09] VITALS: BP 127/74; PULSE 61; RESP 15; TEMP 37.1; O2SAT 97
[2023-07-26 17:15] LABS: Glucose Point of Care 96 mg/dL (70-110)
== END 2023-07-26 17:10 | disposition skilled nursing facility (03) ==
LOC: ER 21:45 → MEDSURG 22:13
PROVIDERS: Emergency Medicine; Internal Medicine; Admitting Provider Internal Medicine; Emergency Provider Emergency Medicine; PCP Family Medicine; Visit Provider Student in an Organized Health Care Education/Training Program
DX: A49.9 Bacterial infection, unspecified (principal); Z16.12 Extended spectrum beta lactamase (ESBL) resistance; R41.0 Disorientation, unspecified; J18.9 Pneumonia, unspecified organism; B37.49 Other urogenital candidiasis; R63.4 Abnormal weight loss; E11.621 Type 2 diabetes mellitus with foot ulcer; L97.529 Non-pressure chronic ulcer of other part of left foot with unspecified severity; E11.40 Type 2 diabetes mellitus with diabetic neuropathy, unspecified; I10 Essential (primary) hypertension; E78.5 Hyperlipidemia, unspecified; D72.829 Elevated white blood cell count, unspecified; R62.7 Adult failure to thrive; Z68.22 Body mass index [BMI] 22.0-22.9, adult
CPT/HCPCS: 36415; 36416; 36573; 36592; 51702; 71045; 80048; 80053; 81001; 82962; 83605; 83735; 84100; 84134; 84145; 85025; 86140; 86403; 87040; 87086; 92507; 92523; 92526; 92610; 93005; 96365; 96372; 96375; 96376; 97161; 97167; 97530; 99285; G0378; J1450; J1644; J1815; J2185; J2270; J2405; J2543; J7030

== ENCOUNTER 2023-08-10 16:57 | Emergency (ER) | payer MEDICARE, SELFPAY ==
[2023-08-10 17:05] VITALS: BP 103/70; PULSE 118; RESP 14; O2SAT 95
--- NOTE | 2023-08-10 17:13 | XRR_ITS ---
PROCEDURE INFORMATION: Exam: XR Chest Exam date and time: 08/10/2023 5:26 PM Age: 73 years old Clinical indication: Cough TECHNIQUE: Imaging protocol: Radiologic exam of the chest. Views: 1 view. COMPARISON: CR XR chest 1V portable [id number] 07/23/2023 11:35 AM FINDINGS: Lungs: Unremarkable. No consolidation. Pleural spaces: Unremarkable. No pleural effusion. No pneumothorax. Heart/Mediastinum: Unremarkable. No cardiomegaly. Bones/joints: Bilateral narrowing of the glenohumeral joints with subchondral sclerosis. Chronic multilevel degenerative changes of the thoracic vertebrae. XR/XR chest 1V portable [id number] IMPRESSION: No focal consolidations.
--- NOTE | 2023-08-10 17:13 | W.ED.WEAKNES ---
Documented by User: PACO Winter 08/10/23 20:08 HPI - Weakness General: Chief complaint: Weakness Stated complaint: trouble talking, cough Time Seen by Provider: 08/10/23 17:13 History of Present Illness: 73-year-old male patient comes in today from [facility] for concerns of right abdominal pain. Family had seen patient today to bring him out for a visit and he was complaining of his abdomen hurting. Family then brought him to the emergency room for evaluation. Patient appears chronically ill but not toxic. Patient reports that his right upper quadrant and abdomen has pain. Patient does not voice what worsens or improves pain. Patient is in half-way for failure to thrive and history of EBSL Klebsiella urinary tract infection. 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 PAD (peripheral artery disease) Abscess or cellulitis of foot Diabetic foot ulcer UTI (urinary tract infection) Gangrene of right foot Cellulitis of right leg Abdominal wall abscess Hypertension Hyperlipidemia Nephrolithiasis Diabetes Short-term memory loss DDD (degenerative disc disease) Refusal of statin medication by patient Surgical History (Updated 07/27/23 @ 00:01 by TERE Jc) Status post below-knee amputation of left lower extremity History of vasectomy History of hemorrhoidectomy History of lithotripsy History of tracheostomy History of hernia repair Periumbilical x2 / mesh Family History Other Diabetes Social History Smoking and tobacco/nicotine status: never used tobacco/nicotine Alcohol intake: never Substance/Drug Use: never Lives independently: Yes Household members: none Marital status: Current 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 Pets and animals: Yes Physical Exam Const: COMMON NORMALS: alert HENMT: COMMON NORMALS: atraumatic HEAD & SCALP: atraumatic Neck/C-Spine: COMMON NORMALS: full ROM Resp: COMMON NORMALS: normal respiratory effort and clear to auscultation bilaterally AUSCULTATION: clear to auscultation bilaterally Cardio: COMMON NORMALS: regular rate and regular rhythm RATE: regular rate RHYTHM: regular rhythm GI: COMMON NORMALS: Soft to palpation and non-tender PALPATION: Yes Soft to palpation Back/Pelvis: COMMON NORMALS: thoracic and lumbar spine normal to inspection Extremity: NARRATIVE EXTREMITY EXAM: Below the knee amputation left lower extremity. Right lower extremity has chronic foot ulcer. Neuro: SENSORIUM/ORIENTATION: Yes alert Skin: COMMON NORMALS: turgor normal GENERAL SKIN EXAM: turgor normal Course Vital Signs: Vital signs: Vital Signs Pulse Rate 106 H 08/10/23 19:50 Respiratory Rate 16 08/10/23 19:50 Blood Pressure 103/70 08/10/23 17:05 Pulse Oximetry 93 08/10/23 19:50 Oxygen Delivery Me thod Room Air 08/10/23 19:50 MDM - Weakness Medical Decision Making Patient was brought in from [facility] by family for concerns of right abdominal pain. Patient appears nontoxic. Patient appears in mild to no pain. Abdomen soft with no rebound tenderness. Bowel sounds are present. Skin is warm and dry. Differential diagnosis includes not limited to constipation, urinary tract infection, renal calculi, anxiety about health, major depressive disorder. Chest x-ray was unremarkable. CBC showed no significant elevation white blood cell count. CMP noted a sodium of 134, creatinine 0.9, and blood glucose of 130. CT of the abdomen noted some inflammatory perinephric stranding and some bilateral centrilobular opacities that may be infectious versus inflammatory process. No signs of pneumonia or urinary tract infection was noted. Review of prior CT and chest x-rays noted similar results. Patient did have some stranding still in his kidneys at that time. We will go ahead and send a urine for culture for evaluation. Patient just completed meropenem for infection. Believe patient has failure to thrive due to his chronic medical condition. Recommend patient continue with routine care and await culture results and return to the ER for worsening symptoms such as increased shortness of breath, fever greater than 100.4, or new concerns. Patient and family both reported understanding. Lab Data 08/10/23 18:50 08/10/23 18:50 Radiology Impressions Chest X-Ray 08/10/23 17:13 IMPRESSION: No focal consolidations. Abdomen/Pelvis CT 08/10/23 17:25 IMPRESSION: 1. There is inflammatory perinephric, nonspecific please correlate for pyelonephritis. 2. Bibasilar centrilobular opacities, which can be seen in infectious, versus inflammatory processes. COMMENTS: Consistent with the [place]'s Incidental Findings Committee white paper (J Am Lanie Radiol 2018): Any incidental renal lesion less than 1 cm or classified as too small to characterize, or any incidental cystic renal lesion characterized as simple-appearing, is likely benign. No follow-up imaging is recommended for these lesions per consensus recommendations based on imaging criteria. Laboratory Results WBC 10.53 10^3/uL (3.29-11.43) 08/10/23 18:50 RBC 4.36 10^6/uL (3.85-5.65) 08/10/23 18:50 Hgb 12.70 g/dL (11.27-16.99) 08/10/23 18:50 Hct 41.4 % (37-53) 08/10/23 18:50 MCV 95.0 fl (82-101) 08/10/23 18:50 MCH 29.1 pg (27-33) 08/10/23 18:50 MCHC 30.7 g/dL (30-55) 08/10/23 18:50 RDW 17.9 % (12.1-15.1) H 08/10/23 18:50 Plt Count 251 10^3/cmm (157-399) 08/10/23 18:50 MPV 10.2 fL (7.4-10.4) 08/10/23 18:50 Neut % (Auto) 85.0 % 08/10/23 18:50 Lymph % (Auto) 8.8 % 08/10/23 18:50 [place] % (Auto) 4.7 % 08/10/23 18:50 Eos % (Auto) 0.5 % 08/10/23 18:50 Baso % (Auto) 0.6 % 08/10/23 18:50 Neut # (Auto) 8.95 10^3/uL (1.8-7.7) H 08/10/23 18:50 Lymph # (Auto) 0.9 10^3/uL (0.8-4.8) 08/10/23 18:50 [place] # (Auto) 0.5 10^3/uL (0.2-0.9) 08/10/23 18:50 Eos # (Auto) 0.1 10^3/uL (0.0-0.8) 08/10/23 18:50 Baso # (Auto) 0.1 10^3/uL (0.0-0.1) 08/10/23 18:50 Nucleated RBC % (auto) 0 % 08/10/23 18:50 Nucleated RBCs # 0.0 /100WBC 08/10/23 18:50 Sodium 134 mmol/L (136-145) L 08/10/23 18:50 Potassium 3.5 mmol/L (3.5-5.1) 08/10/23 18:50 Chloride 100 mmol/L (98-107) 08/10/23 18:50 Carbon Dioxide 19 mmol/L (22-29) L 08/10/23 18:50 Anion Gap 18.5 (5-19) 08/10/23 18:50 BUN 25 mg/dL (8-23) H 08/10/23 18:50 Creatinine 0.9 mg/dL (0.7-1.2) 08/10/23 18:50 GFR Calculation Not Reportable 08/10/23 18:50 Glucose 130 mg/dL (65-115) H 08/10/23 18:50 Calculated Osmolality 284 mOsm/kg (285-295) L 08/10/23 18:50 Calcium 8.5 mg/dL (8.5-10.5) 08/10/23 18:50 Total Bilirubin 1.0 mg/dL (0.15-1.2) 08/10/23 18:50 AST 9 U/L (0-40) 08/10/23 18:50 ALT < 5 U/L (0-41) 08/10/23 18:50 Alkaline Phosphatase 107 U/L (40-130) 08/10/23 18:50 Total Protein 6.4 g/dL (6.6-8.7) L 08/10/23 18:50 Albumin 2.7 g/dL (3.5-5.2) L 08/10/23 18:50 Globulin 3.7 g/dL (1.3-4.6) 08/10/23 18:50 Lipase 25 U/L (13-60) 08/10/23 18:50 Urine Color Val (Yellow) 08/10/23 18:39 Urine Appearance Hazy (CLEAR) A 08/10/23 18:39 Urine pH 5 (5-7) 08/10/23 18:39 Ur Specific [place] 1.020 (1.005-1.030) 08/10/23 18:39 Urine Protein Trace (Negative) 08/10/23 18:39 Urine Glucose (UA) Norm (Normal) 08/10/23 18:39 Urine Ketones 1+ (Negative) H 08/10/23 18:39 Urine Blood 2+ (Negative) H 08/10/23 18:39 Urine Nitrate Negative (Negative) 08/10/23 18:39 Urine Bilirubin 1+ (Negative) H 08/10/23 18:39 Urine Urobilinogen Norm mg/dL (Negative) 08/10/23 18:39 Ur Leukocyte Esterase 2+ (Negative) H 08/10/23 18:39 Urine RBC 5-10 /hpf (0-2) H 08/10/23 18:39 Urine WBC 25-40 /hpf (0-5) H 08/10/23 18:39 Ur Squamous Epith Cells 0-4 /hpf (0-5) H 08/10/23 18:39 Calcium Oxalate Crystal 0-4 /hpf H 08/10/23 18:39 Amorphous Sediment Not Reportable 08/10/23 18:39 Urine Bacteria 1+ /hpf (NONE) H 08/10/23 18:39 Hyaline Casts 0-4 /lpf H 08/10/23 18:39 Urine Mucus 2+ /hpf 08/10/23 18:39 Urine Yeast 2+ /hpf H 08/10/23 18:39 All radiology interpretation(s) finalized by discharge Discharge Plan Discharge Patient Disposition: Home Clinical Impression: Abdominal pain Qualifiers: Abdominal location: right upper quadrant Qualified Code(s): R10.11 - Right upper quadrant pain Condition: Stable Prescriptions: No Action Fleet Enema 19-7 gram/118 mL enema 118 ml UT DAILY PRN (Reason: Constipation) atorvastatin 40 mg tablet 40 mg PO DAILY Qty: 60 3RF finasteride 5 mg tablet 5 mg PO DAILY Qty: 60 3RF tamsulosin 0.4 mg capsule 0.4 mg PO DAILY Qty: 60 3RF acetaminophen [Tylenol] 325 mg tablet 325 mg PO QID PRN (Reason: Pain) ondansetron 4 mg tablet,disintegrating 4 mg PO DAILY PRN (Reason: Nausea And Vomiting) lidocaine HCl [Lidocaine Viscous] 2 % solution 1 applic topical ONCE Qty: 1 0RF fluconazole 100 mg Tablet 200 mg PO DAILY Qty: 10 0RF mirtazapine 15 mg Tablet 15 mg PO BEDTIME Qty: 30 0RF dronabinol 2.5 mg Capsule 2.5 mg PO BIDAC Qty: 60 0RF ertapenem 1 gram recon soln 1 g IV DAILY Qty: 10 0RF oxycodone-acetaminophen 7.5-325 mg tablet 1 tab PO Q6H PRN (Reason: pain) Qty: 20 0RF docusate sodium [Colace] 100 mg capsule 100 mg PO BID Qty: 14 0RF (DME) glucometer testing kit See Rx Instructions .Route .MEDSUPPLY Qty: 1 0RF Rx Instructions: glucometer testing kit strips#100 lancets#100 Discharge Orders: Discharge ED (Routine); Ordered 08/10/23 Ordered By: Paulino Reeder Referrals: Marzena Jesus MD [Primary Care Provider] - Discharge Diet: Usual diet Discharge Activity: Increase activity as tolerated Patient Instructions: Abdominal Pain (ED) Activity Restrictions/Additional Instructions: Continue with routine care. Activity as tolerated. Follow-up with primary care for further instructions. 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 PAD (peripheral artery disease) Abscess or cellulitis of foot Diabetic foot ulcer UTI (urinary tract infection) Gangrene of right foot Cellulitis of right leg Abdominal wall abscess Hypertension Hyperlipidemia Nephrolithiasis Diabetes Short-term memory loss DDD (degenerative disc disease) Refusal of statin medication by patient Surgical History (Updated 07/27/23 @ 00:01 by TERE Jc) Status post below-knee amputation of left lower extremity History of vasectomy History of hemorrhoidectomy History of lithotripsy History of tracheostomy History of hernia repair Periumbilical x2 / mesh Family History Other Diabetes Social History Smoking and tobacco/nicotine status: never used tobacco/nicotine Alcohol intake: never Substance/Drug Use: never Lives independently: Yes Household members: none Marital status: Current 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 Patient appears nontoxic. Patient appears in mild to no pain. Abdomen soft with no rebound tenderness. Bowel sounds are present. Skin is warm and dry. Differential diagnosis includes not limited to constipation, urinary tract infection, renal calculi, anxiety about health, major depressive disorder. Chest x-ray was unremarkable. CBC showed no significant elevation white blood cell count. CMP noted a sodium of 134, creatinine 0.9, and blood glucose of 130. CT of the abdomen noted some inflammatory perinephric stranding and some bilateral centrilobular opacities that may be infectious versus inflammatory process. No signs of pneumonia or urinary tract infection was noted. Review of prior CT and chest x-rays noted similar results. Patient did have some stranding still in his kidneys at that time. We will go ahead and send a urine for culture for evaluation. Patient just completed meropenem for infection. Believe patient has failure to thrive due to his chronic medical condition. Recommend patient continue with routine care and await culture results and return to the ER for worsening symptoms such as increased shortness of breath, fever greater than 100.4, or new concerns. Patient and family both reported understanding. This patient was originally seen by PACO Triplett.? I agree with his history, evaluation, and treatment. Lab Data 08/10/23 18:50 08/10/23 18:50 Radiology Impressions Chest X-Ray 08/10/23 17:13 IMPRESSION: No focal consolidations. Abdomen/Pelvis CT 08/10/23 17:25 IMPRESSION: 1. There is inflammatory perinephric, nonspecific please correlate for pyelonephritis. 2. Bibasilar centrilobular opacities, which can be seen in infectious, versus inflammatory processes. COMMENTS: Consistent with the [place]'s Incidental Findings Committee white paper (J Am Lanie Radiol 2018): Any incidental renal lesion less than 1 cm or classified as too small to characterize, or any incidental cystic renal lesion characterized as simple-appearing, is likely benign. No follow-up imaging is recommended for these lesions per consensus recommendations based on imaging criteria. Laboratory Results WBC 10.53 10^3/uL (3.29-11.43) 08/10/23 18:50 RBC 4.36 10^6/uL (3.85-5.65) 08/10/23 18:50 Hgb 12.70 g/dL (11.27-16.99) 08/10/23 18:50 Hct 41.4 % (37-53) 08/10/23 18:50 MCV 95.0 fl (82-101) 08/10/23 18:50 MCH 29.1 pg (27-33) 08/10/23 18:50 MCHC 30.7 g/dL (30-55) 08/10/23 18:50 RDW 17.9 % (12.1-15.1) H 08/10/23 18:50 Plt Count 251 10^3/cmm (157-399) 08/10/23 18:50 MPV 10.2 fL (7.4-10.4) 08/10/23 18:50 Neut % (Auto) 85.0 % 08/10/23 18:50 Lymph % (Auto) 8.8 % 08/10/23 18:50 [place] % (Auto) 4.7 % 08/10/23 18:50 Eos % (Auto) 0.5 % 08/10/23 18:50 Baso % (Auto) 0.6 % 08/10/23 18:50 Neut # (Auto) 8.95 10^3/uL (1.8-7.7) H 08/10/23 18:50 Lymph # (Auto) 0.9 10^3/uL (0.8-4.8) 08/10/23 18:50 [place] # (Auto) 0.5 10^3/uL (0.2-0.9) 08/10/23 18:50 Eos # (Auto) 0.1 10^3/uL (0.0-0.8) 08/10/23 18:50 Baso # (Auto) 0.1 10^3/uL (0.0-0.1) 08/10/23 18:50 Nucleated RBC % (auto) 0 % 08/10/23 18:50 Nucleated RBCs # 0.0 /100WBC 08/10/23 18:50 Sodium 134 mmol/L (136-145) L 08/10/23 18:50 Potassium 3.5 mmol/L (3.5-5.1) 08/10/23 18:50 Chloride 100 mmol/L (98-107) 08/10/23 18:50 Carbon Dioxide 19 mmol/L (22-29) L 08/10/23 18:50 Anion Gap 18.5 (5-19) 08/10/23 18:50 BUN 25 mg/dL (8-23) H 08/10/23 18:50 Creatinine 0.9 mg/dL (0.7-1.2) 08/10/23 18:50 GFR Calculation Not Reportable 08/10/23 18:50 Glucose 130 mg/dL (65-115) H 08/10/23 18:50 Calculated Osmolality 284 mOsm/kg (285-295) L 08/10/23 18:50 Calcium 8.5 mg/dL (8.5-10.5) 08/10/23 18:50 Total Bilirubin 1.0 mg/dL (0.15-1.2) 08/10/23 18:50 AST 9 U/L (0-40) 08/10/23 18:50 ALT < 5 U/L (0-41) 08/10/23 18:50 Alkaline Phosphatase 107 U/L (40-130) 08/10/23 18:50 Total Protein 6.4 g/dL (6.6-8.7) L 08/10/23 18:50 Albumin 2.7 g/dL (3.5-5.2) L 08/10/23 18:50 Globulin 3.7 g/dL (1.3-4.6) 08/10/23 18:50 Lipase 25 U/L (13-60) 08/10/23 18:50 Urine Color Val (Yellow) 08/10/23 18:39 Urine Appearance Hazy (CLEAR) A 08/10/23 18:39 Urine pH 5 (5-7) 08/10/23 18:39 Ur Specific [place] 1.020 (1.005-1.030) 08/10/23 18:39 Urine Protein Trace (Negative) 08/10/23 18:39 Urine Glucose (UA) Norm (Normal) 08/10/23 18:39 Urine Ketones 1+ (Negative) H 08/10/23 18:39 Urine Blood 2+ (Negative) H 08/10/23 18:39 Urine Nitrate Negative (Negative) 08/10/23 18:39 Urine Bilirubin 1+ (Negative) H 08/10/23 18:39 Urine Urobilinogen Norm mg/dL (Negative) 08/10/23 18:39 Ur Leukocyte Esterase 2+ (Negative) H 08/10/23 18:39 Urine RBC 5-10 /hpf (0-2) H 08/10/23 18:39 Urine WBC 25-40 /hpf (0-5) H 08/10/23 18:39 Ur Squamous Epith Cells 0-4 /hpf (0-5) H 08/10/23 18:39 Calcium Oxalate Crystal 0-4 /hpf H 08/10/23 18:39 Amorphous Sediment Not Reportable 08/10/23 18:39 Urine Bacteria 1+ /hpf (NONE) H 08/10/23 18:39 Hyaline Casts 0-4 /lpf H 08/10/23 18:39 Urine Mucus 2+ /hpf 08/10/23 18:39 Urine Yeast 2+ /hpf H 08/10/23 18:39 Discharge Plan Discharge Patient Disposition: Home Clinical Impression: Abdominal pain Qualifiers: Abdominal location: right upper quadrant Qualified Code(s): R10.11 - Right upper quadrant pain Condition: Stable Prescriptions: No Action Fleet Enema 19-7 gram/118 mL enema 118 ml UT DAILY PRN (Reason: Constipation) atorvastatin 40 mg tablet 40 mg PO DAILY Qty: 60 3RF finasteride 5 mg tablet 5 mg PO DAILY Qty: 60 3RF tamsulosin 0.4 mg capsule 0.4 mg PO DAILY Qty: 60 3RF acetaminophen [Tylenol] 325 mg tablet 325 mg PO QID PRN (Reason: Pain) ondansetron 4 mg tablet,disintegrating 4 mg PO DAILY PRN (Reason: Nausea And Vomiting) lidocaine HCl [Lidocaine Viscous] 2 % solution 1 applic topical ONCE Qty: 1 0RF fluconazole 100 mg Tablet 200 mg PO DAILY Qty: 10 0RF mirtazapine 15 mg Tablet 15 mg PO BEDTIME Qty: 30 0RF dronabinol 2.5 mg Capsule 2.5 mg PO BIDAC Qty: 60 0RF ertapenem 1 gram recon soln 1 g IV DAILY Qty: 10 0RF oxycodone-acetaminophen 7.5-325 mg tablet 1 tab PO Q6H PRN (Reason: pain) Qty: 20 0RF docusate sodium [Colace] 100 mg capsule 100 mg PO BID Qty: 14 0RF (DME) glucometer testing kit See Rx Instructions .Route .MEDSUPPLY Qty: 1 0RF Rx Instructions: glucometer testing kit strips#100 lancets#100 Discharge Orders: Discharge ED (Routine); Ordered 08/10/23 Ordered By: Paulino Reeder Referrals: Marzena Jesus MD [Primary Care Provider] - Discharge Diet: Usual diet Discharge Activity: Increase activity as tolerated Patient Instructions: Abdominal Pain (ED) Activity Restrictions/Additional Instructions: Continue with routine care. Activity as tolerated. Follow-up with primary care for further instructions. Coding Level of Care Code ED Clinical Team Manager for Thang Mejia
--- NOTE | 2023-08-10 17:25 | CTR_ITS ---
PROCEDURE INFORMATION: Exam: CT Abdomen And Pelvis Without Contrast Exam date and time: 08/10/2023 5:38 PM Age: 73 years old Clinical indication: Abdominal pain; Localized; Right; Additional info: Right abd pain TECHNIQUE: Imaging protocol: Computed tomography of the abdomen and pelvis without contrast. Radiation optimization: All CT scans at this facility use at least one of these dose optimization techniques: automated exposure control; mA and/or kV adjustment per patient size (includes targeted exams where dose is matched to clinical indication); or iterative reconstruction. COMPARISON: CT abdomen pelvis wo con [id number] 07/17/2023 10:47 PM RADIATION DOSE METRICS: Total DLP (mGy-cm): 568.85 FINDINGS: Lungs: Bibasilar centrilobular opacities, which can be seen in infectious, versus inflammatory processes. Liver: Normal. No mass. Gallbladder and bile ducts: Normal. No calcified stones. No ductal dilation. Pancreas: Normal. No ductal dilation. Spleen: Normal. No splenomegaly. Adrenal glands: Normal. No mass. Kidneys and ureters: Low attenuating bilateral cortical renal cysts. Nonspecific bilateral perinephric fat stranding. No hydronephrosis. Punctate bilateral nonobstructing calcifications. Stomach and bowel: Unremarkable. No obstruction. No mucosal thickening. Appendix: No evidence of appendicitis. Intraperitoneal space: Unremarkable. No free air. No significant fluid collection. Vasculature: Unremarkable. No abdominal aortic aneurysm. Lymph nodes: Unremarkable. No enlarged lymph nodes. Urinary bladder: Bladder is collapsed, there is a Parker in place. Reproductive: Unremarkable as visualized. Bones/joints: No acute fracture. Stable sclerotic foci along the femoral heads, likely a sequela of vascular necrosis. Soft tissues: Unremarkable. CT/CT abdomen pelvis wo con [id number] IMPRESSION: 1. There is inflammatory perinephric, nonspecific please correlate for pyelonephritis. 2. Bibasilar centrilobular opacities, which can be seen in infectious, versus inflammatory processes. COMMENTS: Consistent with the [employer] [place] [employer]'s Incidental Findings Committee white paper (J Am Lanie Radiol 2018): Any incidental renal lesion less than 1 cm or classified as too small to characterize, or any incidental cystic renal lesion characterized as simple-appearing, is likely benign. No follow-up imaging is recommended for these lesions per consensus recommendations based on imaging criteria.
[2023-08-10 18:55] LABS: Basophils # 0.1 10^3/uL (0.0-0.1); Basophils % 0.6 %; Eosinophils # 0.1 10^3/uL (0.0-0.8); Eosinophils % 0.5 %; Hematocrit 41.4 % (37-53); Lymphocytes # 0.9 10^3/uL (0.8-4.8); Lymphocytes % 8.8 %; Mean Corpuscular HGB Conc 30.7 g/dL (30-55); Mean Corpuscular Hemoglobin 29.1 pg (27-33); Mean Platelet Volume 10.2 fL (7.4-10.4); Monocytes # 0.5 10^3/uL (0.2-0.9); Monocytes % 4.7 %; Neutrophils # 8.95 10^3/uL (1.8-7.7); Nucleated Red Blood Cells % 0 %; Platelet Count 251 10^3/cmm (157-399); Red Blood Count 4.36 10^6/uL (3.85-5.65); Red Cell Distribution Width 17.9 % (12.1-15.1); White Blood Count 10.53 10^3/uL (3.29-11.43)
[2023-08-10 19:17] LABS: Add Urine Microscopic? YES; Bilirubin Urine 1+ (Negative); Blood Urine 2+ (Negative); Glucose Urine UA Norm (Normal); Ketones Urine 1+ (Negative); Leukocyte Esterase Urine 2+ (Negative); Nitrate Urine Negative (Negative); Protein Urine Trace (Negative); Urine Appearance Hazy (CLEAR); Urine Color Amber (Yellow); Urobilinogen Urine Norm (Negative); WBC Urine 25-40 /hpf (0-5); pH Urine 5 (5-7)
[2023-08-10 19:18] LABS: Alanine Aminotransferase < 5 U/L (0-41); Albumin Level 2.7 g/dL (3.5-5.2); Alkaline Phosphatase 107 U/L (40-130); Anion Gap 18.5 (5-19); Aspartate Amino Transferase 9 U/L (0-40); Blood Urea Nitrogen 25 mg/dL (8-23); Calcium 8.5 mg/dL (8.5-10.5); Carbon Dioxide 19 mmol/L (22-29); Chloride 100 mmol/L (98-107); Globulin 3.7 g/dL (1.3-4.6); Glucose 130 mg/dL (65-115); Lipase 25 U/L (13-60); Osmolality Calculated 284 mOsm/kg (285-295); Potassium 3.5 mmol/L (3.5-5.1); Sodium 134 mmol/L (136-145); Total Protein 6.4 g/dL (6.6-8.7)
[2023-08-10 19:18] LABS: Bacteria Urine 1+ /hpf; Calcium Oxalate Crystals Urine 0-4 /hpf; Hyaline Casts Urine 0-4 /lpf; Mucus Urine 2+ /hpf; Squamous Epithelial Cell Urine 0-4 /hpf (0-5)
[2023-08-10 19:19] LABS: Add Urine Culture? Yes
[2023-08-10 19:50] VITALS: PULSE 106; RESP 16; O2SAT 93
== END 2023-08-10 19:57 | disposition home or self-care (01) ==
PROVIDERS: Emergency Provider Nurse Practitioner Family; PCP Family Medicine
DX: R10.11 Right upper quadrant pain (principal); E11.42 Type 2 diabetes mellitus with diabetic polyneuropathy; I10 Essential (primary) hypertension; E78.5 Hyperlipidemia, unspecified; Z89.512 Acquired absence of left leg below knee
CPT/HCPCS: 71045; 74176; 80053; 81001; 83690; 85025; 87077; 87086; 87186; 99284

== ENCOUNTER → 2023-09-02 14:14 | Outpatient (BNVA) | payer MEDICARE, SELFPAY | PROVIDERS: PCP Family Medicine; Visit Provider Thoracic Surgery (Cardiothoracic Vascular Surgery) | DX: I96 Gangrene, not elsewhere classified (principal); L89.322 Pressure ulcer of left buttock, stage 2; T81.31XD Disruption of external operation (surgical) wound, not elsewhere classified, subsequent encounter; Y83.8 Other surgical procedures as the cause of abnormal reaction of the patient, or of later complication, without mention of misadventure at the time of the procedure; E11.52 Type 2 diabetes mellitus with diabetic peripheral angiopathy with gangrene; E11.622 Type 2 diabetes mellitus with other skin ulcer; L97.811 Non-pressure chronic ulcer of other part of right lower leg limited to breakdown of skin | CPT/HCPCS: 97597; 99213; A6219; A6220; A6248 ==

== ENCOUNTER 2023-09-04 18:10 | Inpatient (IN) | payer MEDICARE, SELFPAY ==
[2023-09-04 18:19] VITALS: BP 105/72; PULSE 93; RESP 18; TEMP 36.4; O2SAT 97
[2023-09-04 19:40] LABS: Basophils % 0.7 %; Eosinophils # 0.1 10^3/uL (0.0-0.8); Eosinophils % 1.4 %; Hematocrit 38.3 % (37-53); Lymphocytes % 22.6 %; Mean Corpuscular HGB Conc 32.9 g/dL (30-55); Mean Corpuscular Hemoglobin 29.9 pg (27-33); Mean Corpuscular Volume 90.8 fl (82-101); Mean Platelet Volume 10.1 fL (7.4-10.4); Monocytes # 0.3 10^3/uL (0.2-0.9); Monocytes % 6.4 %; Neutrophils % 68.9 %; Nucleated Red Blood Cells % 0 %; Platelet Count 285 10^3/cmm (157-399); Red Blood Count 4.22 10^6/uL (3.85-5.65); Red Cell Distribution Width 18.7 % (12.1-15.1); White Blood Count 4.21 10^3/uL (3.29-11.43)
[2023-09-04 19:44] LABS: Erythrocyte Sedimentation Rate 18 mm/hr (0-10)
[2023-09-04 19:54] LABS: INR 0.96 (0.8-1.2); Partial Thromboplastin Time 36.5 SECONDS (23.9-36.7)
[2023-09-04 20:01] LABS: Alanine Aminotransferase 7 U/L (0-41); Alkaline Phosphatase 86 U/L (40-130); Anion Gap 17.4 (5-19); Aspartate Amino Transferase 10 U/L (0-40); Blood Urea Nitrogen 20 mg/dL (8-23); C Reactive Protein 65.1 mg/L (0.0-4.9); Calcium 8.3 mg/dL (8.5-10.5); Carbon Dioxide 24 mmol/L (22-29); Chloride 99 mmol/L (98-107); Creatinine Clr Calc Pharmacy 62.3338; Globulin 3.3 g/dL (1.3-4.6); Glucose 164 mg/dL (65-115); Osmolality Calculated 290 mOsm/kg (285-295); Potassium 3.4 mmol/L (3.5-5.1); Sodium 137 mmol/L (136-145); Total Bilirubin 1.1 mg/dL (0.15-1.2); Total Protein 6.3 g/dL (6.6-8.7)
[2023-09-04 20:02] LABS: Lactic Sepsis W/Reflex 1.8 mmol/L (0.5-2.2)
[2023-09-04 20:08] LABS: Procalcitonin 0.49 ng/mL (0-0.5)
[2023-09-04 21:42] VITALS: BP 115/71; PULSE 94; RESP 18; O2SAT 92
--- NOTE | 2023-09-04 21:53 | ED_ITS ---
HPI - Extremity Problem 2 General: Chief complaint: Extremity Problem,Nontraumatic Stated complaint: right foot swelling, infection Time Seen by Provider: 09/04/23 21:40 History of Present Illness: 73-year-old male patient comes in today with complaints of swelling to the right lower extremity. Patient feels that it is not that swollen but family is concerned due to patient having chronic wounds to the leg. Family is also concerned about patient not eating well. Patient was started on some megestrol 2 days ago and daughter does report some increased in appetite since starting medication. Patient did have to have a amputation of his left leg about 6 months ago and son reports that he has had a steady decline since then. Son reports that he is concerned that patient needs better nutrition and may need to have a G-tube. Patient voices that he does not want G-tube at this time. 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 PAD (peripheral artery disease) Abscess or cellulitis of foot Diabetic foot ulcer UTI (urinary tract infection) Gangrene of right foot Cellulitis of right leg Abdominal wall abscess Hypertension Hyperlipidemia Nephrolithiasis Diabetes Short-term memory loss DDD (degenerative disc disease) Refusal of statin medication by patient Surgical History Status post below-knee amputation of left lower extremity History of vasectomy History of hemorrhoidectomy History of lithotripsy History of tracheostomy History of hernia repair Periumbilical x2 / mesh Family History Other Diabetes Social History Smoking and tobacco/nicotine status: never used tobacco/nicotine Alcohol intake: never Substance/Drug Use: never Lives independently: Yes Household members: none Marital status: Current 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 Pets and animals: Yes Physical Exam 2 Const: COMMON NORMALS: alert HENMT: COMMON NORMALS: normocephalic HEAD & SCALP: normocephalic Neck/C-Spine: COMMON NORMALS: full ROM Resp: COMMON NORMALS: normal respiratory effort and clear to auscultation bilaterally AUSCULTATION: clear to auscultation bilaterally Cardio: COMMON NORMALS: regular rate RATE: regular rate GI: COMMON NORMALS: Soft to palpation and non-tender PALPATION: Yes Soft to palpation Back/Pelvis: COMMON NORMALS: thoracic and lumbar spine normal to inspection Extremity: COMMON NORMALS: full ROM Neuro: SENSORIUM/ORIENTATION: Yes alert Skin: NARRATIVE SKIN EXAM: Patient has 2 chronic ulcers to the right foot that have good granulation. Family reports some increased swelling to the foot but no obvious redness or induration is noted to it. Patient also has an area to the right lateral lower leg as approximately 4 cm x 1 cm ovoid with some white eschar but no significant redness around it. Course 2 Vital Signs: Vital signs: Vital Signs Temperature 97.5 F L 09/04/23 18:19 Pulse Rate 77 09/04/23 23:43 Respiratory Rate 18 09/04/23 23:53 Blood Pressure 111/65 09/04/23 23:43 Pulse Oximetry 99 09/04/23 23:53 Oxygen Delivery Me thod Room Air 09/04/23 23:43 MDM - Extremity (Nontraumatic) Medical Decision Making 73-year-old male patient comes in today for concerns of swelling and redness to the right lower leg. On exam patient has good pedal pulses. Swelling is noted to the foot with some minimal to erythema. Vital signs are stable. Differential diagnosis includes but not limited to DVT, osteomyelitis, cellulitis, chronic foot ulcer, urinary tract infection. X-ray was strongly suspicious for a osteomyelitis of the fourth metatarsal phalangeal joint. Ultrasound of the lower extremity noted no DVT. White blood cell count was 4.2, potassium was 3.4, glucose was 164, CRP was 65, sed rate was 18, urinalysis had significant amount of white blood cells and red blood cells and positive for nitrates along with yeast. 2351, discussed patient with Dr. Tilley for admission for osteomyelitis of the foot and urinary tract infection. Patient be placed on broad-spectrum antibiotics including Vanco and Zosyn. Patient needs admission for IV antibiotics and further evaluation by surgical team. Lab Data 09/04/23 19:25 09/04/23 19:25 Radiology Impressions Foot X-Ray 09/04/23 22:17 IMPRESSION: 1. Findings highly suspicious for a septic 4th metatarsophalangeal joint with osteomyelitis involving the 4th metatarsal head and base of the 4th proximal phalanx. 2. Large lateral soft tissue ulceration. Venous Duplex 09/04/23 22:17 IMPRESSION: No evidence of deep vein thrombosis. Laboratory Results WBC 4.21 10^3/uL (3.29-11.43) 09/04/23 19: RBC 4.22 10^6/uL (3.85-5.65) 09/04/23 19: Hgb 12.60 g/dL (11.27-16.99) 09/04/23: Hct 38.3 % (37-53) 09/04/23: MCV 90.8 fl (82-101) 09/04/23: MCH 29.9 pg (27-33) 09/04/23: MCHC 32.9 g/dL (30-55) 09/04/23 19: RDW 18.7 % (12.1-15.1) H 09/04/23: Plt Count 285 10^3/cmm (157-399) 09/04/23: MPV 10.1 fL (7.4-10.4) 09/04/23: Neut % (Auto) 68.9 % 09/04/23 19: Lymph % (Auto) 22.6 % 09/04/23: [place] % (Auto) 6.4 % 09/04/23: Eos % (Auto) 1.4 % 09/04/23 19: Baso % (Auto) 0.7 % 09/04/23: Neut # (Auto) 2.90 10^3/uL (1.8-7.7) 09/04/23: Lymph # (Auto) 1.0 10^3/uL (0.8-4.8) 09/04/23: [place]arton # (Auto) 0.3 10^3/uL (0.2-0.9) 09/04/23: Eos # (Auto) 0.1 10^3/uL (0.0-0.8) 09/04/23 19:25 Baso # (Auto) 0.0 10^3/uL (0.0-0.1) 09/04/23 19: Nucleated RBC % (auto) 0 % 09/04/23 19:25 Nucleated RBCs # 0.0 /100WBC 09/04/23 19:25 ESR 18 mm/hr (0-10) H 09/04/23 19: PT 13.10 SECONDS (12.1-14.9) 09/04/23 19:25 INR 0.96 (0.8-1.2) 09/04/23 19: APTT 36.5 SECONDS (23.9-36.7) 09/04/23:25 Sodium 137 mmol/L (136-145) 09/04/23 19:25 Potassium 3.4 mmol/L (3.5-5.1) L 09/04/23: Chloride 99 mmol/L (98-107) 09/04/23: Carbon Dioxide 24 mmol/L (22-29) 09/04/23 19:25 Anion Gap 17.4 (5-19) 09/04/23 19:25 BUN 20 mg/dL (8-23) 09/04/23 19: Creatinine 0.9 mg/dL (0.7-1.2) 09/04/23 19:25 GFR Calculation Not Reportable 09/04/23: Glucose 164 mg/dL (65-115) H 09/04/23:25 Calculated Osmolality 290 mOsm/kg (285-295) 09/04/23:25 Lactic Acid 1.8 mmol/L (0.5-2.2) 09/04/23:25 Calcium 8.3 mg/dL (8.5-10.5) L 09/04/23:25 Total Bilirubin 1.1 mg/dL (0.15-1.2) 09/04/23 19:25 AST 10 U/L (0-40) 09/04/23:25 ALT 7 U/L (0-41) 09/04/23 19:25 Alkaline Phosphatase 86 U/L (40-130) 09/04/23 19:25 C-Reactive Protein 65.1 mg/L (0.0-4.9) H 09/04/23 19:25 Total Protein 6.3 g/dL (6.6-8.7) L 09/04/23 19:25 Albumin 3.0 g/dL (3.5-5.2) L 09/04/23 19:25 Globulin 3.3 g/dL (1.3-4.6) 09/04/23 19:25 Procalcitonin 0.49 ng/mL (0-0.5) 09/04/23 19:25 Urine Color Yellow (Yellow) 09/04/23 22:38 Urine Appearance Cloudy (CLEAR) A 09/04/23 22:38 Urine pH 5 (5-7) 09/04/23 22:38 Ur Specific [place] 1.015 (1.005-1.030) 09/04/23 22:38 Urine Protein 1+ (Negative) H 09/04/23 22:38 Urine Glucose (UA) Norm (Normal) 09/04/23 22:38 Urine Ketones 1+ (Negative) H 09/04/23 22:38 Urine Blood 3+ (Negative) H 09/04/23 22:38 Urine Nitrate Positive (Negative) H 09/04/23 22:38 Urine Bilirubin 1+ (Negative) H 09/04/23 22:38 Urine Urobilinogen 1 mg/dL (Negative) H 09/04/23 22:38 Ur Leukocyte Esterase 2+ (Negative) H 09/04/23 22:38 Urine RBC 10-15 /hpf (0-2) H 09/04/23 22:38 Urine WBC 25-40 /hpf (0-5) H 09/04/23 22:38 Ur Squamous Epith Cells None /hpf (0-5) 09/04/23 22:38 Amorphous Sediment Not Reportable 09/04/23 22:38 Urine Bacteria 3+ /hpf (NONE) H 09/04/23 22:38 Urine Mucus 2+ /hpf 09/04/23 22:38 Urine Yeast 3+ /hpf H 09/04/23 22:38 All radiology interpretation(s) finalized by discharge Discharge Plan Discharge Patient Disposition: Admitted As Inpatient Admit Provider: Pedro Tilley Clinical Impression: Foot osteomyelitis, right Qualifiers: Osteomyelitis type: unspecified type Qualified Code(s): M86.9 - Osteomyelitis, unspecified UTI (urinary tract infection) Qualifiers: Urinary tract infection type: catheter-associated UTI Indwelling urinary catheter type: indwelling urethral catheter Encounter type: initial encounter Q ualified Code(s): T83.511A - Infection and inflammatory reaction due to indwelling urethral catheter, initial encounter Condition: Stable Coding Level of Care Code 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
--- NOTE | 2023-09-04 22:17 | XRR_ITS ---
PROCEDURE INFORMATION: Exam: XR Right Foot Exam date and time: 09/04/2023 10:26 PM Age: 73 years old Clinical indication: Swelling, leg or foot; Patient HX: Post op surgery swelling; Additional info: Swelling redness TECHNIQUE: Imaging protocol: Radiologic exam of the right foot. Views: 3 or more views. COMPARISON: CR XR foot RT min 3V* [id number] 04/10/2023 12:51 PM FINDINGS: Bones/joints: Amputation of the 5th toe at the level of the proximal metatarsal. Cortical irregularity and lucency in the head of the 4th metatarsal. Thick periosteal reaction along the lateral aspect of the 4th and 3rd metatarsals. Subtle lucency in the base of the 4th proximal phalanx. The other bones are intact. Soft tissues: Soft tissue ulceration in the lateral foot which appears to extend to the head of the 4th metatarsal. XR/XR foot RT min 3V* [id number] IMPRESSION: 1. Findings highly suspicious for a septic 4th metatarsophalangeal joint with osteomyelitis involving the 4th metatarsal head and base of the 4th proximal phalanx. 2. Large lateral soft tissue ulceration.
--- NOTE | 2023-09-04 22:17 | USR_ITS ---
PROCEDURE INFORMATION: Exam: US Duplex Right Lower Extremity Veins, Limited Exam date and time: 09/04/2023 11:10 PM Age: 73 years old Clinical indication: Edema, localized; Lower extremity, right; Patient HX: Chronic rle edema; Additional info: Concern for dvt TECHNIQUE: Imaging protocol: Real-time duplex ultrasound of the right extremity with 2-D mcgregor scale, color Doppler flow and spectral waveform analysis including responses to compression and other maneuvers (when performed) with image documentation. Limited exam was focused on the right lower extremity veins. COMPARISON: CT abdomen pelvis wo con [id number] 08/10/2023 5:38 PM FINDINGS: Right deep veins: Unremarkable. The common femoral, femoral, proximal profunda femoral and popliteal veins are patent without thrombus. Normal Doppler waveforms. Normal compressibility and/or augmentation response. Superficial veins: Greater saphenous vein at the saphenofemoral junction is patent without thrombus. Soft tissues: Unremarkable. US/[place] [id number] IMPRESSION: No evidence of deep vein thrombosis.
[2023-09-04 22:40] VITALS: BP 114/66; PULSE 77; RESP 18; O2SAT 99
[2023-09-04 22:53] LABS: Bilirubin Urine 1+ (Negative); Blood Urine 3+ (Negative); Glucose Urine UA Norm (Normal); Ketones Urine 1+ (Negative); Leukocyte Esterase Urine 2+ (Negative); Nitrate Urine Positive (Negative); Protein Urine 1+ (Negative); Specific Gravity, Urine 1.015 (1.005-1.030); Urine Appearance Cloudy (CLEAR); Urine Color Yellow (Yellow); Urobilinogen Urine 1 mg/dL (Negative); pH Urine 5 (5-7)
[2023-09-04 22:54] LABS: Add Urine Culture? Yes; Bacteria Urine 3+ /hpf; Mucus Urine 2+ /hpf; WBC Urine 25-40 /hpf (0-5)
[2023-09-04] MEDS: piperacillin-tazobactam 3.375 GM in sodium chloride 0.9% (plus) 50 ML IV (23:38)
[2023-09-04] MEDS: sodium chloride 0.9% 1,000 ML 999 ML IV (23:40)
[2023-09-04 23:43] VITALS: BP 111/65; PULSE 77; RESP 18; O2SAT 100
--- NOTE | 2023-09-04 23:51 | P.HP_ITS ---
Providers/Chief Complaint 2 Primary Care Provider: Marzena Jesus MD Chief Complaint: right foot swelling, infection History of Present Illness Justice Guardado is a 73 year old male was discharged to [facility] recently on ertapenem 14-day regimen for ESBL PYELONEPHRITIS /UTI, Parker catheter was replaced, presenting today with worsening of right foot pain, he does have history of diabetes, peripheral arterial disease, diabetic foot ulcer right extremity. Patient was discharged from the [facility] 3 weeks ago, he has finished his IV antibiotics for ESBL pyelonephritis. Patient is presenting to the hospital with chief complaint of worsening of swelling and drainage from his right foot He has not noticed any chest pain shortness of breath or fever. Does not smoke or drink alcohol, lives with his family, changes Parker catheter once a month, does have home health services X-ray showing osteomyelitis concern for septic fourth metatarsophalangeal joint Message sent out to Dr. Desai, waiting for callback Will request CT scan as well Previous Doppler scan did not show any sign of significant vascular ischemia Review of Systems 2 Const: Denies: fever(s) Eyes: Denies: change in vision ENMT: Denies: throat pain Card: Denies: chest pain Resp: Denies: dyspnea GI: Denies: abdominal pain : Denies: flank pain Musc: Denies: neck pain, back pain or extremity pain Skin/Breast: Reports: rash, erythema, skin swelling, changing lesions and non- healing lesions Neuro: Denies: headache(s) Medications/Allergies Home Medications Medication Instructions Recorded Confirmed Last Taken Type finasteride 5 mg tablet 5 mg PO DAILY #60 tabs 06/19/23 08/25/23 07/03/23 Rx glucometer testing kit #1 ea 06/29/23 08/25/23 Unknown Rx oxycodone-acetaminophen 7.5 mg-325 1 tab PO Q6H PRN pain #20 tabs 06/29/23 07/22/23 07/03/23 Rx mg tablet sodium phosphates 19 gram-7 118 ml FL DAILY PRN Constipation 07/09/23 08/25/23 Unknown History gram/118 mL enema (Fleet Enema) ertapenem 1 gram solution for 1 g IV DAILY #10 ea 07/25/23 08/25/23 Unknown Rx injection fluconazole 100 mg tablet 200 mg (2 x 100 mg) PO DAILY #10 07/25/23 08/25/23 Unknown Rx tabs prosthetic leg for left leg #1 ea 08/25/23 08/25/23 Unknown Rx megestrol 400 mg/10 mL (40 mg/mL) 400 mg (10 mL) PO DAILY #480 mL 08/25/23 08/25/23 Unknown Rx oral suspension Allergies Allergy/AdvReac Type Severity Reaction Status Date / Time No Known Allergies Allergy Verified 08/25/23 10:08 PFSH Acute 2 PFSH: Medical History (Updated 09/05/23 @ 00:49 by Pedro Tilley MD) Diabetic ulcer of foot associated with type 1 diabetes mellitus, with necrosis of muscle Syncope Decubitus ulcer Acute cystitis Hand edema Shoulder pain, right Cellulitis and abscess of other specified site Diabetic peripheral neuropathy associated with type 2 diabetes mellitus Diabetes A1c 8.7 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 PAD (peripheral artery disease) Abscess or cellulitis of foot Diabetic foot ulcer UTI (urinary tract infection) Gangrene of right foot Cellulitis of right leg Abdominal wall abscess Hypertension Hyperlipidemia Nephrolithiasis Diabetes Short-term memory loss DDD (degenerative disc disease) Refusal of statin medication by patient Surgical History Status post below-knee amputation of left lower extremity History of vasectomy History of hemorrhoidectomy History of lithotripsy History of tracheostomy History of hernia repair Periumbilical x2 / mesh Family History Other Diabetes Social History Smoking and tobacco/nicotine status: never used tobacco/nicotine Alcohol intake: never Substance/Drug Use: never Lives independently: Yes Household members: none Marital status: Current 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 Pets and animals: Yes Vitals/I&O/Wt Last Vital Signs Temp 97.5 F L 09/04/23 18:19 Pulse 77 09/04/23 23:43 Resp 18 09/04/23 23:43 BP 111/65 09/04/23 23:43 Pulse Ox 100 09/04/23 23:43 O2 Del Method Room Air 09/04/23 23:43 Weight last 48 hrs Weight 62.142 kg Physical Exam 2 Narrative: Patient is laying supine Parker catheter in place Currently on room air Hemodynamic stable Afebrile No acute chest pain Right foot Charcot's foot, draining ulcer probing to bone Foot feels warm, no sign of ischemic ulcer Abdomen soft S1, S2 No audible stridor or wheezing Data 09/04/23 19:25 09/04/23 19:25 Micro: Microbiology 09/04/23 23:37 Blood Culture - Preliminary Blood SPECIMEN COLLECTED A&P Assessment and plan (1) Hypertension: Qualifiers: Hypertension type: primary hypertension Qualified Code(s): I10 - Essential (primary) hypertension (2) PAD (peripheral artery disease): (3) Type 2 diabetes mellitus with foot ulcer: (4) Foot osteomyelitis, right: Qualifiers: Osteomyelitis type: unspecified type Qualified Code(s): M86.9 - Osteomyelitis, unspecified (5) Status post below-knee amputation of left lower extremity: (6) Diabetic peripheral neuropathy associated with type 2 diabetes mellitus: (7) Weakness: (8) Septic joint: Plan Septic metatarsophalangeal joint, osteomyelitis of foot Diabetic foot ulcer Start vancomycin and Zosyn Will consult podiatry as well Message sent to Dr. Desai, awaiting callback I will keep patient n.p.o. Patient recently finished 2 weeks of ertapenem for ESBL pyelonephritis Will request CT scan as well to learn more about peripheral arterial disease however previous Doppler study did not show significant ischemic changes Not showing any active signs of sepsis ESR is 18, D-dimer 0.9, Hypokalemia: Replenish potassium UTI: Colonization with bacteria? Previous history of ESBL: Patient has a chronic indwelling catheter Finished ertapenem 14-day course few weeks ago Currently afebrile Diabetic with neuropathy Patient is stating that he is not taking anything for his diabetes he is well- controlled with lifestyle modification and dietary restrictions Goals of care discussed with the patient in front of his son, he wants to stay DNR/DNI in case of respiratory or cardiac arrest does not want any heroic measures N.p.o. after midnight DNR/DNI Insulin with sliding scale His PICC line has been removed after ertapenem course Attestations 2 Medical Necessity Statement*: More than 2 midnights anticipated Diagnoses Primary hypertension I10 Hypertension type: primary hypertension PAD (peripheral artery disease) I73.9 Type 2 diabetes mellitus with foot ulcer E11.621; L97.509 Foot osteomyelitis, right M86.9 Osteomyelitis type: unspecified type Status post below-knee amputation of left lower extremity Z89.512 Diabetic peripheral neuropathy associated with type 2 diabetes mellitus E11.42 Weakness R53.1 Septic joint M00.9
[2023-09-04 23:53] VITALS: RESP 18; O2SAT 99
[2023-09-04] MEDS: oxyCODONE-APAP 10-325 mg Tablet 1 TAB PO (23:53)
[2023-09-05] VITALS (7 sets, daily range): BP systolic 112–135; BP diastolic 61–83; PULSE 65–85; RESP 15–18; TEMP 36.3–36.7; O2SAT 97–100; BMI 18.9
--- NOTE | 2023-09-05 | CTR_ITS ---
PROCEDURE INFORMATION: Exam: CTA Abdominal Aorta and Bilateral Lower Extremities (Run-off) With Contrast Exam date and time: 09/05/2023 1:17 AM Age: 73 years old Clinical indication: Other: Right foot osteomyelitis TECHNIQUE: Imaging protocol: Computed tomographic angiography of the of the abdominal aorta, pelvis and bilateral lower extremities with contrast. 3D rendering (Not supervised by radiologist): MIP and/or 3D reconstructed images were created by the technologist. Radiation optimization: All CT scans at this facility use at least one of these dose optimization techniques: automated exposure control; mA and/or kV adjustment per patient size (includes targeted exams where dose is matched to clinical indication); or iterative reconstruction. Contrast material: OMNI 350; Contrast volume: 125 ml; Contrast route: INTRAVENOUS (IV); COMPARISON: CT abdomen pelvis wo con [id number] 08/10/2023 5:38 PM RADIATION DOSE METRICS: Total DLP (mGy-cm): 905.99 FINDINGS: Aorta: Moderate calcified and noncalcified atherosclerotic disease of the lower abdominal aorta without significant stenosis. Severe calcified and noncalcified atherosclerotic disease of the left femoral artery. Celiac trunk and mesenteric arteries: No occlusion or significant stenosis. Renal arteries: No occlusion or significant stenosis. Right iliac arteries: No occlusion or significant stenosis. Right femoral/popliteal arteries: There is severe calcified and noncalcified atherosclerotic disease of the right femoral artery without significant stenosis. Right infrapopliteal arteries: There are numerous regions of non opacification along the right anterior tibial artery. There is long segment non opacification of the right posterior tibialis artery with reconstitution distally. There are numerous regions non opacification along the entirety of the right peroneal artery. There is faint opacification of the dorsalis pedis artery and the plantar arteries of the right foot. Left iliac arteries: No occlusion or significant stenosis. Left femoral/popliteal arteries: There is gradual non opacification of the distal left femoral artery with complete loss of opacification at the level of the left popliteal artery on the more delayed sequences. No collateralization is noted. This is likely on the basis of flow. Left infrapopliteal arteries: No occlusion or significant stenosis. Lungs: Bibasilar tree-in-bud nodularity. Bibasilar scarring versus atelectasis, mild. Coronary arteries: Severe atherosclerotic disease of the visualized coronary vasculature. Liver: Regions of hepatic arteriovenous fistulization/transient hepatic attenuation difference. Suspicion of hepatic steatosis. Diffuse fatty atrophy of the pancreas. Gallbladder and bile ducts: Gallbladder is distended without significant inflammatory change. Pancreas: See Liver finding. Spleen: Normal. No splenomegaly. Adrenal glands: Normal. No mass. Kidneys and ureters: Benign left renal cyst. There are regions of left renal cortical thinning and delayed enhancement. Stomach and bowel: There is masslike thickening and mural nodularity of the ascending colon at the level of the hepatic flexure which spans 5.8 cm in longitudinal direction. Appendix: No evidence of appendicitis. Urinary bladder: Urinary bladder is decompressed on the basis of catheterization. Reproductive: Prostate demonstrates central dystrophic calcifications. Intraperitoneal space: Unremarkable. No free air. No significant fluid collection. Lymph nodes: No lymphadenopathy. Bones/joints: Diffuse severe degenerative change of the visualized osseous structures. 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 Patient is status post [id number] amputation of the left lower extremity. Patient is status post right 5th digit amputation of the foot. Posttraumatic change of the head of the 4th metatarsal bone is noted. No aggressive features to suggest underlying osteomyelitis of the right foot on this examination. Soft tissues: Diffuse anasarca. Diffuse fatty atrophy of the visualized musculature. There is diffuse soft tissue swelling and reticulation about the right foot to the level of the mid tibial shaft. No rim enhancing fluid collection is noted to suggest inflammatory collection. There is a organized collection about the distal tibial amputation site which measures 4.1 x 4 point 1 x 2.3 cm (series 5, image 188; series 16, image 138). There is suggestion of thin rim enhancement. There is mild diffuse soft tissue reticulation and cutaneous thickening about the amputation site. Other findings: There is severe calcified atherosclerotic disease of the popliteal artery without significant stenosis. CT/CT angio abd aorta runof [id number] IMPRESSION: 1. Multiple regions of complete non opacification of the right lower extremity arterial vasculature after the trifurcation of the popliteus artery. There is distal reconstitution of the foot as seen within the dorsalis pedis and the major plantar arteries. 2. Findings congruent with cellulitis of the right lower extremity without rim enhancing fluid collection or underlying osteomyelitis. 3. Patient is status post [id number] left lower extremity amputation, there is a thin rimmed enhancing collection at the distal tibia which likely represents postsurgical collection as opposed to an inflammatory collection given the appearance, however physical examination and clinical examination for infection should be performed. 4. Masslike thickening of the hepatic flexure of the large bowel concerning for neoplasm. 5. Tree-in-bud nodularity of the bilateral lower lung huitron, correlate with aspiration and infection. 6. Additional findings as above.
[2023-09-05 00:22] LABS: D Dimer 0.93 ug/mLFEU (0-0.59); Procalcitonin 0.42 ng/mL (0-0.5)
[2023-09-05] MEDS: vancomycin 1,000 MG in sodium chloride 0.9% 250 ML 250 MG IV (00:24)
[2023-09-05] MEDS: iohexol 350 mg/mL 500 mL Btl (per mL) IV (01:30)
[2023-09-05 05:35] LABS: Basophils % 0.4 %; Eosinophils # 0.1 10^3/uL (0.0-0.8); Eosinophils % 1.8 %; Hematocrit 36.3 % (37-53); Lymphocytes # 1.1 10^3/uL (0.8-4.8); Lymphocytes % 22.2 %; Mean Corpuscular HGB Conc 32.2 g/dL (30-55); Mean Corpuscular Hemoglobin 29.7 pg (27-33); Mean Corpuscular Volume 92.1 fl (82-101); Mean Platelet Volume 9.8 fL (7.4-10.4); Monocytes # 0.4 10^3/uL (0.2-0.9); Neutrophils # 3.29 10^3/uL (1.8-7.7); Neutrophils % 67.2 %; Nucleated Red Blood Cells % 0 %; Platelet Count 234 10^3/cmm (157-399); Red Blood Count 3.94 10^6/uL (3.85-5.65); Red Cell Distribution Width 18.6 % (12.1-15.1)
[2023-09-05 05:53] LABS: Anion Gap 14.3 (5-19); Blood Urea Nitrogen 16 mg/dL (8-23); Calcium 7.8 mg/dL (8.5-10.5); Carbon Dioxide 24 mmol/L (22-29); Chloride 103 mmol/L (98-107); Creatinine Clr Calc Pharmacy 81.8612; Glucose 124 mg/dL (65-115); Magnesium 1.8 mg/dL (1.7-2.3); Osmolality Calculated 289 mOsm/kg (285-295); Potassium 3.3 mmol/L (3.5-5.1); Sodium 138 mmol/L (136-145)
[2023-09-05 06:31] LABS: Glucose Point of Care 117 mg/dL (70-110)
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
[2023-09-05] MEDS: sennosides-docusate Tablet 1 TAB PO (08:06)
[2023-09-05] MEDS: finasteride 5 mg Tablet PO (08:07)
[2023-09-05] MEDS: piperacillin-tazobactam 3.375 GM in sodium chloride 0.9% (plus) 50 ML IV (08:09)
[2023-09-05] MEDS: acetaminophen 500 mg Tablet PO (08:11)
[2023-09-05] MEDS: ferrous sulfate EC 325 mg Tablet PO (08:51)
[2023-09-05] MEDS: megestrol 400 mg/10 mL UDC PO (08:51)
[2023-09-05] MEDS: tamsulosin 0.4 mg Capsule 0.400000000000000022 MG PO (08:52)
[2023-09-05] MEDS: meropenem 1,000 MG in sodium chloride 0.9% (plus) 50 ML 100 MG IV ×2 (08:52→17:48)
[2023-09-05] MEDS: pantoprazole DR 40 mg Tablet PO (08:52)
[2023-09-05 11:35] LABS: Glucose Point of Care 122 mg/dL (70-110)
--- NOTE | 2023-09-05 12:20 | W.PM.EVENTAC ---
Event Note Event Note: Admitted overnight. Room on examination and comfortably in bed. States he is feeling a lot better. Has eaten a lot today after a long time. Patient seen by podiatry who recommends outpatient follow-up with antibiotics without any concerns for osteomyelitis or surgical needs for now. Plan: Check MRSA swab. On review of culture history from before patient has history of infections from E. coli and ESBL Klebsiella in the past. Patient will need to be discharged on IV antibiotics for management of cellulitis because he is at high risk of osteomyelitis for at least 7 days. For now we will plan to discharge on IV ertapenem 1 g daily for 7 days. If MRSA positive will add vancomycin. Case management alerted. Event Notes Attestations Time Spent in Patient Care: Greater than 35 minutes Additional care needed for reviewing lab work and old culture history, examination of patient, discussion with case management for set up of outpatient IV antibiotics High MDM includes number and complexity of problems actively addressed during encounter, amount and/or complexity of data reviewed/ordered [ previous or external records, resulted lab(s)/test(s), ordered lab(s)/test(s), independent test interpretation and other healthcare professional discussion] and described risk of complication, morbidity or mortality of management as documented
[2023-09-05] MEDS: vancomycin 750 MG in sodium chloride 0.9% 250 ML 250 MG IV (13:02)
--- NOTE | 2023-09-05 15:27 | PC.SOCIAL ---
IMM Update pg 2 of IMM updated and reviewed w/ patient. Copy provided and copy dated, initialed and placed in chart.
[2023-09-05 16:35] LABS: Glucose Point of Care 104 mg/dL (70-110)
[2023-09-05] MEDS: mirtazapine 30 mg Tablet PO (17:48)
[2023-09-05 21:17] LABS: Glucose Point of Care 121 mg/dL (70-110)
[2023-09-06] VITALS: BP 132/80; PULSE 77; RESP 17; TEMP 36.4; O2SAT 99
[2023-09-06] MEDS: meropenem 1,000 MG in sodium chloride 0.9% (plus) 50 ML 100 MG IV ×2 (00:09→08:44)
[2023-09-06] MEDS: vancomycin 750 MG in sodium chloride 0.9% 250 ML 250 MG IV ×2 (00:41→14:05)
[2023-09-06 04:00] VITALS: BP 143/86; PULSE 83; RESP 17; TEMP 36.4; O2SAT 99
[2023-09-06 05:11] LABS: Basophils % 0.7 %; Eosinophils # 0.1 10^3/uL (0.0-0.8); Eosinophils % 1.4 %; Hematocrit 35.7 % (37-53); Lymphocytes # 0.8 10^3/uL (0.8-4.8); Lymphocytes % 18.8 %; Mean Corpuscular HGB Conc 33.3 g/dL (30-55); Mean Corpuscular Hemoglobin 30.1 pg (27-33); Mean Corpuscular Volume 90.2 fl (82-101); Mean Platelet Volume 10.2 fL (7.4-10.4); Monocytes # 0.4 10^3/uL (0.2-0.9); Monocytes % 8.9 %; Nucleated Red Blood Cells % 0 %; Platelet Count 231 10^3/cmm (157-399); Red Blood Count 3.96 10^6/uL (3.85-5.65); Red Cell Distribution Width 18.6 % (12.1-15.1); White Blood Count 4.15 10^3/uL (3.29-11.43)
[2023-09-06 05:47] LABS: Alanine Aminotransferase 6 U/L (0-41); Albumin Level 2.2 g/dL (3.5-5.2); Alkaline Phosphatase 67 U/L (40-130); Anion Gap 13.2 (5-19); Aspartate Amino Transferase 10 U/L (0-40); Blood Urea Nitrogen 11 mg/dL (8-23); Calcium 7.5 mg/dL (8.5-10.5); Carbon Dioxide 22 mmol/L (22-29); Chloride 108 mmol/L (98-107); Creatinine Clr Calc Pharmacy 81.8612; Globulin 2.7 g/dL (1.3-4.6); Glucose 110 mg/dL (65-115); Osmolality Calculated 290 mOsm/kg (285-295); Potassium 3.2 mmol/L (3.5-5.1); Sodium 140 mmol/L (136-145); Total Bilirubin 0.5 mg/dL (0.15-1.2); Total Protein 4.9 g/dL (6.6-8.7)
[2023-09-06 06:37] LABS: Glucose Point of Care 142 mg/dL (70-110)
[2023-09-06 08:00] VITALS: BP 120/71; PULSE 79; RESP 17; TEMP 36.7; O2SAT 98
[2023-09-06] MEDS: atorvastatin 40 mg Tablet 20 MG PO (08:44)
[2023-09-06] MEDS: finasteride 5 mg Tablet PO (08:44)
[2023-09-06] MEDS: insulin lispro 100 unit/1 mL SUBCUT (08:45)
[2023-09-06] MEDS: pantoprazole DR 40 mg Tablet PO (08:45)
[2023-09-06] MEDS: sucralfate 1 gm Tablet PO (08:45)
[2023-09-06] MEDS: sennosides-docusate Tablet 1 TAB PO (08:45)
[2023-09-06] MEDS: megestrol 400 mg/10 mL UDC PO (08:45)
[2023-09-06] MEDS: tamsulosin 0.4 mg Capsule 0.400000000000000022 MG PO (08:45)
[2023-09-06] MEDS: ferrous sulfate EC 325 mg Tablet PO (08:45)
--- NOTE | 2023-09-06 11:24 | PC.NURSE ---
Notified Dr. Florian patient refused potassium tablets. In fact the patient stated he wants to take nothing else. It took this nurse two and a half hours to get patient to finally take morning medications which were crushed and in pudding which was his choice.
[2023-09-06 11:49] LABS: Glucose Point of Care 128 mg/dL (70-110)
[2023-09-06 12:00] VITALS: BP 96/63; PULSE 90; RESP 16; TEMP 36.3; O2SAT 99
[2023-09-06 12:09] LABS: Vancomycin Trough 13.3 ug/mL (10-15)
[2023-09-06 13:30] LABS: Methicillin-Resist S.aureu PCR DETECTED (NOT DETECTED)
--- NOTE | 2023-09-06 13:48 | XRR_ITS ---
PROCEDURE INFORMATION: Exam: XR Chest Exam date and time: 09/06/2023 1:43 PM Age: 73 years old Clinical indication: Device placement; Picc; Additional info: Post picc insertion, callie placing in 256-2. Will call when ready. TECHNIQUE: Imaging protocol: Radiologic exam of the chest. Views: 1 view. COMPARISON: CR (CHEST, ) 08/10/2023 5:26 PM FINDINGS: Tubes, catheters and devices: PICC line enters from the right and terminates in the SVC. Lungs: Unremarkable. No consolidation. Pleural spaces: Unremarkable. No pleural effusion. No pneumothorax. Heart/Mediastinum: Unremarkable. No cardiomegaly. Bones/joints: Unremarkable. XR/XR chest 1V portable [id number] IMPRESSION: PICC line terminates in the SVC.
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
--- NOTE | 2023-09-06 14:35 | PC.NURSE ---
Single lumen PICC placed to right basilic vein. Referred to vascular access nurse for 7 days IV Ertapenem 1 gm daily. Possibility of IV Vancomycin being added to home infusion; therefore, PICC line placed. Risks and benefits discussed with patient and family and informed consent obtained from patient. Right arm assessed with right basilic vein measuring 3.5 mm, straight, and apparent best choice for placement. Using sterile technique and MST, right basilic vein accessed x 1 stick. Mid-arm circumference measured 10 cm from right AC 24 cm. Trimmed cath 42 cm with 0 cm external length noted. CXR shows tip in SVC, in good position for use per radiologist. Line secured with stat-lock. Insertion site covered with Biopatch and TSM. Report given to bedside nurseMary.
[2023-09-06] MEDS: ertapenem 1,000 MG in sodium chloride 0.9% (plus) 100 ML 200 MG IV (15:42)
[2023-09-06 16:00] VITALS: BP 110/69; PULSE 80; RESP 15; TEMP 36.4; O2SAT 100
[2023-09-06 17:01] LABS: Glucose Point of Care 79 mg/dL (70-110)
--- NOTE | 2023-09-06 20:15 | PC.NURSE ---
Notified Dr. Florian of patient having 118 in bladder up taking juarez out. Juarez was a chronic juarez. Dr. Florian gave verbal orders to replace catheter before discharge.
[2023-09-06 20:17] VITALS: BP 110/69; PULSE 80; RESP 15; TEMP 36.4; O2SAT 100
== END 2023-09-06 18:35 | disposition home health service (06) | DRG 638 ==
LOC: ER 23:55 → MEDSURG 09-05 00:05
PROVIDERS: Internal Medicine; Admitting Provider Internal Medicine; Emergency Provider Nurse Practitioner Family; PCP Family Medicine; Visit Provider Student in an Organized Health Care Education/Training Program
DX: E11.621 Type 2 diabetes mellitus with foot ulcer (principal); L03.115 Cellulitis of right lower limb; N39.0 Urinary tract infection, site not specified; L97.519 Non-pressure chronic ulcer of other part of right foot with unspecified severity; E11.40 Type 2 diabetes mellitus with diabetic neuropathy, unspecified; E11.51 Type 2 diabetes mellitus with diabetic peripheral angiopathy without gangrene; E87.6 Hypokalemia; Z66 Do not resuscitate; Z22.322 Carrier or suspected carrier of Methicillin resistant Staphylococcus aureus; Z89.512 Acquired absence of left leg below knee; E78.5 Hyperlipidemia, unspecified
CPT/HCPCS: 36415; 36416; 36573; 51702; 71045; 73630; 75635; 80048; 80053; 80202; 81001; 82962; 83605; 83735; 84145; 85025; 85378; 85610; 85651; 85730; 86140; 87040; 87077; 87086; 87186; 87641; 93971; 96365; 96367; 96372; 97597; 99213; 99285; A6219; A6220; A6248; J1335; J1815; J2185; J2543; J3370; J7030; J7050; Q9967

== ENCOUNTER → 2023-09-18 13:51 | Outpatient (BNVA) | payer MEDICARE, SELFPAY | PROVIDERS: PCP Family Medicine; Visit Provider Thoracic Surgery (Cardiothoracic Vascular Surgery) | DX: L89.322 Pressure ulcer of left buttock, stage 2 (principal); T81.31XD Disruption of external operation (surgical) wound, not elsewhere classified, subsequent encounter; Y83.8 Other surgical procedures as the cause of abnormal reaction of the patient, or of later complication, without mention of misadventure at the time of the procedure; E11.52 Type 2 diabetes mellitus with diabetic peripheral angiopathy with gangrene; L89.890 Pressure ulcer of other site, unstageable; E11.622 Type 2 diabetes mellitus with other skin ulcer; L97.811 Non-pressure chronic ulcer of other part of right lower leg limited to breakdown of skin | CPT/HCPCS: 97597; A6212; A6220 ==

== ENCOUNTER → 2023-09-25 14:41 | Outpatient (BNVA) | payer MEDICARE, SELFPAY | PROVIDERS: PCP Family Medicine; Visit Provider Thoracic Surgery (Cardiothoracic Vascular Surgery) | DX: L89.322 Pressure ulcer of left buttock, stage 2 (principal); T81.31XD Disruption of external operation (surgical) wound, not elsewhere classified, subsequent encounter; Y83.8 Other surgical procedures as the cause of abnormal reaction of the patient, or of later complication, without mention of misadventure at the time of the procedure; E11.52 Type 2 diabetes mellitus with diabetic peripheral angiopathy with gangrene; E11.622 Type 2 diabetes mellitus with other skin ulcer; L97.811 Non-pressure chronic ulcer of other part of right lower leg limited to breakdown of skin; E11.621 Type 2 diabetes mellitus with foot ulcer; L97.511 Non-pressure chronic ulcer of other part of right foot limited to breakdown of skin | CPT/HCPCS: 97597 ==

== ENCOUNTER 2023-10-02 11:14 | Observation (INO) | payer MEDICARE, SELFPAY ==
[2023-10-02] VITALS (14 sets, daily range): BP systolic 102–154; BP diastolic 63–87; PULSE 79–123; RESP 15–19; TEMP 36.4–36.7; O2SAT 97–100; BMI 19.6
--- NOTE | 2023-10-02 11:31 | XR_ITS ---
WS: [id number] Exam: XR chest 1V portable [id number] Date/Time of Exam: 10/02/2023 11:31 AM Reason For Exam: sob Comparison 09/06/2023. The lungs are hyperinflated and clear. Cardiomediastinal silhouette is unremarkable. Bony structures are intact. IMPRESSION: 1. No acute cardiopulmonary finding.
--- NOTE | 2023-10-02 11:35 | ECG_ITS ---
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 Measurements Intervals [place] Rate: 103 P: 18 GA: 150 QRS: -72 QRSD: 126 T: 104 QT: 370 QTc: 486 Interpretive Statements SINUS TACHYCARDIA LEFT AXIS DEVIATION [QRS AXIS < -30] MODERATE INTRAVENTRICULAR CONDUCTION DELAY [110+ ms QRS DURATION] ABNORMAL QRS-T ANGLE [QRS-T AXIS DIFFERENCE > 60] Compared to ECG 07/21/2023 19:50:48 Left-axis deviation now present Sinus rhythm no longer present Myocardial infarct finding no longer present Electronically Signed On 10-02-2023 11:46:35 CDT by Rodriguez Wing M.D. [id number]
--- NOTE | 2023-10-02 11:36 | CT_ITS ---
WS: [id number] CT HEAD TECHNIQUE: Noncontrast CT of the head obtained from the skullbase to the vertex. CLINICAL INFORMATION: confusion COMPARISON: 2018 DLP: 1049.[address] scans at [facility] use at least one of these dose optimization techniques: automated e xposure control; mA and/or kV adjustment per patient size (includes targeted exams where dose is matc hed to clinical indication); or iterative reconstruction. FINDINGS: No evidence of intracranial hemorrhage or mass effect. Ventricular system and basal cisterns are calvin nt. Moderate small vessel changes with moderate parenchymal volume loss. Chronic lacunar infarcts in the LEFT lateral basal ganglia. Chronic infarct LEFT inferior frontal lobe new from 2019 but appears chronic. Wallerian degeneration LEFT midbrain. Small vessel changes in the michael. No extra-axial fluid collections. No evidence of mass or mass effect. Paranasal sinuses and mastoid air cells are well aerated. .Normal visualized soft tissues. Incidental arachnoid cyst LEFT middle cranial fossa unchanged measuring 3.7 x 1.5 cm. IMPRESSION: 1. No evidence of intracranial hemorrhage or mass effect. 2. Moderate small vessel changes with moderate parenchymal volume loss progressed since 2018 3. Intracranial vascular calcification. 4. Chronic lacunar infarcts in the LEFT lateral basal ganglia 5. Chronic infarct LEFT inferior frontal lobe. 6. Wallerian degeneration LEFT midbrain. 7. Incidental arachnoid cyst LEFT middle cranial fossa unchanged measuring 3.7 x 1.5 cm. 8. No acute intracranial findings.
--- NOTE | 2023-10-02 11:37 | ED_ITS ---
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 He sees wound care he has been having increasing weakness he states especially over the last 5 days. He is seen at wound care today and blood pressure was in the 70s and was feeling very lethargic and having some confusion was sent over here he denies any pain anywhere denies any fevers he states just feels extremely weak Associated symptoms: Denies chest pain, chills, fever(s), headache(s), nausea or vomiting Review of Systems 2 Const: Reports: fatigue and malaise; Denies: fever(s), chills, body aches or change in appetite ENMT: Denies: throat pain or dental pain Card: Denies: chest pain Resp: Denies: dyspnea GI: Denies: abdominal pain, nausea, vomiting or diarrhea Musc: Denies: neck pain or back pain Skin/Breast: Denies: rash Neuro: Denies: headache(s) PFSH ED 2 PFSH: Medical History Diabetic ulcer of foot associated with type 1 diabetes mellitus, with necrosis of muscle Syncope Decubitus ulcer Acute cystitis Hand edema Shoulder pain, right Cellulitis and abscess of other specified site Diabetic peripheral neuropathy associated with type 2 diabetes mellitus Diabetes A1c 8.7 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 PAD (peripheral artery disease) Abscess or cellulitis of foot Diabetic foot ulcer UTI (urinary tract infection) Gangrene of right foot Cellulitis of right leg Abdominal wall abscess Hypertension Hyperlipidemia Nephrolithiasis Diabetes Short-term memory loss DDD (degenerative disc disease) Refusal of statin medication by patient Surgical History Status post below-knee amputation of left lower extremity History of vasectomy History of hemorrhoidectomy History of lithotripsy History of tracheostomy History of hernia repair Periumbilical x2 / mesh Family History Other Diabetes Social History Smoking and tobacco/nicotine status: never used tobacco/nicotine Alcohol intake: never Substance/Drug Use: never Lives independently: Yes Household members: none Marital status: Current 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 Pets and animals: Yes Physical Exam 2 Const: COMMON NORMALS: patient oriented x3 HENMT: COMMON NORMALS: normocephalic and atraumatic HEAD & SCALP: n ormocephalic and atraumatic Eye: COMMON NORMALS: Equal, round and reactive pupils present and EOMs intact bilaterally PUPIL: Yes Equal, round and reactive pupils present Neck/C-Spine: COMMON NORMALS: full ROM and supple Chest: COMMONS NORMALS: normal inspection of the chest Resp: COMMON NORMALS: normal respiratory effort, No retractions, No use of accessory muscles and clear to auscultation bilaterally AUSCULTATION: clear to auscultation bilaterally Cardio: COMMON NORMALS: regular rate, regular rhythm and No murmurs present (Cardio) RATE: regular rate RHYTHM: regular rhythm GI: COMMON NORMALS: Normal to inspection, nondistended, normoactive bowel sounds present, Soft to palpation, non-tender and no masses PALPATION: Yes Soft to palpation Extremity: COMMON NORMALS: normal to inspection and full ROM Neuro: COMMON NORMALS: patient oriented x3, moves all extremities and no focal motor deficits Psych: COMMON NORMALS: mental status grossly normal, Normal thought process present and cooperative THOUGHT PROCESS: Normal thought process present Skin: COMMON NORMALS: no rashes or lesions noted and no wounds GENERAL SKIN EXAM: no rashes or lesions noted Course 2 Vital Signs: Vital signs: Vital Signs Pulse Rate 95 10/02/23 15:30 Respiratory Rate 17 10/02/23 15:00 Blood Pressure 118/76 10/02/23 15:30 Pulse Oximetry 100 10/02/23 15:30 Oxygen Delivery Me thod Room Air 10/02/23 14:00 MDM - Weakness Medical Decision Making Patient presents here with generalized weakness he was hypotensive earlier at wound care he initially was hypotensive here but his blood pressure has been normal blood works normal spoke to hospitalist will admit for his weakness and to monitor his blood pressure. Medical Records I reviewed the patient's medical records. Lab Data I reviewed the patient's lab results. 10/02/23 12:20 10/02/23 12:20 Laboratory Results WBC 5.91 10^3/uL (3.29-11.43) 10/02/23 12:20 RBC 3.97 10^6/uL (3.85-5.65) 10/02/23 12:20 Hgb 12.50 g/dL (11.27-16.99) 10/02/23 12:20 Hct 37.8 % (37-53) 10/02/23 12:20 MCV 95.2 fl (82-101) 10/02/23 12:20 MCH 31.5 pg (27-33) 10/02/23 12:20 MCHC 33.1 g/dL (30-55) 10/02/23 12:20 RDW 16.2 % (12.1-15.1) H 10/02/23 12:20 Plt Count 281 10^3/cmm (157-399) 10/02/23 12:20 MPV 9.8 fL (7.4-10.4) 10/02/23 12:20 Neut % (Auto) 77.9 % 10/02/23 12:20 Lymph % (Auto) 15.6 % 10/02/23 12:20 Falls % (Auto) 5.4 % 10/02/23 12:20 Eos % (Auto) 0.3 % 10/02/23 12:20 Baso % (Auto) 0.5 % 10/02/23 12:20 Neut # (Auto) 4.60 10^3/uL (1.8-7.7) 10/02/23 12:20 Lymph # (Auto) 0.9 10^3/uL (0.8-4.8) 10/02/23 12:20 Falls # (Auto) 0.3 10^3/uL (0.2-0.9) 10/02/23 12:20 Eos # (Auto) 0.0 10^3/uL (0.0-0.8) 10/02/23 12:20 Baso # (Auto) 0.0 10^3/uL (0.0-0.1) 10/02/23 12:20 Nucleated RBC % (auto) 0 % 10/02/23 12:20 Nucleated RBCs # 0.0 /100WBC 10/02/23 12:20 PT 13.90 SECONDS (12.1-14.9) 10/02/23 12:20 INR 1.04 (0.8-1.2) 10/02/23 12:20 Sodium 139 mmol/L (136-145) 10/02/23 12:20 Potassium 4.6 mmol/L (3.5-5.1) 10/02/23 12:20 Chloride 104 mmol/L (98-107) 10/02/23 12:20 Carbon Dioxide 19 mmol/L (22-29) L 10/02/23 12:20 Anion Gap 20.6 (5-19) H 10/02/23 12:20 BUN 25 mg/dL (8-23) H 10/02/23 12:20 Creatinine 0.9 mg/dL (0.7-1.2) 10/02/23 12:20 GFR Calculation Not Reportable 10/02/23 12:20 Glucose 111 mg/dL (65-115) 10/02/23 12:20 Calculated Osmolality 293 mOsm/kg (285-295) 10/02/23 12:20 Lactic Acid 2.2 mmol/L (0.5-2.2) 10/02/23 12:20 Lactic Acid (Sepsis) 1.3 mmol/L (0.5-2.2) 10/02/23 15:24 Calcium 8.5 mg/dL (8.5-10.5) 10/02/23 12:20 Magnesium 1.8 mg/dL (1.7-2.3) 10/02/23 12:20 Total Bilirubin 0.8 mg/dL (0.15-1.2) 10/02/23 12:20 AST 8 U/L (0-40) 10/02/23 12:20 ALT < 5 U/L (0-41) 10/02/23 12:20 Alkaline Phosphatase 68 U/L (40-130) 10/02/23 12:20 Troponin T Baseline 92 ng/L (0-15) H 10/02/23 12:20 Troponin T 120 Minute 82.45 ng/L (0-15) H 10/02/23 14:47 Delta Troponin T -9.55 ABS# (0-10) L 10/02/23 14:47 Total Protein 5.2 g/dL (6.6-8.7) L 10/02/23 12:20 Albumin 2.7 g/dL (3.5-5.2) L 10/02/23 12:20 Globulin 2.5 g/dL (1.3-4.6) 10/02/23 12:20 TSH 2.02 uIU/mL (0.27-4.20) 10/02/23 12:20 Urine Color Val (Yellow) 10/02/23 13:40 Urine Appearance Hazy (CLEAR) A 10/02/23 13:40 Urine pH 5 (5-7) 10/02/23 13:40 Ur Specific [place] 1.020 (1.005-1.030) 10/02/23 13:40 Urine Protein 1+ (Negative) H 10/02/23 13:40 Urine Glucose (UA) Norm (Normal) 10/02/23 13:40 Urine Ketones 2+ (Negative) H 10/02/23 13:40 Urine Blood Neg (Negative) 10/02/23 13:40 Urine Nitrate Negative (Negative) 10/02/23 13:40 Urine Bilirubin 1+ (Negative) H 10/02/23 13:40 Urine Urobilinogen 1 mg/dL (Negative) H 10/02/23 13:40 Ur Leukocyte Esterase 1+ (Negative) H 10/02/23 13:40 Urine RBC 0-4 /hpf (0-2) H 10/02/23 13:40 Urine WBC 15-25 /hpf (0-5) H 10/02/23 13:40 Ur Squamous Epith Cells 0-4 /hpf (0-5) H 10/02/23 13:40 Amorphous Sediment Not Reportable 10/02/23 13:40 Urine Bacteria 1+ /hpf (NONE) H 10/02/23 13:40 Hyaline Casts 0-4 /lpf H 10/02/23 13:40 Urine Mucus Trace /hpf 10/02/23 13:40 Urine Yeast 3+ /hpf H 10/02/23 13:40 All radiology interpretation(s) finalized by discharge EKG Data EKG 1: I personally reviewed and interpreted this EKG as follows: EKG interpretation date: 10/02/23 EKG interpretation time: 11:35 Interpretation: sinus tach hr [address] elevation qrs 126 qtc 430 Discharge Plan Discharge Patient Disposition: Placed in Observation Clinical Impression: Generalized weakness Condition: Stable Prescriptions: No Action finasteride 5 mg tablet 5 mg PO DAILY Qty: 60 3RF megestrol 400 mg/10 mL (40 mg/mL) suspension 400 mg PO DAILY Qty: 480 1RF (DME) prosthetic leg for left leg See Rx Instructions .Route .MEDSUPPLY Qty: 1 0RF Rx Instructions: As directed atorvastatin 40 mg tablet 40 mg PO DAILY sucralfate 1 gram tablet 1 g PO DAILY tamsulosin 0.4 mg capsule 0.4 mg PO DAILY pantoprazole 40 mg tablet,delayed release (DR/EC) 40 mg PO DAILY mirtazapine 30 mg tablet 30 mg PO QPM ferrous sulfate [FeroSul] 325 mg (65 mg iron) tablet 325 mg PO DAILY Januvia 100 mg tablet 100 mg PO DAILY Qty: 30 0RF (DME) glucometer testing kit See Rx Instructions .Route .MEDSUPPLY Qty: 1 0RF Rx Instructions: glucometer testing kit strips#100 lancets#100 Referrals: Marzena Jesus MD [Primary Care Provider] - Coding Level of Care Code ED Gre[employer] Pumper for Thang Mejia
[2023-10-02] MEDS: sodium chloride 0.9% 1,000 ML 999 ML IV (11:56)
--- NOTE | 2023-10-02 12:35 | PC.PHAR ---
PTS FAMILY STS MEDICATIONS HAVE NOT BEEN PICKED UP YET- PT IS REFUSING TO TAKE MEDICATIONS AND EAT- PTS SON STS PT NORMALLY TAKES OXYCODONE BUT EXTERNAL MED HISTORY SHOWS LAST FILLED WHEN PT WAS IN A DETENTION BACK IN JUNE
[2023-10-02 12:40] LABS: Basophils % 0.5 %; Eosinophils % 0.3 %; Hematocrit 37.8 % (37-53); Lymphocytes # 0.9 10^3/uL (0.8-4.8); Lymphocytes % 15.6 %; Mean Corpuscular HGB Conc 33.1 g/dL (30-55); Mean Corpuscular Hemoglobin 31.5 pg (27-33); Mean Corpuscular Volume 95.2 fl (82-101); Mean Platelet Volume 9.8 fL (7.4-10.4); Monocytes # 0.3 10^3/uL (0.2-0.9); Monocytes % 5.4 %; Neutrophils % 77.9 %; Nucleated Red Blood Cells % 0 %; Platelet Count 281 10^3/cmm (157-399); Red Blood Count 3.97 10^6/uL (3.85-5.65); Red Cell Distribution Width 16.2 % (12.1-15.1); White Blood Count 5.91 10^3/uL (3.29-11.43)
[2023-10-02 12:58] LABS: INR 1.04 (0.8-1.2)
[2023-10-02 12:59] LABS: Troponin(5th) Baseline 92 ng/L (0-15)
[2023-10-02 13:04] LABS: Lactic Sepsis W/Reflex 2.2 mmol/L (0.5-2.2)
[2023-10-02 13:27] LABS: Alanine Aminotransferase < 5 U/L (0-41); Albumin Level 2.7 g/dL (3.5-5.2); Alkaline Phosphatase 68 U/L (40-130); Anion Gap 20.6 (5-19); Aspartate Amino Transferase 8 U/L (0-40); Blood Urea Nitrogen 25 mg/dL (8-23); Calcium 8.5 mg/dL (8.5-10.5); Carbon Dioxide 19 mmol/L (22-29); Chloride 104 mmol/L (98-107); Creatinine Clr Calc Pharmacy 73.0933; Globulin 2.5 g/dL (1.3-4.6); Glucose 111 mg/dL (65-115); Magnesium 1.8 mg/dL (1.7-2.3); Osmolality Calculated 293 mOsm/kg (285-295); Potassium 4.6 mmol/L (3.5-5.1); Sodium 139 mmol/L (136-145); Thyroid Stimulating Hormone 2.02 uIU/mL (0.27-4.20); Total Bilirubin 0.8 mg/dL (0.15-1.2); Total Protein 5.2 g/dL (6.6-8.7)
--- NOTE | 2023-10-02 13:31 | ECG_ITS ---
[facility] Test Date: 2023-10-02 Pat Name: Justice Guardado Department: Room: Gender: Male Warm In: : 1950 Requested By: Jah Mathis Order Number: [id number] Cecelia MD: Rodriguez Wing M.D. Measurements Intervals [place] Rate: 87 P: -81 WI: 111 QRS: -74 QRSD: 130 T: 104 QT: 411 QTc: 496 Interpretive Statements SINUS RHYTHM WITH PACs LEFT AXIS DEVIATION [QRS AXIS < -30] LEFT BUNDLE BRANCH BLOCK [120+ ms QRS DURATION, 80+ ms Q/S IN V1/V2, 85+ ms R IN I/aVL/V5/V6] Compared to ECG 10/02/2023 11:35:20 Ventricular premature complex(es) now present Left bundle-branch block now present Sinus tachycardia no longer present Intraventricular conduction delay no longer present Electronically Signed On 10-02-2023 14:21:29 CDT by Rodriguez Wing M.D. [id number]
[2023-10-02 13:51] LABS: Protein Urine 1+ (Negative); Urine Appearance Hazy (CLEAR); Urine Color Amber (Yellow); pH Urine 5 (5-7)
[2023-10-02 13:52] LABS: Add Urine Microscopic? YES; Bilirubin Urine 1+ (Negative); Blood Urine Neg (Negative); Glucose Urine UA Norm (Normal); Ketones Urine 2+ (Negative); Leukocyte Esterase Urine 1+ (Negative); Nitrate Urine Negative (Negative); Urobilinogen Urine 1 mg/dL (Negative)
[2023-10-02 14:00] LABS: RBC Urine 0-4 /hpf (0-2)
[2023-10-02 14:01] LABS: Bacteria Urine 1+ /hpf; Mucus Urine TRACE /hpf; Squamous Epithelial Cell Urine 0-4 /hpf (0-5); WBC Urine 15-25 /hpf (0-5)
[2023-10-02 14:02] LABS: Add Urine Culture? Yes; Hyaline Casts Urine 0-4 /lpf
[2023-10-02 14:22] LABS: Reflex Lactate Order REFLEX LACTIC ORDERD
[2023-10-02 15:16] LABS: Troponin 5 2HR 82.45 ng/L (0-15)
[2023-10-02 15:18] LABS: Troponin 5 2HR Delta -9.55 ABS# (0-10)
[2023-10-02 16:00] LABS: Lactic Acid level (Lactate) 1.3 mmol/L (0.5-2.2)
[2023-10-02 16:02] LABS: Glucose Point of Care 98 mg/dL (70-110)
[2023-10-02 17:09] LABS: Glucose Point of Care 94 mg/dL (70-110)
--- NOTE | 2023-10-02 17:24 | PM.HP ---
Providers/Chief Complaint Admitting Physician: Yuli Laws MD Primary Care Provider: Marzena Jesus MD Chief Complaint: low bp History of Present Illness Justice Guardado is a 73 year old male with past medical history of type 2 diabetes, PAD and chronic ulceration to right foot. Patient has previously underwent left below the knee amputation (06/28/2023) presented to ER from wound care clinic for complaint of generalized weakness, shortness of breath and uneasiness since 1 day. As per the patient he was sitting on the couch last night, and slipped and hit his head on the railing behind. He did not complain of any pain or loss of consciousness. CT head done in the ER was negative for any acute intracranial findings. He has been recently admitted multiple times for ESBL E. coli UTI and cellulitis. He had been on 2 weeks IV antibiotics through PICC line for ESBL E. coli UTI in the past. He denies any history of fever cold cough nausea vomiting diarrhea or chest pain. He was also treated for cellulitis with p.o. Zyvox on his last admission. On arrival to ER he was found to have systolic blood pressure in 70s. Review of Systems General: Reports: 10 or more systems reviewed and unremarkable except in HPI and below Medications/Allergies Home Medications Medication Instructions Recorded Confirmed Last Taken Type finasteride 5 mg tablet 5 mg PO DAILY #60 tabs 06/19/23 10/02/23 09/04/23 Rx glucometer testing kit #1 ea 06/29/23 10/02/23 Unknown Rx prosthetic leg for left leg #1 ea 08/25/23 10/02/23 Unknown Rx megestrol 400 mg/10 mL (40 mg/mL) 400 mg (10 mL) PO DAILY #480 mL 08/25/23 10/02/23 09/04/23 Rx oral suspension atorvastatin 40 mg tablet 40 mg PO DAILY 09/05/23 10/02/23 Unknown History ferrous sulfate 325 mg (65 mg 325 mg PO DAILY 09/05/23 10/02/23 Unknown History iron) tablet (FeroSul) mirtazapine 30 mg tablet 30 mg PO QPM 09/05/23 10/02/23 Unknown History pantoprazole 40 mg tablet,delayed 40 mg PO DAILY 09/05/23 10/02/23 Unknown History release sucralfate 1 gram tablet 1 g PO DAILY 09/05/23 10/02/23 Unknown History tamsulosin 0.4 mg capsule 0.4 mg PO DAILY 09/05/23 10/02/23 Unknown History sitagliptin phosphate 100 mg 100 mg PO DAILY #30 tabs 09/06/23 10/02/23 Unknown Rx tablet (Januvia) Allergies Allergy/AdvReac Type Severity Reaction Status Date / Time No Known Allergies Allergy Verified 08/25/23 10:08 PFSH Acute PFSH: Medical History Diabetic ulcer of foot associated with type 1 diabetes mellitus, with necrosis of muscle Syncope Decubitus ulcer Acute cystitis Hand edema Shoulder pain, right Cellulitis and abscess of other specified site Diabetic peripheral neuropathy associated with type 2 diabetes mellitus Diabetes A1c 8.7 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 PAD (peripheral artery disease) Abscess or cellulitis of foot Diabetic foot ulcer UTI (urinary tract infection) Gangrene of right foot Cellulitis of right leg Abdominal wall abscess Hypertension Hyperlipidemia Nephrolithiasis Diabetes Short-term memory loss DDD (degenerative disc disease) Refusal of statin medication by patient Surgical History Status post below-knee amputation of left lower extremity History of vasectomy History of hemorrhoidectomy History of lithotripsy History of tracheostomy History of hernia repair Periumbilical x2 / mesh Family History Other Diabetes Social History Smoking and tobacco/nicotine status: never used tobacco/nicotine Alcohol intake: never Substance/Drug Use: never Lives independently: Yes Household members: none Marital status: Current 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 Pets and animals: Yes Vitals/I&O/Wt Last Vital Signs Pulse 95 10/02/23 15:30 Resp 17 10/02/23 15:00 BP 118/76 10/02/23 15:30 Pulse Ox 100 10/02/23 15:30 O2 Del Method Room Air 10/02/23 14:00 10/02/23 10/02/23 10/02/23 06:59 14:59 22:59 Intake Total 1000 / 1000 Balance 1000 / 1000 Weight last 48 hrs Weight 65.771 kg Weight 65.771 kg Physical Exam Narrative: He is alert awake oriented x 3 , not in acute distress Chest clear to auscultation bilaterally Cardiovascular normal heart sounds Abdomen NAD Extremities-left BKA, small subcentimeter ulcer at the stump with no active signs of infection lateral right foot shows unstageable pressure wound to fifth metatarsal base with stable eschar 1.2 x 1.0 cm. Distal lateral right foot wound with 80% granular base 20% fibrotic measuring 2.7 x 2.0 x 0.2 cm mild surrounding erythema no underlying fluctuance negative probe to bone Back-small subcentimeter sacral decubiti, with no active signs of infection Urinary Catheter Management: Parker: Cath Placed During This Visit: no Data 10/02/23 12:20 10/02/23 12:20 A&P Assessment and plan (1) Generalized weakness: (2) UTI (urinary tract infection): Qualifiers: Encounter type: initial encounter Indwelling urinary catheter type: indwelling urethral catheter Urinary tract infection type: catheter-associated UTI Qualified Code(s): T83.511A - Infection and inflammatory reaction due to indwelling urethral catheter, initial encounter; N39.0 - Urinary tract infection, site not specified (3) Hypotension: Plan 73 year old male with past medical history of type 2 diabetes, PAD and chronic ulceration to right foot. Patient has previously underwent left below the knee amputation (06/28/2023) presented to ER from wound care clinic for complaint of generalized weakness, shortness of breath and uneasiness since 1 day and found to have hypotension and positive UA. In view of indwelling catheter and past history of ESBL E. coli UTI-will start IV meropenem 1 g every 8 hours. Follow-up urine cultures. IV fluids normal saline at 100 mL/h Regular diet Resume home medications Wound care as per protocol. DVT prophylaxis with subcutaneous Lovenox 30 mg daily GI prophylaxis with IV Protonix 40 mg twice a day CODE STATUS discussed with family son [id number] and patient, [facility] Statement*: He needs continued hospitalization crossing more than 2 midnights for IV antibiotics and IV fluids for hypotension and UTI Time Spent in Patient Care: 30 minutes Coding Level of Care Code Acute Code for [facility] Diagnoses Generalized weakness R53.1 UTI (urinary tract infection) T83.511A; N39.0 Encounter type: initial encounter Indwelling urinary catheter type: indwelling urethral catheter Urinary tract infection type: catheter-associated UTI Hypotension I95.9 Time Spent (min) 30
--- NOTE | 2023-10-02 17:31 | ECG_ITS ---
[facility] Test Date: 2023-10-02 Pat Name: Justice Guardado Department: Room: 268 Gender: Male Gluer And Wedger: : 1950 Requested By: Jah Mathis Order Number: [id number] Cecelia MD: Rodriguez Wing M.D. Measurements Intervals [place] Rate: 90 P: 0 IA: 158 QRS: -74 QRSD: 132 T: 108 QT: 410 QTc: 502 Interpretive Statements SINUS RHYTHM INTRAVENTRICULAR CONDUCTION DELAY [130+ ms QRS DURATION] POSSIBLE SEPTAL MYOCARDIAL INFARCTION , OF INDETERMINATE AGE [30 ms Q WAVE IN V1/V2] Compared to ECG 10/02/2023 13:31:40 Intraventricular conduction delay now present Myocardial infarct finding now present Left-axis deviation no longer present Left bundle-branch block no longer present Electronically Signed On 10-02-2023 23:14:39 CDT by Rodriguez Wing M.D. [id number]
[2023-10-02] MEDS: meropenem 1,000 MG in sodium chloride 0.9% (plus) 50 ML 100 MG IV (18:29)
[2023-10-02] MEDS: sodium chloride 0.9% 1,000 ML 100 ML IV (18:29)
[2023-10-02] MEDS: pantoprazole 40 mg SDV IVP (18:29)
[2023-10-02] MEDS: enoxaparin 40 mg/0.4 mL Syringe SUBCUT (18:29)
[2023-10-02 21:51] LABS: Troponin 5 6HR 76.65 ng/L (0-15)
[2023-10-02 21:52] LABS: Troponin 5 6HR Delta -15.35 ng/L (0-12)
[2023-10-03] MEDS: meropenem 1,000 MG in sodium chloride 0.9% (plus) 50 ML 100 MG IV ×3 (01:08→17:19)
[2023-10-03 04:00] VITALS: BP 110/67; PULSE 82; RESP 17; TEMP 36.6; O2SAT 100
[2023-10-03 04:53] LABS: Basophils % 0.6 %; Eosinophils # 0.1 10^3/uL (0.0-0.8); Eosinophils % 1.1 %; Hematocrit 31.9 % (37-53); Lymphocytes # 1.7 10^3/uL (0.8-4.8); Lymphocytes % 31.8 %; Mean Corpuscular HGB Conc 33.9 g/dL (30-55); Mean Corpuscular Hemoglobin 31.5 pg (27-33); Mean Platelet Volume 10.2 fL (7.4-10.4); Monocytes # 0.3 10^3/uL (0.2-0.9); Monocytes % 6.1 %; Neutrophils # 3.23 10^3/uL (1.8-7.7); Nucleated Red Blood Cells % 0 %; Platelet Count 248 10^3/cmm (157-399); Red Blood Count 3.43 10^6/uL (3.85-5.65); Red Cell Distribution Width 16.1 % (12.1-15.1); White Blood Count 5.38 10^3/uL (3.29-11.43)
[2023-10-03] MEDS: sodium chloride 0.9% 1,000 ML 100 ML IV ×2 (04:55→13:35)
[2023-10-03] MEDS: pantoprazole 40 mg SDV IVP ×2 (05:18→17:19)
[2023-10-03 05:21] LABS: Anion Gap 15.7 (5-19); Blood Urea Nitrogen 21 mg/dL (8-23); Calcium 7.8 mg/dL (8.5-10.5); Carbon Dioxide 19 mmol/L (22-29); Chloride 109 mmol/L (98-107); Creatinine Clr Calc Pharmacy 71.5079; Glucose 68 mg/dL (65-115); Osmolality Calculated 291 mOsm/kg (285-295); Potassium 3.7 mmol/L (3.5-5.1); Sodium 140 mmol/L (136-145)
[2023-10-03 06:42] LABS: Glucose Point of Care 72 mg/dL (70-110)
[2023-10-03 08:00] VITALS: BP 114/66; PULSE 89; RESP 16; TEMP 36.7; O2SAT 100
--- NOTE | 2023-10-03 09:30 | PC.CHAP ---
Pastoral Care Encounter/Spiritual Assessment Type of Contact [] Declined basin tender visit [] Patient/Family/Request visit [] Outpatient visit [] Follow-up visit [] Physician referral [] Code/Alert [] Routine visit [] Staff referral [] Actively dying [] Patient sleeping [] Family support [] [] Out of room [] Palliative care [] [] Receiving care in room [] Pre-surgical visit [] Trauma [] Long length of stay [] ICU visit [x] Other:Contact precautions. No visit. Relational/Emotional Strength [] Patient feels connected with others/family/visitors/staff [] Distress [] Loneliness/isolation [] Abandonment Spirituality of Patient [] Person of Stephanie [] Attends Yazdanism of their Stephanie [] Believes in Prayer [] Reads Bible or Religion materials [] There are Spiritual issues to be addressed Clinical Nursing Director Interventions [] Prayer [] Active listening [] Non-anxious presence [] Spiritual/emotional support [] Crisis/trauma care [] Spiritual counseling [] Bereavement support [] Provided bereavement packet [] Provided Bible/devotional materials [] Provided toy/stuffed animal, coloring book to patient or family member [] Provided Communion [] Anointing/[place] [] Salvation [] Completed spiritual assessment [] Other: Impact on Illness or Injury [] Angry [] Fearful [] Anxious [] Often cries [] Exhaustion [] Unable to work [] Unable to attend latter-day [] Unable to walk/stand [] Unable to read [] Unable to drive [] Unable to eat/drink [] Unable to sleep [] Unable to be with family [] Patient intubated [] Other: Summary Time spent with patient
--- NOTE | 2023-10-03 10:33 | PC.NURSE ---
Dr. Laws notified that pt refuses oral meds this am.
[2023-10-03 12:00] VITALS: BP 113/67; PULSE 70; RESP 16; TEMP 36.7; O2SAT 100
--- NOTE | 2023-10-03 12:26 | PC.SOCIAL ---
IMM Update pg 2 of IMM updated and reviewed w/ patient. Copy provided and copy dated, initialed and placed in chart.
--- NOTE | 2023-10-03 13:12 | PM.CONSULT ---
Providers/Reason For Consult Consulting Physician/Specialty*: Rehan Carl.P.M./podiatry Reason for Consult*: Right lower extremity wounds Attending Physician: Yuli Laws MD Primary Care Provider: Marzena Jesus MD History of Present Illness History of Present Illness Justice Guardado is a 73 year old male with history of left BKA and chronic ulcerations to right lower extremity, DM2, PAD who is currently inpatient at [facility] after presenting to the emergency department on 10/02/2023 with complaint of generalized weakness, and shortness of breath. Patient has been seeing [facility] wound care for left gluteal wound as well as distal right foot wound. Patient was last seen on 09/25/2023. He has been undergoing weekly curette debridement. Per last wound care visit note the wound has remained stable. Podiatry was consulted to evaluate wounds and provide further recommendations while patient is inpatient. Review of Systems General: Reports: 10 or more systems reviewed and unremarkable except in HPI and below Const: Denies: fever(s), chills, body aches or change in appetite Eyes: Denies: change in vision or blurry vision Card: Denies: chest pain, palpitations or irregular heart rhythm Resp: Denies: dyspnea GI: Denies: abdominal pain, nausea, vomiting or diarrhea Musc: Reports: joint stiffness Skin/Breast: Reports: non-healing lesions and lesions Neuro: Reports: numbness in extremities Medications/Allergies Home Medications Medication Instructions Recorded Confirmed Last Taken Type finasteride 5 mg tablet 5 mg PO DAILY #60 tabs 06/19/23 10/02/23 09/04/23 Rx glucometer testing kit #1 ea 06/29/23 10/02/23 Unknown Rx prosthetic leg for left leg #1 ea 08/25/23 10/02/23 Unknown Rx megestrol 400 mg/10 mL (40 mg/mL) 400 mg (10 mL) PO DAILY #480 mL 08/25/23 10/02/23 09/04/23 Rx oral suspension atorvastatin 40 mg tablet 40 mg PO DAILY 09/05/23 10/02/23 Unknown History ferrous sulfate 325 mg (65 mg 325 mg PO DAILY 09/05/23 10/02/23 Unknown History iron) tablet (FeroSul) mirtazapine 30 mg tablet 30 mg PO QPM 09/05/23 10/02/23 Unknown History pantoprazole 40 mg tablet,delayed 40 mg PO DAILY 09/05/23 10/02/23 Unknown History release sucralfate 1 gram tablet 1 g PO DAILY 09/05/23 10/02/23 Unknown History tamsulosin 0.4 mg capsule 0.4 mg PO DAILY 09/05/23 10/02/23 Unknown History sitagliptin phosphate 100 mg 100 mg PO DAILY #30 tabs 09/06/23 10/02/23 Unknown Rx tablet (Januvia) Allergies Allergy/AdvReac Type Severity Reaction Status Date / Time No Known Allergies Allergy Verified 08/25/23 10:08 Current Medications Generic Name Dose Route Start Last Admin Trade Name Freq PRN Reason Stop Dose Admin Atorvastatin Calcium 40 mg 10/03/23 09:00 10/03/23 10:32 Atorvastatin 40 Mg Tablet PO Not Given DAILY DENNISE Enoxaparin Sodium 40 mg 10/02/23 18:00 10/02/23 18:29 Enoxaparin 40 Mg/0.4 Ml Syringe SUBCUT 40 mg Q24H DENNISE Administration Ferrous Sulfate 325 mg 10/03/23 09:00 10/03/23 10:32 Ferrous Sulfate Ec 325 Mg Tablet PO Not Given DAILY DENNISE Finasteride 5 mg 10/03/23 09:00 10/03/23 10:32 Finasteride 5 Mg Tablet PO Not Given DAILY DENNISE Sodium Chloride 1,000 mls @ 100 mls/hr 10/02/23 17:45 10/03/23 04:55 Sodium Chloride 0.9% IV 100 mls/hr .Q10H DENNISE Administration Meropenem 1,000 mg/ Sodium 50 mls @ 100 mls/hr 10/02/23 18:00 10/03/23 11:30 Chloride IV Infused Q8H DENNISE Infusion Protocol Megestrol Acetate 400 mg 10/03/23 09:00 10/03/23 10:32 Megestrol 400 Mg/10 Ml Udc PO Not Given DAILY DENNISE Mirtazapine 30 mg 10/02/23 21:00 10/02/23 22:10 Mirtazapine 30 Mg Tablet PO Not Given BEDTIME DENNISE Pantoprazole Sodium 40 mg 10/02/23 18:00 10/03/23 05:18 Pantoprazole 40 Mg Sdv IVP 40 mg Q12H DENNISE Administration Sitagliptin Phosphate 100 mg 10/03/23 09:00 10/03/23 10:33 Sitagliptin 100 Mg Tablet PO Not Given DAILY DENNISE Tamsulosin HCl 0.4 mg 10/03/23 09:00 10/03/23 10:33 Tamsulosin 0.4 Mg Capsule PO Not Given DAILY [facility] PFSH Acute PFSH: Medical History Diabetic ulcer of foot associated with type 1 diabetes mellitus, with necrosis of muscle Syncope Decubitus ulcer Acute cystitis Hand edema Shoulder pain, right Cellulitis and abscess of other specified site Diabetic peripheral neuropathy associated with type 2 diabetes mellitus Diabetes A1c 8.7 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 PAD (peripheral artery disease) Abscess or cellulitis of foot Diabetic foot ulcer UTI (urinary tract infection) Gangrene of right foot Cellulitis of right leg Abdominal wall abscess Hypertension Hyperlipidemia Nephrolithiasis Diabetes Short-term memory loss DDD (degenerative disc disease) Refusal of statin medication by patient Surgical History Status post below-knee amputation of left lower extremity History of vasectomy History of hemorrhoidectomy History of lithotripsy History of tracheostomy History of hernia repair Periumbilical x2 / mesh Family History Other Diabetes Social History Smoking and tobacco/nicotine status: never used tobacco/nicotine Alcohol intake: never Substance/Drug Use: never Lives independently: Yes Household members: none Marital status: Current 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 Pets and animals: Yes Vitals/I&O/Wt Last Vital Signs Temp 98.1 F 10/03/23 12:00 Pulse 70 10/03/23 12:00 Resp 16 10/03/23 12:00 BP 113/67 10/03/23 12:00 Pulse Ox 100 10/03/23 12:00 O2 Del Method Room Air 10/03/23 12:00 10/02/23 10/03/23 10/03/23 22:59 06:59 14:59 Intake Total 150 / 1150 1110 / 2260 290 / 290 Output Total 400 / 400 50 / 450 Balance -250 / 750 1060 / 1810 290 / 290 Weight last 48 hrs Weight 139 lb 11.2 oz Weight 145 lb Weight 145 lb Physical Exam Narrative: BELOW IS A FOCUSED LOWER EXTREMITY EXAM GENERAL: A&O x 3 VASCULAR: DP/PT pulses diminished to right foot with CFT less than 3 seconds to distal digits DERMATOLOGICAL: Skin turgor and temperature is within normal limits. No interdigital maceration noted. Lateral right leg wound shows unstageable eschar, stable no active drainage or underlying fluctuance. Lateral right foot shows unstageable pressure wound to fifth metatarsal base with stable eschar 1.5 x 1.3 cm. Surrounding erythema of fifth metatarsal base wound appears to be pressure related rather than cellulitic. Distal lateral right foot wound with 100% granular base, negative probe to bone no surrounding erythema MUSCULOSKELETAL: Status post partial fifth ray resection right foot NEUROLOGICAL: Neurological sensation to the affected foot and ankle is present through L4-S1 dermatomes with no hyper/hypoesthesias, negative Tinel or Valleix's sign Urinary Catheter Management: Parker: Cath Placed During This Visit: yes Reason for Continuing Indwelling Catheter: Other Urinary Catheter Date of Insertion: 09/05/23 Urinary Catheter Time of Insertion: 00:31 Data 10/03/23 04:13 10/03/23 04:13 Micro: Microbiology 10/02/23 21:16 Blood Culture - Preliminary Blood SPECIMEN COLLECTED 10/02/23 21:11 Blood Culture - Preliminary Blood SPECIMEN COLLECTED A&P Assessment and plan (1) Diabetic foot ulcer: Qualifiers: Diabetes mellitus type: type 2 Diabetic foot ulcer location: unspecified part of foot Laterality: left Non-pressure ulcer stage: unspecified non-pressure ulcer stage Qualified Code(s): E11.621 - Type 2 diabetes mellitus with foot ulcer; L97.529 - Non-pressure chronic ulcer of other part of left foot with unspecified severity (2) Diabetes: Qualifiers: Diabetes mellitus type: type 2 Diabetes mellitus jail insulin use: without supervisor intermediates use Diabetes mellitus complication status: without complication Qualified Code(s): E11.9 - Type 2 diabetes mellitus without complications (3) PAD (peripheral artery disease): Plan -Multiple ulcerations of right lower extremity -Labs and vitals reviewed -WBC 5.38 -VSS -Diet: Okay for diet from podiatry standpoint -Right foot wounds are stable no surgical intervention or mechanical debridement warranted from podiatry standpoint at this time. Eschars of right lower extremity are stable. We will commence enzymatic debridement with Santyl collagenase. Continue with local wound care -Pain Mgmt: Per hospitalist -Weight bearing: Weightbearing as tolerated to right foot in cam boot for transfers -Dressings: Right lateral leg wound and proximal right foot wound to be dressed daily with Santyl collagenase, dry sterile dressing. Distal right foot wound to be dressed with Hydrofera Blue daily. Dressing change order placed -Discharge plan: Okay for discharge from podiatry standpoint with follow-up at wound care. -Podiatry will sign off. Please reconsult if needed Coding Level of Care Code Acute Code for [facility] Fwd Diagnoses Diabetic foot ulcer E11.621; L97.529 Diabetes mellitus type: type 2 Diabetic foot ulcer location: unspecified part of foot Laterality: left Non-pressure ulcer stage: unspecified non-pressure ulcer stage Type 2 diabetes mellitus without complication, without long-term current use of insulin E11.9 Diabetes mellitus type: type 2 Diabetes mellitus supervisor intermediates insulin use: without jail use Diabetes mellitus complication status: without complication PAD (peripheral artery disease) I73.9
--- NOTE | 2023-10-03 15:12 | P.PN_ITS ---
Subjective 2 Subjective: No acute overnight events noted. Seen at bedside this morning, with no new complaints. Medications: Reviewed: Yes Vitals/I&O/Wt Last Vital Signs Temp 98.1 F 10/03/23 12:00 Pulse 70 10/03/23 12:00 Resp 16 10/03/23 12:00 BP 113/67 10/03/23 12:00 Pulse Ox 100 10/03/23 12:00 O2 Del Method Room Air 10/03/23 12:00 10/03/23 10/03/23 10/03/23 06:59 14:59 22:59 Intake Total 1110 / 2260 1156.667 / 1156.667 Output Total 50 / 450 Balance 1060 / 1810 1156.667 / 1156.667 Weight last 48 hrs Weight 63.367 kg Weight 65.771 kg Weight 65.771 kg Physical Exam 2 Narrative: He is alert awake oriented x 3 , not in acute distress Chest clear to auscultation bilaterally Cardiovascular normal heart sounds Abdomen NAD Extremities-left BKA, small subcentimeter ulcer at the stump with no active signs of infection lateral right foot shows unstageable pressure wound to fifth metatarsal base with stable eschar 1.2 x 1.0 cm. Distal lateral right foot wound with 80% granular base 20% fibrotic measuring 2.7 x 2.0 x 0.2 cm mild surrounding erythema no underlying fluctuance negative probe to bone Back-small subcentimeter sacral decubiti, with no active signs of infection Urinary Catheter Management: Parker: Cath Placed During This Visit: no Data 10/03/23 04:13 10/03/23 04:13 Micro: Microbiology 10/02/23 21:16 Blood Culture - Preliminary Blood SPECIMEN COLLECTED 10/02/23 21:11 Blood Culture - Preliminary Blood SPECIMEN COLLECTED A&P Assessment and plan (1) Generalized weakness: (2) UTI (urinary tract infection): Qualifiers: Encounter type: initial encounter Indwelling urinary catheter type: i ndwelling urethral catheter Urinary tract infection type: catheter-associated UTI Qualified Code(s): T83.511A - Infection and inflammatory reaction due to indwelling urethral catheter, initial encounter; N39.0 - Urinary tract infection, site not specified (3) Hypotension: (4) Diabetic foot ulcer: Plan 73 year old male with past medical history of type 2 diabetes, PAD and chronic ulceration to right foot. Patient has previously underwent left below the knee amputation (06/28/2023) presented to ER from wound care clinic for complaint of generalized weakness, shortness of breath and uneasiness since 1 day and found to have hypotension and positive UA. In view of indwelling catheter and past history of ESBL E. coli UTI-will start IV meropenem 1 g every 8 hours. Follow-up urine cultures. IV fluids normal saline at 100 mL/h Regular diet Resume home medications Podiatry consult by Dr Giselle connor. Wound care as per protocol by podiatry DVT prophylaxis with subcutaneous Lovenox 30 mg daily GI prophylaxis with IV Protonix 40 mg twice a day CODE STATUS discussed with family son [id number] and patient, he is full code for now Attestations 2 Medical Necessity Statement*: Needs continued hospitalization for IV antibiotics for possible ESBL E. coli, need to follow-up urine cultures Time Spent in Patient Care: 15 minutes Coding Level of Care Code Acute Code for [facility] Fwd Diagnoses Generalized weakness R53.1 UTI (urinary tract infection) T83.511A; N39.0 Encounter type: initial encounter Indwelling urinary catheter type: indwelling urethral catheter Urinary tract infection type: catheter-associated UTI Hypotension I95.9 Diabetic foot ulcer E11.621; L97.509 Time Spent (min) 15
[2023-10-03 16:00] VITALS: BP 112/70; PULSE 94; RESP 20; TEMP 36.4; O2SAT 99
[2023-10-03 20:00] VITALS: BP 124/78; PULSE 89; RESP 18; TEMP 36.6; O2SAT 99
--- NOTE | 2023-10-03 21:14 | PC.NURSE ---
pt wanting to wait later on taking remeron
[2023-10-04] VITALS: BP 124/71; PULSE 84; RESP 16; TEMP 36.6; O2SAT 98
[2023-10-04] MEDS: sodium chloride 0.9% 1,000 ML 100 ML IV ×2 (00:20→10:52)
[2023-10-04] MEDS: meropenem 1,000 MG in sodium chloride 0.9% (plus) 50 ML 100 MG IV ×3 (01:25→17:06)
[2023-10-04 04:00] VITALS: BP 131/78; PULSE 80; RESP 17; TEMP 36.5; O2SAT 98
[2023-10-04] MEDS: pantoprazole 40 mg SDV IVP (06:00)
[2023-10-04 08:00] VITALS: BP 125/89; PULSE 88; RESP 14; TEMP 36.4; O2SAT 99
[2023-10-04] MEDS: megestrol 400 mg/10 mL UDC PO (09:23)
[2023-10-04] MEDS: tamsulosin 0.4 mg Capsule 0.400000000000000022 MG PO (09:23)
[2023-10-04] MEDS: finasteride 5 mg Tablet PO (09:23)
--- NOTE | 2023-10-04 09:26 | P.PN_ITS ---
Subjective 2 Subjective: No acute overnight events noted. He denies any complaint of chest pain shortness of breath cough vomiting or diarrhea. Medications: Reviewed: Yes Vitals/I&O/Wt Last Vital Signs Temp 97.5 F L 10/04/23 08:00 Pulse 88 10/04/23 08:00 Resp 14 10/04/23 08:00 BP 125/89 10/04/23 08:00 Pulse Ox 99 10/04/23 08:00 O2 Del Method Room Air 10/04/23 08:00 10/03/23 10/04/23 10/04/23 22:59 06:59 14:59 Intake Total 410 / 9323.063 4369 / 2616.667 Output Total 600 / 600 250 / 850 Balance -190 / 966.667 800 / 1766.667 Weight last 48 hrs Weight 64.501 kg Weight 63.367 kg Weight 65.771 kg Weight 65.771 kg Physical Exam 2 Narrative: He is alert awake oriented x 3 , not in acute distress Chest clear to auscultation bilaterally Cardiovascular normal heart sounds Abdomen NAD Extremities-left BKA, small subcentimeter ulcer at the stump with no active signs of infection lateral right foot shows unstageable pressure wound to fifth metatarsal base with stable eschar 1.2 x 1.0 cm. Distal lateral right foot wound with 80% granular base 20% fibrotic measuring 2.7 x 2.0 x 0.2 cm mild surrounding erythema no underlying fluctuance negative probe to bone Back-small subcentimeter sacral decubiti, with no active signs of infection Urinary Catheter Management: Parker: Cath Placed During This Visit: yes Reason for Continuing Indwelling Catheter: Acute Urinary Retention or Obstruction Urinary Catheter Date of Insertion: 09/05/23 Urinary Catheter Time of Insertion: 00:31 Data 10/03/23 04:13 10/03/23 04:13 Micro: Microbiology 10/02/23 13:40 Urine Culture - Preliminary Urine,Clean Catch Yeast 10/02/23 21:16 Blood Culture - Preliminary Blood NEGATIVE TO DATE 10/02/23 21:11 Blood Culture - Preliminary Blood NEGATIVE TO DATE A&P Assessment and plan (1) Generalized weakness: (2) UTI (urinary tract infection): Qualifiers: Encounter type: initial encounter Indwelling urinary catheter type: i ndwelling urethral catheter Urinary tract infection type: catheter-associated UTI Qualified Code(s): T83.511A - Infection and inflammatory reaction due to indwelling urethral catheter, initial encounter; N39.0 - Urinary tract infection, site not specified (3) Hypotension: (4) Diabetic foot ulcer: Plan 73 year old male with past medical history of type 2 diabetes, PAD and chronic ulceration to right foot. Patient has previously underwent left below the knee amputation (06/28/2023) presented to ER from wound care clinic for complaint of generalized weakness, shortness of breath and uneasiness since 1 day and found to have hypotension and positive UA. In view of indwelling catheter and past history of ESBL E. coli UTI-will start IV meropenem 1 g every 8 hours. Follow-up urine cultures, prelim growing yeast IV fluids normal saline at 100 mL/h Regular diet Resume home medications Wound care as per protocol by podiatry DVT prophylaxis with subcutaneous Lovenox 30 mg daily GI prophylaxis with IV Protonix 40 mg twice a day CODE STATUS discussed with family son [id number] and patient, he is full code for now Attestations 2 Medical Necessity Statement*: He needs continued hospitalization for IV antibiotics and fluids for UTI and follow-up of blood and urine cultures Time Spent in Patient Care: 15 minutes Coding Level of Care Code Acute Code for [facility] Fwd Diagnoses Generalized weakness R53.1 UTI (urinary tract infection) T83.511A; N39.0 Encounter type: initial encounter Indwelling urinary catheter type: indwelling urethral catheter Urinary tract infection type: catheter-associated UTI Hypotension I95.9 Diabetic foot ulcer E11.621; L97.509 Time Spent (min) 15
[2023-10-04 11:39] VITALS: BP 120/76; PULSE 80; RESP 16; TEMP 36.7; O2SAT 98
[2023-10-04 16:00] VITALS: BP 118/70; PULSE 70; RESP 16; TEMP 36.7; O2SAT 96
[2023-10-04 19:56] VITALS: BP 129/79; PULSE 98; RESP 18; TEMP 36.7; O2SAT 100
[2023-10-05] VITALS: BP 121/78; PULSE 99; RESP 16; TEMP 36.8; O2SAT 95
[2023-10-05] MEDS: meropenem 1,000 MG in sodium chloride 0.9% (plus) 50 ML 100 MG IV ×3 (01:52→17:54)
[2023-10-05 03:58] VITALS: BP 119/72; PULSE 92; RESP 17; TEMP 36.7; O2SAT 99
[2023-10-05] MEDS: sodium chloride 0.9% 1,000 ML 100 ML IV ×2 (04:07→18:04)
[2023-10-05] MEDS: pantoprazole 40 mg SDV IVP ×2 (05:51→17:57)
[2023-10-05 08:00] VITALS: BP 119/67; PULSE 78; RESP 16; TEMP 36.4; O2SAT 91
[2023-10-05] MEDS: sitagliptin 100 mg Tablet PO (09:46)
[2023-10-05] MEDS: atorvastatin 40 mg Tablet PO (09:46)
[2023-10-05] MEDS: finasteride 5 mg Tablet PO (09:47)
[2023-10-05] MEDS: megestrol 400 mg/10 mL UDC PO (09:47)
[2023-10-05] MEDS: ferrous sulfate EC 325 mg Tablet PO (09:47)
[2023-10-05] MEDS: tamsulosin 0.4 mg Capsule 0.400000000000000022 MG PO (09:47)
[2023-10-05] MEDS: fluconazole premix 200 MG/100 ML PREMIX 100 MG IV (11:50)
[2023-10-05 11:58] LABS: Basophils % 0.5 %; Eosinophils % 0.7 %; Hematocrit 40.6 % (37-53); Lymphocytes # 1.1 10^3/uL (0.8-4.8); Lymphocytes % 18.1 %; Mean Corpuscular Hemoglobin 31.9 pg (27-33); Mean Corpuscular Volume 102.8 fl (82-101); Mean Platelet Volume 10.5 fL (7.4-10.4); Monocytes # 0.3 10^3/uL (0.2-0.9); Monocytes % 5.5 %; Neutrophils # 4.33 10^3/uL (1.8-7.7); Neutrophils % 74.9 %; Nucleated Red Blood Cells % 0 %; Platelet Count 248 10^3/cmm (157-399); Red Blood Count 3.95 10^6/uL (3.85-5.65); Red Cell Distribution Width 16.2 % (12.1-15.1); White Blood Count 5.79 10^3/uL (3.29-11.43)
[2023-10-05 12:32] LABS: Blood Urea Nitrogen 10 mg/dL (8-23); Calcium 7.6 mg/dL (8.5-10.5); Carbon Dioxide 21 mmol/L (22-29); Chloride 106 mmol/L (98-107); Glucose 107 mg/dL (65-115); Osmolality Calculated 278 mOsm/kg (285-295); Sodium 134 mmol/L (136-145)
[2023-10-05 12:36] LABS: Creatinine Clr Calc Pharmacy 82.0508
[2023-10-05 12:37] LABS: Anion Gap 10.6 (5-19); Potassium 3.6 mmol/L (3.5-5.1)
[2023-10-05 12:59] VITALS: BP 124/72; PULSE 52; RESP 18; TEMP 36.2; O2SAT 97
[2023-10-05 16:17] LABS: Urine Appearance Cloudy (CLEAR); Urine Color Yellow (Yellow)
[2023-10-05 16:18] LABS: Add Urine Microscopic? YES; Bacteria Urine TRACE /hpf; Bilirubin Urine Neg (Negative); Blood Urine 2+ (Negative); Glucose Urine UA Norm (Normal); Ketones Urine 1+ (Negative); Leukocyte Esterase Urine 2+ (Negative); Nitrate Urine Negative (Negative); Protein Urine Neg (Negative); Urobilinogen Urine Norm (Negative); WBC Urine 25-40 /hpf (0-5); pH Urine 6 (5-7)
[2023-10-05 16:19] LABS: Add Urine Culture? Yes
[2023-10-05 16:33] VITALS: BP 130/79; PULSE 95; RESP 18; TEMP 36.4; O2SAT 98
--- NOTE | 2023-10-05 17:22 | P.PN_ITS ---
Subjective 2 Subjective: No acute overnight events noted. He denies any new complaints and wants to go home. Medications: Reviewed: Yes Vitals/I&O/Wt Last Vital Signs Temp 97.5 F L 10/05/23 16:33 Pulse 95 10/05/23 16:33 Resp 18 10/05/23 16:33 BP 130/79 10/05/23 16:33 Pulse Ox 98 10/05/23 16:33 O2 Del Method Room Air 10/05/23 16:33 10/05/23 10/05/23 10/05/23 06:59 14:59 22:59 Intake Total 170 / 2970 240 / 240 1150 / 1390 Output Total 250 / 500 700 / 700 Balance -80 / 2470 240 / 240 450 / 690 Weight last 48 hrs Weight 65.374 kg Weight 64.501 kg Physical Exam 2 Narrative: He is alert awake oriented x 3 , not in acute distress Chest clear to auscultation bilaterally Cardiovascular normal heart sounds Abdomen NAD Extremities-left BKA, small subcentimeter ulcer at the stump with no active signs of infection lateral right foot shows unstageable pressure wound to fifth metatarsal base with stable eschar 1.2 x 1.0 cm. Distal lateral right foot wound with 80% granular base 20% fibrotic measuring 2.7 x 2.0 x 0.2 cm mild surrounding erythema no underlying fluctuance negative probe to bone Back-small subcentimeter sacral decubiti, with no active signs of infection Urinary Catheter Management: Parker: Cath Placed During This Visit: yes Reason for Continuing Indwelling Catheter: Chronic Indwelling Urinary Catheter on Admission Urinary Catheter Date of Insertion: 09/05/23 Urinary Catheter Time of Insertion: 00:31 Data 10/05/23 11:34 10/05/23 11:34 Micro: Microbiology 10/02/23 13:40 Urine Culture - Preliminary Urine,Clean Catch Yeast A&P Assessment and plan (1) Generalized weakness: (2) UTI (urinary tract infection): Qualifiers: Encounter type: initial encounter Indwelling urinary catheter type: i ndwelling urethral catheter Urinary tract infection type: catheter-associated UTI Qualified Code(s): T83.511A - Infection and inflammatory reaction due to indwelling urethral catheter, initial encounter; N39.0 - Urinary tract infection, site not specified (3) Hypotension: (4) Diabetic foot ulcer: Plan 73 year old male with past medical history of type 2 diabetes, PAD and chronic ulceration to right foot. Patient has previously underwent left below the knee amputation (06/28/2023) presented to ER from wound care clinic for complaint of generalized weakness, shortness of breath and uneasiness since 1 day and found to have hypotension and positive UA. In view of indwelling catheter and past history of ESBL E. coli UTI-will start IV meropenem 1 g every 8 hours. Follow-up urine cultures, prelim growing yeast Added Iv fluconazole 200mg daily and would need po fluconazole 200mg daily for 10 days on discharge. IV fluids normal saline at 100 mL/h Regular diet Resume home medications Wound care as per protocol by podiatry DVT prophylaxis with subcutaneous Lovenox 30 mg daily GI prophylaxis with IV Protonix 40 mg twice a day CODE STATUS discussed with family son [id number] and patient, he is full code for now Discharge planning= discharge home awaiting final blood cultures. Attestations 2 Medical Necessity Statement*: He needs continued hospitalization for IV antibiotics and fluids for UTI and follow-up of blood and urine cultures Time Spent in Patient Care: 15 minutes Coding Level of Care Code Acute Code for [facility] Fwd Diagnoses Generalized weakness R53.1 UTI (urinary tract infection) T83.511A; N39.0 Encounter type: initial encounter Indwelling urinary catheter type: indwelling urethral catheter Urinary tract infection type: catheter-associated UTI Hypotension I95.9 Diabetic foot ulcer E11.621; L97.509 Time Spent (min) 15
--- NOTE | 2023-10-05 18:07 | PC.NURSE ---
Patient refused lovenox injection. Stated no more shots.
[2023-10-05 20:00] VITALS: BP 118/72; PULSE 91; RESP 18; TEMP 36.6; O2SAT 98
[2023-10-06] VITALS: BP 113/70; PULSE 80; RESP 18; TEMP 36.4; O2SAT 98
[2023-10-06] MEDS: sodium chloride 0.9% 1,000 ML 100 ML IV (01:39)
[2023-10-06] MEDS: meropenem 1,000 MG in sodium chloride 0.9% (plus) 50 ML 100 MG IV ×2 (01:39→09:25)
[2023-10-06 04:00] VITALS: BP 119/70; PULSE 88; RESP 18; TEMP 36.4; O2SAT 98
[2023-10-06] MEDS: pantoprazole 40 mg SDV IVP (06:35)
[2023-10-06 08:09] VITALS: BP 115/73; PULSE 77; RESP 18; TEMP 36.8; O2SAT 94
--- NOTE | 2023-10-06 09:31 | PC.NURSE ---
Notified Dr. Alarcon patient stated he is taking no medication until he is notified of discharge. Holding medication for later.
[2023-10-06 12:18] VITALS: BP 109/73; PULSE 79; RESP 18; TEMP 36.2; O2SAT 97
--- NOTE | 2023-10-06 12:35 | P.DS_ITS ---
Discharge Providers Date of Admission: 10/02/23 17:34 Date of Discharge: October 06, 2023 Attending Provider at Admission: Yuli Laws MD Attending Provider at Discharge: Mal Alarcon MD Primary Care Provider: Marzena Jessu MD Diagnoses at Discharge Discharge Diagnosis (1) Generalized weakness: Status: Acute (2) UTI (urinary tract infection): Status: Acute Qualifiers: Encounter type: initial encounter Indwelling urinary catheter type: indwelling urethral catheter Urinary tract infection type: catheter-associated UTI Qualified Code(s): T83.511A - Infection and inflammatory reaction due to indwelling urethral catheter, initial encounter; N39.0 - Urinary tract infection, site not specified (3) Hypotension: Status: Acute (4) Diabetic foot ulcer: Status: Acute Reason for Visit Reason for Visit: low bp Hospital Course Hospital Course Justice is a 73-year-old white male with significant chronic illness, diabetes, severe peripheral vascular disease, and significant weakness with below the knee amputation and skin ulceration. He came into the hospital for weakness, inability to manage things at home. There was concern of UTI. He has had frequent previous admissions. Secondary to past culture results he was placed on meropenem for past concerns of ESBL. He was given fluids, and his home medication was resumed. Podiatry was consulted for his lower extremity wounds, who recommended he continue to follow-up in wound care. Urine culture did not show ESBL, showed yeast. He will discharge home on Diflucan for 10 days. He did receive fluconazole while in the hospital. I discussed with him his chronic illnesses, and recommended hospice which she accepted. I discussed this with his and his friend as well who agreed. He was given an opportunity to ask questions and agreed with the plan. Physical Exam Narrative: General exam no distress Neck is supple Cardiovascular regular rate and rhythm Lungs clear Abdomen soft Extremity amputation is noted Urinary Catheter Management: Parker: Cath Placed During This Visit: yes Reason for Continuing Indwelling Catheter: Other Urinary Catheter Date of Insertion: 09/05/23 Urinary Catheter Time of Insertion: 00:31 Discharge Data Studies Completed and Pending Completed Studies During Hospitalization Category Date Time Status CT head wo con* [id number] Stat Cat Scan 10/02/23 11:36 Completed XR chest 1V portable [id number] Stat Exams 10/02/23 11:31 Completed Pending at discharge Category Date Time Status Blood Culture Stat Lab 10/02/23 21:16 Results Urine Culture Stat Lab 10/02/23 13:40 Results Laboratory Results WBC 5.79 10^3/uL (3.29-11.43) 10/05/23 11:34 RBC 3.95 10^6/uL (3.85-5.65) 10/05/23 11:34 Hgb 12.60 g/dL (11.27-16.99) 10/05/23 11:34 Hct 40.6 % (37-53) 10/05/23 11:34 MCV 102.8 fl (82-101) H 10/05/23 11:34 MCH 31.9 pg (27-33) 10/05/23 11:34 MCHC 31.0 g/dL (30-55) 10/05/23 11:34 RDW 16.2 % (12.1-15.1) H 10/05/23 11:34 Plt Count 248 10^3/cmm (157-399) 10/05/23 11:34 MPV 10.5 fL (7.4-10.4) H 10/05/23 11:34 Neut % (Auto) 74.9 % 10/05/23 11:34 Lymph % (Auto) 18.1 % 10/05/23 11:34 [place] % (Auto) 5.5 % 10/05/23 11:34 Eos % (Auto) 0.7 % 10/05/23 11:34 Baso % (Auto) 0.5 % 10/05/23 11:34 Neut # (Auto) 4.33 10^3/uL (1.8-7.7) 10/05/23 11:34 Lymph # (Auto) 1.1 10^3/uL (0.8-4.8) 10/05/23 11:34 [place] # (Auto) 0.3 10^3/uL (0.2-0.9) 10/05/23 11:34 Eos # (Auto) 0.0 10^3/uL (0.0-0.8) 10/05/23 11:34 Baso # (Auto) 0.0 10^3/uL (0.0-0.1) 10/05/23 11:34 Nucleated RBC % (auto) 0 % 10/05/23 11:34 Nucleated RBCs # 0.0 /100WBC 10/05/23 11:34 PT 13.90 SECONDS (12.1-14.9) 10/02/23 12:20 INR 1.04 (0.8-1.2) 10/02/23 12:20 Sodium 134 mmol/L (136-145) L 10/05/23 11:34 Potassium 3.6 mmol/L (3.5-5.1) 10/05/23 11:34 Chloride 106 mmol/L (98-107) 10/05/23 11:34 Carbon Dioxide 21 mmol/L (22-29) L 10/05/23 11:34 Anion Gap 10.6 (5-19) 10/05/23 11:34 BUN 10 mg/dL (8-23) 10/05/23 11:34 Creatinine 0.4 mg/dL (0.7-1.2) L 10/05/23 11:34 GFR Calculation Not Reportable 10/05/23 11:34 Glucose 107 mg/dL (65-115) 10/05/23 11:34 POC Glucose 72 mg/dL (70-110) 10/03/23 06:38 Calculated Osmolality 278 mOsm/kg (285-295) L 10/05/23 11:34 Lactic Acid 2.2 mmol/L (0.5-2.2) 10/02/23 12:20 Lactic Acid (Sepsis) 1.3 mmol/L (0.5-2.2) 10/02/23 15:24 Calcium 7.6 mg/dL (8.5-10.5) L 10/05/23 11:34 Magnesium 1.8 mg/dL (1.7-2.3) 10/02/23 12:20 Total Bilirubin 0.8 mg/dL (0.15-1.2) 10/02/23 12:20 AST 8 U/L (0-40) 10/02/23 12:20 ALT < 5 U/L (0-41) 10/02/23 12:20 Alkaline Phosphatase 68 U/L (40-130) 10/02/23 12:20 Troponin T Baseline 92 ng/L (0-15) H 10/02/23 12:20 Troponin T 120 Minute 82.45 ng/L (0-15) H 10/02/23 14:47 Delta Troponin T -9.55 ABS# (0-10) L 10/02/23 14:47 Troponin T Hi Sens 6Hr 76.65 ng/L (0-15) H 10/02/23 21:16 Troponin T Hi Sens 6Hr Delta -15.35 ng/L (0-12) L 10/02/23 21:16 Total Protein 5.2 g/dL (6.6-8.7) L 10/02/23 12:20 Albumin 2.7 g/dL (3.5-5.2) L 10/02/23 12:20 Globulin 2.5 g/dL (1.3-4.6) 10/02/23 12:20 TSH 2.02 uIU/mL (0.27-4.20) 10/02/23 12:20 Urine Color Yellow (Yellow) 10/05/23 15:45 Urine Appearance Cloudy (CLEAR) A 10/05/23 15:45 Urine pH 6 (5-7) 10/05/23 15:45 Ur Specific [place] 1.020 (1.005-1.030) 10/05/23 15:45 Urine Protein Neg (Negative) 10/05/23 15:45 Urine Glucose (UA) Norm (Normal) 10/05/23 15:45 Urine Ketones 1+ (Negative) H 10/05/23 15:45 Urine Blood 2+ (Negative) H 10/05/23 15:45 Urine Nitrate Negative (Negative) 10/05/23 15:45 Urine Bilirubin Neg (Negative) 10/05/23 15:45 Urine Urobilinogen Norm mg/dL (Negative) 10/05/23 15:45 Ur Leukocyte Esterase 2+ (Negative) H 10/05/23 15:45 Urine RBC 10-15 /hpf (0-2) H 10/05/23 15:45 Urine WBC 25-40 /hpf (0-5) H 10/05/23 15:45 Ur Squamous Epith Cells None /hpf (0-5) 10/05/23 15:45 Amorphous Sediment Not Reportable 10/05/23 15:45 Urine Bacteria Trace /hpf (NONE) 10/05/23 15:45 Hyaline Casts 0-4 /lpf H 10/02/23 13:40 Urine Mucus Trace /hpf 10/02/23 13:40 Urine Yeast 3+ /hpf H 10/05/23 15:45 Vitals Last Vital Signs Temp 97.2 F L 10/06/23 12:18 Pulse 79 10/06/23 12:18 Resp 18 10/06/23 12:18 BP 109/73 10/06/23 12:18 Pulse Ox 97 10/06/23 12:18 O2 Del Method Room Air 10/06/23 12:18 Discharge Plan Discharge Patient Disposition: Home Health Service Condition: Stable Prescriptions: New fluconazole 200 mg tablet 200 mg PO DAILY Qty: 10 0RF Continued finasteride 5 mg tablet 5 mg PO DAILY Qty: 60 3RF megestrol 400 mg/10 mL (40 mg/mL) suspension 400 mg PO DAILY Qty: 480 1RF (DME) prosthetic leg for left leg See Rx Instructions .Route .MEDSUPPLY Qty: 1 0RF Rx Instructions: As directed atorvastatin 40 mg tablet 40 mg PO DAILY sucralfate 1 gram tablet 1 g PO DAILY tamsulosin 0.4 mg capsule 0.4 mg PO DAILY pantoprazole 40 mg tablet,delayed release (DR/EC) 40 mg PO DAILY mirtazapine 30 mg tablet 30 mg PO QPM ferrous sulfate [FeroSul] 325 mg (65 mg iron) tablet 325 mg PO DAILY Januvia 100 mg tablet 100 mg PO DAILY Qty: 30 0RF (DME) glucometer testing kit See Rx Instructions .Route .MEDSUPPLY Qty: 1 0RF Rx Instructions: glucometer testing kit strips#100 lancets#100 Discharge Orders: Discharge Order (Routine); Ordered 10/06/23 Ordered By: Mal Alarcon Referrals: [facility] [Outside] Marzena Jesus MD [Primary Care Provider] - 4-7 days Discharge Diet: Usual diet Discharge Activity: Increase activity as tolerated Patient Instructions: Opioid Safety Activity Restrictions/Additional Instructions: Take all medicine as prescribed Follow-up with your primary care provider 3 to 5 days Finish course of fluconazole Make sure Parker is changed monthly Hospice consultation pending, hopefully discharge home on hospice. Continue to follow-up with wound care weekly. Discharge Attestations Time Spent in Discharge Care*: greater than 30 min Status at Discharge: Cognitive status at discharge: cognitively intact , Behavioral status at discharge: cooperative , Quality Metrics Clinical Quality Measures [ No reported AMI, CVA or VTE this stay] Coding Level of Care Code 03383 Total time (in minutes) for Discharge: 50 Diagnoses Generalized weakness R53.1 UTI (urinary tract infection) T83.511A; N39.0 Encounter type: initial encounter Indwelling urinary catheter type: indwelling urethral catheter Urinary tract infection type: catheter-associated UTI Hypotension I95.9 Diabetic foot ulcer E11.621; L97.509
--- NOTE | 2023-10-06 14:17 | PC.SOCIAL ---
IMM Update Pg. 2 of IMM updated and reviewed. Copy provided.
--- NOTE | 2023-10-06 15:43 | PC.NURSE ---
Discussed discharge with patient. New medications and continued medications. How important it was to take medications as prescribed. Please watch wounds. Patient verbalized understanding. 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 Patient verbalized understanding.
[2023-10-06 15:45] VITALS: BP 109/73; PULSE 79; RESP 18; TEMP 36.2; O2SAT 97
== END 2023-10-06 14:30 | disposition hospice, home (50) ==
LOC: ER 16:03 → MEDSURG 16:08
PROVIDERS: Admitting Provider Internal Medicine; Emergency Provider Emergency Medicine; PCP Family Medicine; Visit Provider Internal Medicine
DX: R53.1 Weakness (principal); T83.511A Infection and inflammatory reaction due to indwelling urethral catheter, initial encounter; N39.0 Urinary tract infection, site not specified; I95.9 Hypotension, unspecified; E10.622 Type 1 diabetes mellitus with other skin ulcer; L97.519 Non-pressure chronic ulcer of other part of right foot with unspecified severity; I73.9 Peripheral vascular disease, unspecified; E10.42 Type 1 diabetes mellitus with diabetic polyneuropathy; I10 Essential (primary) hypertension; E78.5 Hyperlipidemia, unspecified; Z89.522 Acquired absence of left knee
CPT/HCPCS: 36415; 36416; 70450; 71045; 80048; 80053; 81001; 82962; 83605; 83735; 84443; 84484; 85025; 85610; 87040; 87086; 87106; 93005; 94664; 96372; 97110; 97161; 97530; 99285; C9113; G0378; J1450; J1650; J2185; J7030